=== PATIENT | female | born 1965 | race Caucasian/White ===

== ENCOUNTER → 2016-09-24 | Outpatient (CLI) | payer OTHER ==
[~2016-09-24] MED LIST: ATOR80TA PO; ATV/1 PO; CEPH-571 PO; CHOL1000 PO; ESCI1TAB10 PO; FENO145T26 PO; GLC/500 PO; IBUP-1050 PO; IMD/2 PO; LSN/10125 PO; METO-217 PO
[2016-09-24 13:47] LABS: ESTIMATED AVERAGE GLUCOSE 148 mg/dl; HA1C FLAG Normal (Normal)
[2016-09-24 14:10] LABS: BLOOD UREA NITROGEN 19 mg/dl (7-18); GLUCOSE 152 mg/dl (70-99)
[2016-09-24 14:11] LABS: BUN/CREATININE RATIO 11.8 (10-20); CALCIUM 9.2 mg/dl (8.5-10.1); CARBON DIOXIDE 22 mmol/L (21-32); CHLORIDE 105 mmol/L (98-107); CHOLESTEROL 143 mg/dl (0-200); POTASSIUM 4.3 mmol/L (3.5-5.1); SODIUM 138 mmol/L (136-145)
[2016-09-24 14:22] LABS: HDL CHOLESTEROL 36 mg/dl; TRIGLYCERIDES 431 mg/dl (0-150)
== END | disposition home or self-care (01) ==
LOC: C.LABPVFM 09:35
PROVIDERS: ATTEND Nurse Practitioner
DX: I10 Essential (primary) hypertension (principal); E78.2 Mixed hyperlipidemia; E78.1 Pure hyperglyceridemia; E55.9 Vitamin D deficiency, unspecified; E11.9 Type 2 diabetes mellitus without complications

== ENCOUNTER → 2016-09-28 | Outpatient (CLI) | payer OTHER ==
--- NOTE | 2016-09-28 09:43 | DIAGNOSTIC IMAGING REPORT ---
EXAMINATION: RENAL ULTRASOUND CLINICAL HISTORY: UPJ obstruction COMPARISON STUDY: CT scan dated 03/18/2014 FINDINGS: The right kidney measures 13.4 cm. The left kidney measures 11.3 cm. There is severe left-sided hydronephrosis and marked cortical thinning. This is progressive when compared with a September 2011 ultrasound. There are no renal masses. No bladder abnormalities are visualized. The left ureteral jet was not visualized.. There is increased hepatic echogenicity IMPRESSION : 1. Ultrasonographically normal right kidney 2. Severe left-sided hydronephrosis and cortical thinning. This is progressive when compared with a prior September 2011 study 3. Increased hepatic echogenicity, consistent with hepatic steatosis Electronically signed by: Narciso Delarosa M.D. 09/28/2016 9:41 AM Dictated Date/Time: 09/28/2016 9:39 AM
== END | disposition home or self-care (01) ==
LOC: C.ULTR 08:51
PROVIDERS: ATTEND Nurse Practitioner
DX: N28.9 Disorder of kidney and ureter, unspecified (principal); Q62.11 Congenital occlusion of ureteropelvic junction

== ENCOUNTER → 2016-10-09 | Outpatient (CLI) | payer OTHER ==
[2016-10-09 13:17] LABS: BLOOD UREA NITROGEN 18 mg/dl (7-18); BUN/CREATININE RATIO 16.4 (10-20); CALCIUM 8.8 mg/dl (8.5-10.1); CARBON DIOXIDE 23 mmol/L (21-32); CHLORIDE 101 mmol/L (98-107); GLUCOSE 233 mg/dl (70-99); PHOSPHORUS 3.9 mg/dl (2.5-4.9); POTASSIUM 4.2 mmol/L (3.5-5.1); SODIUM 134 mmol/L (136-145)
[2016-10-11 17:33] LABS: ALBUMIN 4.3 G/DL (3.8-4.8); GAMMA GLOBULIN 1.3 G/DL (0.8-1.7); TOTAL PROTEIN 7.5 G/DL (6.2-8.3)
== END | disposition home or self-care (01) ==
LOC: C.LABPVFM 10:15
PROVIDERS: ATTEND Nurse Practitioner
DX: N28.9 Disorder of kidney and ureter, unspecified (principal); G62.9 Polyneuropathy, unspecified; R26.89 Other abnormalities of gait and mobility

== ENCOUNTER → 2016-11-13 | Outpatient (CLI) | payer OTHER ==
[~2016-11-13] MED LIST changes: +GADAVIST IV PRN
--- NOTE | 2016-11-13 09:58 | DIAGNOSTIC IMAGING REPORT ---
MRI OF THE BRAIN WITHOUT AND WITH IV CONTRAST CLINICAL HISTORY: R90.89 Abnormal brain MRIR26.89 Poor [id number] Worsening headcap COMPARISON STUDY: CT dated 01/13/2010 TECHNIQUE: Utilizing a 1.5 Aishwarya magnet and dedicated coil, multiplanar, multiecho imaging of the brain was performed pre and postcontrast administration. IV administration of 8 mL of Gadavist contrast was uneventful. FINDINGS: Diffusion-weighted images show no evidence for acute ischemic process. Multiple foci of increased signal within the periventricular deep white matter regions. These are highly suspect for a demyelinating disorder. The involve the optic radiations the left and to lesser extent right cerebral hemisphere. Ventricular system is midline. Sella and parasellar regions are unremarkable. Internal artery canals are symmetric. IMPRESSION: 1. Multiple foci of increased signal within the periventricular deep white matter regions. 2. The appearance is highly suggestive of a demyelinating disorder such as multiple sclerosis. 3. No evidence for abnormal postcontrast enhancement. 4. No evidence for an acute ischemic insult. Electronically signed by: Xavi Bloom M.D. 11/13/2016 9:57 AM Dictated Date/Time: 11/13/2016 9:51 AM
== END | disposition home or self-care (01) ==
LOC: C.MRI 08:52
PROVIDERS: ATTEND Psychiatry & Neurology Neurology
DX: R51 Headache (principal); R26.89 Other abnormalities of gait and mobility; R90.89 Other abnormal findings on diagnostic imaging of central nervous system

== ENCOUNTER → 2016-11-27 | Outpatient (CLI) | payer OTHER ==
[~2016-11-27] MED LIST changes: -GADAVIST IV PRN
== END | disposition home or self-care (01) ==
LOC: C.LABPVFM 10:34
PROVIDERS: ATTEND Nurse Practitioner
DX: E53.8 Deficiency of other specified B group vitamins (principal)

== ENCOUNTER 2017-02-16 11:54 | Emergency (ER) | payer OTHER ==
[~2017-02-16] VITALS: Ht 154.9 cm; Wt 75.7 kg
[~2017-02-16 11:54] MED LIST changes: -CEPH-571 PO
[2017-02-16 11:59] VITALS: TEMP 36.7; Ht 154.9 cm; Wt 75.7 kg
[2017-02-16] MEDS ORDERED: ONDANSETRON 8 MG/54 ML D5W IV STA (12:31)
[2017-02-16] MEDS ORDERED: SODIUM CHLORIDE 0.9% 1000ML 1,000 ML IV STA ×2 (12:31→16:16)
[2017-02-16] MEDS ORDERED: MoRPHine SULFATE 4 MG/ML 1 ML CARP\\VIAL IV STA ×2 (12:31→14:36)
[2017-02-16] MEDS ORDERED: OPTIRAY 320 IV PRN (12:45)
[2017-02-16 12:50] LABS: BASO % 0.5 %; BASO ABS # 0.03 K/uL (0-0.2); COMPLETE YES; EOS % 1.9 %; HEMATOCRIT 38.6 % (37-47); IG% 0.3 %; LYMPH % 24.4 %; LYMPH ABS # 1.58 K/uL (1.2-3.4); MEAN CELL VOLUME 90.6 fL (80-100); MEAN CORPUSCULAR HEMOGLOBIN 31.2 pg (25-34); MEAN CORPUSCULAR HGB CONC 34.5 g/dl (32-36); MEAN PLATELET VOLUME 11.3 fL (7.4-10.4); MONO % 10.2 %; NEUT % 62.7 %; PLATELET COUNT 252 K/uL (130-400); RED BLOOD COUNT 4.26 M/uL (4.2-5.4); WHITE BLOOD COUNT 6.47 K/uL (4.8-10.8)
[2017-02-16 12:55] LABS: URINE APPEARANCE CLOUDY (CLEAR); URINE COLOR DK YELLOW; URINE EPITHELIAL CELL AUTO >30 /lpf (0-5); URINE NITRITE POS (NEG); URINE SPECIFIC GRAVITY 1.037 (1.000-1.030); UROBILINOGEN NEG (NEG); ZZUR CULT IF INDIC CLEAN CATCH YES
[2017-02-16 12:56] LABS: PROTHROMBIN TIME (PATIENT) 10.5 SECONDS (9.0-12.0)
[2017-02-16 12:58] LABS: MANUAL MICROSCOPIC REQUIRED? NO; REVIEW REQ? YES; URINE BILIRUBIN NEG (NEG)
[2017-02-16 13:04] LABS: BUN/CREATININE RATIO 22.3 (10-20); CALCIUM 10.1 mg/dl (8.5-10.1); CREATININE 0.93 mg/dl (0.60-1.20)
[2017-02-16 13:11] LABS: URINE MUCUS PRESENT (NONE PRSENT)
[2017-02-16] MEDS ORDERED: PIPERACILLIN/TAZOBACTAM 3.375 GM/100ML D5W IV STA (14:23)
[2017-02-16] MEDS ORDERED: PIPERACILL/TAZOBAC IV 3.375 GM in DEXTROSE 5% 100ML IV ONE (14:45)
--- NOTE | 2017-02-16 15:04 | EMERGENCY ROOM VISIT NOTE ---
History Report prepared by Shashank: Simon Santiago Under the Supervision of: Dr. Sharon Carvajal D.O. First contact with patient: 12:02 Chief Complaint: ABDOMINAL PAIN Stated Complaint: SEVERE ABDOMINAL PAIN, VOMITTING DIARRHEA Nursing Triage Summary: pt to the ED with c/o abd pain for over the past year and has been seeing Dr dwyer pt [place] the [place] and the pain got much worse and they came home early pt has lost over 30lbs per pt states pain is lower abd History of Present Illness The patient is a 51 year old female who presents to the Emergency Room with complaints of constant abdominal pain starting five days ago. She reports that her pain has been fluctuating between a 6/10 and a 10/10 in severity. The patient states that she has been experiencing nausea and a loss of appetite for over a year, which she had two upper GI colonoscopies with Tiff in the past for. She states that she typically follows up with Dr. Dwyer for her stomach problems. The patient states that she lost 30 pounds in the last 2 months. The patient states that she was on vacation in the [facility] when she started to feel nauseous after dinner, which led her to vomit. She states that she has been having constant abdominal pain radiating to both sides since, with the pain worse on the left side. She reports that the pain hurts with breathing and she is bloated. The patient states that she has been keeping fluids in, but has not been eating due to her constant lack of appetite and nausea. She states that she called her PCP yesterday and they were worried that her symptoms were due to diverticulitis and or pancreatitis and told her to report to the ED. The patient states that her last normal bowel movement was this morning. 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 The patient denies any changes in medications. Source of History: patient Onset: five days ago Position: abdomen Symptom Intensity: 6/10 to 10/10 Timing: constant Modifying Factors (Worsening): breathing Associated Symptoms: + nausea, + vomiting Review of Systems See HPI for pertinent positives & negatives. A total of 10 systems reviewed and were otherwise negative. Past Medical & Surgical Medical Problems: (1) Anxiety State Nos (2) Cervical Spinal Stenosis (3) Chronic Liver Dis Nec (4) Diab Josee Wo Compl, Type Ii Or Unspec Type, Uncontrolled (5) Hypertension Nos (6) Ovarian Cyst Nec/Nos (7) Retroperitoneal fibrosis Surgical Problems: (1) History of ureter stent (2) Hx of cholecystectomy Family History Heart disease Social History Smoking Status: Current Every Day Smoker Alcohol Use: none Marital Status: Housing Status: lives with family Occupation Status: employed Current/Historical Medications Scheduled Atorvastatin Calcium (Lipitor), 80 MG PO QAM Cephalexin (Keflex), 1 CAP PO TID Cholecalciferol (Vitamin D3), 5,000 UNITS PO QAM Escitalopram Oxalate (Lexapro), 20 MG PO HS Fenofibrate (Tricor), 145 MG PO QPM Hctz/Lisinopril (Lisinopril/Hctz 10/12.5 Mg), 1 TAB PO QPM Ibuprofen (Advil), 400 MG PO PRN Metformin Hcl (Glucophage), 500 MG PO QAM Metformin Hcl (Glucophage), 500 MG PO QPM Metoprolol Succinate (Toprol Xl), 50 MG PO QPM Scheduled PRN Loperamide Hcl (Imodium), 2 MG PO BID PRN for rn Lorazepam (Ativan), 0.5-1 MG PO BID PRN for prn Allergies Coded Allergies: No Known Allergies (Unverified , 05/18/16) Physical Exam Vital Signs Date Time Temp Pulse Resp B/P (MAP) Pulse Ox O2 Delivery O2 Flow Rate FiO2 02/16/17 17:50 89 16 100/60 95 02/16/17 16:59 90 16 104/62 95 02/16/17 16:39 95 16 102/67 96 02/16/17 16:15 100/62 02/16/17 16:00 94 16 88/65 94 02/16/17 13:59 104 16 117/58 95 02/16/17 11:59 36.7 107 18 105/64 97 Room Air Physical Exam GENERAL: alert, well appearing, well nourished, no distress, non-toxic EYE EXAM: normal conjunctiva, PERRL and EOM's grossly intact OROPHARYNX: no exudate, no erythema, lips, buccal mucosa, and tongue normal and mucous membranes are moist NECK: supple, no nuchal rigidity, no adenopathy, non-tender LUNGS: Clear to auscultation. Normal chest wall mechanics HEART: no murmurs, S1 normal and S2 normal ABDOMEN: Generalized abdominal discomfort worse on left side, abdomen soft, normo-active bowel sounds, no masses, no rebound or guarding. BACK: Back is symmetrical on inspection and there is no deformity, no midline tenderness, no CVA tenderness. SKIN: no rashes and no bruising UPPER EXTREMITIES: upper extremities are grossly normal. LOWER EXTREMITIES: No pitting edema. NEURO EXAM: Normal sensorium, cranial nerves II-XII grossly intact, normal speech, no gross weakness of arms, no gross weakness of legs. No drift. Finger to nose intact. Gross sensation intact. Medical Decision & Procedures ER Provider Diagnostic Interpretation: CT OF THE ABDOMEN AND PELVIS WITH CONTRAST CLINICAL HISTORY: Abdominal pain, nausea and vomiting. COMPARISON STUDY: CT of the abdomen and pelvis March 18, 2014 and renal ultrasound September 28, 2016. TECHNIQUE: Following IV administration of 70 mL of Optiray-320, axial images of the abdomen and pelvis were obtained from the lung bases to the proximal femurs. Images were reviewed in the axial, sagittal, and coronal planes. IV contrast was administered without complication. Oral contrast was administered. CT DOSE: 679.94 mGy.cm FINDINGS: There is no significant biliary ductal dilatation status post cholecystectomy. There is suspected fatty infiltration of the liver. Borderline splenomegaly is unchanged. There are calcified granulomas within the spleen. The left kidney is markedly atrophic. Left hydronephrosis shown on exam of September 28, 2016 has resolved. There is moderate left perinephric infiltration. There is compensatory hypertrophy of the right kidney. Note is again made of soft tissue thickening surrounding the mid to distal abdominal aorta and the bilateral common iliac arteries which is similar to prior exam. 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 The major mesenteric vessels appear patent although the inferior mesenteric artery is difficult to assess on this exam. There is no evidence for a bowel obstruction. The appendix is normal. There are scattered colonic diverticula without evidence for acute diverticulitis. No suspicious skeletal lesions are identified. The caliber and wall thickness of small and large bowel are normal. IMPRESSION: 1. No acute process within the abdomen or pelvis. 2. Marked left renal atrophy which was shown on prior exams. Interval resolution of left hydronephrosis since ultrasound of September 28, 2016. Compensatory hypertrophy of the right kidney. 3. No change in a rind of soft tissue encasing the mid to distal abdominal aorta and bilateral common iliac arteries since prior exams. This suggests retroperitoneal fibrosis. Electronically signed by: Pankaj Hinton M.D. 02/16/2017 3:32 PM Dictated Date/Time: 02/16/2017 3:21 PM Laboratory Results 02/16/17 12:08 Red Blood Count 4.26, Mean Corpuscular Volume 90.6, Mean Corpuscular Hemoglobin 31.2, Mean Corpuscular Hemoglobin Concent 34.5, Mean Platelet Volume 11.3, Neutrophils (%) (Auto) 62.7, Lymphocytes (%) (Auto) 24.4, Monocytes (%) (Auto) 10.2, Eosinophils (%) (Auto) 1.9, Basophils (%) (Auto) 0.5, Neutrophils # (Auto ) 4.06, Lymphocytes # (Auto) 1.58, Monocytes # (Auto) 0.66, Eosinophils # (Auto ) 0.12, Basophils # (Auto) 0.03 02/16/17 12:08 Test 02/16/17 12:08 02/16/17 13:00 White Blood Count 6.47 K/uL (4.8-10.8) Red Blood Count 4.26 M/uL (4.2-5.4) Hemoglobin 13.3 g/dL (12.0-16.0) Hematocrit 38.6 % (37-47) Mean Corpuscular Volume 90.6 fL (80-100) Mean Corpuscular Hemoglobin 31.2 pg (25-34) Mean Corpuscular Hemoglobin Concent 34.5 g/dl (32-36) Platelet Count 252 K/uL (130-400) Mean Platelet Volume 11.3 fL (7.4-10.4) Neutrophils (%) (Auto) 62.7 % Lymphocytes (%) (Auto) 24.4 % Monocytes (%) (Auto) 10.2 % Eosinophils (%) (Auto) 1.9 % Basophils (%) (Auto) 0.5 % Neutrophils # (Auto) 4.06 K/uL (1.4-6.5) Lymphocytes # (Auto) 1.58 K/uL (1.2-3.4) Monocytes # (Auto) 0.66 K/uL (0.11-0.59) Eosinophils # (Auto) 0.12 K/uL (0-0.5) Basophils # (Auto) 0.03 K/uL (0-0.2) RDW Standard Deviation 40.9 fL (36.4-46.3) RDW Coefficient of Variation 12.4 % (11.5-14.5) Immature Granulocyte % (Auto) 0.3 % Immature Granulocyte # (Auto) 0.02 K/uL (0.00-0.02) Prothrombin Time 10.5 SECONDS (9.0-12.0) Prothromb Time International Ratio 1.0 (0.9-1.1) Urine Color DK YELLOW Urine Appearance CLOUDY (CLEAR) Urine pH 5.0 (4.5-7.5) Urine Specific [place] 1.037 (1.000-1.030) Urine Protein 1+ (NEG) Urine Glucose (UA) NEG (NEG) Urine Ketones TRACE (NEG) Urine Occult Blood NEG (NEG) Urine Nitrite POS (NEG) Urine Bilirubin NEG (NEG) Urine Urobilinogen NEG (NEG) Urine Leukocyte Esterase SMALL (NEG) Urine WBC (Auto) 1-5 /hpf (0-5) Urine RBC (Auto) 0-4 /hpf (0-4) Urine Hyaline Casts (Auto) 1-5 /lpf (0-5) Urine Epithelial Cells (Auto) >30 /lpf (0-5) Urine Bacteria (Auto) NEG (NEG) Urine Renal Epithelial Cells /lpf (0-5) Urine Pathogenic Casts /lpf (0) Urine Mucus PRESENT (NONE PRSENT) Urine Yeast (Auto) (NONE PRSENT) Anion Gap 8.0 mmol/L (3-11) Est Creatinine Clear Calc Drug Dose 67.3 ml/min Estimated GFR () 83.1 Estimated GFR (Non- 71.7 BUN/Creatinine Ratio 22.3 (10-20) Calcium Level 10.1 mg/dl (8.5-10.1) Total Bilirubin 0.5 mg/dl (0.2-1) Aspartate Amino Transf (AST/SGOT) 26 U/L (15-37) Alanine Aminotransferase (ALT/SGPT) 51 U/L (12-78) Alkaline Phosphatase 21 U/L (45-117) Total Protein 7.6 gm/dl (6.4-8.2) Albumin 3.8 gm/dl (3.4-5.0) Globulin 3.8 gm/dl (2.5-4.0) Albumin/Globulin Ratio 1.0 (0.9-2) Lipase 314 U/L (73-393) Lactic Acid Level 1.3 mmol/L (0.4-2.0) Laboratory results per my review. Medications Administered Medications (Trade) Dose Ordered Sig/Christina Route Start Time Stop Time Status Last Admin Dose Admin Sodium Chloride 1,000 ml @ 999 mls/hr Q1H1M STAT IV 02/16/17 12:31 02/16/17 13:31 DC 02/16/17 12:36 999 MLS/HR Ondansetron HCl (Zofran 8mg Iv) 8 mg NOW STAT IV 02/16/17 12:31 02/16/17 12:33 DC 02/16/17 12:38 8 MG Morphine Sulfate (MoRPHine SULFATE INJ) 4 mg NOW STAT IV 02/16/17 12:31 02/16/17 12:33 DC 02/16/17 12:37 4 MG Morphine Sulfate (MoRPHine SULFATE INJ) 4 mg NOW STAT IV 02/16/17 14:36 02/16/17 14:37 DC 02/16/17 14:57 4 MG Piperacillin Sod/ Tazobactam Sod 3.375 gm/Dextrose 115 ml @ 230 mls/hr NOW ONCE IV 02/16/17 14:45 02/16/17 15:14 DC 02/16/17 14:58 230 MLS/HR Ketorolac Tromethamine (Toradol Inj) 30 mg NOW STAT IV 02/16/17 15:44 02/16/17 15:45 DC 02/16/17 16:03 30 MG Hydromorphone HCl (Dilaudid Inj) 0.5 mg NOW STAT IV 02/16/17 15:44 02/16/17 15:45 DC 02/16/17 16:42 0.5 MG Oxycodone/ Acetaminophen (Percocet 5-325mg Tab) 1 tab NOW ONCE PO 02/16/17 16:30 02/16/17 16:31 DC 02/16/17 17:03 1 TAB Sodium Chloride 1,000 ml @ 999 mls/hr Q1H1M STAT IV 02/16/17 16:16 02/16/17 17:16 DC 02/16/17 16:07 999 MLS/HR ED Course 1223: The patient was evaluated in room A12B. A complete history and physical exam was performed. 1231: Morphine Sulfate 4 mg IV, Ondansetron HCl 8 mg IV, Sodium Chloride 1000 ml @ 999 mls/hr IV. 1245: Ioversol 111 ml IV. 1423: Zosyn Iv 3375 gm IV. 1436: Morphine Sulfate 4 mg IV. 1445: Piperacillin Sod/ Tazobactam Sod 3375 gm/ Dextrose 115 ml @ 230 mls/hr IV. 1543: Patient updated on all results. States pain is still 7 out of 10. We'll try additional pain medications and reevaluate. Medical Decision Differential diagnoses includes but is not limited to gastritis, peptic ulcer disease, GERD, gallbladder disease, pancreatitis, small bowel obstruction, acute coronary syndrome, pericarditis, ischemic bowel, irritable bowel disease, irritable bowel syndrome, appendicitis, diverticulitis, malignancy, hernia, urinary tract infection, torsion, [/ectopic (if female)], perforation, trauma, infectious. Medication Reconciliation: I attest that I have personally reviewed the patient' s current medication list. Unclear etiology of last several months of patient's evolving GI symptoms including last several days of pain. Labs and imaging here reassuring tonight. Slight mention of perinephric stranding on the left on the body of the CT report not mentioned in the impression, given perhaps early UTI looking at suboptimal UA, we'll treat and cover as possible a sending urinary tract infection, however doubt this explains patient's ongoing GI symptoms over the course of the last 2 months. Doubt pyelonephritis. It may explain the worsening pain she's had over the last week ago. Patient with no active vomiting or diarrhea, vital signs stable, doubt bacteremia/sepsis. Patient advised to follow up closely with her GI specialist as well as her family doctor this week. Patient states she does have both Percocet as well as Bentyl at home that she has been using try and help control her pain. Discussed hydration, diet, symptoms to watch and return for, use of those medications, she verbalized understanding was agreeable with plan. Impression Primary Impression: Abdominal pain Additional Impression: Urinary tract infection Scribe Attestation The scribe's documentation has been prepared under my direction and personally reviewed by me in its entirety. I confirm that the note above accurately reflects all work, treatment, procedures, and medical decision making performed by me. Departure Information Dispostion Home / Self-Care Prescriptions Cephalexin (KEFLEX) 500 Mg Cap 1 CAP PO TID for 10 Days, #30 CAP Prov: Wei Sharon S., DO 02/16/17 Referrals Nila Burnette C.R.N.P (PCP) Patient Instructions My [facility] Additional Instructions Please follow up with your family doctor as well as your GI specialist. You may continue using the Bentyl as well as the Percocet you have at home. Please take the antibiotics as prescribed. If you develop any worsening pain, develop fevers or chills, vomiting, noticed a change in her bowel movements, have difficulty urinating, or any other new concerns, please return the emergency room. Problem Qualifiers Primary Impression: Abdominal pain Abdominal location: generalized Qualified Codes: R10.84 - Generalized abdominal pain Additional Impression: Urinary tract infection Urinary tract infection type: acute cystitis Hematuria presence: without hematuria Qualified Codes: N30.00 - Acute cystitis without hematuria
--- NOTE | 2017-02-16 15:33 | DIAGNOSTIC IMAGING REPORT ---
CT OF THE ABDOMEN AND PELVIS WITH CONTRAST CLINICAL HISTORY: Abdominal pain, nausea and vomiting. COMPARISON STUDY: CT of the abdomen and pelvis March 18, 2014 and renal ultrasound September 28, 2016. TECHNIQUE: Following IV administration of 70 mL of Optiray-320, axial images of the abdomen and pelvis were obtained from the lung bases to the proximal femurs. Images were reviewed in the axial, sagittal, and coronal planes. IV contrast was administered without complication. Oral contrast was administered. CT DOSE: 679.94 mGy.cm FINDINGS: There is no significant biliary ductal dilatation status post cholecystectomy. There is suspected fatty infiltration of the liver. Borderline splenomegaly is unchanged. There are calcified granulomas within the spleen. The left kidney is markedly atrophic. Left hydronephrosis shown on exam of September 28, 2016 has resolved. There is moderate left perinephric infiltration. There is compensatory hypertrophy of the right kidney. Note is again made of soft tissue thickening surrounding the mid to distal abdominal aorta and the bilateral common iliac arteries which is similar to prior exam. 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 The major mesenteric vessels appear patent although the inferior mesenteric artery is difficult to assess on this exam. There is no evidence for a bowel obstruction. The appendix is normal. There are scattered colonic diverticula without evidence for acute diverticulitis. No suspicious skeletal lesions are identified. The caliber and wall thickness of small and large bowel are normal. IMPRESSION: 1. No acute process within the abdomen or pelvis. 2. Marked left renal atrophy which was shown on prior exams. Interval resolution of left hydronephrosis since ultrasound of September 28, 2016. Compensatory hypertrophy of the right kidney. 3. No change in a rind of soft tissue encasing the mid to distal abdominal aorta and bilateral common iliac arteries since prior exams. This suggests retroperitoneal fibrosis. Electronically signed by: Pankaj Hinton M.D. 02/16/2017 3:32 PM Dictated Date/Time: 02/16/2017 3:21 PM
[2017-02-16] MEDS ORDERED: KETOROLAC TROMETHAMINE 30 MG/ML VIAL IV STA (15:44)
[2017-02-16] MEDS ORDERED: HYDROmorphone INJ 0.5 MG/0.5 ML SYR IV STA (15:44)
[2017-02-16] MEDS ORDERED: CEPH-571 PO (16:12)
[2017-02-16] MEDS ORDERED: OXYCODONE/ACETAMINOPHEN 5-325 TAB PO ONE (16:30)
[2017-02-16 17:50] VITALS: BP 100/60; PULSE 89; O2SAT 95
== END 2017-02-16 17:52 | disposition home or self-care (01) ==
LOC: C.EDB 11:56 → C.EDA 17:52
DX: R10.84 Generalized abdominal pain (principal); N39.0 Urinary tract infection, site not specified; Z90.49 Acquired absence of other specified parts of digestive tract; Z90.79 Acquired absence of other genital organ(s); F41.9 Anxiety disorder, unspecified; K76.9 Liver disease, unspecified; E11.9 Type 2 diabetes mellitus without complications; I10 Essential (primary) hypertension; F17.210 Nicotine dependence, cigarettes, uncomplicated; Z79.899 Other long term (current) drug therapy

== ENCOUNTER → 2017-02-18 | Outpatient (CLI) | payer OTHER ==
[~2017-02-18] MED LIST changes: +CEPH-571 PO
[2017-02-18 17:50] LABS: THYROID STIMULATING HORMONE < 0.005 uIu/ml (0.300-4.500)
[2017-02-19 06:23] LABS: ESTIMATED AVERAGE GLUCOSE 151 mg/dl; HA1C FLAG Normal (Normal)
== END | disposition home or self-care (01) ==
LOC: C.LABPVFM 12:05
PROVIDERS: ATTEND Nurse Practitioner
DX: E11.9 Type 2 diabetes mellitus without complications (principal); R63.4 Abnormal weight loss; R10.9 Unspecified abdominal pain

== ENCOUNTER → 2017-02-25 | Outpatient (CLI) | payer OTHER ==
[2017-02-26 14:23] LABS: MICROSOMAL AB 2 IU/ML (<9); THYROGLOBULIN 61.6 NG/ML (2.8-40.9)
== END | disposition home or self-care (01) ==
LOC: C.LABPVFM 10:29
PROVIDERS: ATTEND Nurse Practitioner
DX: R63.4 Abnormal weight loss (principal); E05.90 Thyrotoxicosis, unspecified without thyrotoxic crisis or storm

== ENCOUNTER → 2017-02-28 | Outpatient (CLI) | payer OTHER ==
[~2017-02-28] MED LIST changes: -CEPH-571 PO
--- NOTE | 2017-02-28 13:02 | DIAGNOSTIC IMAGING REPORT ---
THYROID ULTRASONOGRAPHY CLINICAL HISTORY: HYPERTHYROIDISM COMPARISON STUDY: No previous studies for comparison. FINDINGS: The right lobe measures 56 x 20 x 16 mm. The left lobe measures 46 x 18 x 18 mm. Both lobes are markedly heterogeneous in echotexture. Multiple bilateral hypoechoic thyroid nodules are suspected although these are difficult to distinguish from the patient's heterogeneous gland. The largest on the right measures 12 mm. The largest on the left measures 8 mm. No single nodule demonstrates highly suspicious architectural characteristics. IMPRESSION: Multinodular thyroid goiter. Diffusely inhomogeneous thyroid echotexture. Electronically signed by: Narciso Delarosa M.D. 02/28/2017 1:00 PM Dictated Date/Time: 02/28/2017 12:58 PM
== END | disposition home or self-care (01) ==
LOC: C.ULTRBC 12:17
PROVIDERS: ATTEND Nurse Practitioner
DX: R63.4 Abnormal weight loss (principal); E03.9 Hypothyroidism, unspecified; E04.8 Other specified nontoxic goiter

== ENCOUNTER → 2017-03-04 | Outpatient (CLI) | payer OTHER ==
--- NOTE | 2017-03-04 09:42 | DIAGNOSTIC IMAGING REPORT ---
CHEST 2 VIEWS ROUTINE CLINICAL HISTORY: R63.4 Weight lossR53.83 Fatigue COMPARISON STUDY: Chest CT dated 01/05/2014 FINDINGS: The heart is normal in size. There are calcified right hilar and mediastinal lymph nodes, likely postinflammatory. There is no focal pulmonary consolidation. There are no pleural effusions. There is no failure.[ IMPRESSION: 1. Calcified lymph nodes likely postinflammatory. No evidence of acute parenchymal consolidation. Electronically signed by: Narciso Delarosa M.D. 03/04/2017 9:41 AM Dictated Date/Time: 03/04/2017 9:39 AM
== END | disposition home or self-care (01) ==
LOC: C.RADPV 09:25
PROVIDERS: ATTEND Nurse Practitioner
DX: R53.83 Other fatigue (principal); R63.4 Abnormal weight loss

== ENCOUNTER → 2017-03-07 | Outpatient (CLI) | payer OTHER ==
[2017-03-07 17:53] LABS: ALT/SGPT 31 U/L (12-78); AST/SGOT 18 U/L (15-37); BLOOD UREA NITROGEN 12 mg/dl (7-18); BUN/CREATININE RATIO 17.8 (10-20); CALCIUM 9.3 mg/dl (8.5-10.1); CARBON DIOXIDE 22 mmol/L (21-32); CHLORIDE 112 mmol/L (98-107); GLUCOSE 184 mg/dl (70-99); POTASSIUM 3.7 mmol/L (3.5-5.1); SODIUM 142 mmol/L (136-145)
[2017-03-07 18:03] LABS: ALKALINE PHOSPHATASE 28 U/L (45-117); THYROID STIMULATING HORMONE < 0.005 uIu/ml (0.300-4.500)
[2017-03-12 19:39] LABS: TSI 507 % baseline (<140)
== END | disposition home or self-care (01) ==
LOC: C.LABPVFM 11:15
PROVIDERS: ATTEND Nurse Practitioner
DX: R63.4 Abnormal weight loss (principal); E05.90 Thyrotoxicosis, unspecified without thyrotoxic crisis or storm

== ENCOUNTER → 2017-07-05 | Outpatient (CLI) | payer OTHER ==
[2017-07-05 12:51] LABS: BLOOD UREA NITROGEN 27 mg/dl (7-18); BUN/CREATININE RATIO 22.7 (10-20); CALCIUM 9.5 mg/dl (8.5-10.1); CARBON DIOXIDE 26 mmol/L (21-32); CHLORIDE 106 mmol/L (98-107); GLUCOSE 151 mg/dl (70-99); POTASSIUM 4.3 mmol/L (3.5-5.1); SODIUM 139 mmol/L (136-145)
[2017-07-05 12:54] LABS: CHOLESTEROL/HDL RATIO 3.1
== END | disposition home or self-care (01) ==
LOC: C.LABPVFM 08:21
PROVIDERS: ATTEND Nurse Practitioner
DX: R63.4 Abnormal weight loss (principal); E05.90 Thyrotoxicosis, unspecified without thyrotoxic crisis or storm; E78.2 Mixed hyperlipidemia

== ENCOUNTER → 2017-11-25 | Outpatient (CLI) | payer OTHER ==
[2017-11-26 06:23] LABS: HEMOGLOBIN A1C 7.2 % (4.5-5.6)
== END | disposition home or self-care (01) ==
LOC: C.LABPVFM 16:01
PROVIDERS: ATTEND Nurse Practitioner
DX: E11.9 Type 2 diabetes mellitus without complications (principal); E53.8 Deficiency of other specified B group vitamins

== ENCOUNTER 2019-08-08 02:34 | Inpatient (IN) ==
[2019-08-08] MEDS ORDERED: fentaNYL citrate 100 MCG/2 ML VIAL IV STA ×2 (02:49→04:02)
[2019-08-08 03:16] LABS: Basophils # (auto) 0.05 K/uL (0-0.2); Basophils % (auto) 0.5 %; Eosinophils # (auto) 0.17 K/uL (0-0.5); Eosinophils % (auto) 1.8 %; Hematocrit (blood only) 41.2 % (37-47); Hemoglobin 14.3 g/dL (12.0-16.0); Immature Granulocytes # (auto) 0.09 K/uL (0.00-0.02); Lymphocytes # (auto) 1.68 K/uL (1.2-3.4); Lymphocytes % (auto) 17.8 %; Mean Corpuscular Hgb Conc 34.7 g/dL (32-36); Mean Corpuscular Volume 89.4 fL (80-100); Mean Platelet Volume 11.5 fL (7.4-10.4); Monocytes # (auto) 0.62 K/uL (0.11-0.59); Monocytes % (auto) 6.6 %; Neutrophils # (auto) 6.81 K/uL (1.4-6.5); Neutrophils % (auto) 72.3 %; Platelet Count 205 K/uL (130-400); RDW Coefficient of Variation 13.9 % (11.5-14.5); RDW Standard Deviation 45.7 fL (36.4-46.3); Red Blood Count 4.61 M/uL (4.2-5.4); White Blood Count 9.42 K/uL (4.8-10.8)
[2019-08-08 03:54] LABS: Albumin Globulin Ratio 0.9 (0.9-2); Albumin Level 3.7 gm/dl (3.4-5.0); BUN Creatinine Ratio 15.3 (10-20); Bilirubin,Total 0.4 mg/dl (0.2-1); Calcium 8.8 mg/dl (8.5-10.1); Creatinine Clr Calc Pharmacy 56.6 ml/min; Est GFR (African American) 64.7; Est GFR (Non-African American) 55.8; Total Protein 7.7 gm/dl (6.4-8.2); Troponin I 0.365 ng/ml (0-0.045)
[2019-08-08] MEDS ORDERED: HEPARIN SODIUM/DEXTROSE 25,000 UNITS/500 ML BAG IV SCH (04:00)
[2019-08-08] MEDS ORDERED: HEPARIN SOD (PORCINE) 1000 UNIT/ML 10 ML VIAL ONE (04:30)
[2019-08-08] MEDS ORDERED: PROMETHAZINE HCL 12.5 MG in SODIUM CHLORIDE 0.9% 50 ML IV PRN (04:42)
[2019-08-08] MEDS ORDERED: TRAMADOL HCL 50 MG TABLET PO PRN (04:42)
[2019-08-08 04:57] LABS: Prothrombin Time 10.1 Seconds (9.0-12.0)
[2019-08-08] MEDS ORDERED: OPTIRAY 320 125ml IV PRN (04:57)
[2019-08-08 05:16] LABS: Partial Thromboplastin Ratio 0.9
[2019-08-08 05:18] LABS: Thyroid Stimulating Hormone 4.28 uIu/ml (0.300-4.500); Troponin I 0.595 ng/ml (0-0.045)
--- NOTE | 2019-08-08 05:25 | History & Physical Report ---
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 Cardiology consult RE ACS Check lipid profile hold home lisinopril for now given borderline hyperkalemia, resume once serum potassium less than 5 Basal insulin, ISS BG goal [id number], carb count coverage, diabetic education DVT prophylaxis. Heparin Full code History of Present Illness Chief Complaint: Chest/back pain Primary Care Provider: Ewa Mohan, History obtained from patient, family, and records. 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 2 nights ago patient noted chest discomfort going to her throat and back between the shoulder blades, intermittent symptoms without other associated symptoms. No prior episodes. This morning, patient roused from sleep by worsening discomfort with some S OB, diaphoresis. Chest pain not pleuritic. Some improvement with aspirin and nitro spray administered by EMS. Patient brought to the ER by EMS. 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, home [employer] business Allergies Allergy/AdvReac Type Severity Reaction Status Date / Time No Known Allergies Allergy Unverified 08/08/19 02:58 Home Medications Home Medications Medication Instructions Recorded Confirmed Type metformin 1,000 mg PO QAM 12/20/18 08/08/19 History metoprolol succinate [Toprol XL] 50 mg PO HS 12/20/18 08/08/19 History methimazole 10 mg tablet 20 mg PO QAM #60 tab 02/26/19 08/08/19 Rx lisinopril 10 mg PO DAILY 08/08/19 08/08/19 History sertraline 200 mg PO DAILY 08/08/19 08/08/19 History Past Med/Surg History Medical History Graves disease Surgical History Hx of cholecystectomy (Resolved) Family History Father Myocardial infarction Social History Preferred Language: [place] Feels Safe at Home: Yes Smoking Status: Current every day smoker Review of Systems Review of Systems: As per HPI, all 10 systems reviewed, all other ROS negative Physical Exam Physical Exam: GENERAL: Slightly uncomfortable, obese, no respiratory distress SKIN: Normal color, warm HEENT: [place] palpebral conjunctivae, no ptosis, dry buccal mucosa NECK : Supple, no tenderness CHEST : CTA, no tenderness HEART : RRR, no obvious murmurs ABDOMEN: Some distention, nontender EXTREMITIES : No LE swelling/tenderness, no other conspicuous deformities noted NEUROLOGIC : Coherent, no facial asymmetry, no other gross focality Results & Data Vital Signs (Past 12 Hours) Vital Signs Temp Pulse Pulse Resp BP BP Pulse Ox 08/08/19 03:35 85 18 139/95 97 08/08/19 03:15 97 08/08/19 03:14 97 08/08/19 02:41 36.7 C 89 16 159/99 H 97 Laboratory Results Laboratory Results WBC 9.42 K/uL (4.8-10.8) 08/08/19 02:54 RBC 4.61 M/uL (4.2-5.4) 08/08/19 02:54 Hgb 14.3 g/dL (12.0-16.0) 08/08/19 02:54 Hct 41.2 % (37-47) 08/08/19 02:54 MCV 89.4 fL (80-100) 08/08/19 02:54 MCH 31.0 pg (25-34) 08/08/19 02:54 MCHC 34.7 g/dL (32-36) 08/08/19 02:54 RDW Std Deviation 45.7 fL (36.4-46.3) 08/08/19 02:54 RDW Coeff of Carline 13.9 % (11.5-14.5) 08/08/19 02:54 Plt Count 205 K/uL (130-400) 08/08/19 02:54 MPV 11.5 fL (7.4-10.4) H 08/08/19 02:54 Immature Gran % (Auto) 1.0 % 08/08/19 02:54 Neut % (Auto) 72.3 % 08/08/19 02:54 Lymph % (Auto) 17.8 % 08/08/19 02:54 [place] % (Auto) 6.6 % 08/08/19 02:54 Eos % (Auto) 1.8 % 08/08/19 02:54 Baso % (Auto) 0.5 % 08/08/19 02:54 Immature Gran # (Auto) 0.09 K/uL (0.00-0.02) H 08/08/19 02:54 Neut # (Auto) 6.81 K/uL (1.4-6.5) H 08/08/19 02:54 Lymph # (Auto) 1.68 K/uL (1.2-3.4) 08/08/19 02:54 [place] # (Auto) 0.62 K/uL (0.11-0.59) H 08/08/19 02:54 Eos # (Auto) 0.17 K/uL (0-0.5) 08/08/19 02:54 Baso # (Auto) 0.05 K/uL (0-0.2) 08/08/19 02:54 PT 10.1 Seconds (9.0-12.0) 08/08/19 04:39 INR 1.0 (0.9-1.1) 08/08/19 04:39 APTT 25.0 Seconds (21.0-31.0) 08/08/19 02:54 PTT Ratio 0.9 08/08/19 02:54 Sodium 134 mmol/L (136-145) L 08/08/19 02:54 Potassium 5.0 mmol/L (3.5-5.1) 08/08/19 04:39 Chloride 105 mmol/L (98-107) 08/08/19 02:54 Carbon Dioxide 22 mmol/L (21-32) 08/08/19 02:54 Anion Gap 7.0 (3-11) 08/08/19 02:54 BUN 17 mg/dl (7-18) 08/08/19 02:54 Creatinine 1.13 mg/dl (0.6-1.2) 08/08/19 02:54 Est Cr Clr Drug Dosing 56.6 ml/min 08/08/19 02:54 Est GFR ( Amer) 64.7 08/08/19 02:54 Est GFR (Non-Af Amer) 55.8 08/08/19 02:54 BUN/Creatinine Ratio 15.3 (10-20) 08/08/19 02:54 Glucose 280 mg/dl (70-99) H 08/08/19 02:54 Calcium 8.8 mg/dl (8.5-10.1) 08/08/19 02:54 Magnesium mg/dl (1.8-2.4) 08/08/19 02:54 Total Bilirubin 0.4 mg/dl (0.2-1) 08/08/19 02:54 AST U/L (15-37) 08/08/19 02:54 ALT 40 U/L (12-78) 08/08/19 02:54 Alkaline Phosphatase 35 U/L (45-117) L 08/08/19 02:54 Troponin I 0.595 ng/ml (0-0.045) H* 08/08/19 04:39 Total Protein 7.7 gm/dl (6.4-8.2) 08/08/19 02:54 Albumin 3.7 gm/dl (3.4-5.0) 08/08/19 02:54 Globulin 4.0 gm/dl (2.5-4.0) 08/08/19 02:54 Albumin/Globulin Ratio 0.9 (0.9-2) 08/08/19 02:54 Lipase 273 U/L (73-393) 08/08/19 02:54 TSH 4.280 uIu/ml (0.300-4.500) 08/08/19 04:[address] chest initial read: No PE. No aortic aneurysm or dissection. Multivessel c oronary calcifications without cardiomegaly. Calcified granulomas of the spleen, calcified lymph nodes involving the mediastinal and right hilar regions. EKG as per my interpretation rate 100, LAD, LAFB, ST depression inferior leads
[2019-08-08 05:28] LABS: Magnesium 1.6 mg/dl (1.8-2.4)
[2019-08-08] MEDS ORDERED: INSULIN GLARGINE SOLOSTAR 100 UNITS/ML 3 ML PEN SC STA (05:28)
[2019-08-08] MEDS ORDERED: METOPROLOL TARTRATE 25 MG TAB PO STA (05:35)
[2019-08-08] MEDS ORDERED: NITROGLYCERIN 2% OINTMENT 30GM TUBE EXT STA (06:02)
[2019-08-08] MEDS: MoRPHine SULFATE 4 MG/ML 1 ML CARP\\VIAL IV PRN ×2 (06:09→10:05)
--- NOTE | 2019-08-08 06:53 | XRay Report ---
XR chest 1V portable CLINICAL HISTORY: 53 years-old Female presenting with Chest Pain. TECHNIQUE: Portable upright AP view of the chest was obtained. COMPARISON: 12/20/2018. FINDINGS: Atherosclerosis of the aortic arch. Cardiac silhouette borderline enlarged. Coronary artery stents or calcification noted. Mild pulmonary vascular prominence similar to prior. No focal opacity. No large effusion or pneumothorax. Osseous structures normal. Upper abdomen normal. IMPRESSION: 1. Borderline cardiomegaly. No other convincing evidence of acute cardiopulmonary disease. ACT 112: Negative or not required by law. Electronically signed by: Coy Mcmanus M.D. 08/08/2019 6:52 AM
--- NOTE | 2019-08-08 07:22 | CT Scan Report ---
CT angio chest dissec wo/w con CLINICAL HISTORY: 53 years-old Female presenting with chest and back pain, clinical concern for disse ction. TECHNIQUE: Multidetector CT angiography of the chest was performed before and after the administratio n of intravenous contrast. 3-D volumetric and/or maximum intensity projection (MIP) images were subse quently reconstructed for review. IV contrast: 119 mL of Optiray 320. One or more dose lowering techn iques were used consistent with the principles of ALARA (as low as reasonably achievable), including automatic exposure control, mA or kV adjustment to individual patient size, and/or use of iterative r econstruction. COMPARISON: Chest CT from 01/13/2014. CT DOSE (mGy.cm): The estimated cumulative dose is 968.71 mGy.cm. FINDINGS: Unindentured Apprentice topogram: Cholecystectomy clips. Vasculature: The study is adequate for assessment of the aorta. Precontrast imaging demonstrates no evidence of in tramural hematoma. Atherosclerosis of the aorta. Postcontrast imaging demonstrates no evidence of dis section, penetrating ulcer, or aneurysm. Allowing for timing of the contrast bolus, no gross evidence of a filling defect within the pulmonary arteries to suggest embolus. Main pulmonary artery is not e nlarged. No flattening of the interventricular septum. No intracardiac filling defect. No reflux of c ontrast into the hepatic veins. Remaining chest: Soft tissues: Normal thyroid and thoracic inlet. Calcified mediastinal and right hilar lymph nodes in dicate a history of chronic granulomatous disease. Normal heart size. Coronary artery calcification. No pericardial or pleural effusion. Hepatic steatosis. Atrophy of the left kidney. Calcifications in the spleen also relate to a history of chronic granulomatous disease. Lungs and airways: No pneumothorax. Central airways patent. Pulmonary arteries are not significantly enlarged relative to adjacent bronchi. No interlobular septal thickening. Minimal patchy groundglass opacities in the anterior left upper lobe. Branching high density material in the superior segment of the right lower lobe could relate to chronic granulomatous disease versus embolic material. Musculoskeletal: Degenerative changes of the spine. IMPRESSION: 1. No evidence of acute aortic injury. 2. Minimal patchy groundglass infiltrates in the anterior left upper lobe concerning for developing infectious or inflammatory infiltrate. Consider follow-up. 3. Evidence of old granulomatous disease. 4. Hepatic steatosis. ACT 112: Negative or not required by law. Electronically signed by: Coy Mcmanus M.D. 08/08/2019 7:21 AM
--- NOTE | 2019-08-08 07:41 | Emergency Department Note ---
Entered by Cassy Hughes acting as a scribe for Ivy Abbott DO History of Present Illness General Chief complaint: Chest Pain Stated complaint: chest pain, back pain Time Seen by Provider: 08/08/19 02:38 Source: patient History of Present Illness Onset (ago): day(s) 1 Location: chest Radiation: back (in between shoulder blades) and other (throat ) Pain Consistency: + other (waxing and waning ) Relieved By: + none Exacerbated By: + none Associated symptoms: + diaphoresis, + nausea/vomiting (positive nausea; negative vomiting ) and + other (negative leg cramping; negative leg swelling); no shortness of breath Treatments prior to arrival: other (nitro) The patient is a 53 year old female who presents to the Emergency Room with complaints of waxing and waning chest pain that began 1 day prior to arrival. The patient states that her pain radiates into her throat and in between her shoulder blades. She states that her pain resolved on its own for approximately 5 or 6 hours before returning and waking her up from her sleep. The patient states that nothing relieves or exacerbates her pain. The patient reports nausea and sweating during this time, but states that this may be due to her nerves. The patient denies shortness of breath, leg cramping, and leg swelling at this time. The patient states that she was given 3 of nitro by EMS but states that this did not relieve her symptoms. The patient was also given aspirin by EMS. She reports increased stress recently as her dog has had repeated surgeries.The patient denies a personal history of reflux and cardiac problems, but states quinn t her father has a history of an AZ with stents placed. Home Medications Home Medications Medication Instructions Recorded Confirmed Type metformin 1,000 mg PO QAM 12/20/18 08/08/19 History metoprolol succinate [Toprol XL] 50 mg PO HS 12/20/18 08/08/19 History methimazole 10 mg tablet 20 mg PO QAM #60 tab 02/26/19 08/08/19 Rx lisinopril 10 mg PO DAILY 08/08/19 08/08/19 History sertraline 200 mg PO DAILY 08/08/19 08/08/19 History Allergies Allergy/AdvReac Type Severity Reaction Status Date / Time No Known Allergies Allergy Unverified 08/08/19 02:58 Past Med/Surg History Medical History Graves disease Surgical History Hx of cholecystectomy (Resolved) Family History Father Myocardial infarction Social History Preferred Language: Chinese Communication Ability: Effective Still Operator Gin Required: No Beliefs That Will Affect Care: None Current Living Situation: Spouse Feels Safe at Home: Yes Smoking Status: Current every day smoker Tobacco Type: cigarettes ; Cigarettes Per Day: 10 ; Tobacco Cessation Education Requested by Patient: No Hx Alcohol Use: No Hx Substance Use: No Review of Systems See HPI for pertinent positives & negatives. and A total of 10 systems reviewed and were otherwise negative Physical Exam Vital Signs Vital Signs - 24 hr 08/08/19 02:41 08/08/19 03:14 08/08/19 03:15 Temperature 36.7 C Temperature Source Oral Pulse Rate 89 Pulse Rate [Finger] Pulse Rhythm Regular Pulse Strength Normal Respiratory Rate 16 Respiratory Effort / Characteristics Non-Labored Spontaneous Respiratory Depth Normal Respiratory Pattern Regular Blood Pressure 159/99 H Blood Pressure [Left Arm] Blood Pressure Mean 119 Blood Pressure Mean [Left Arm] Blood Pressure Position Sitting Pulse Oximetry 97 97 97 Oxygen Delivery Method Room Air Room Air Room Air Sepsis Recent Fever Within 48 Hours No Sepsis New/Unexplained Change in Mental Status No Sepsis Action Taken by Nursing No Action Required 08/08/19 03:35 Temperature Temperature Source Pulse Rate Pulse Rate [Finger] 85 Pulse Rhythm Pulse Strength Respiratory Rate 18 Respiratory Effort / Characteristics Non-Labored Spontaneous Respiratory Depth Normal Respiratory Pattern Blood Pressure Blood Pressure [Left Arm] 139/95 Blood Pressure Mean Blood Pressure Mean [Left Arm] 109 Blood Pressure Position Pulse Oximetry 97 Oxygen Delivery Method Room Air Sepsis Recent Fever Within 48 Hours Sepsis New/Unexplained Change in Mental Status Sepsis Action Taken by Nursing HEENT: Head - normocephalic and atraumatic Pupils are equal, round, and reactive to light. Extraocular eye muscles are intact, and sclera are anicteric. Nose - moist nasal mucosa without discharge. Mouth - moist buccal mucosa. Oropharynx is nonerythematous and there is no tonsillar exudate or edema noted. Neck: Supple; no JVD, nuchal rigidity, cervical lymphadenopathy. Heart: Regular rate and rhythm. There is a normal S1 and S2 with no murmurs, clicks, or gallops appreciated. Lungs: Clear to auscultation bilaterally with no wheezes, rales, or rhonchi. Abdomen: Soft, completely nontender, nondistended, with good bowel sounds. There are no palpable pulsatile masses or hepatosplenomegaly. There is no guarding, rigidity, or rebound noted. Extremities: No evidence of cyanosis, clubbing, or edema. There are easily palpable peripheral pulses. Skin: warm and dry with good turgor and no rashes. Course Course 0242: Past medical records reviewed. The patient was evaluated in room B6. A complete history and physical exam was performed. An IV lock was initiated and labs were drawn as above. An order was placed for continuous cardiac monitoring. The patient was on the monitor in normal sinus rhythm at a rate of 87. 0250: Ordered Fentanyl Citrate 50mcg IV. 0358: Upon reevaluation, the patient is still having pain and will be getting more Fentanyl. 0359: [facility] for further evaluation. 0405:IV fentanyl-75 mcg And IV heparin bolus and drip 0415: The patient is resting at this time. I explained that we would be starting her on heparin. She remains hemodynamically stable. Administered Medications Atorvastatin Calcium (Lipitor) 80 mg PO [facility] Stop: 09/07/19 08:59 Last Admin: 08/08/19 07:48 Dose: 80 mg Documented by: [id number] Lorazepam (Ativan) 0.5 mg in 1 mls @ 1 mls/min IV Q4H PRN PRN Reason: Anxiety/Agitation Stop: 09/07/19 04:41 Last Admin: 08/08/19 11:41 Dose: 1 mls/min Documented by: [id number] Promethazine HCl 12.5 mg/ (Sodium Chloride) 50.5 mls @ 202 mls/hr IV Q6H PRN PRN Reason: Nausea And Vomiting Stop: 09/07/19 04:41 Last Infusion: 08/08/19 17:28 Dose: 0 mls/hr Documented by: [id number] Admin: 08/08/19 17:03 Dose: 202 mls/hr Documented by: [id number] Insulin Aspart (Novolog Flexpen) 0 units SC ACHS [facility]KA Stop: 09/07/19 11:29 Last Admin: 08/08/19 20:08 Dose: 1 units Documented by: [id number] Cosigned by: [id number] Admin: 08/08/19 17:51 Dose: 2 units Documented by: [id number] Cosigned by: [id number] Admin: 08/08/19 12:15 Dose: 2 units Documented by: [id number] Cosigned by: [id number] Insulin Glargine (Lantus Solostar Pen) 13 units SC BID [facility]KA Stop: 09/07/19 20:59 Last Admin: 08/08/19 20:07 Dose: 13 units Documented by: [id number] Cosigned by: [id number] Ioversol (Optiray 320 125ml) 119 ml IV ONCE PRN PRN Reason: Interaction Checking Stop: 08/12/19 04:56 Last Admin: 08/08/19 04:58 Dose: 119 ml Documented by: [id number] Lisinopril (Zestril) 10 mg PO DAILY [facility] Stop: 09/07/19 08:59 Last Admin: 08/08/19 07:48 Dose: 10 mg Documented by: [id number] Methimazole (Tapazole) 20 mg PO QAM [facility] Stop: 09/07/19 08:59 Last Admin: 08/08/19 07:48 Dose: 20 mg Documented by: [id number] Metoprolol Tartrate (Lopressor) 12.5 mg PO Q6 [facility] Stop: 09/07/19 11:59 Last Admin: 08/08/19 17:51 Dose: 12.5 mg Documented by: [id number] Admin: 08/08/19 12:29 Dose: Not Given Documented by: [id number] Morphine Sulfate (Morphine Sulfate) 4 mg IV Q4H PRN PRN Reason: Pain Stop: 08/22/19 04:41 Last Admin: 08/08/19 10:05 Dose: 4 mg Documented by: [id number] Admin: 08/08/19 06:09 Dose: 4 mg Documented by: [id number] Sertraline HCl (Zoloft) 200 mg PO DAILY [facility] Stop: 09/07/19 08:59 Last Admin: 08/08/19 07:48 Dose: 200 mg Documented by: [id number] Discontinued Medications Fentanyl Citrate (Fentanyl Citrate) 50 mcg IV NOW STA Stop: 08/08/19 02:50 Last Admin: 08/08/19 03:34 Dose: 50 mcg Documented by: [id number] Fentanyl Citrate (Fentanyl Citrate) 75 mcg IV NOW STA Stop: 08/08/19 04:03 Last Admin: 08/08/19 04:30 Dose: 75 mcg Documented by: [id number] Fentanyl Citrate (Fentanyl Citrate) Confirm Administered Dose 100 mcg .ROUTE .STK-MED ONE Stop: 08/08/19 12:48 Last Admin: 08/08/19 14:32 Dose: 100 mcg Documented by: [id number] Fentanyl Citrate (Fentanyl Citrate) Confirm Administered Dose 100 mcg .ROUTE .STK-MED ONE Stop: 08/08/19 14:09 Last Admin: 08/08/19 14:34 Dose: Not Given Documented by: [id number] Heparin Sodium (Porcine) (Heparin Iv Bolus) Confirm Administered Dose 10,000 units .ROUTE .STK-MED ONE Stop: 08/08/19 04:31 Last Admin: 08/08/19 05:32 Dose: 5,000 units Documented by: [id number] Cosigned by: [id number] Heparin Sodium (Porcine) (Heparin Iv Bolus (Crop Grain Or Livestock Farmer Use Only)) Confirm Administered Dose 10,000 units .ROUTE .STK-MED ONE Stop: 08/08/19 12:48 Last Admin: 08/08/19 14:32 Dose: 7,000 units Documented by: [id number] Heparin Sodium/Dextrose () 1 ea IV NOW STA; Protocol Stop: 08/08/19 03:58 Last Admin: 08/08/19 05:36 Dose: Not Given Documented by: [id number] Heparin Sodium/Sodium Chloride (Heparin/Nss 1000 Unit/500ml Flush Bag) Confirm Administered Dose 3,000 units IV .STK-MED ONE Stop: 08/08/19 12:48 Last Admin: 08/08/19 14:33 Dose: 3,000 units Documented by: [id number] Heparin Sodium/Dextrose (Heparin Sodium/Dextrose) 25,000 units in 500 mls @ 27 mls/hr IV .[id number] [facility]; Protocol Stop: 09/07/19 03:59 Last Titration: 08/08/19 15:31 Dose: 0 units/hr, 0 mls/hr Documented by: [id number] Cosigned by: [id number] Titration: 08/08/19 12:09 Dose: 1,350 units/hr, 27 mls/hr Documented by: [id number] Cosigned by: [id number] Titration: 08/08/19 07:07 Dose: 1,100 units/hr, 22 mls/hr Documented by: [id number] Cosigned by: [id number] Admin: 08/08/19 05:33 Dose: 1,100 units/hr, 22 mls/hr Documented by: [id number] Cosigned by: [id number] Magnesium Sulfate/Dextrose (Magnesium Sulfate / D5w) 1 gm in 100 mls @ 100 mls/hr IV Q1H [facility]KA Stop: 08/08/19 11:52 Last Infusion: 08/08/19 12:26 Dose: 0 mls/hr Documented by: [id number] Admin: 08/08/19 11:22 Dose: 100 mls/hr Documented by: [id number] Infusion: 08/08/19 11:06 Dose: 100 mls/hr Documented by: [id number] Admin: 08/08/19 10:06 Dose: 100 mls/hr Documented by: [id number] Heparin Sodium (Porcine) 5,000 (units/ Syringe) 5 mls @ 10 mls/min IV NOW ONE Stop: 08/08/19 12:31 Last Admin: 08/08/19 12:29 Dose: 10 mls/min Documented by: [id number] Cosigned by: [id number] Sodium Chloride (Nss 1000ml) 1,000 mls @ 100 mls/hr IV .Q10H [facility] Stop: 08/08/19 20:14 Last Admin: 08/08/19 15:30 Dose: 100 mls/hr Documented by: [id number] Insulin Glargine (Lantus Solostar Pen) 30 units SC NOW STA Stop: 08/08/19 05:29 Last Admin: 08/08/19 06:37 Dose: 30 units Documented by: [id number] Cosigned by: [id number] Lorazepam (Ativan) 1 mg SL NOW STA Stop: 08/08/19 18:10 Last Admin: 08/08/19 18:31 Dose: 1 mg Documented by: [id number] Lorazepam (Ativan) 0.5 mg PO NOW STA Stop: 08/08/19 18:10 Last Admin: 08/08/19 18:31 Dose: Not Given Documented by: [id number] Metoprolol Tartrate (Lopressor) 12.5 mg PO ONE STA Stop: 08/08/19 05:36 Last Admin: 08/08/19 08:36 Dose: 12.5 mg Documented by: [id number] Midazolam HCl (Versed) Confirm Administered Dose 2 mg .ROUTE .STK-MED ONE Stop: 08/08/19 12:48 Last Admin: 08/08/19 14:33 Dose: 2 mg Documented by: [id number] Midazolam HCl (Versed) Confirm Administered Dose 2 mg .ROUTE .STK-MED ONE Stop: 08/08/19 14:09 Last Increment: 08/08/19 14:33 Dose: 1 mg Documented by: [id number] Nicardipine HCl (Cardene) Confirm Administered Dose 25 mg .ROUTE .STK-MED ONE Stop: 08/08/19 12:48 Last Admin: 08/08/19 14:32 Dose: 25 mg Documented by: [id number] Nitroglycerin (Nitro-Bid 2%) 0.5 inch EXT NOW STA Stop: 08/08/19 06:03 Last Admin: 08/08/19 07:02 Dose: 0.5 inch Documented by: [id number] Nitroglycerin (Nitro-Bid 2%) 1 inch EXT Q6H MIKA Stop: 09/07/19 11:29 Last Admin: 08/08/19 11:40 Dose: 1 inch Documented by: [id number] Nitroglycerin (Nitrostat) Confirm Administered Dose 0.4 mg .ROUTE .STK-MED ONE Stop: 08/08/19 11:33 Last Admin: 08/08/19 11:35 Dose: 0.4 mg Documented by: [id number] Nitroglycerin/Dextrose (Nitroglycerin/D5w 100 Mcg/Ml 20ml Syringe) Confirm Administered Dose 2,000 mcg .ROUTE .STK-MED ONE Stop: 08/08/19 12:48 Last Admin: 08/08/19 14:33 Dose: 2,000 mcg Documented by: [id number] Ticagrelor (Brilinta) Confirm Administered Dose 180 mg PO .STK-MED ONE Stop: 08/08/19 14:44 Last Admin: 08/08/19 14:44 Dose: 180 mg Documented by: [id number] Critical Care Time Critical Care Time: Yes Total Critical Care Time: 45 I have personally spent 45 minutes of critical care time in the direct management of this patient. This includes bedside care, interpretation of diagnostic studies, and testing, discussion with consultants, patient, and family members, and other required patient management activities. This 45 minutes is in excess of all separately billable procedures. Medical Decision Making Differential Diagnosis Differential diagnoses include acute coronary syndrome, GERD, NSTEMI, STEMI, ao rtic dissection, and others were considered. Medical Records Attestation: I reviewed the patient's medical records. Home Medications Current Medication List: was personally reviewed by me Laboratory Data Attestation: I reviewed the patient's lab results. Result diagrams: 08/08/19 02:54 08/08/19 04:39 Lab Results 08/08/19 08/08/19 08/08/19 Range/Units 02:54 02:54 02:54 WBC 9.42 (4.8-10.8) K/uL RBC 4.61 (4.2-5.4) M/uL Hgb 14.3 (12.0-16.0) g/dL Hct 41.2 (37-47) % MCV 89.4 (80-100) fL MCH 31.0 (25-34) pg MCHC 34.7 (32-36) g/dL RDW Std Deviation 45.7 (36.4-46.3) fL RDW Coeff of Carline 13.9 (11.5-14.5) % Plt Count 205 (130-400) K/uL MPV 11.5 H (7.4-10.4) fL Immature Gran % (Auto) 1.0 % Neut % (Auto) 72.3 % Lymph % (Auto) 17.8 % [place] % (Auto) 6.6 % Eos % (Auto) 1.8 % Baso % (Auto) 0.5 % Immature Gran # (Auto) 0.09 H (0.00-0.02) K/uL Neut # (Auto) 6.81 H (1.4-6.5) K/uL Lymph # (Auto) 1.68 (1.2-3.4) K/uL [place] # (Auto) 0.62 H (0.11-0.59) K/uL Eos # (Auto) 0.17 (0-0.5) K/uL Baso # (Auto) 0.05 (0-0.2) K/uL PT (9.0-12.0) Seconds INR (0.9-1.1) APTT 25.0 (21.0-31.0) Seconds PTT Ratio 0.9 Sodium 134 L (136-145) mmol/L Potassium (3.5-5.1) mmol/L Chloride 105 (98-107) mmol/L Carbon Dioxide 22 (21-32) mmol/L Anion Gap 7.0 (3-11) BUN 17 (7-18) mg/dl Creatinine 1.13 (0.6-1.2) mg/dl Est Cr Clr Drug Dosing 56.6 ml/min Est GFR ( Amer) 64.7 Est GFR (Non-Af Amer) 55.8 BUN/Creatinine Ratio 15.3 (10-20) Glucose 280 H (70-99) mg/dl Calcium 8.8 (8.5-10.1) mg/dl Magnesium (1.8-2.4) mg/dl Total Bilirubin 0.4 (0.2-1) mg/dl AST (15-37) U/L ALT 40 (12-78) U/L Alkaline Phosphatase 35 L (45-117) U/L Troponin I 0.365 H* (0-0.045) ng/ml Total Protein 7.7 (6.4-8.2) gm/dl Albumin 3.7 (3.4-5.0) gm/dl Globulin 4.0 (2.5-4.0) gm/dl Albumin/Globulin Ratio 0.9 (0.9-2) Lipase 273 (73-393) U/L TSH (0.300-4.500) uIu/ml 08/08/19 08/08/19 Range/Units 04:39 04:39 WBC (4.8-10.8) K/uL RBC (4.2-5.4) M/uL Hgb (12.0-16.0) g/dL Hct (37-47) % MCV (80-100) fL MCH (25-34) pg MCHC (32-36) g/dL RDW Std Deviation (36.4-46.3) fL RDW Coeff of Carline (11.5-14.5) % Plt Count (130-400) K/uL MPV (7.4-10.4) fL Immature Gran % (Auto) % Neut % (Auto) % Lymph % (Auto) % [place] % (Auto) % Eos % (Auto) % Baso % (Auto) % Immature Gran # (Auto) (0.00-0.02) K/uL Neut # (Auto) (1.4-6.5) K/uL Lymph # (Auto) (1.2-3.4) K/uL [place] # (Auto) (0.11-0.59) K/uL Eos # (Auto) (0-0.5) K/uL Baso # (Auto) (0-0.2) K/uL PT 10.1 (9.0-12.0) Seconds INR 1.0 (0.9-1.1) APTT (21.0-31.0) Seconds PTT Ratio Sodium (136-145) mmol/L Potassium 5.0 (3.5-5.1) mmol/L Chloride (98-107) mmol/L Carbon Dioxide (21-32) mmol/L Anion Gap (3-11) BUN (7-18) mg/dl Creatinine (0.6-1.2) mg/dl Est Cr Clr Drug Dosing ml/min Est GFR ( Amer) Est GFR (Non-Af Amer) BUN/Creatinine Ratio (10-20) Glucose (70-99) mg/dl Calcium (8.5-10.1) mg/dl Magnesium 1.6 L (1.8-2.4) mg/dl Total Bilirubin (0.2-1) mg/dl AST (15-37) U/L ALT (12-78) U/L Alkaline Phosphatase (45-117) U/L Troponin I 0.595 H* (0-0.045) ng/ml Total Protein (6.4-8.2) gm/dl Albumin (3.4-5.0) gm/dl Globulin (2.5-4.0) gm/dl Albumin/Globulin Ratio (0.9-2) Lipase (73-393) U/L TSH 4.280 (0.300-4.500) uIu/ml Imaging Data Attestation: I personally reviewed and interpreted this imaging study as follows: My Impression: CHEST X-RAY 1 VIEW: Narrow mediastinum. No pulmonary infiltrate or pleural effusion. ECG Data Attestation: I personally reviewed and interpreted this ECG as follows: Indication: + chest pain Rate (beats per minute): 89 Rhythm: + normal sinus ECG ST segments: + ST depression (leads II, III, aVF) ECG Findings: no PACs and no PVCs Comparison ECG Date: from (12/20/18) Change: the following changes noted (ST depressions new ) Additional Comments: REPEAT ECG: Normal sinus rhythm with a rate of 99. Persistent ST depression in the inferior leads. No other acute findings. Blood Pressure Blood Pressure Findings: Elevated blood pressure Blood Pressure Disposition: elevated BP felt to be situational MDM Narrative The patient is a 53 year old female who presents to the Emergency Room with complaints of waxing and waning chest pain that began 1 day prior to arrival. The patient states that the chest pain had resolved prior to her going to bed but that awoke her from sleep and was much more severe. The patient had associated nausea. Patient had very subtle ST segment depression in the inferior leads and has an elevated troponin consistent with an NSTEMI. The patient has multiple risk factors concerning for heart disease. Coagulation studies were drawn and she will be started on IV heparin after a heparin bolus. I discussed the case with the [facility] and they will evaluate for further management. Impression & Plan Non-ST elevation [place] (NSTEMI) Discharge Plan Visit Data *Final* Discharge Date/Time: 08/08/19 06:05 Chief Complaint: Chest Pain Stated Complaint: chest pain, back pain ED Provider: Ivy Abbott Discharge Problem: Non-ST elevation AZ (NSTEMI) Patient Disposition: Admitted As Inpatient Discharge Instructions Interventions: ED Discharge Assessment Last Done: 08/08/19 06:05 The scribe's documentation has been prepared under my direction and personally reviewed by me in its entirety. I confirm that the note above accurately reflects all work, treatment, procedures, and medical decision making performed by me.
[2019-08-08] MEDS: lisinopriL 10 MG TAB PO SCH (07:48)
[2019-08-08] MEDS: SERTRALINE HCL 100 MG TABLET PO SCH (07:48)
[2019-08-08] MEDS: ATORVASTATIN 40 MG TAB PO SCH (07:48)
[2019-08-08] MEDS: methIMAzole 5 MG TABLET PO SCH (07:48)
--- NOTE | 2019-08-08 09:51 | Hospitalist Progress Note ---
Date of Service August 08, 2019 Assessment & Plan (1) Non-ST elevation [place] (NSTEMI): Cardiac cath today with stents. Continue lisinopril 10 daily, Lipitor 80 mg daily, aspirin 81 daily, Lopressor 12.5 mg every 6 hours, Brilinta 90 mg p.o. twice daily. Monitor closely for chest pain and if that is present would get repeat EKG. (2) T2DM (type 2 diabetes mellitus): A1C pending and currently uncontrolled. Cont basal/bolus insulin. (3) Hypomagnesemia: replace and repeat in am. (4) Graves disease: cont methimazole daily. Normal TSH (5) Smoker: Strongly recommended quitting as this is a modifiable risk factor for CAD. She verbalized understanding with intent to comply. (6) DVT prophylaxis: SCDs today-will plan to start chemoprophylaxis tomorrow Full Code Dispo-pending PCI on Saturday, then per Cardiology recommendations. Taylor Rubin DO [facility] Hospitalist Subjective 53 yo diabetic female who actively smokes was admitted with an NSTEMI. Her troponin continued to increase and her pain was uncontrolled despite morphine and nitro, so she was taken to cath. She received two stents and is planned to undergo staged PCI. She returned to the room and reported no chest pain. She was feeling well but was slightly tremulous from all the activity. Family was in the room. Review of Systems Review of Systems: All systems reviewed & are unremarkable except as noted in HPI & below Physical Exam Physical Exam: CONSTITUTIONAL: WNWD, vitals as above, generally well- appearing EYES: normal conjunctivae, no scleral icterus ENT: MMM RESPIRATORY: clear to auscultation bilaterally, no crackles, rales or wheezes, normal respiratory effort CARDIOVASCULAR: regular rate and rhythm, S1 and 2 heard without murmurs, gallops or rubs, no JVD, no peripheral edema CHEST: inspection of chest was normal GASTROINTESTINAL: soft, NTND MUSCULOSKELETAL: strength 5/5 throughout, head is normocephalic and atraumatic SKIN: warm and dry, tattooes, TR band to R wrist NEUROLOGIC: CN 2-12 grossly intact, normal cognition, normal speech, no gross focal deficits. PSYCHIATRIC: alert cooperative and oriented to person, place and time. Results & Data Vital Signs (Past 12 Hours) Vital Signs Temp Pulse Pulse Resp BP BP BP 08/08/19 07:51 37.0 C 81 17 132/84 08/08/19 06:20 36.8 C 85 16 150/94 H 08/08/19 05:41 88 18 137/86 08/08/19 03:35 85 18 139/95 08/08/19 03:15 08/08/19 03:14 08/08/19 02:41 36.7 C 89 16 159/99 H Pulse Ox 08/08/19 07:51 95 08/08/19 06:20 98 08/08/19 05:41 96 08/08/19 03:35 97 08/08/19 03:15 97 08/08/19 03:14 97 08/08/19 02:41 97 Laboratory Results Short CBC 08/08/19 Range/Units 02:54 WBC 9.42 (4.8-10.8) K/uL Hgb 14.3 (12.0-16.0) g/dL Hct 41.2 (37-47) % Plt Count 205 (130-400) K/uL BMP 08/08/19 08/08/19 02:54 04:39 Sodium 134 L Potassium 5.0 Chloride 105 Carbon Dioxide 22 BUN 17 Creatinine 1.13 Glucose 280 H Calcium 8.8 Cardiac Enzymes 08/08/19 08/08/19 Range/Units 02:54 04:39 Troponin I 0.365 H* 0.595 H* (0-0.045) ng/ml Liver Function 08/08/19 Range/Units 02:54 Total Bilirubin 0.4 (0.2-1) mg/dl AST (15-37) U/L ALT 40 (12-78) U/L Alkaline Phosphatase 35 L (45-117) U/L Albumin 3.7 (3.4-5.0) gm/dl Medications Administered Current Inpatient Medications Aspirin (Ecotrin Ectab) 81 mg PO [facility] Stop: 09/07/19 09:59 Atorvastatin Calcium (Lipitor) 80 mg PO [facility] Stop: 09/07/19 08:59 Last Admin: 08/08/19 07:48 Dose: 80 mg Documented by: Heparin Sodium/Dextrose (Heparin Sodium/Dextrose) 25,000 units in 500 mls @ 22 mls/hr IV .[id number] [facility]; Protocol Stop: 09/07/19 03:59 Last Titration: 08/08/19 07:07 Dose: 1,100 units/hr, 22 mls/hr Documented by: Lorazepam (Ativan) 0.5 mg in 1 mls @ 1 mls/min IV Q4H PRN PRN Reason: Anxiety/Agitation Stop: 09/07/19 04:41 Promethazine HCl 12.5 mg/ (Sodium Chloride) 50.5 mls @ 202 mls/hr IV Q6H PRN PRN Reason: Nausea And Vomiting Stop: 09/07/19 04:41 Ioversol (Optiray 320 125ml) 119 ml IV ONCE PRN PRN Reason: Interaction Checking Stop: 08/12/19 04:56 Last Admin: 08/08/19 04:58 Dose: 119 ml Documented by: Lisinopril (Zestril) 10 mg PO DAILY [facility] Stop: 09/07/19 08:59 Last Admin: 08/08/19 07:48 Dose: 10 mg Documented by: [facility]im[facility]) [facility] Stop: 09/07/19 08:59 Last Admin: 08/08/19 07:48 Dose: 20 mg Documented by: Metoprolol Succinate (Toprol Xl) 50 mg PO HS [facility] Stop: 09/07/19 20:59 Morphine Sulfate (Morphine Sulfate) 4 mg IV Q4H PRN PRN Reason: Pain Stop: 08/22/19 04:41 Last Admin: 08/08/19 06:09 Dose: 4 mg Documented by: Sertraline HCl (Zoloft) 200 mg PO DAILY [facility] Stop: 09/07/19 08:59 Last Admin: 08/08/19 07:48 Dose: 200 mg Documented by: Tramadol HCl (Ultram) 25 - 50 mg PO Q4H PRN PRN Reason: Pain Stop: 09/07/19 04:41
[2019-08-08] MEDS ORDERED: GLUCOSE 10 TABS/TUBE PO PRN (09:54)
[2019-08-08] MEDS ORDERED: DEXTROSE 50% 50 ML SYRINGE IV PRN (09:54)
[2019-08-08] MEDS ORDERED: CARBOHYDRATES FOR HYPOGLYCEMIA PO PRN (09:54)
[2019-08-08] MEDS ORDERED: GLUCAGON FOR INJ 1 MG VIAL SQ PRN (09:54)
[2019-08-08] MEDS ORDERED: GLUCOSE 40% GEL 15 GM TUBE PO PRN (09:54)
[2019-08-08] MEDS: MAGNESIUM SULFATE / D5W 1 GM/100 ML BAG IV SCH ×2 (10:06→11:22)
[2019-08-08] MEDS ORDERED: ASPIRIN 81 MG ECTAB PO SCH (11:00)
[2019-08-08] MEDS ORDERED: NITROGLYCERIN 2% OINTMENT 30GM TUBE EXT SCH (11:30)
[2019-08-08] MEDS ORDERED: NITROGLYCERIN SL 0.4 MG/TAB TAB ONE (11:32)
[2019-08-08] MEDS: LORazepam 0.5 MG/1 ML VIAL IV PRN (11:41)
[2019-08-08 12:05] LABS: Partial Thromboplastin Ratio 1.2; Partial Thromboplastin Time 32.8 Seconds (21.0-31.0)
[2019-08-08] MEDS: INSULIN ASPART 100 UNITS/ML 3 ML PEN SC SCH ×3 (12:15→20:08)
[2019-08-08] MEDS: METOPROLOL TARTRATE 25 MG TAB PO SCH ×2 (12:29→17:51)
[2019-08-08] MEDS ORDERED: HEPARIN IV BOLUS 5,000 UNITS in SYRINGE 0 ML IV ONE (12:30)
[2019-08-08] MEDS ORDERED: NITROGLYCERIN/D5W 100MCG/ML 20ML SYR ONE (12:47)
[2019-08-08] MEDS ORDERED: HEPARIN (PORCINE) 1000 UNIT/ML 10 ML (CATH LAB USE ONLY) ONE (12:47)
[2019-08-08] MEDS ORDERED: NiCARDipine HCL INJ 2.5 MG/ML 10 ML AMP ONE (12:47)
[2019-08-08] MEDS ORDERED: MIDAZOLAM HCL 1 MG/ML 2ML VIAL ONE ×2 (12:47→14:08)
[2019-08-08] MEDS ORDERED: fentaNYL citrate 100 MCG/2 ML VIAL ONE ×2 (12:47→14:08)
--- NOTE | 2019-08-08 13:03 | Cardiology Consultation ---
Date of Consultation August 08, 2019 Assessment & Plan (1) Non-ST elevation DC (NSTEMI): Unfortunately, her discomfort persists despite medical therapy. Echocardiogram preliminary reviewed shows a least LAD distribution territory severe hypokinesis with severe reduction of her LV systolic function as a whole. Her troponin is trending upwards as well. Given the fact that her chest pain persists in the setting of elevated troponin and wall motion abnormalities I do believe most prudent course of action at this point will be to take the patient emergently to the cardiac catheterization lab for direct visualization of her coronary anatomy. The procedure along with the risks and benefits were discussed with the patient and her by phone at great lengths. They both state they understand and agree with proceeding with a cardiac catheterization. She was given low-dose of lorazepam at the bedside for anxiety and she will receive more with the catheterization. Further recommendations to follow cardiac catheterization. (2) T2DM (type 2 diabetes mellitus): (3) Family history of premature coronary artery disease: History of Present Illness Reason for Consultation: NSTEMI Requesting Physician: Dr. Rubin Attending Physician: Taylor Rubin, DO History of Present Illness It was my pleasure to see Mrs. Stallworth in consultation today August 08, 2019. She is a very pleasant 53-year-old woman not known to [facility] cardiology practice. She presented to [facility] on 08/07/2019 with complaints of chest discomfort. She states that she woke up in the middle the night with an uncomfortable sensation in her chest. She described it as a achy sensation in the center of her chest that radiated up into her throat. When it occurred she denied any associated symptoms specifically denied any associated shortness of breath, nausea, diaphoresis, palpitations, lightheadedness, dizziness or syncope. She try to go back to sleep but ultimately was unable to. The next day she woke up with the pain persisted but it but then resolved for approximately 6 hours. The discomfort then came back and she became concerned and EMS was called. Once EMS was called she became very anxious and believes she may have had a panic attack and she started sweating and hyperventilating. Upon arrival emergency department her EKG was unremarkable along with her first set of troponin she was admitted to the telemetry unit. Her chest pain continue to wax and wane despite the addition of nitroglycerin which she had difficulty tolerating with a headache. Her troponin continued to trend up until he had 3 she was started on heparin and beta-blockade on admission along with aspirin she did receive morphine for discomfort but again continue to wax and wane. She states that her pain is currently a 4 out of 10 after sublingual nitroglycerin come down with 3 out of 10. Of note, the patient has been going through significant stressful time at home with her dog becoming sick and ultimately dying last evening. I spoke with her by phone and he confirms that she has been very upset lately. Allergies Allergy/AdvReac Type Severity Reaction Status Date / Time No Known Allergies Allergy Unverified 08/08/19 02:58 Home Medications Home Medications Medication Instructions Recorded Confirmed Type metformin 1,000 mg PO QAM 12/20/18 08/08/19 History metoprolol succinate [Toprol XL] 50 mg PO HS 12/20/18 08/08/19 History methimazole 10 mg tablet 20 mg PO QAM #60 tab 02/26/19 08/08/19 Rx lisinopril 10 mg PO DAILY 08/08/19 08/08/19 History sertraline 200 mg PO DAILY 08/08/19 08/08/19 History Patient History Medical History Graves disease Surgical History Hx of cholecystectomy (Resolved) Family History Father Myocardial infarction Social History Preferred Language: Cymro Communication Ability: Effective Second Shift Supervisor Required: No Beliefs That Will Affect Care: None Current Living Situation: Spouse Feels Safe at Home: Yes Smoking Status: Current every day smoker Tobacco Type: cigarettes ; Cigarettes Per Day: 10 ; Tobacco Cessation Education Requested by Patient: No Hx Alcohol Use: No Hx Substance Use: No Review of Systems Review of Systems: All systems reviewed & are unremarkable except as noted in HPI & below Physical Exam Physical Exam: General: Awake, alert and oriented x 3. No acute distress. HEENT: Normocephalic, atraumatic. Pupils equal, round and reactive to light and accommodation. Extraocular muscles are intact. Anicteric sclera. Moist mucous membranes. Neck: No JVD. No bruit. Cardiovascular: Regular. Positive S-4. Normal S-1 and S-2. No S-3. No murmurs or rubs. Pulmonary: Clear to auscultation B/L. No rales, rhonchi or wheezing Abdomen: Bowel sounds x 4, soft. No rebound, guarding or tenderness. No organomegaly. Extremities: No clubbing, cyanosis or edema. +2 pedal pulses bilaterally. Skin: Warm and dry. Results & Data Vital Signs (Past 12 Hours) Vital Signs Temp Pulse Pulse Resp BP BP BP 08/08/19 11:08 36.7 C 84 18 133/76 08/08/19 07:51 37.0 C 81 17 132/84 08/08/19 06:20 36.8 C 85 16 150/94 H 08/08/19 05:41 88 18 137/86 08/08/19 03:35 85 18 139/95 08/08/19 03:15 08/08/19 03:14 08/08/19 02:41 36.7 C 89 16 159/99 H Pulse Ox 08/08/19 11:08 93 08/08/19 07:51 95 08/08/19 06:20 98 08/08/19 05:41 96 08/08/19 03:35 97 08/08/19 03:15 97 08/08/19 03:14 97 08/08/19 02:41 97 Laboratory Results Laboratory Results - last 24 hr 08/08/19 08/08/19 08/08/19 02:54 02:54 02:54 WBC 9.42 RBC 4.61 Hgb 14.3 Hct 41.2 MCV 89.4 MCH 31.0 MCHC 34.7 RDW Std Deviation 45.7 RDW Coeff of Calrine 13.9 Plt Count 205 MPV 11.5 H Immature Gran % (Auto) 1.0 Neut % (Auto) 72.3 Lymph % (Auto) 17.8 Lea % (Auto) 6.6 Eos % (Auto) 1.8 Baso % (Auto) 0.5 Immature Gran # (Auto) 0.09 H Neut # (Auto) 6.81 H Lymph # (Auto) 1.68 Lea # (Auto) 0.62 H Eos # (Auto) 0.17 Baso # (Auto) 0.05 PT INR APTT 25.0 PTT Ratio 0.9 Sodium 134 L Potassium Chloride 105 Carbon Dioxide 22 Anion Gap 7.0 BUN 17 Creatinine 1.13 Est Cr Clr Drug Dosing 56.6 Est GFR ( Amer) 64.7 Est GFR (Non-Af Amer) 55.8 BUN/Creatinine Ratio 15.3 Glucose 280 H POC Glucose Calcium 8.8 Magnesium Total Bilirubin 0.4 AST ALT 40 Alkaline Phosphatase 35 L Troponin I 0.365 H* Total Protein 7.7 Albumin 3.7 Globulin 4.0 Albumin/Globulin Ratio 0.9 Lipase 273 TSH 08/08/19 08/08/19 08/08/19 04:39 04:39 07:15 WBC RBC Hgb Hct MCV MCH MCHC RDW Std Deviation RDW Coeff of Carline Plt Count MPV Immature Gran % (Auto) Neut % (Auto) Lymph % (Auto) Lea % (Auto) Eos % (Auto) Baso % (Auto) Immature Gran # (Auto) Neut # (Auto) Lymph # (Auto) Lea # (Auto) Eos # (Auto) Baso # (Auto) PT 10.1 INR 1.0 APTT PTT Ratio Sodium Potassium 5.0 Chloride Carbon Dioxide Anion Gap BUN Creatinine Est Cr Clr Drug Dosing Est GFR ( Amer) Est GFR (Non-Af Amer) BUN/Creatinine Ratio Glucose POC Glucose 265 H Calcium Magnesium 1.6 L Total Bilirubin AST ALT Alkaline Phosphatase Troponin I 0.595 H* Total Protein Albumin Globulin Albumin/Globulin Ratio Lipase TSH 4.280 08/08/19 08/08/19 08/08/19 10:06 11:20 11:39 WBC RBC Hgb Hct MCV MCH MCHC RDW Std Deviation RDW Coeff of Carline Plt Count MPV Immature Gran % (Auto) Neut % (Auto) Lymph % (Auto) Lea % (Auto) Eos % (Auto) Baso % (Auto) Immature Gran # (Auto) Neut # (Auto) Lymph # (Auto) Lea # (Auto) Eos # (Auto) Baso # (Auto) PT INR APTT 32.8 H PTT Ratio 1.2 Sodium Potassium Chloride Carbon Dioxide Anion Gap BUN Creatinine Est Cr Clr Drug Dosing Est GFR ( Amer) Est GFR (Non-Af Amer) BUN/Creatinine Ratio Glucose POC Glucose 214 H Calcium Magnesium Total Bilirubin AST ALT Alkaline Phosphatase Troponin I 3.850 H* Total Protein Albumin Globulin Albumin/Globulin Ratio Lipase TSH Medications Administered Current Inpatient Medications Aspirin (Ecotrin Ectab) 81 mg PO QAM [facility] Stop: 09/08/19 08:59 Atorvastatin Calcium (Lipitor) 80 mg PO QAM [facility] Stop: 09/07/19 08:59 Last Admin: 08/08/19 07:48 Dose: 80 mg Documented by: Dextrose (Dextrose 50%) 25 - 50 ml IV UD PRN; Protocol PRN Reason: Hypoglycemia Protocol Stop: 09/07/19 09:53 Glucagon (Glucagen) 1 mg SQ UD PRN; Protocol PRN Reason: Hypoglycemia Protocol Stop: 09/07/19 09:53 Glucose (Dex4 Glucose) 4 - 8 tabs PO UD PRN; Protocol PRN Reason: Hypoglycemia Protocol Stop: 09/07/19 09:53 Glucose (Glucose 40%) 15 - 30 gm PO UD PRN; Protocol PRN Reason: Hypoglycemia Protocol Stop: 09/07/19 09:53 Heparin Sodium/Dextrose (Heparin Sodium/Dextrose) 25,000 units in 500 mls @ 27 mls/hr IV .[id number] [facility]; Protocol Stop: 09/07/19 03:59 Last Titration: 08/08/19 12:09 Dose: 1,350 units/hr, 27 mls/hr Documented by: Lorazepam (Ativan) 0.5 mg in 1 mls @ 1 mls/min IV Q4H PRN PRN Reason: Anxiety/Agitation Stop: 09/07/19 04:41 Last Admin: 08/08/19 11:41 Dose: 1 mls/min Documented by: Promethazine HCl 12.5 mg/ (Sodium Chloride) 50.5 mls @ 202 mls/hr IV Q6H PRN PRN Reason: Nausea And Vomiting Stop: 09/07/19 04:41 Insulin Aspart (Novolog Flexpen) 0 units SC ACHS [facility] Stop: 09/07/19 11:29 Last Admin: 08/08/19 12:15 Dose: 2 units Documented by: Insulin Glargine (Lantus Solostar Pen) 13 units SC BID [facility] Stop: 09/07/19 20:59 Ioversol (Optiray 320 125ml) 119 ml IV ONCE PRN PRN Reason: Interaction Checking Stop: 08/12/19 04:56 Last Admin: 08/08/19 04:58 Dose: 119 ml Documented by: Lisinopril (Zestril) 10 mg PO DAILY [facility] Stop: 09/07/19 08:59 Last Admin: 08/08/19 07:48 Dose: 10 mg Documented by: Methimazole (Tapazole) 20 mg PO QAM [facility] Stop: 09/07/19 08:59 Last Admin: 08/08/19 07:48 Dose: 20 mg Documented by: Metoprolol Tartrate (Lopressor) 12.5 mg PO Q6 [facility] Stop: 09/07/19 11:59 Last Admin: 08/08/19 12:29 Dose: Not Given Documented by: Miscellaneous (Carbohydrates For Hypoglycemia) 15 - 30 gm PO UD PRN PRN Reason: Hypoglycemia Protocol Stop: 09/07/19 09:53 Morphine Sulfate (Morphine Sulfate) 4 mg IV Q4H PRN PRN Reason: Pain Stop: 08/22/19 04:41 Last Admin: 08/08/19 10:05 Dose: 4 mg Documented by: Nitroglycerin (Nitro-Bid 2%) 1 inch EXT Q6H [facility] Stop: 09/07/19 11:29 Last Admin: 08/08/19 11:40 Dose: 1 inch Documented by: Sertraline HCl (Zoloft) 200 mg PO DAILY [facility] Stop: 09/07/19 08:59 Last Admin: 08/08/19 07:48 Dose: 200 mg Documented by: Tramadol HCl (Ultram) 25 - 50 mg PO Q4H PRN PRN Reason: Pain Stop: 09/07/19 04:41
--- NOTE | 2019-08-08 13:08 | Pre Anesthesia Assessment ---
Date of Service August 08, 2019 Pre Sedation Assessment Vital Signs Temp Pulse Pulse Resp BP BP BP 08/08/19 11:08 98.1 F 84 18 133/76 08/08/19 07:51 98.6 F 81 17 132/84 08/08/19 06:20 98.2 F 85 16 150/94 H 08/08/19 05:41 88 18 137/86 08/08/19 03:35 85 18 139/95 08/08/19 03:15 08/08/19 03:14 08/08/19 02:41 98.1 F 89 16 159/99 H Pulse Ox 08/08/19 11:08 93 08/08/19 07:51 95 08/08/19 06:20 98 08/08/19 05:41 96 08/08/19 03:35 97 08/08/19 03:15 97 08/08/19 03:14 97 08/08/19 02:41 97 Cardiovascular RRR, no murmur, no edema Respiratory normal respiratory effort, lungs clear to auscultation Pre-Sedation Airway Assessment Smoking Status: Current every day smoker Hx Sleep Apnea: No Hx Difficult Intubation: No Short, Thick Neck: No Thyromental Distance: > or= 3.5 Finger Breadths Oral Cavity: + WNL Mallampati Class: III ASA: ASA3 Procedure Planning Contraindications for Sedation: none Current Medications Reviewed: Yes Notes The planned sedation has been discussed with the patient. Informed Consent was obtained. I have identified the patient, determined the appropriateness of sedation and have assessed the patient immediately prior to the procedure. All medicine(s) and interventions are by my order.
--- NOTE | 2019-08-08 13:16 | Cardiac Catheterization ---
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 Cardiac Status Clinical evaluation leading to the procedure CAD Presenation: Non STEMI Anginal Classification: CCS IV Heart Failure: No Cardiogenic Shock within 24 Hours: No Cardiac Arrest within 24 Hours: No Imaging Studies Past 6 Months: Yes Stress Studies Past 6 Months: No Diagnostic Physicians Name: Alex Johnson MD Status: Urgent Closure Device Percutaneous Entry Location: Radial Closure Device: Radial Band Recommendations: PCI without planned CABG PCI Indication: PCI for high risk Non-NAVIN Lesion Segment Name: mid to distal LAD Culprit Artery: Yes Stenosis Prior to Rx (%): 100 Chronic Total Occlusion: No IVUS: No FFR: No Pre-Procedure MELISSA Flow: 0 Previously Treated Lesion: No Lesion Complexity: Non-High/Non-C Lesion Length (mm): 28 Thrombus Present: Yes Bifurcation Lesion: No Guidewire Across Lesion: Stenosis Post-Procedure (%): 0 Post-Procedure MELISSA Flow: 3 Devices(s) Deployed: Yes Yes Intraprocedure Events Significant Disection: No Perforation: No Cardiac Cath Procedure Full Procedure Date August 08, 2019 Pre-Procedure Diagnosis Pre-Procedure Diagnosis: Acute Coronary Syndrome AUC Score AUC Score: 8 Post-Procedure Diagnosis Post-Procedure Diagnosis: Severe CAD, Successful PCI and Normal Intracardiac Pressures Procedure(s) Performed Procedure(s) Performed: Coronary Angiography, Left Heart Cath and Drug Eluting Stent Sleeping Car Conductor Alex Johnson MD Paperboard Machine Operator(s) Gurwinder Estimated Blood Loss Estimated Blood Loss: 15 Medication(s) Medication(s): Fentanyl, Heparin, Lidocaine 1%, Nicardipine, Nitroglycerin and Versed Medication(s): Ticagrelor Summary of Findings Indication: High risk NSTEMI, LV dysfunction with apical wall motion abnormality Access: 6 Fr slender right radial artery Catheters: [place], EBU 3.5 guide Findings: LM -calcified, medium caliber, luminal irregularities LAD -heavily calcified, medium caliber, 30% proximal disease, diffuse 40% mid disease after takeoff of first diagonal. 100% acute occlusion mid after takeoff of large bifurcating third septal. Small second diagonal with 99% ostial stenosis. Circumflex -calcified, large caliber, 50 % ostial stenosis, 40 to 50% diffuse proximal large OM1 disease prior to 90% mid OM1 disease. Small AV groove circumflex with luminal irregularities. RCA -heavily calcified, dominant, 60 to 70% proximal stenosis with post stenosis ectasia, 80 to 90% late mid stenosis, 50% distal stenosis. PDA occluded at the ostium and partially fills via septal collaterals. Distal PLB fills via [id number] collaterals. LVEDP -15 -- PCI -- Antithrombotic therapy: Heparin, ticagrelor Procedure: Left main cannulated with EBU 3.5 guide Clerical Supervisor 50 wire eventually passed across lesion into distal LAD Mid LAD lesion predilated with 2.0 compliant balloon with post dilation nonflow limiting dissection noted With the aid of a guide liner dilated lesion stented with 2.5 x 18 mm Page drug- eluting Questionable edge dissection more proximal to initial stent. A second JEFF (2.5 x 12 Adolfo) placed to mid LAD overlapping proximal aspect of initial stent Stent post-dilated with stent balloon IC vasodilators administered for spasm Post procedure MELISSA 3 flow, no apparent cardiac complications. Mild residual narrowing in proximal most aspect of upstream stent Arterial Closure: TR band Summary: 1. Severe, calcified multi-vessel coronary artery disease -Acute 100% latemid LAD 90% mid OM1 70% proximal, 80 to 90% mid RCA. Small PDA, distal PLB occluded and fill via [id number] collaterals 2. Normal intracardiac filling pressure 3. Successful PCI of mid LAD with 2 overlapping drug-eluting stents with (2.5 x 12[mild residual stenosis in proximal aspect], 2.5 x 18 Adolfo). Recommendations: To PCU for continued monitoring Loaded with ticagrelor 180 mg in cath Continue dual-antiplatelet therapy for at least 1 year Continue statin, and ASCVD risk factor modification Consult cardiac Rehab Further discussion regarding timing of staged PCI to circumflex, RCA with Dr. Arrieta. Hemodynamics Rest Ao:: 123/72/97 Final Ao: 115/72/90 LV: 141/15 Recommendations Recommendations: PCI without planned CABG Specimens Specimens: None Radiation Exposure (mGy) 3604 Contrast (mls) 170 Fluids (cc crystalloids) Fluids (cc crystalloids): 100 Drains Drains: None Anesthesia Moderate Procedural Complication(s) None Disposition PCU I attest to the content of the Intraoperative Record and any orders documented therein. Any exceptions are noted below. Loaded PocketG Card Cath Procedure Codes Cardiac Catheterization Procedure 1: Cardiovascular Cath Procedures: 74866 Coronaries and LHC (+/-LV) Moderate Sedation Procedure 1: Sedation/Anesthesia: 72496 Mod Sedation by the same physician;Init15 Min Child Age 5 & Up Procedure 2: Sedation/Anesthesia: 21961 Mod Sedation by the same physician; Ea [id number] Minutes Stenting Procedure 1: Cardiovascular Stent Procedures: 98253 Perc transluminal revascularization of acute sub/total occl, aMI PG Care Time/CCT Total # of Minutes Spent Total Time Spent with Patient: Total time spent is greater than 50% in coordination of care (as documented) at patient's floor/unit and/or counseling patient:
[2019-08-08] MEDS ORDERED: TICAGRELOR 90 MG TAB PO ONE (14:43)
--- NOTE | 2019-08-08 14:52 | Post Anesthesia Assessment ---
Date of Service August 08, 2019 Post Sedation Assessment Vital Signs Temp Pulse Pulse Resp BP BP BP 08/08/19 11:08 98.1 F 84 18 133/76 08/08/19 07:51 98.6 F 81 17 132/84 08/08/19 06:20 98.2 F 85 16 150/94 H 08/08/19 05:41 88 18 137/86 08/08/19 03:35 85 18 139/95 08/08/19 03:15 08/08/19 03:14 08/08/19 02:41 98.1 F 89 16 159/99 H Pulse Ox 08/08/19 11:08 93 08/08/19 07:51 95 08/08/19 06:20 98 08/08/19 05:41 96 08/08/19 03:35 97 08/08/19 03:15 97 08/08/19 03:14 97 08/08/19 02:41 97 Recovery Score Activity: Moves 4 extremities Respiration: Deep Breath/Cough Circulation: +/-20% PreAnes Value Consciousness: Fully Awake Oxygen Saturation: O2 needed for >90% Discharge Sedation Level of Care: Fast Track Phase II Post Sedation Plan On clinical assessment, the patient appears to have tolerated the sedation without complications. Patient is recovering as anticipated. Patient will continue to be monitored by nursing and may be discharged when sedation discharge criteria are met per below protocol. Upon Completions of procedure up to 15 minutes continue every 5 minute vital signs and the P.A.R. score; then discharge to a Phase I or Fast Track to Phase II per the following guidelines: * Discharge Patient to appropriate Phase II area if PAR is 8 or greater or return to pre- procedure baseline. The post - procedure orders will be as directed. * If PAR score is less than 8 or not return to pre-procedure baseline then patient will follow Phase I monitoring till PAR is reached for Phase II. The Phase I may be done in procedure room or may call to secure a Phase I area. * If naloxone or flumazenil are used for reversal, hold in Phase I for continued monitoring from when last reversal dose was given for a minimum of 60 minutes or longer pending the nurse and/or physician discretion of patient condition before discharge to Phase II. Please call the Sedation Physician to re-evaluate and complete post-note for discharge to Phase II area. Do NOT discharge from procedure sedation or Phase 1 until post- sedation evaluation note is complete by procedure /sedation MD Sedation Discharge Instructions to be given to the patient at discharge to home.
[2019-08-08] MEDS ORDERED: SODIUM CHLORIDE 0.9% 1000ML 1,000 ML IV SCH (15:15)
[2019-08-08] MEDS ORDERED: LORazepam 1 MG TAB SL STA (18:09)
[2019-08-08] MEDS ORDERED: LORazepam 0.5 MG TAB PO STA (18:09)
--- NOTE | 2019-08-08 18:12 | Communication Note ---
Date of Service: August 08, 2019 Pt is nauseated and has vomited twice now. She was given phenergan but still feels nautious. She reports alot of stress at this point. In addition to today's medical events she lost her dog this morning. Currently denies any chest pain. Ativan 0.5mg PO x 1 now. Will also tighten carb coverage as glucose still above 200. DO Scottie
[2019-08-08] MEDS: INSULIN GLARGINE SOLOSTAR 100 UNITS/ML 3 ML PEN SC SCH (20:07)
[2019-08-08] MEDS ORDERED: METOPROLOL SUCC 50MG EXT REL TAB PO SCH (21:00)
[2019-08-09] MEDS: TICAGRELOR 90 MG TAB PO SCH ×3 (00:38→21:01)
[2019-08-09] MEDS: METOPROLOL TARTRATE 25 MG TAB PO SCH ×5 (00:38→23:09)
[2019-08-09 05:49] LABS: Hematocrit (blood only) 39.6 % (37-47); Hemoglobin 13.4 g/dL (12.0-16.0); Mean Corpuscular Hemoglobin 30.6 pg (25-34); Mean Corpuscular Hgb Conc 33.8 g/dL (32-36); Mean Corpuscular Volume 90.4 fL (80-100); Mean Platelet Volume 10.8 fL (7.4-10.4); Platelet Count 199 K/uL (130-400); RDW Coefficient of Variation 13.9 % (11.5-14.5); RDW Standard Deviation 46.1 fL (36.4-46.3); Red Blood Count 4.38 M/uL (4.2-5.4); White Blood Count 9.13 K/uL (4.8-10.8)
[2019-08-09 06:23] LABS: BUN Creatinine Ratio 12.4 (10-20); Calcium 8.8 mg/dl (8.5-10.1); Creatinine Clr Calc Pharmacy 64.9 ml/min; Est GFR (African American) 77.8; Est GFR (Non-African American) 67.2; Magnesium 1.9 mg/dl (1.8-2.4)
[2019-08-09] MEDS: INSULIN GLARGINE SOLOSTAR 100 UNITS/ML 3 ML PEN SC SCH ×2 (08:56→21:01)
[2019-08-09] MEDS: ASPIRIN 81 MG ECTAB PO SCH (08:56)
[2019-08-09] MEDS ORDERED: ENOXAPARIN INJ 40 MG/0.4 ML SYR SQ SCH (09:00)
[2019-08-09] MEDS: ATORVASTATIN 40 MG TAB PO SCH (09:01)
[2019-08-09] MEDS: methIMAzole 5 MG TABLET PO SCH (09:03)
[2019-08-09] MEDS: lisinopriL 10 MG TAB PO SCH (09:03)
[2019-08-09] MEDS: SERTRALINE HCL 100 MG TABLET PO SCH (09:03)
[2019-08-09] MEDS: INSULIN ASPART 100 UNITS/ML 3 ML PEN SC SCH ×4 (09:04→21:00)
[2019-08-09] MEDS: LORazepam 0.5 MG/1 ML VIAL IV PRN (09:52)
--- NOTE | 2019-08-09 11:44 | Hospitalist Progress Note ---
Date of Service August 09, 2019 Assessment & Plan (1) Non-ST elevation AR (NSTEMI): Cardiac cath with stent placement and plans for staged PCI. Continue lisinopril 10 daily, Lipitor 80 mg daily, aspirin 81 daily, Lopressor 12.5 mg every 6 hours, Brilinta 90 mg p.o. twice daily. Monitor closely for chest pain and if that is present would get repeat EKG. (2) T2DM (type 2 diabetes mellitus): A1C pending and currently uncontrolled. Cont basal/bolus insulin. (3) Hypomagnesemia: repleted. (4) Graves disease: cont methimazole daily. Normal TSH (5) Smoker: Strongly recommended quitting as this is a modifiable risk factor for CAD. She verbalized understanding with intent to comply. (6) Anxiety: exceptional circumstances recently with acute loss of her dog and AR at the same time. Ativan PRN. Nausea and tremulousness has resolved. (7) DVT prophylaxis: Lovenox/SCDs Full Code Dispo-pending PCI on Saturday, then per Cardiology recommendations. Taylor Rubin DO [facility] Hospitalist Subjective Patient is feeling well, nausea has resolved since yesterday. She feels much less anxious today although did receive 1 dose of Ativan IV today. Both nurse and patient are requesting p.o. version. I did have a conversation with the patient that this is all right to manage the anxiety while in the hospital but we will not be able to discharge her on continuous Ativan. She verbalized understanding with intent to speak with her PCP further about this if needed as an outpatient. Denies chest pain at this time. Denies shortness of breath this time. Tolerating p.o. Review of systems otherwise negative. Review of Systems Review of Systems: All systems reviewed & are unremarkable except as noted in HPI & below Physical Exam Physical Exam: CONSTITUTIONAL: WNWD, vitals as above, generally well-appeari ng EYES: normal conjunctivae, no scleral icterus ENT: MMM RESPIRATORY: clear to auscultation bilaterally, no crackles, rales or wheezes, normal respiratory effort CARDIOVASCULAR: regular rate and rhythm, S1 and 2 heard without murmurs, gallops or rubs, no JVD, no peripheral edema CHEST: inspection of chest was normal GASTROINTESTINAL: soft, NTND MUSCULOSKELETAL: strength 5/5 throughout, head is normocephalic and atraumatic SKIN: warm and dry, tattooes, TR band to R wrist NEUROLOGIC: CN 2-12 grossly intact, normal cognition, normal speech, no gross focal deficits. PSYCHIATRIC: alert cooperative and oriented to person, place and time. Results & Data Vital Signs (Past 12 Hours) Vital Signs Temp Pulse Pulse Pulse Resp BP BP 08/09/19 11:43 37.0 C 92 H 17 114/75 08/09/19 07:53 37.0 C 82 18 115/71 08/09/19 05:50 88 08/09/19 04:17 36.5 C 93 H 16 131/74 08/09/19 01:14 92 H Pulse Ox Pulse Ox 08/09/19 11:43 95 08/09/19 07:53 94 08/09/19 05:50 94 08/09/19 04:17 97 08/09/19 01:14 97 Laboratory Results Short CBC 08/09/19 Range/Units 05:24 WBC 9.13 (4.8-10.8) K/uL Hgb 13.4 (12.0-16.0) g/dL Hct 39.6 (37-47) % Plt Count 199 (130-400) K/uL BMP 08/09/19 05:24 Sodium 137 Potassium 4.0 D Chloride 108 H Carbon Dioxide 24 BUN 12 Creatinine 0.97 Glucose 149 H Calcium 8.8 Cardiac Enzymes 08/09/19 Range/Units 10:18 Troponin I 14.100 H* (0-0.045) ng/ml Medications Administered Current Inpatient Medications Aspirin (Ecotrin Ectab) 81 mg PO [facility] Stop: 09/08/19 08:59 Last Admin: 08/09/19 08:56 Dose: 81 mg Documented by: Atorvastatin Cal[facility] ([facility]) [facility] Stop: 09/07/19 08:59 Last Admin: 08/09/19 09:01 Dose: 80 mg Documented by: Dextrose (Dextrose 50%) 25 - 50 ml IV UD PRN; Protocol PRN Reason: Hypoglycemia Protocol Stop: 09/07/19 09:53 Glucagon (Glucagen) 1 mg SQ UD PRN; Protocol PRN Reason: Hypoglycemia Protocol Stop: 09/07/19 09:53 Glucose (Dex4 Glucose) 4 - 8 tabs PO UD PRN; Protocol PRN Reason: Hypoglycemia Protocol Stop: 09/07/19 09:53 Glucose (Glucose 40%) 15 - 30 gm PO UD PRN; Protocol PRN Reason: Hypoglycemia Protocol Stop: 09/07/19 09:53 Lorazepam (Ativan) 0.5 mg in 1 mls @ 1 mls/min IV Q4H PRN PRN Reason: Anxiety/Agitation Stop: 09/07/19 04:41 Last Admin: 08/09/19 09:52 Dose: 1 mls/min Documented by: Promethazine HCl 12.5 mg/ (Sodium Chloride) 50.5 mls @ 202 mls/hr IV Q6H PRN PRN Reason: Nausea And Vomiting Stop: 09/07/19 04:41 Last Infusion: 08/08/19 17:28 Dose: Infused Documented by: Insulin Aspart (Novolog Flexpen) 0 units SC ACHS [facility] Stop: 09/07/19 11:29 Last Admin: 08/09/19 09:04 Dose: 1 units Documented by: Insulin Glargine (Lantus Solostar Pen) 13 units SC BID [facility] Stop: 09/07/19 20:59 Last Admin: 08/09/19 08:56 Dose: 13 units Documented by: Ioversol (Optiray 320 125ml) 119 ml IV ONCE PRN PRN Reason: Interaction Checking Stop: 08/12/19 04:56 Last Admin: 08/08/19 04:58 Dose: 119 ml Documented by: Lisinopril (Zestril) 10 mg PO DAILY [facility] Stop: 09/07/19 08:59 Last Admin: 08/09/19 09:03 Dose: 10 mg Documented by: Methimazole (Tapazole) 20 mg PO QAM [facility] Stop: 09/07/19 08:59 Last Admin: 08/09/19 09:03 Dose: 20 mg Documented by: Metoprolol Tartrate (Lopressor) 12.5 mg PO Q6 [facility] Stop: 09/07/19 11:59 Last Admin: 08/09/19 06:11 Dose: 12.5 mg Documented by: Miscellaneous (Carbohydrates For Hypoglycemia) 15 - 30 gm PO UD PRN PRN Reason: Hypoglycemia Protocol Stop: 09/07/19 09:53 Morphine Sulfate (Morphine Sulfate) 4 mg IV Q4H PRN PRN Reason: Pain Stop: 08/22/19 04:41 Last Admin: 08/08/19 10:05 Dose: 4 mg Documented by: Sertraline HCl (Zoloft) 200 mg PO DAILY [facility] Stop: 09/07/19 08:59 Last Admin: 08/09/19 09:03 Dose: 200 mg Documented by: Ticagrelor (Brilinta) 90 mg PO BID [facility] Stop: 09/07/19 23:29 Last Admin: 08/09/19 08:56 Dose: 90 mg Documented by: Tramadol HCl (Ultram) 25 - 50 mg PO Q4H PRN PRN Reason: Pain Stop: 09/07/19 04:41
--- NOTE | 2019-08-09 14:23 | Cardiology Progress Note ---
Date of Service August 09, 2019 Assessment & Plan (1) Non-ST elevation CT (NSTEMI): Status post successful PCI to culprit lesion, LAD Chest discomfort has resolved We will now plan for staged intervention to significant circumflex lesion and likely medical therapy for diffusely diseased RCA. She is tolerating her dual antiplatelet therapy without issue We will continue her beta-blockade and statin therapy as well. She will be made n.p.o. after midnight. (2) T2DM (type 2 diabetes mellitus): (3) Family history of premature coronary artery disease: (4) Ischemic cardiomyopathy: Stable, does not examine his volume overloaded Will optimize medical therapy with goal directed medical therapy in the hopes that with revascularization and optimize medical therapy her LV systolic function will improve. To that end she is already on BOBBY inhibitor and her metoprolol will be changed to succinate after cardiac cath tomorrow. She does not examine his volume overload so I see no role for loop diuretic at this point She will also be started on aldosterone antagonist prior to discharge. We will plan on repeating echocardiogram and following clinically as an outpatient. Subjective Patient seen and examined seated upright in bed. States that she feels well and denies any recurrences of chest discomfort since PCI. She states that her nerves are significantly improved after our discussion yesterday. She denies any chest pain, shortness of breath, palpitations, lightheadedness, dizziness or syncope. Telemetry reviewed: Normal sinus rhythm without arrhythmia or significant ectopy. Review of Systems Review of Systems: All systems reviewed & are unremarkable except as noted in HPI & below Physical Exam Physical Exam: General: Awake, alert and oriented x 3. No acute distress. HEENT: Normocephalic, atraumatic. Pupils equal, round and reactive to light and accommodation. Extraocular muscles are intact. Anicteric sclera. Moist mucous membranes. Neck: No JVD. No bruit. Cardiovascular: Regular. Positive S-4. Normal S-1 and S-2. No S-3. No murmurs or rubs. Pulmonary: Clear to auscultation B/L. No rales, rhonchi or wheezing Abdomen: Bowel sounds x 4, soft. No rebound, guarding or tenderness. No organomegaly. Extremities: No clubbing, cyanosis or edema. +2 pedal pulses bilaterally. Skin: Warm and dry. Results & Data Vital Signs (Past 12 Hours) Vital Signs Temp Pulse Pulse Pulse Resp BP BP 08/09/19 11:43 37.0 C 92 H 17 114/75 08/09/19 07:53 37.0 C 82 18 115/71 08/09/19 05:50 88 08/09/19 04:17 36.5 C 93 H 16 131/74 Pulse Ox Pulse Ox 08/09/19 11:43 95 08/09/19 07:53 94 08/09/19 05:50 94 08/09/19 04:17 97
[2019-08-09] MEDS: LORazepam 0.5 MG TAB PO PRN (21:00)
[2019-08-10 05:36] LABS: Hematocrit (blood only) 41.3 % (37-47); Mean Corpuscular Hemoglobin 30.7 pg (25-34); Mean Corpuscular Hgb Conc 33.9 g/dL (32-36); Mean Corpuscular Volume 90.6 fL (80-100); Mean Platelet Volume 10.3 fL (7.4-10.4); Platelet Count 183 K/uL (130-400); RDW Coefficient of Variation 13.9 % (11.5-14.5); RDW Standard Deviation 45.6 fL (36.4-46.3); Red Blood Count 4.56 M/uL (4.2-5.4); White Blood Count 8.72 K/uL (4.8-10.8)
[2019-08-10 06:05] LABS: BUN Creatinine Ratio 14.6 (10-20); Calcium 9.1 mg/dl (8.5-10.1); Creatinine Clr Calc Pharmacy 61.2 ml/min; Est GFR (African American) 73.2; Est GFR (Non-African American) 63.2; Magnesium 1.8 mg/dl (1.8-2.4)
[2019-08-10 07:12] LABS: Estimated Average Glucose 197 mg/dl; Hemoglobin A1C 8.5 % (4.5-5.6)
[2019-08-10] MEDS ORDERED: MAGNESIUM SULFATE / D5W 1 GM/100 ML BAG IV ONE (07:45)
[2019-08-10] MEDS: METOPROLOL TARTRATE 25 MG TAB PO SCH ×2 (08:39→13:44)
[2019-08-10] MEDS: INSULIN ASPART 100 UNITS/ML 3 ML PEN SC SCH ×4 (08:40→20:52)
[2019-08-10] MEDS: methIMAzole 5 MG TABLET PO SCH (08:42)
[2019-08-10] MEDS: TICAGRELOR 90 MG TAB PO SCH ×2 (08:43→20:52)
[2019-08-10] MEDS: ATORVASTATIN 40 MG TAB PO SCH (08:43)
[2019-08-10] MEDS: ASPIRIN 81 MG ECTAB PO SCH (08:43)
[2019-08-10] MEDS: SERTRALINE HCL 100 MG TABLET PO SCH (08:43)
[2019-08-10] MEDS: lisinopriL 10 MG TAB PO SCH (08:43)
[2019-08-10] MEDS: INSULIN GLARGINE SOLOSTAR 100 UNITS/ML 3 ML PEN SC SCH ×2 (08:43→20:51)
[2019-08-10] MEDS ORDERED: HEPARIN (PORCINE) 1000 UNIT/ML 10 ML (CATH LAB USE ONLY) ONE (11:08)
[2019-08-10] MEDS ORDERED: NiCARDipine HCL INJ 2.5 MG/ML 10 ML AMP ONE (11:08)
[2019-08-10] MEDS ORDERED: NITROGLYCERIN/D5W 100MCG/ML 20ML SYR ONE (11:09)
[2019-08-10] MEDS ORDERED: MIDAZOLAM HCL 1 MG/ML 2ML VIAL ONE ×2 (11:09→12:59)
[2019-08-10] MEDS ORDERED: fentaNYL citrate 100 MCG/2 ML VIAL ONE (11:09)
--- NOTE | 2019-08-10 13:24 | Pre Anesthesia Assessment ---
Date of Service August 10, 2019 Pre Sedation Assessment Vital Signs Temp Pulse Pulse Resp BP Pulse Ox 08/10/19 13:15 69 16 122/80 98 08/10/19 13:00 69 16 129/80 98 08/10/19 07:39 98.6 F 91 H 17 120/76 96 08/10/19 04:21 98.2 F 85 16 132/75 93 08/09/19 23:06 98.2 F 89 22 109/69 95 08/09/19 19:04 100.0 F H 101 H 18 109/68 96 08/09/19 15:17 98.4 F 90 18 117/73 96 Cardiovascular RRR, no murmur, no edema Respiratory normal respiratory effort, lungs clear to auscultation Pre-Sedation Airway Assessment Smoking Status: Current every day smoker Hx Sleep Apnea: No Hx Difficult Intubation: No Short, Thick Neck: No Thyromental Distance: > or= 3.5 Finger Breadths Oral Cavity: + WNL Mallampati Class: III ASA: ASA3 NPO Status Date of Last Intake of Fluids: 08/09/19 Time of Last Intake of Fluids: 18:00 Date of Last Intake of Solid Food: 08/09/19 Time of Last Intake of Solid Foods: 18:00 Notes The planned sedation has been discussed with the patient. Informed Consent was obtained. I have identified the patient, determined the appropriateness of sedation and have assessed the patient immediately prior to the procedure. All medicine(s) and interventions are by my order.
--- NOTE | 2019-08-10 13:36 | Cardiac Catheterization ---
[facility] Data: Dispenser Operator Cardiac Status Clinical evaluation leading to the procedure CAD Presenation: Non STEMI Anginal Classification: CCS IV Heart Failure: No Cardiogenic Shock within 24 Hours: No Cardiac Arrest within 24 Hours: No Imaging Studies Past 6 Months: Yes Stress Studies Past 6 Months: No Diagnostic Physicians Name: Alex Johnson MD Status: Elective Closure Device Percutaneous Entry Location: Radial Closure Device: Radial Band Recommendations: PCI without planned CABG PCI Indication: Staged PCI Lesion Segment Name: mid OM1 Culprit Artery: No Stenosis Prior to Rx (%): 90 Chronic Total Occlusion: No IVUS: No FFR: No Pre-Procedure MELISSA Flow: 3 Previously Treated Lesion: No Lesion Complexity: Non-High/Non-C Lesion Length (mm): 12 Thrombus Present: No Bifurcation Lesion: No Guidewire Across Lesion: Stenosis Post-Procedure (%): 0 Post-Procedure MELISSA Flow: 3 Devices(s) Deployed: Yes Yes Intraprocedure Events Significant Disection: No Perforation: No Cardiac Cath Procedure Full Procedure Date August 10, 2019 Pre-Procedure Diagnosis Pre-Procedure Diagnosis: Acute Coronary Syndrome AUC Score AUC Score: 8 Post-Procedure Diagnosis Post-Procedure Diagnosis: Successful PCI Procedure(s) Performed Procedure(s) Performed: Coronary Angiography, PTCA and Drug Eluting Stent Software Quality Engineer Alex Johnson MD Horse Doctor(s) Gurwinder Estimated Blood Loss Estimated Blood Loss: 15 Medication(s) Medication(s): Fentanyl, Heparin, Lidocaine 1%, Nicardipine, Nitroglycerin and Versed Summary of Findings Indication: Staged PCI of OM1. Post PCI of occluded LAD/diagonal Access: 6 Fr slender right radial artery Catheters: EBU 3.5 guide Findings: See cath report from 08/08/2019 for full details of patients coronary angiography. Previously noted to have a 90% mid stenosis in large OM1. Decision to proceed with PCI -- PCI -- Antithrombotic therapy: Heparin, ticagrelor Procedure: Left main cannulated with EBU 3.5 guide Heel Cutter 50 wire eventually passed across lesion into distal OM1 Mid OM1 lesion predilated with 2.0 compliant balloon, following dilation nonflow limiting dissection noted With the aid of a guide liner dilated lesion stented with 2.5 x 15 mm Adolfo drug- eluting Stent post-dilated with 2.75 NC balloon IC vasodilators administered for spasm Post procedure MELISSA 3 flow, no apparent cardiac complications. Heel Cutter 50 wire removed from OM and directed into distal LAD With aid of guideline underexpanded proximal aspect of most proximal LAD stent dilated with 2.5 NC balloon to high atmospheres. Post procedure minimal residual stenosis. MELISSA 3 flow. Arterial Closure: TR band Summary: 1. Successful PCI of mid OM1 with single drug-eluting stent (2.5 x 15 Bonaparte; post-dilated with 2.75 NC). 2 Repeat post dilation of proximal aspect of mid LAD stents with 2.5 NC balloon. Recommendations: To PCU for continued monitoring Continue dual-antiplatelet therapy for at least 1 year, likely indefinitely Continue statin, and ASCVD risk factor modification Consult cardiac Rehab Medical management of RCA disease. If refractory symptoms in the future may need atherectomy for successful PCI. Hemodynamics Rest Ao:: 106/71 Final Ao: 154/80 LV: -- Recommendations Recommendations: PCI without planned CABG Specimens Specimens: None Radiation Exposure (mGy) 2634 Contrast (mls) 75 Fluids (cc crystalloids) Fluids (cc crystalloids): 70 Drains Drains: None Anesthesia Moderate Procedural Complication(s) None Disposition PCU I attest to the content of the Intraoperative Record and any orders documented therein. Any exceptions are noted below. [facility] Card Cath Procedure Codes Moderate Sedation Procedure 1: Sedation/Anesthesia: 23107 Mod Sedation by the same physician;Init15 Min Child Age 5 & Up Procedure 2: Sedation/Anesthesia: 36234 Mod Sedation by the same physician; Ea [id number] Minutes Angioplasty Procedure 1: Cardiovascular Angioplasty Procedures: 25084 PTCA; ea addl branch of a major cor art RC LC LD Stenting Procedure 1: Cardiovascular Stent Procedures: 46449 Perc transcatheter placement of intracoronary stent(s), with ang PG Care Time/CCT Total # of Minutes Spent Total Time Spent with Patient: Total time spent is greater than 50% in coordination of care (as documented) at patient's floor/unit and/or counseling patient:
[2019-08-10] MEDS ORDERED: SODIUM CHLORIDE 0.9% 1000ML 1,000 ML IV SCH (13:45)
[2019-08-10] MEDS ORDERED: NITROGLYCERIN SL 0.4 MG/TAB TAB ONE ×3 (14:42→18:36)
[2019-08-10] MEDS: LORazepam 0.5 MG TAB PO PRN ×2 (14:44→21:54)
--- NOTE | 2019-08-10 15:07 | Cardiology Progress Note ---
Date of Service August 10, 2019 Assessment & Plan (1) Non-ST elevation AR (NSTEMI): Status post successful PCI to culprit lesion, LAD Now with successful intervention to the circumflex lesion today as well. medical therapy for diffusely diseased RCA. She is tolerating her dual antiplatelet therapy without issue We will continue her beta-blockade and statin therapy as well. We will likely monitor overnight and DC to home in the a.m. (2) T2DM (type 2 diabetes mellitus): (3) Family history of premature coronary artery disease: (4) Ischemic cardiomyopathy: Stable, does not examine his volume overloaded Will optimize medical therapy with goal directed medical therapy in the hopes that with revascularization and optimize medical therapy her LV systolic function will improve. To that end she is already on BOBBY inhibitor and her metoprolol will be changed to succinate after cardiac cath tomorrow. She does not examine his volume overload so I see no role for loop diuretic at this point She will also be started on aldosterone antagonist prior to discharge. We will plan on repeating echocardiogram and following clinically as an outpatient. Subjective Patient seen and examined status post intervention to the circumflex. States that she is having a little chest discomfort at this time but believes is just her anxiety. She has been feeling a little anxious since prior to the catheterization today. Otherwise she was feeling well overnight and denies any shortness of breath, palpitations, lightheadedness, dizziness or syncope. Telemetry reviewed: Normal sinus rhythm without arrhythmia or significant ectopy. Review of Systems Review of Systems: All systems reviewed & are unremarkable except as noted in HPI & below Physical Exam Physical Exam: General: Awake, alert and oriented x 3. No acute distress. HEENT: Normocephalic, atraumatic. Pupils equal, round and reactive to light and accommodation. Extraocular muscles are intact. Anicteric sclera. Moist mucous membranes. Neck: No JVD. No bruit. Cardiovascular: Regular. Positive S-4. Normal S-1 and S-2. No S-3. No murmurs or rubs. Pulmonary: Clear to auscultation B/L. No rales, rhonchi or wheezing Abdomen: Bowel sounds x 4, soft. No rebound, guarding or tenderness. No organomegaly. Extremities: No clubbing, cyanosis or edema. +2 pedal pulses bilaterally. Skin: Warm and dry. Results & Data Vital Signs (Past 12 Hours) Vital Signs Temp Pulse Pulse Resp BP BP Pulse Ox 08/10/19 14:22 99 H 16 135/84 08/10/19 14:07 99 H 18 139/85 95 08/10/19 13:52 36.8 C 98 H 20 134/81 95 08/10/19 13:40 36.6 C 93 H 17 129/80 95 08/10/19 13:25 69 16 129/86 98 08/10/19 13:15 69 16 122/80 98 08/10/19 13:00 69 16 129/80 98 08/10/19 07:39 37.0 C 91 H 17 120/76 96 08/10/19 04:21 36.8 C 85 16 132/75 93
--- NOTE | 2019-08-10 15:11 | Hospitalist Progress Note ---
Date of Service August 10, 2019 Assessment & Plan (1) Non-ST elevation [place] (NSTEMI): s/p percutaneous interventions with drug eluting stents on this hospitalization -08/08/19: cardiac catheterization found Severe, calcified multi-vessel coronary artery disease (Acute 100% latemid LAD, 90% mid OM1, 70% proximal, 80 to 90% mid RCA. Small PDA, distal PLB occluded and fill via [id number] collaterals). Patient had Successful PCI of mid LAD with 2 overlapping drug- eluting stents -08/10/19: 2nd cardiac catheterization with:Successful PCI of mid OM1 with single drug-eluting stent (2.5 x 15 Adolfo; post-dilated with 2.75 NC). Repeat post dilation of proximal aspect of mid LAD stents with 2.5 NC balloon -continue to monitor as inpatient after the cardiac cath -Continue lisinopril 10 daily, atorvastatin 80 mg daily, aspirin 81 daily, metoprolol as succinate 25 mg daily, aspirin 81 mg daily Brilinta 90 mg BID (2) T2DM (type 2 diabetes mellitus): Type 2 diabetes mellitus without care home current use of insulin -HbA1c 8.5 -hold home dose metformin for now -continue insulin as needed in patient (3) Hypomagnesemia: -serum magnesium 1.6 on admission, some improvements after supplements -serum magnesium 1.8 on 08/10/19. IV magnesium given (4) Graves disease: -normal TSH -cont methimazole daily (5) Smoker: -patient was Strongly recommended quitting as this is a modifiable risk factor for CAD. She verbalized understanding with intent to comply. (6) Anxiety: -exceptional circumstances recently with acute loss of her dog and [place] at the same time -Ativan PRN (7) DVT prophylaxis: -SCDs Full Code Subjective Patient seen and examined after cardiac cath. patient feeling well after procedure. breathing on room air. denies chest pain. denies palpitations. no abdominal pain. no nausea. no vomiting. Review of Systems Review of Systems: All systems reviewed & are unremarkable except as noted in HPI & below Physical Exam Constitutional: comfortable Eyes: PERRL, conjunctivae normal, anicteric sclerae EOM intact bilaterally ENMT: external ear and nose normal, oropharynx normal Neck: trachea midline, no thyromegaly Respiratory: some atelectasis audible Cardiovascular: Rate/Rhythm: regular rhythm Gastrointestinal (Abdomen): normal bowel sounds, soft, nontender, no hepatosplenomegaly Musculoskeletal: Head/Neck/Chest: normocephalic and head atraumatic Neurologic: PERRL, EOMI, accommodation nl, no face palsy, no dysarthria CN's II-XI intact bilaterally Psychiatric: A+Ox3, euthymic affect Results & Data Vital Signs (Past 12 Hours) Vital Signs Temp Pulse Pulse Resp BP BP Pulse Ox 08/10/19 14:52 104 H 20 109/67 96 08/10/19 14:22 99 H 16 135/84 08/10/19 14:07 99 H 18 139/85 95 08/10/19 13:52 36.8 C 98 H 20 134/81 95 08/10/19 13:40 36.6 C 93 H 17 129/80 95 08/10/19 13:25 69 16 129/86 98 08/10/19 13:15 69 16 122/80 98 08/10/19 13:00 69 16 129/80 98 08/10/19 07:39 37.0 C 91 H 17 120/76 96 08/10/19 04:21 36.8 C 85 16 132/75 93
[2019-08-10] MEDS: METOPROLOL SUCC 25MG EXT REL TAB PO SCH (16:01)
[2019-08-10] MEDS: MoRPHine SULFATE 4 MG/ML 1 ML CARP\\VIAL IV PRN (18:27)
[2019-08-10] MEDS ORDERED: NITROGLYCERIN SL 0.4 MG/TAB TAB SL STA (18:33)
[2019-08-10] MEDS ORDERED: NITROGLYCERIN SL 0.4 MG/TAB TAB SL PRN (18:48)
[2019-08-11 05:36] LABS: Basophils # (auto) 0.04 K/uL (0-0.2); Basophils % (auto) 0.5 %; Eosinophils # (auto) 0.37 K/uL (0-0.5); Eosinophils % (auto) 4.2 %; Hematocrit (blood only) 40.7 % (37-47); Hemoglobin 13.9 g/dL (12.0-16.0); Immature Granulocytes # (auto) 0.08 K/uL (0.00-0.02); Immature Granulocytes % (auto) 0.9 %; Lymphocytes # (auto) 1.32 K/uL (1.2-3.4); Mean Corpuscular Hemoglobin 31.2 pg (25-34); Mean Corpuscular Hgb Conc 34.2 g/dL (32-36); Mean Corpuscular Volume 91.3 fL (80-100); Mean Platelet Volume 10.4 fL (7.4-10.4); Monocytes # (auto) 0.77 K/uL (0.11-0.59); Monocytes % (auto) 8.7 %; Neutrophils # (auto) 6.23 K/uL (1.4-6.5); Neutrophils % (auto) 70.7 %; Platelet Count 188 K/uL (130-400); RDW Coefficient of Variation 13.8 % (11.5-14.5); RDW Standard Deviation 45.6 fL (36.4-46.3); Red Blood Count 4.46 M/uL (4.2-5.4); White Blood Count 8.81 K/uL (4.8-10.8)
[2019-08-11 06:07] LABS: Albumin Level 3.2 gm/dl (3.4-5.0); BUN Creatinine Ratio 15.6 (10-20); Calcium 9.3 mg/dl (8.5-10.1); Creatinine Clr Calc Pharmacy 64.4 ml/min; Est GFR (African American) 77.8; Est GFR (Non-African American) 67.2; Magnesium 1.7 mg/dl (1.8-2.4); Potassium 4.1 mmol/L (3.5-5.1)
[2019-08-11 06:10] LABS: Albumin Globulin Ratio 0.7 (0.9-2); Bilirubin,Total 0.9 mg/dl (0.2-1); Globulin 4.3 gm/dl (2.5-4.0); Total Protein 7.5 gm/dl (6.4-8.2)
[2019-08-11] MEDS ORDERED: MAGNESIUM SULFATE / D5W 1 GM/100 ML BAG IV ONE (06:40)
[2019-08-11] MEDS: MAGNESIUM SULFATE / D5W 1 GM/100 ML BAG IV SCH ×2 (08:17→09:22)
[2019-08-11] MEDS: lisinopriL 10 MG TAB PO SCH (08:19)
[2019-08-11] MEDS: ATORVASTATIN 40 MG TAB PO SCH (08:19)
[2019-08-11] MEDS: TICAGRELOR 90 MG TAB PO SCH (08:19)
[2019-08-11] MEDS: methIMAzole 5 MG TABLET PO SCH (08:19)
[2019-08-11] MEDS: METOPROLOL SUCC 25MG EXT REL TAB PO SCH (08:19)
[2019-08-11] MEDS: SERTRALINE HCL 100 MG TABLET PO SCH (08:20)
[2019-08-11] MEDS: ASPIRIN 81 MG ECTAB PO SCH (08:20)
[2019-08-11] MEDS: INSULIN ASPART 100 UNITS/ML 3 ML PEN SC SCH ×2 (08:21→12:05)
[2019-08-11] MEDS: INSULIN GLARGINE SOLOSTAR 100 UNITS/ML 3 ML PEN SC SCH (08:21)
[2019-08-11] MEDS ORDERED: MAGNESIUM OXIDE 400 MG TAB PO SCH (09:00)
--- NOTE | 2019-08-11 10:07 | Cardiology Progress Note ---
Date of Service August 11, 2019 Assessment & Plan (1) Non-ST elevation [place] (NSTEMI): Status post successful PCI to culprit lesion, LAD Now with successful intervention to the circumflex lesion today as well. medical therapy for diffusely diseased RCA. She is tolerating her dual antiplatelet therapy without issue We will continue her beta-blockade and statin therapy as well. Okay to discharge home from a cardiac standpoint. My office will call to arrange cardiac follow-up, cardiac rehab and echocardiogram as an outpatient. (2) T2DM (type 2 diabetes mellitus): (3) Family history of premature coronary artery disease: (4) Ischemic cardiomyopathy: Stable, does not examine his volume overloaded Will optimize medical therapy with goal directed medical therapy in the hopes that with revascularization and optimize medical therapy her LV systolic function will improve. To that end she is already on BOBBY inhibitor and her metoprolol will be changed to succinate after cardiac cath tomorrow. She does not examine his volume overload so I see no role for loop diuretic at this point She will also be started on aldosterone antagonist prior to discharge. We will plan on repeating echocardiogram and following clinically as an outpatient. (5) Anxiety: Will require ongoing treatment. Recommend close follow-up with PCP as an outpatient. Would DC to home with anxiolytics. Subjective Patient seen and examined states that she is feeling well. Had an episode of anxiety overnight successfully treated with Ativan. Denies any recurrences of chest discomfort nor any shortness of breath, palpitations, lightheadedness, dizziness or syncope. Telemetry reviewed: Normal sinus rhythm without arrhythmia. Review of Systems Review of Systems: All systems reviewed & are unremarkable except as noted in HPI & below Physical Exam Physical Exam: General: Awake, alert and oriented x 3. No acute distress. HEENT: Normocephalic, atraumatic. Pupils equal, round and reactive to light and accommodation. Extraocular muscles are intact. Anicteric sclera. Moist mucous membranes. Neck: No JVD. No bruit. Cardiovascular: Regular. Positive S-4. Normal S-1 and S-2. No S-3. No murmurs or rubs. Pulmonary: Clear to auscultation B/L. No rales, rhonchi or wheezing Abdomen: Bowel sounds x 4, soft. No rebound, guarding or tenderness. No organomegaly. Extremities: No clubbing, cyanosis or edema. +2 pedal pulses bilaterally. Skin: Warm and dry. Results & Data Vital Signs (Past 12 Hours) Vital Signs Temp Pulse Pulse Resp BP Pulse Ox 08/11/19 09:35 94 H 08/11/19 07:12 36.7 C 95 H 22 121/80 95 08/11/19 03:54 36.7 C 100 H 18 115/76 93 08/10/19 23:04 37.2 C 100 H 18 116/72 95
[2019-08-11] MEDS ORDERED: SPIRONOLACTONE 25 MG TAB PO SCH (11:30)
--- NOTE | 2019-08-11 11:38 | Hospitalist Progress Note ---
Date of Service August 11, 2019 Assessment & Plan (1) Non-ST elevation OR (NSTEMI): s/p percutaneous interventions with drug eluting stents on this hospitalization -08/08/19: cardiac catheterization found Severe, calcified multi-vessel coronary artery disease (Acute 100% latemid LAD, 90% mid OM1, 70% proximal, 80 to 90% mid RCA. Small PDA, distal PLB occluded and fill via [id number] collaterals). Patient had Successful PCI of mid LAD with 2 overlapping drug- eluting stents -08/10/19: 2nd cardiac catheterization with:Successful PCI of mid OM1 with single drug-eluting stent (2.5 x 15 Adolfo; post-dilated with 2.75 NC). Repeat post dilation of proximal aspect of mid LAD stents with 2.5 NC balloon -continue to monitor as inpatient after the cardiac cath -Continue lisinopril 10 daily, atorvastatin 80 mg daily, aspirin 81 daily, metoprolol as succinate 25 mg daily, aspirin 81 mg daily Brilinta 90 mg BID. spironolactone 12.5 mg daily started -discharge medications sent electronically to [facility] [address] [place] [address] Rd, [place] [address] of (-cardiovascular medications of aspirin 81 mg and Brillinta (Ticagrelor) 90 mg twice a day to prevent occlusion of coronary artery stents, metoprolol succinate 25 mg daily, atorvastatin 80 mg daily, spironolactone 12.5 mg daily, lisinopril 10 mg daily -Nitroglycerin Sublingual tablet 0.4 mg every 5 minutes up to 3 doses if chest pain; Patient or caregiver should call 9-1-1 immediately -Magnesium daily for 10 days -Lorazepam (Ativan) 0.5 mg tablet every 8 hours as needed for anxiety (12 tablet supply) -Scheduled appointments: 08/14/2019 1:30 PM Provider Ewa Mohan DO Department Family Practice [facility] (Patient will also need basic metabolic panel 1 week after hospital discharge while on spironolactone and lisinopril; and serum magnesium levels) (Hemoglobin A1c of 8.5 on 08/09/19. Patient may continue metformin 1000 mg daily for diabetes control for now but should discuss with family doctor other diabetes medications for better control of blood sugars) -08/21/2019 9:00 AM Provider Klever Santoyo DO Department Cardiology, [facility] -08/24/2019 10:00 AM Provider Nurse Ralph Cruz [facility] Department Ancillary [facility] (2) T2DM (type 2 diabetes mellitus): Type 2 diabetes mellitus without parts counterman current use of insulin -Hemoglobin A1c of 8.5 on 08/09/19 -was give subcutaneous Lantus with sliding scale insulin while in the hospital, when metformin was held -Patient may continue metformin 1000 mg daily for diabetes control for now but should discuss with family doctor other diabetes medications for better control of blood sugars (3) Hypomagnesemia: -serum magnesium 1.6 on admission, some improvements after supplements -serum magnesium 1.8 on 08/10/19. IV magnesium given -serum magnesium 1.7 on 08/11/19. IV and oral magnesium given. oral magnesium prescription for outpatient oral supplementation (4) Graves disease: -normal TSH -continue methimazole daily (5) Smoker: -patient was Strongly recommended quitting as this is a modifiable risk factor for CAD. She verbalized understanding with intent to comply. (6) Anxiety: -exceptional circumstances recently with acute loss of her dog and [place] at the same time -Ativan PRN (7) DVT prophylaxis: -SCDs while inpatient Discharge Diagnosis: Non-ST elevation Myocardial Infraction (NSTEMI); coronary artery disease and s/p percutaneous interventions with drug eluting stents, Ischemic cardiomyopathy, Type 2 diabetes mellitus without parts counterman current use of insulin, Hypomagnesemia, Anxiety Subjective Patient denies chest pain or palpitations or shortness of breath. no abdominal pain. no nausea. no vomiting. discharge plans discussed at length Review of Systems Review of Systems: All systems reviewed & are unremarkable except as noted in HPI & below Physical Exam Constitutional: comfortable Eyes: PERRL, conjunctivae normal, anicteric sclerae EOM intact bilaterally ENMT: external ear and nose normal, oropharynx normal Neck: trachea midline, no thyromegaly Cardiovascular: Rate/Rhythm: regular rhythm Gastrointestinal (Abdomen): normal bowel sounds, soft, nontender, no hepatosplenomegaly Musculoskeletal: Head/Neck/Chest: normocephalic and head atraumatic Neurologic: PERRL, EOMI, accommodation nl, no face palsy, no dysarthria CN's II-XI intact bilaterally Psychiatric: A+Ox3, euthymic affect Results & Data Vital Signs (Past 12 Hours) Vital Signs Temp Pulse Pulse Resp BP Pulse Ox 08/11/19 09:35 94 H 08/11/19 07:12 36.7 C 95 H 22 121/80 95 08/11/19 03:54 36.7 C 100 H 18 115/76 93
--- NOTE | 2019-08-11 11:45 | Discharge Summary ---
Date of Service August 11, 2019 Admission HPI Per Admitting Provider History obtained from patient, family, and records. 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 2 nights ago patient noted chest discomfort going to her throat and back between the shoulder blades, intermittent symptoms without other associated symptoms. No prior episodes. This morning, patient roused from sleep by worsening discomfort with some S OB, diaphoresis. Chest pain not pleuritic. Some improvement with aspirin and nitro spray administered by EMS. Patient brought to the ER by EMS. 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 Admission Exam Per Admitting Provider GENERAL: Slightly uncomfortable, obese, no respiratory distress SKIN: Normal color, warm HEENT: [place] palpebral conjunctivae, no ptosis, dry buccal mucosa NECK : Supple, no tenderness CHEST : CTA, no tenderness HEART : RRR, no obvious murmurs ABDOMEN: Some distention, nontender EXTREMITIES : No LE swelling/tenderness, no other conspicuous deformities noted NEUROLOGIC : Coherent, no facial asymmetry, no other gross focality Principal Diagnosis Non-ST elevation Myocardial Infraction (NSTEMI); coronary artery disease and s/p percutaneous interventions with drug eluting stents, Ischemic cardiomyopathy, Type 2 diabetes mellitus without joint terminal attack controller current use of insulin, Hypomagnesemia, Anxiety Discharge Exam Constitutional comfortable Eyes PERRL, conjunctivae normal, anicteric sclerae EOM intact bilaterally ENMT external ear and nose normal, oropharynx normal Neck trachea midline, no thyromegaly Cardiovascular Rate/Rhythm: regular rhythm Gastrointestinal (Abdomen) normal bowel sounds, soft, nontender, no hepatosplenomegaly Musculoskeletal Head/Neck/Chest: normocephalic and head atraumatic Neurologic PERRL, EOMI, accommodation nl, no face palsy, no dysarthria CN's II-XI intact bilaterally Psychiatric A+Ox3, euthymic affect Discharge Data Allergies Allergy/AdvReac Type Severity Reaction Status Date / Time No Known Allergies Allergy Unverified 08/08/19 02:58 Consultations 08/08/19 04:08 ED Decision to Admit Stat 08/08/19 09:54 Consult Cardiology Routine 08/09/19 11:33 Consult Case Management - Discharge Planning Routine 08/09/19 14:15 Consult Cardiac Catheterization Routine Procedures Performed Operation Date: 08/08/19 12:45 Actual Procedures s Cineradiography w/Routine Exam - Nathan Johnson MD p Aspiration/PCI w/JEFF for Stemi - Nathan Johnson MD s Cath, Left with Cors and Vent - Nathan Johnson MD Operation Date: 08/10/19 10:30 Actual Procedures p Drug Eluting Stent SGl Vessel - Nathan Johnson MD s POBA SGL Vessel - Nathan Johnson MD Ordered Studies 08/08/19 04:41 CT angio chest dissec wo/w con Urgent 08/08/19 12:43 CL Cath Imgs for PACS use only Stat 08/10/19 11:09 CL Cath Imgs for PACS use only Routine Hospital Course (1) Non-ST elevation [place] (NSTEMI): s/p percutaneous interventions with drug eluting stents on this hospitalization -08/08/19: cardiac catheterization found Severe, calcified multi-vessel coronary artery disease (Acute 100% latemid LAD, 90% mid OM1, 70% proximal, 80 to 90% mid RCA. Small PDA, distal PLB occluded and fill via [id number] collaterals). Patient had Successful PCI of mid LAD with 2 overlapping drug- eluting stents -08/10/19: 2nd cardiac catheterization with:Successful PCI of mid OM1 with single drug-eluting stent (2.5 x 15 [place]; post-dilated with 2.75 NC). Repeat post dilation of proximal aspect of mid LAD stents with 2.5 NC balloon -continue to monitor as inpatient after the cardiac cath -Continue lisinopril 10 daily, atorvastatin 80 mg daily, aspirin 81 daily, metoprolol as succinate 25 mg daily, aspirin 81 mg daily Brilinta 90 mg BID. spironolactone 12.5 mg daily started -discharge medications sent electronically to [facility] [address] [place] [address], [place] [address] of (-cardiovascular medications of aspirin 81 mg and Brillinta (Ticagrelor) 90 mg twice a day to prevent occlusion of coronary artery stents, metoprolol succinate 25 mg daily, atorvastatin 80 mg daily, spironolactone 12.5 mg daily, lisinopril 10 mg daily -Nitroglycerin Sublingual tablet 0.4 mg every 5 minutes up to 3 doses if chest pain; Patient or caregiver should call 9-1-1 immediately -Magnesium daily for 10 days -Lorazepam (Ativan) 0.5 mg tablet every 8 hours as needed for anxiety (12 tablet supply) -Scheduled appointments: 08/14/2019 1:30 PM Provider Ewa Mohan DO Department Family Practice [facility] (Patient will also need basic metabolic panel 1 week after hospital discharge while on spironolactone and lisinopril; and serum magnesium levels) (Hemoglobin A1c of 8.5 on 08/09/19. Patient may continue metformin 1000 mg daily for diabetes control for now but should discuss with family doctor other diabetes medications for better control of blood sugars) -08/21/2019 9:00 AM Provider Klever Santoyo DO Department Cardiology, [facility] -08/24/2019 10:00 AM Provider Nurse Ralph Cruz [facility] Department Ancillary [facility] (2) T2DM (type 2 diabetes mellitus): Type 2 diabetes mellitus without half-way current use of insulin -Hemoglobin A1c of 8.5 on 08/09/19 -was give subcutaneous Lantus with sliding scale insulin while in the hospital, when metformin was held -Patient may continue metformin 1000 mg daily for diabetes control for now but should discuss with family doctor other diabetes medications for better control of blood sugars (3) Hypomagnesemia: -serum magnesium 1.6 on admission, some improvements after supplements -serum magnesium 1.8 on 08/10/19. IV magnesium given -serum magnesium 1.7 on 08/11/19. IV and oral magnesium given. oral magnesium prescription for outpatient oral supplementation (4) Graves disease: -normal TSH -continue methimazole daily (5) Smoker: -patient was Strongly recommended quitting as this is a modifiable risk factor for CAD. She verbalized understanding with intent to comply. (6) Anxiety: -exceptional circumstances recently with acute loss of her dog and [place] at the same time -Ativan PRN (7) DVT prophylaxis: -SCDs while inpatient Discharge Diagnosis: Non-ST elevation Myocardial Infraction (NSTEMI); coronary artery disease and s/p percutaneous interventions with drug eluting stents, Ischemic cardiomyopathy, Type 2 diabetes mellitus without half-way current use of insulin, Hypomagnesemia, Anxiety Total Time Total Time Spent Total Time Spent (In Minutes): 40 minutes Total Time Includes: Examination of the Patient, Discharge Planning, Medication Reconciliation and Communication With Other Providers Discharge Plan Discharge Items Patient Disposition: Home - Self-Care Reason For Visit: ACS Discharge Diagnosis: Non-ST elevation Myocardial Infraction (NSTEMI); coronary artery disease and s/p percutaneous interventions with drug eluting stents, Ischemic cardiomyopathy, Type 2 diabetes mellitus without joint terminal attack controller current use of insulin, Hypomagnesemia, Anxiety Condition on Discharge: Good Activity: Resume your previous activity Non-emergency contact: Primary Care Provider and Senior Technical Specialist Call non-emergency contact if: you have any medication questions Follow-up/Referrals: Ewa Mohan DO [Primary Care Provider] - Diet: Carb Consistent or DM2, Heart Healthy and Low Sodium (2gm) Addtl Attending Provider Instructions: s/p percutaneous interventions with drug eluting stents on this hospitalization -08/08/19: cardiac catheterization found Severe, calcified multi-vessel coronary artery disease (Acute 100% latemid LAD, 90% mid OM1, 70% proximal, 80 to 90% mid RCA. Small PDA, distal PLB occluded and fill via [id number] collaterals). Patient had Successful PCI of mid LAD with 2 overlapping drug- eluting stents -08/10/19: 2nd cardiac catheterization with:Successful PCI of mid OM1 with single drug-eluting stent (2.5 x 15 [place]; post-dilated with 2.75 NC). Repeat post dilation of proximal aspect of mid LAD stents with 2.5 NC balloon discharge medications sent electronically to [facility] [address], [place] [address] of -cardiovascular medications of aspirin 81 mg and Brillinta (Ticagrelor) 90 mg twice a day to prevent occlusion of coronary artery stents, metoprolol succinate 25 mg daily, atorvastatin 80 mg daily, spironolactone 12.5 mg daily, lisinopril 10 mg daily -Nitroglycerin Sublingual tablet 0.4 mg every 5 minutes up to 3 doses if chest pain; Patient or caregiver should call 9-1-1 immediately -Magnesium daily for 10 days -Lorazepam (Ativan) 0.5 mg tablet every 8 hours as needed for anxiety (12 tablet supply) Scheduled appointments 08/14/2019 1:30 PM Provider Ewa Mohan DO Department Family Practice [facility] (Patient will also need basic metabolic panel 1 week after hospital discharge while on spironolactone and lisinopril; and serum magnesium levels) (Hemoglobin A1c of 8.5 on 08/09/19. Patient may continue metformin 1000 mg daily for diabetes control for now but should discuss with family doctor other diabetes medications for better control of blood sugars) 08/21/2019 9:00 AM Provider Klever Santoyo DO Department Cardiology, [facility] 08/24/2019 10:00 AM Provider Nurse Ralph Cruz [facility] Ancillary [facility] Pending Studies at Discharge: No Stand-Alone Forms: Call Back Authorization, [facility], Smoking Cessation Medications and DC Order Prescriptions: New atorvastatin 40 mg Tablet 80 mg PO QAM 30 Days Qty: 60 RF: 0 aspirin [Ecotrin Low Strength] 81 mg Tablet,Delayed Release (Dr/Ec) 81 mg PO QAM 30 Days Qty: 30 RF: 0 spironolactone 25 mg Tablet 12.5 mg PO DAILY 30 Days Qty: 15 RF: 0 lisinopril 10 mg Tablet 10 mg PO DAILY 30 Days Qty: 30 RF: 0 metoprolol succinate 25 mg Tablet Extended Release 24 Hr 25 mg PO QAM 30 Days Qty: 30 RF: 0 Brilinta 90 mg Tablet 90 mg PO BID 30 Days Qty: 60 RF: 0 lorazepam 0.5 mg Tablet 0.5 mg PO Q8H PRN (Reason: anxiety) 4 Days Qty: 12 RF: 0 magnesium oxide 400 mg (241.3 mg magnesium) Tablet 400 mg PO QAM 10 Days Qty: 10 RF: 0 nitroglycerin [Nitrostat] 0.4 mg tablet, sublingual 0.4 mg sublingual Q5M 30 Days Qty: 30 RF: 0 Continued methimazole 10 mg tablet 20 mg PO QAM Qty: 60 RF: 5 metformin 500 mg Tablet 1,000 mg PO QAM RF: 0 sertraline 100 mg Tablet 200 mg PO DAILY RF: 0 Discontinued metoprolol succinate [Toprol XL] 50 mg Tablet Extended Release 24 Hr 50 mg PO HS RF: 0 lisinopril 10 mg Tablet 10 mg PO DAILY RF: 0 Discharge Orders: Discharge Order (Routine); Ordered 08/11/19 Ordered By: Vishnu Charles Admission Data Admit Date/Time: 08/08/19 05:31 Attending Provider: Vishnu Charles Admit Provider: Benedict Dominguez Primary Care Provider: Ewa Mohan Other Providers: Benedict Dominguez ; Chino Arrieta Christophe R.
[2019-08-11] MEDS: LORazepam 0.5 MG TAB PO PRN (12:07)
== END 2019-08-11 12:22 | disposition home or self-care (01) | DRG 247 ==
LOC: ED 02:34 → 2S 05:31 → SUATTDRO 05:31 → 2S 06:05

== ENCOUNTER 2024-01-31 12:40 | Inpatient (IN) ==
[2024-01-31] MEDS: SODIUM CHLORIDE 0.9% 2,000 ML IV ONE (13:11)
[2024-01-31] MEDS: ONDANSETRON INJ 2 MG/ML 2 ML VIAL IV STA ×2 (13:11→15:37)
[2024-01-31] MEDS: FAMOTIDINE 20MG IV PUSH 20 MG/5 ML SYR IV STA (13:48)
[2024-01-31 14:01] LABS: Hematocrit (blood only) 17.5 % (37.0-47.0); Hemoglobin 5.3 g/dl (12.0-16.0); Mean Corpuscular Hemoglobin 26.5 pg (25.0-34.0); Mean Corpuscular Hgb Conc 30.3 g/dL (32.0-36.0); Mean Corpuscular Volume 87.5 fL (80.0-100.0); Mean Platelet Volume 11.2 fL (9.4-12.4); Nucleated RBC # (auto) 0.09 K/uL (0.00-0.12); Nucleated RBC % (auto) 0.7 %; Platelet Count 303 K/uL (130-400); RDW Standard Deviation 47.7 fL (36.4-46.3); White Blood Count 12.71 K/ul (4.8-10.8)
--- NOTE | 2024-01-31 14:08 | Emergency Department Note ---
Impression & Plan Acute upper gastrointestinal bleeding, Chest pain, Anemia requiring transfusions, Elevated lactic acid level ED Provider Note HISTORY OF PRESENT ILLNESS: Patient is a 58-year-old female presenting with vomiting. Reports has been vomiting for 1.5 weeks. She was started on Keflex for a swollen gland on the right side of her neck. States that since completing the antibiotic she has been vomiting persistently ever since. She reports that her stool has been black in color for the last few days. She is on Plavix. She does have a history of cardiac stents. When she initially presented to the emergency department, she was vomiting in triage and nursing noted that it was coffee- ground emesis in color. On my assessment in the emergency department, the patient is complaining of some chest pain. Describes it as a pressure sensation. Denies any radiation to the back or shoulder. Denies any significant shortness of breath. ROS: as above PHYSICAL EXAM: Constitutional: Patient appears in no acute distress. HENT: Head: Normocephalic and atraumatic. Eyes: EOMI, PERRL Mouth/Throat: Mucous membranes moist. Neck: Trachea midline. Neck supple. Cardiovascular: Tachycardic with regular rhythm. No murmurs, rubs or gallops. Intact distal pulses. Pulmonary/Chest: No respiratory distress. Breath sounds clear and equal bilaterally. No wheezes or rales. Abdominal: Abdomen soft, no tenderness, rebound or guarding. Musculoskeletal: No edema, tenderness or deformity noted. Skin: Warm and dry. No rash, erythema, pallor or cyanosis Psychiatric: Appropriate mood and affect for situation. Neurological: Alert and keenly responsive. CN II-XII grossly intact, moving all extremities equally and fully. MDM: - Vitals signs showed hypotension and tachycardia. - History obtained via patient. History as above. - Chronic conditions affecting care: Graves disease; DM-2; hypomagnesemia; CAD (s/p PCI) - Differential diagnoses include, but are not limited to: bleeding gastric ulcer; duodenal bleed; ACS; pneumonia; sepsis; anemia - Order placed for continuous cardiac monitoring. At this time, monitor showed rate of 105 bpm with normal sinus rhythm, per my interpretation. - External medical records reviewed. Upper endoscopy note dated 11/15/2022 in the [employer] [facility] system was reviewed. Patient had an upper GI performed for iron deficiency anemia. The endoscopy was grossly unremarkable. It was recommended that she minimize NSAID use. Colonoscopy from that same date was reviewed. Patient was found to have multiple small and large mouth diverticula in the sigmoid colon. She is also noted to have hemorrhoids on retroflexion. - EKG that was obtained at 1310 interpreted by myself showed normal sinus rhythm. Rate tachycardic at 102 bpm. QT 346. Noted to have some ST depressions in leads II, III and aVF with some reciprocal changes. Repeat EKG obtained at 1352 after the patient started complaining of chest pain interpreted by myself showed normal sinus rhythm. Rate 103 bpm. QT 348. Noted to have worsening depressions in leads II, III and aVF and in the lateral leads V5 and V6. - Discussed EKG changes with scene painter, Dr. Sena, at 14:05. No Heart alert right now. - Laboratory workup interpreted by myself showed leukocytosis (WBC 12.71); anemia (Hgb 5.3); normal PT/INR; elevated lactate (3.7); normal electrolytes; elevated anion gap (12); elevated BUN (52); hyperglycemia (glucose 196); elevated troponin 934.9); normal procalcitonin - Type and screen obtained - Viral respiratory panel positive for rhinovirus/enterovirus infection - Patient given 20 mg IV pepcid and 40 mg IV protonix in ER. Initially given 25 mcg IV fentanyl for chest pain, but still complaining of pain on reassessment and given 50 mcg IV fentanyl. - Given 2L NS for fluid resuscitation while awaiting blood. - On evaluation at 15:13, patient is back from CT scan and is vomiting. Vomitus is coffee-ground emesis. 4 mg of Zofran ordered. - Patient consented for blood. 2 units PRBC ordered, given patient's hypotension and active GI bleed - patient had another episode of coffee ground emesis in ER. - CTA chest/abdomen/pelvis with IV contrast showed cardiomegaly with extensive coronary artery calcification. No dissection or PE. Noted to have mild pulmonary edema without pleural effusion. No dissection of abdominal aorta. - Given 2g IV rocephin for GI bleed. - Discussed case with gastroenterology auto suspension and steering mechanic, Dr. Perera, at 15:22. Recommends medical optimization. - Discussed case with club director, Dr. Go, at 16:01. He accepted the patient to the ICU. - Discussion was had with rn case mgr about patient's case and need for admission - Hospitalist consulted for admission - [facility] and [facility]. I have personally spent 91 minutes of critical care time in the direct management of this patient. This includes bedside care, interpretation of diagnostic studies, and testing, discussion with consultants, patient, and family members, and other required patient management activities. This 91 minutes is in excess of all separately billable procedures. ASSESSMENT AND PLAN: Diagnosis: upper GI bleed; anemia requiring transfusion; elevated lactic acid level; chest pain Plan: admit Past Med/Surg History Problem List (Updated 01/31/24 @ 15:33 by Katherine De MD) Elevated lactic acid level (Acute) Anemia requiring transfusions (Acute) Chest pain (Acute) Acute upper gastrointestinal bleeding (Acute) Chest pain Coronary artery disease Anxiety Ischemic cardiomyopathy Smoker Family history of premature coronary artery disease Hypomagnesemia T2DM (type 2 diabetes mellitus) DVT prophylaxis Non-ST elevation CT (NSTEMI) (Acute) Graves disease Abdominal pain (Acute) Abdominal pain (Acute) Ovarian cyst (Acute) Ovarian cyst (Acute) Retroperitoneal fibrosis (Chronic) Back pain (Acute) Flank pain (Acute) Nausea (Acute) Urinary tract infection (Acute) Surgical History (Updated 05/10/21 @ 11:13 by Lena Cortez) Hx of cardiac catheterization PCI of mid LAD with 2 overlapping JEFF - July 2019 Family History Father Myocardial infarction Social History Smoking Status: Former smoker Cigarettes Per Day: 10; Hx Alcohol Use: No Hx Substance Use: No Preferred Language: Azeri Communication Ability: Effective Basic Combatant Swimmer Required: No Beliefs That Will Affect Care: None Current Living Situation: Spouse Feels Safe at Home: Yes Assistive Devices: None Allergies Allergies Allergy/AdvReac Type Severity Reaction Status Date / Time No Known Allergies Allergy Unverified 09/24/23 15:11 Home Meds Home Medications Medication Instructions Recorded Confirmed metformin 500 mg tablet 1,000 mg PO QAM 12/20/18 09/24/23 sertraline 100 mg tablet 200 mg PO DAILY 08/08/19 09/24/23 aspirin 81 mg tablet,delayed 81 mg PO DAILY 11/29/20 09/24/23 release atorvastatin 80 mg tablet 80 mg PO DAILY 11/29/20 09/24/23 bupropion HCl 300 mg 24 hr tablet, 300 mg PO QAM 11/29/20 09/24/23 extended release empagliflozin 10 mg tablet 10 mg PO DAILY 11/29/20 09/24/23 gabapentin 300 mg capsule 300 mg PO HS 11/29/20 09/24/23 linagliptin 5 mg tablet 5 mg PO DAILY 11/29/20 09/24/23 lisinopril 10 mg tablet 10 mg PO DAILY 11/29/20 09/24/23 lorazepam 0.5 mg tablet 0.5 mg PO Q8H PRN 11/29/20 09/24/23 nitroglycerin 0.4 mg sublingual 0.4 mg sublingual Q5M PRN 11/29/20 09/24/23 tablet ondansetron HCl 4 mg tablet 4 mg PO PRN 11/29/20 09/24/23 (Zofran) methimazole 10 mg tablet 10 mg PO QAM 03/14/21 09/24/23 rivaroxaban 2.5 mg tablet (Xarelto) 2.5 mg PO BID 03/21/23 09/24/23 Previous Rx's Medication Instructions Recorded metoprolol succinate 50 mg 100 mg (2 x 50 mg) PO DAILY #180 09/11/23 tablet,extended release 24 hr tabs Results & Data (ED) Vital Signs Vital Signs - 24 hr 01/31/24 12:43 01/31/24 13:43 01/31/24 13:45 Temperature 36.5 C Temperature Source Temporal Artery Scan Pulse Rate - Lying Pulse Rate - Sitting Pulse Rate - Standing Pulse Rate 110 H 103 H Pulse Rate [Apical] 105 H Pulse Rate from SpO2 Sensor Pulse Rhythm Regular Pulse Rhythm [Apical] Regular Pulse Strength Normal Respiratory Rate 18 21 20 Respiratory Effort / Characteristics Non-Labored Spontaneous Non-Labored Spontaneous Respiratory Depth Normal Normal Respiratory Pattern Regular Regular Blood Pressure - Lying Blood Pressure - Sitting Blood Pressure- Standing Blood Pressure 98/49 L Blood Pressure [Right Arm] 97/67 L Blood Pressure Mean 65 Blood Pressure Mean [Right Arm] 77 Blood Pressure Position Sitting Pulse Oximetry 100 91 99 Oxygen Delivery Method Room Air Room Air Room Air Oxygen Flow Rate Sepsis Recent Fever Within 48 Hours No Sepsis New/Unexplained Change in Mental Status No Sepsis Action Taken by Nursing No Action Required 01/31/24 13:49 01/31/24 14:21 01/31/24 14:22 Temperature Temperature Source Pulse Rate - Lying 103 H Pulse Rate - Sitting 104 H Pulse Rate - Standing 108 H Pulse Rate 103 H 103 H Pulse Rate [Apical] Pulse Rate from SpO2 Sensor 103 H Pulse Rhythm Pulse Rhythm [Apical] Pulse Strength Respiratory Rate 13 Respiratory Effort / Characteristics Respiratory Depth Respiratory Pattern Blood Pressure - Lying 111/67 Blood Pressure - Sitting 114/77 Blood Pressure- Standing 105/67 Blood Pressure 111/71 Blood Pressure [Right Arm] Blood Pressure Mean 84 Blood Pressure Mean [Right Arm] Blood Pressure Position Pulse Oximetry 100 Oxygen Delivery Method Oxygen Flow Rate Sepsis Recent Fever Within 48 Hours Sepsis New/Unexplained Change in Mental Status Sepsis Action Taken by Nursing 01/31/24 14:44 01/31/24 14:45 01/31/24 14:48 Temperature Temperature Source Pulse Rate - Lying Pulse Rate - Sitting Pulse Rate - Standing Pulse Rate 106 H 109 H Pulse Rate [Apical] Pulse Rate from SpO2 Sensor Pulse Rhythm Pulse Rhythm [Apical] Pulse Strength Respiratory Rate 14 21 Respiratory Effort / Characteristics Respiratory Depth Respiratory Pattern Blood Pressure - Lying Blood Pressure - Sitting Blood Pressure- Standing Blood Pressure 111/69 Blood Pressure [Right Arm] Blood Pressure Mean 89 Blood Pressure Mean [Right Arm] Blood Pressure Position Pulse Oximetry 99 Oxygen Delivery Method Oxygen Flow Rate Sepsis Recent Fever Within 48 Hours Sepsis New/Unexplained Change in Mental Status Sepsis Action Taken by Nursing 01/31/24 14:49 01/31/24 15:00 01/31/24 15:21 Temperature 36.9 C Temperature Source Oral Pulse Rate - Lying Pulse Rate - Sitting Pulse Rate - Standing Pulse Rate 110 H Pulse Rate [Apical] 106 H Pulse Rate from SpO2 Sensor Pulse Rhythm Pulse Rhythm [Apical] Pulse Strength Respiratory Rate 26 H 24 Respiratory Effort / Characteristics Respiratory Depth Respiratory Pattern Blood Pressure - Lying Blood Pressure - Sitting Blood Pressure- Standing Blood Pressure 103/76 111/75 Blood Pressure [Right Arm] 103/76 Blood Pressure Mean 89 87 Blood Pressure Mean [Right Arm] 85 Blood Pressure Position Pulse Oximetry 96 99 Oxygen Delivery Method Oxygen Flow Rate 2 Sepsis Recent Fever Within 48 Hours Sepsis New/Unexplained Change in Mental Status Sepsis Action Taken by Nursing 01/31/24 15:34 01/31/24 15:35 01/31/24 15:50 Temperature 36.5 C 36.5 C 36.5 C Temperature Source Oral Oral Oral Pulse Rate - Lying Pulse Rate - Sitting Pulse Rate - Standing Pulse Rate 109 H 109 H Pulse Rate [Apical] Pulse Rate from SpO2 Sensor Pulse Rhythm Pulse Rhythm [Apical] Pulse Strength Respiratory Rate 20 20 Respiratory Effort / Characteristics Respiratory Depth Respiratory Pattern Blood Pressure - Lying Blood Pressure - Sitting Blood Pressure- Standing Blood Pressure 119/72 115/68 Blood Pressure [Right Arm] Blood Pressure Mean 87 83 Blood Pressure Mean [Right Arm] Blood Pressure Position Pulse Oximetry 99 99 Oxygen Delivery Method Oxygen Flow Rate 2 2 Sepsis Recent Fever Within 48 Hours Sepsis New/Unexplained Change in Mental Status Sepsis Action Taken by Nursing Laboratory Data 01/31/24 13:15 01/31/24 13:15 Lab Results 01/31/24 01/31/24 01/31/24 Range/Units 13:04 13:15 13:55 WBC 12.71 H (4.8-10.8) K/ul RBC 2.00 L (4.20-5.40) M/uL Hgb 5.3 L* (12.0-16.0) g/dl Hct 17.5 L* (37.0-47.0) % MCV 87.5 (80.0-100.0) fL MCH 26.5 (25.0-34.0) pg MCHC 30.3 L (32.0-36.0) g/dL RDW Std Deviation 47.7 H (36.4-46.3) fL RDW Coeff of Carline 16.0 H (11.5-14.5) % Plt Count 303 (130-400) K/uL MPV 11.2 (9.4-12.4) fL Absolute Nucleated RBC 0.09 (0.00-0.12) K/uL Nucleated RBC % (auto) 0.7 % PT 11.9 (9.0-12.0) Seconds INR 1.1 (0.9-1.1) APTT 24 (21-31) Seconds PTT Ratio 0.9 Sodium 138 (136-145) mmol/L Potassium 4.9 (3.5-5.1) mmol/L Chloride 106 (98-107) mmol/L Carbon Dioxide 20 L (21-32) mmol/L Anion Gap 12 H (3-11) BUN 52 H (6-23) mg/dl Creatinine 1.18 (0.6-1.2) mg/dl Est Cr Clr Drug Dosing 44.3 ml/min Est GFR ( Amer) 59.3 ml/min Est GFR (Non-Af Amer) 51.2 ml/min BUN/Creatinine Ratio 44.1 H (10-20) Glucose 196 H (70-99(Fasting)) mg/dl Lactate (0.4-2.0) mmol/L Calcium 9.4 (8.6-10.3) mg/dl Magnesium 2.2 (1.7-2.4) mg/dl Total Bilirubin 0.2 (0.2-1.0) mg/dl AST 16 (13-39) U/L ALT 13 (7-52) U/L Alkaline Phosphatase 17 L (34-104) U/L Troponin I High Sens 34.9 H (0-14) pg/ml Total Protein 6.6 (6.0-8.3) gm/dl Albumin 3.6 (3.4-5.0) gm/dl Globulin 3.0 (2.5-4.0) gm/dl Albumin/Globulin Ratio 1.2 (0.9-2) Procalcitonin 0.10 (0-0.5) ng/ml Adenovirus (PCR) Not Detected (NotDetected) B. pertussis DNA (PCR) Not Detected (NotDetected) B.parapertussis DNA PCR Not Detected (NotDetected) C. pneumoniae DNA (PCR) Not Detected (NotDetected) Coronavirus OC43 (PCR) Not Detected (NotDetected) Coronavirus HKU1 (PCR) Not Detected (NotDetected) Coronavirus 229E (PCR) Not Detected (NotDetected) SARS-CoV-2 (PCR) Not Detected (NotDetected) Coronavirus NL63 (PCR) Not Detected (NotDetected) Human Metapneumovir PCR Not Detected (NotDetected) Influenza Type A (PCR) Not Detected (NotDetected) Influenza Type B (PCR) Not Detected (NotDetected) M. pneumoniae (PCR) Not Detected (NotDetected) Parainfluenza 1 (PCR) Not Detected (NotDetected) Parainfluenza 2 (PCR) Not Detected (NotDetected) Parainfluenza 3 (PCR) Not Detected (NotDetected) Parainfluenza 4 (PCR) Not Detected (NotDetected) RSV (PCR) Not Detected (NotDetected) Entero/Rhino (PCR) DETECTED A (NotDetected) Blood Type O Negative Blood Type Recheck Antibody Screen NEGATIVE Crossmatch See Detail 01/31/24 Range/Units 14:15 WBC (4.8-10.8) K/ul RBC (4.20-5.40) M/uL Hgb (12.0-16.0) g/dl Hct (37.0-47.0) % MCV (80.0-100.0) fL MCH (25.0-34.0) pg MCHC (32.0-36.0) g/dL RDW Std Deviation (36.4-46.3) fL RDW Coeff of Carline (11.5-14.5) % Plt Count (130-400) K/uL MPV (9.4-12.4) fL Absolute Nucleated RBC (0.00-0.12) K/uL Nucleated RBC % (auto) % PT (9.0-12.0) Seconds INR (0.9-1.1) APTT (21-31) Seconds PTT Ratio Sodium (136-145) mmol/L Potassium (3.5-5.1) mmol/L Chloride (98-107) mmol/L Carbon Dioxide (21-32) mmol/L Anion Gap (3-11) BUN (6-23) mg/dl Creatinine (0.6-1.2) mg/dl Est Cr Clr Drug Dosing ml/min Est GFR ( Amer) ml/min Est GFR (Non-Af Amer) ml/min BUN/Creatinine Ratio (10-20) Glucose (70-99(Fasting)) mg/dl Lactate 3.7 H* (0.4-2.0) mmol/L Calcium (8.6-10.3) mg/dl Magnesium (1.7-2.4) mg/dl Total Bilirubin (0.2-1.0) mg/dl AST (13-39) U/L ALT (7-52) U/L Alkaline Phosphatase (34-104) U/L Troponin I High Sens (0-14) pg/ml Total Protein (6.0-8.3) gm/dl Albumin (3.4-5.0) gm/dl Globulin (2.5-4.0) gm/dl Albumin/Globulin Ratio (0.9-2) Procalcitonin (0-0.5) ng/ml Adenovirus (PCR) (NotDetected) B. pertussis DNA (PCR) (NotDetected) B.parapertussis DNA PCR (NotDetected) C. pneumoniae DNA (PCR) (NotDetected) Coronavirus OC43 (PCR) (NotDetected) Coronavirus HKU1 (PCR) (NotDetected) Coronavirus 229E (PCR) (NotDetected) SARS-CoV-2 (PCR) (NotDetected) Coronavirus NL63 (PCR) (NotDetected) Human Metapneumovir PCR (NotDetected) Influenza Type A (PCR) (NotDetected) Influenza Type B (PCR) (NotDetected) M. pneumoniae (PCR) (NotDetected) Parainfluenza 1 (PCR) (NotDetected) Parainfluenza 2 (PCR) (NotDetected) Parainfluenza 3 (PCR) (NotDetected) Parainfluenza 4 (PCR) (NotDetected) RSV (PCR) (NotDetected) Entero/Rhino (PCR) (NotDetected) Blood Type Blood Type Recheck O Negative Antibody Screen Crossmatch Administered Medications Discontinued Medications Fentanyl Citrate (Fentanyl Citrate Pf 100 Mcg/2 Ml Vial) 25 mcg IV NOW STA Stop: 01/31/24 14:10 Last Admin: 01/31/24 14:15 Dose: 25 mcg Documented By: NIMISHA Fentanyl Citrate (Fentanyl Citrate Pf 100 Mcg/2 Ml Vial) 50 mcg IV NOW STA Stop: 01/31/24 14:50 Last Admin: 01/31/24 14:53 Dose: 50 mcg Documented By: NIMISHA Sodium Chloride (Nss) 2,000 mls @ 999 mls/hr IV .Q2H1M ONE Stop: 01/31/24 14:53 Last Infusion: 01/31/24 15:25 Dose: Infused Documented By: Admin: 01/31/24 13:11 Dose: 999 mls/hr Documented By: NHI Famotidine (Pepcid 20mg Iv Push) 20 mg in 5 mls @ 2.5 mls/min IV NOW STA Stop: 01/31/24 12:54 Last Admin: 01/31/24 13:48 Dose: 2.5 mls/min Documented By: NIMISHA Pantoprazole Sodium 40 mg/ (Syringe) 10 mls @ 5 mls/min IV NOW ONE Stop: 01/31/24 14:10 Last Admin: 01/31/24 14:54 Dose: 5 mls/min Documented By: NIMISHA Ceftriaxone Sodium (Rocephin) 2,000 mg in 50 mls @ 100 mls/hr IV NOW STA Stop: 01/31/24 15:55 Last Admin: 01/31/24 15:55 Dose: 100 mls/hr Documented By: NIMISHA Ioversol (Optiray 320 125ml) 120 ml IV ONCE ONE Stop: 01/31/24 15:11 Last Admin: 01/31/24 15:10 Dose: 120 ml Documented By: MARIA ISABEL Ondansetron HCl (Ondansetron Inj 2 Mg/Ml 2 Ml Vial) 4 mg IV NOW STA Stop: 01/31/24 12:54 Last Admin: 01/31/24 15:25 Dose: 4 mg Documented By: Admin: 01/31/24 13:11 Dose: 4 mg Documented By: NHI Ondansetron HCl (Ondansetron Inj 2 Mg/Ml 2 Ml Vial) 4 mg IV NOW STA Stop: 01/31/24 15:14 Last Admin: 01/31/24 15:37 Dose: Not Given Documented By: NIMISHA Imaging Data Radiologist's Impression: Abdomen/Pelvis CTA 01/31/24 14:49 CT ANGIOGRAM OF THE ABDOMEN AND PELVIS CLINICAL HISTORY: GI bleeding. Hypotension. COMPARISON STUDY: Abdominal CT dated 12/20/2018. TECHNIQUE: Following the IV administration of 120 cc of Optiray 320, CT angiogram of the abdomen and pelvis was performed from the lung bases the proximal femora. Images are reviewed in the axial, sagittal, and coronal planes. 3-D MIPS images are created and assessed. IV contrast was administered without complication. A dose lowering technique was utilized adhering to the principles of ALARA. FINDINGS: Lower chest: The heart is top normal in size and without pericardial effusion. The coronary arteries are densely calcified. The lung bases are clear noting bibasilar scarring/atelectasis. Liver: The contrast-enhanced liver is normal in size, contour, and attenuation. There is no intrahepatic biliary ductal dilatation. Gallbladder: Surgically absent noting clips in the gallbladder fossa. Spleen: Normal in size and attenuation noting heterogeneous arterial phase enhancement. There are calcified splenic granulomas. Pancreas: Unremarkable. Adrenal glands: Unremarkable. Kidneys: There is markedly asymmetric cortical atrophy of the left kidney as compared to the right. No hydronephrosis is seen. The right kidney enhances normally. There is diminished enhancement of the left kidney. A 2 cm exophytic cyst is seen on the left. 11 mm cyst arises from the right kidney. Abdominal aorta and iliac arteries: There is advanced atherosclerotic calcification and mild ectasia of the abdominal aorta. The abdominal aorta is widely patent. No dissection is seen. Diffuse intimal thickening is unchanged from previous. There is advanced atherosclerotic plaque and irregularity throughout the iliac arteries. The common iliac arteries are patent, as are the bilateral external iliac arteries. The right internal iliac artery is patent. There are thrombosed branches of the left internal iliac artery. Imaged portions of the common femoral and superficial femoral arteries are patent bilaterally noting advanced atherosclerotic plaque and irregularity. There is high-grade stenosis with near complete occlusion of the proximal left superficial femoral artery seen on axial image #378. Soft tissue thickening throughout the abdominal aorta and iliac arteries is similar to previous. Major branches of the abdominal aorta: The celiac trunk, superior mesenteric, and inferior mesenteric arteries are patent. There is advanced atherosclerotic plaque throughout the superior mesenteric artery which causes diffuse stenosis measures up to 50%. There is a large accessory left lobe hepatic artery which arises from the left gastric artery. The splenic artery is patent including diffuse atherosclerotic plaque and irregularity with corresponding luminal narrowing. There is severe stenosis distally seen on axial image #69. There are 2 right renal arteries which are patent. There is a single left renal artery. The proximal vessel is patent. There is near-complete complete chronic occlusion of the mid to distal portions of the vessel with at most trace flow. Bowel: There are scattered colonic diverticula without CT evidence of acute diverticulitis. No bowel obstruction is seen. [id number] fecal retention is noted throughout the colon. The appendix is well-visualized and normal. Peritoneum: There is no intraperitoneal free air or abdominal ascites. There is a fat-containing umbilical hernia. Lymphadenopathy: None. Pelvic viscera: The bladder, uterus, and adnexa are normal as visualized. Skeletal structures: The skeletal structures are heterogeneously osteopenic. There is mild to moderate lumbosacral spondylosis. No lytic or blastic bony lesion is seen. IMPRESSION: 1. No acute infectious or inflammatory findings are identified in the abdomen or pelvis. 2. Advanced atheromatous change is seen throughout the abdominal aorta. No aneurysm or dissection is identified. 3. 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 4. There are thrombosed branches of the left internal iliac artery. 5. Diffuse atherosclerotic plaque and luminal narrowing is seen throughout the superior mesenteric artery. This causes a 50% stenosis. 6. Diffuse soft tissue thickening around the abdominal aorta and proximal iliac arteries is unchanged. This may be related to the degree of atherosclerosis. Superimposed retroperitoneal fibrosis would be impossible to exclude. 7. Additional findings as above. ACT 112: Negative or not required by law. Electronically signed by: Harjinder Molina M.D. 01/31/2024 4:00 PM Chest CTA 01/31/24 14:49 CT angio chest dissec wo/w con HISTORY: 58 years-old Female chest pain radiating into back; GI bleed; hypoten COMPARISON: CT abdomen and pelvis of same day, CTA chest 08/08/2019 TECHNIQUE: CTA of the chest was obtained with and without IV contrast. 3-D coronal and sagittal maps were obtained and submitted for review. All measurements were obtained according to NASCET criteria. A dose lowering technique was used consistent with the principals of ALARA. FINDINGS: CTA: Mild cardiomegaly. No pericardial effusion. There is no mediastinal or intramural hematoma. Extensive coronary artery calcifications. Atherosclerosis of the aorta without aneurysm or dissection. 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 No pulmonary emboli identified. Evaluation of the segmental and subsegmental branches however is limited secondary to respiratory motion. CT CHEST: No thyroid nodule. Calcified mediastinal and hilar lymph nodes. No pneumothorax, pleural effusion, airspace consolidation or suspicious pulmonary nodule. Bronchial and intralobular septal thickening. 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 Atrophic left kidney with exophytic cyst. Cholecystectomy. Calcified granulomata of the spleen. Asymmetry of the right retroareolar tissues. No acute fracture. IMPRESSION: 1. Cardiomegaly with extensive coronary artery calcifications. 2. No acute aortic pathology or pulmonary emboli identified. 3. Equivocal mild pulmonary edema without pleural effusion. 4. Prior granulomatous disease. 5. Severely atrophic left kidney. 6. Asymmetric retroareolar right breast asymmetry is similar to the study from 2019 and could be correlated with mammogram. ACT 112: Negative or not required by law. The above report was generated using voice recognition software. It may contain grammatical, syntax or spelling errors. Electronically signed by: Tavo Walton M.D. 01/31/2024 3:38 PM Discharge Plan Visit Data Chief Complaint: Dehydration Stated Complaint: DEHYDRATION, REF BY [facility], CALLED OVER ED Provider: Katherine De Discharge Problem: Acute upper gastrointestinal bleeding, Chest pain, Anemia requiring transfusions, Elevated lactic acid level Forms Stand Alone Forms: My [facility] Prescriptions Prescriptions: No Action metoprolol succinate 50 mg tablet extended release 24 hr 100 mg PO DAILY Qty: 180 3RF lorazepam 0.5 mg tablet 0.5 mg PO Q8H PRN ondansetron HCl [Zofran] 4 mg tablet 4 mg PO PRN bupropion HCl 300 mg tablet extended release 24 hr 300 mg PO QAM gabapentin 300 mg capsule 300 mg PO HS lisinopril 10 mg tablet 10 mg PO DAILY atorvastatin 80 mg tablet 80 mg PO DAILY empagliflozin 10 mg tablet 10 mg PO DAILY aspirin 81 mg tablet,delayed release (DR/EC) 81 mg PO DAILY nitroglycerin 0.4 mg tablet, sublingual 0.4 mg sublingual Q5M PRN Rx Instructions: do not exceed 3 doses per episode linagliptin 5 mg tablet 5 mg PO DAILY methimazole 10 mg tablet 10 mg PO QAM Xarelto 2.5 mg tablet 2.5 mg PO BID metformin 500 mg Tablet 1,000 mg PO QAM sertraline 100 mg Tablet 200 mg PO DAILY Referrals Referrals: Ewa Mohan DO [Primary Care Provider] -
[2024-01-31 14:09] LABS: Albumin Globulin Ratio 1.2 (0.9-2); Albumin Level 3.6 gm/dl (3.4-5.0); BUN Creatinine Ratio 44.1 (10-20); Bilirubin,Total 0.2 mg/dl (0.2-1.0); Calcium 9.4 mg/dl (8.6-10.3); Creatinine Clr Calc Pharmacy 44.3 ml/min; Est GFR (African American) 59.3 ml/min; Est GFR (Non-African American) 51.2 ml/min; Magnesium 2.2 mg/dl (1.7-2.4); Potassium 4.9 mmol/L (3.5-5.1); Total Protein 6.6 gm/dl (6.0-8.3)
[2024-01-31] MEDS ORDERED: SODIUM CHLORIDE 0.9% 250 ML IV PRN (14:09)
[2024-01-31 14:15] LABS: Troponin I High Sensitivity 34.9 pg/ml (0-14)
[2024-01-31] MEDS: fentaNYL citrate PF 100 MCG/2 ML VIAL IV STA ×2 (14:15→14:53)
[2024-01-31 14:20] LABS: INR 1.1 (0.9-1.1); Partial Thromboplastin Ratio 0.9; Partial Thromboplastin Time 24 Seconds (21-31); Prothrombin Time 11.9 Seconds (9.0-12.0)
[2024-01-31 14:53] LABS: Adenovirus PCR Not Detected (NotDetected); Bordetella parapertussis PCR Not Detected (NotDetected); Bordetella pertussis PCR Not Detected (NotDetected); Chlamydia pneumoniae PCR Not Detected (NotDetected); Coronavirus 229E PCR Not Detected (NotDetected); Coronavirus CoV-2 (COVID19)PCR Not Detected (NotDetected); Coronavirus HKU1 PCR Not Detected (NotDetected); Coronavirus NL63 PCR Not Detected (NotDetected); Coronavirus OC43PCR Not Detected (NotDetected); Human Metapneumovirus PCR Not Detected (NotDetected); Influenza A PCR Not Detected (NotDetected); Influenza B PCR Not Detected (NotDetected); Mycoplasma pneumoniae PCR Not Detected (NotDetected); Parainfluenza Virus 1 PCR Not Detected (NotDetected); Parainfluenza Virus 2 PCR Not Detected (NotDetected); Parainfluenza Virus 3 PCR Not Detected (NotDetected); Parainfluenza Virus 4 PCR Not Detected (NotDetected); Respiratory Syncytial VirusPCR Not Detected (NotDetected); Rhinovirus/Enterovirus PCR DETECTED (NotDetected)
[2024-01-31] MEDS: PANTOprazole 40 MG in SYRINGE 0 ML IV ONE ×2 (14:54→16:54)
[2024-01-31] MEDS: OPTIRAY 320 125ml IV ONE (15:10)
--- NOTE | 2024-01-31 15:33 | Electrocardiogram Report ---
Test Reason : Blood Pressure : / mmHG Vent. Rate : 102 BPM Atrial Rate : 102 BPM P-R Int : 116 ms QRS Dur : 070 ms QT Int : 346 ms P-R-T Axes : 059 019 -25 degrees QTc Int : 450 ms Sinus tachycardia Low voltage QRS Abnormal ECG When compared with ECG of 11-AUG-2019 06:24, Non-specific change in ST segment in Anterior leads T wave inversion now evident in Inferior leads Nonspecific T wave abnormality, worse in Lateral leads Confirmed by Alex Pack ([id number]) on 01/31/2024 3:32:54 PM Referred By: Confirmed By:Casey Pack
--- NOTE | 2024-01-31 15:40 | CT Scan Report ---
CT angio chest dissec wo/w con HISTORY: 58 years-old Female chest pain radiating into back; GI bleed; hypoten COMPARISON: CT abdomen and pelvis of same day, CTA chest 08/08/2019 TECHNIQUE: CTA of the chest was obtained with and without IV contrast. 3-D coronal and sagittal maps were obtained and submitted for review. All measurements were obtained according to NASCET criteria. A dose lowering technique was used consistent with the principals of IDANIA. FINDINGS: CTA: Mild cardiomegaly. No pericardial effusion. There is no mediastinal or intramural hematoma. Exte nsive coronary artery calcifications. Atherosclerosis of the aorta without aneurysm or dissection. Pa rtially imaged atherosclerosis of the superior mesenteric artery, better evaluated on the comparison CT abdomen and pelvis of same day. No pulmonary emboli identified. Evaluation of the segmental and gunn bsegmental branches however is limited secondary to respiratory motion. CT CHEST: No thyroid nodule. Calcified mediastinal and hilar lymph nodes. No pneumothorax, pleural ef fusion, airspace consolidation or suspicious pulmonary nodule. Bronchial and intralobular septal thic kening. 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 Atrophic left kidney with exophytic cyst. Cholecystectomy. Calcified granulomata of the spleen. Asymm etry of the right retroareolar tissues. No acute fracture. IMPRESSION: 1. Cardiomegaly with extensive coronary artery calcifications. 2. No acute aortic pathology or pulmonary emboli identified. 3. Equivocal mild pulmonary edema without pleural effusion. 4. Prior granulomatous disease. 5. Severely atrophic left kidney. 6. Asymmetric retroareolar right breast asymmetry is similar to the study from 2019 and could be radhika elated with mammogram. ACT 112: Negative or not required by law. The above report was generated using voice recognition software. It may contain grammatical, syntax o r spelling errors. Electronically signed by: Tavo Walton M.D. 01/31/2024 3:38 PM
[2024-01-31] MEDS: cefTRIAXone SODIUM 2,000 MG/50 ML BAG IV STA (15:55)
--- NOTE | 2024-01-31 16:02 | CT Scan Report ---
CT ANGIOGRAM OF THE ABDOMEN AND PELVIS CLINICAL HISTORY: GI bleeding. Hypotension. COMPARISON STUDY: Abdominal CT dated 12/20/2018. TECHNIQUE: Following the IV administration of 120 cc of Optiray 320, CT angiogram of the abdomen and pelvis was performed from the lung bases the proximal femora. Images are reviewed in the axial, sagit glenn, and coronal planes. 3-D MIPS images are created and assessed. IV contrast was administered witho ut complication. A dose lowering technique was utilized adhering to the principles of ALARA. FINDINGS: Lower chest: The heart is top normal in size and without pericardial effusion. The coronary arteries are densely calcified. The lung bases are clear noting bibasilar scarring/atelectasis. Liver: The contrast-enhanced liver is normal in size, contour, and attenuation. There is no intrahepa tic biliary ductal dilatation. Gallbladder: Surgically absent noting clips in the gallbladder fossa. Spleen: Normal in size and attenuation noting heterogeneous arterial phase enhancement. There are benigno cified splenic granulomas. Pancreas: Unremarkable. Adrenal glands: Unremarkable. Kidneys: There is markedly asymmetric cortical atrophy of the left kidney as compared to the right. N o hydronephrosis is seen. The right kidney enhances normally. There is diminished enhancement of the left kidney. A 2 cm exophytic cyst is seen on the left. 11 mm cyst arises from the right kidney. Abdominal aorta and iliac arteries: There is advanced atherosclerotic calcification and mild ectasia of the abdominal aorta. The abdominal aorta is widely patent. No dissection is seen. Diffuse intimal thickening is unchanged from previous. There is advanced atherosclerotic plaque and irregularity thro ughout the iliac arteries. The common iliac arteries are patent, as are the bilateral external iliac arteries. The right internal iliac artery is patent. There are thrombosed branches of the left graduate internship al iliac artery. Imaged portions of the common femoral and superficial femoral arteries are patent bi laterally noting advanced atherosclerotic plaque and irregularity. There is high-grade stenosis with near complete occlusion of the proximal left superficial femoral artery seen on axial image #378. Sof t tissue thickening throughout the abdominal aorta and iliac arteries is similar to previous. Major branches of the abdominal aorta: The celiac trunk, superior mesenteric, and inferior mesenteric arteries are patent. There is advanced atherosclerotic plaque throughout the superior mesenteric art camelia which causes diffuse stenosis measures up to 50%. There is a large accessory left lobe hepatic ar jerrell which arises from the left gastric artery. The splenic artery is patent including diffuse athero sclerotic plaque and irregularity with corresponding luminal narrowing. There is severe stenosis dist ally seen on axial image #69. There are 2 right renal arteries which are patent. There is a single le ft renal artery. The proximal vessel is patent. There is near-complete complete chronic occlusion of the mid to distal portions of the vessel with at most trace flow. Bowel: There are scattered colonic diverticula without CT evidence of acute diverticulitis. No bowel obstruction is seen. [id number] fecal retention is noted throughout the colon. The appendix is well-visualized and normal. Peritoneum: There is no intraperitoneal free air or abdominal ascites. There is a fat-containing umbi lical hernia. Lymphadenopathy: None. Pelvic viscera: The bladder, uterus, and adnexa are normal as visualized. Skeletal structures: The skeletal structures are heterogeneously osteopenic. There is mild to moderat e lumbosacral spondylosis. No lytic or blastic bony lesion is seen. IMPRESSION: 1. No acute infectious or inflammatory findings are identified in the abdomen or pelvis. 2. Advanced atheromatous change is seen throughout the abdominal aorta. No aneurysm or dissection is identified. 3. 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 4. There are thrombosed branches of the left internal iliac artery. 5. Diffuse atherosclerotic plaque and luminal narrowing is seen throughout the superior mesenteric ar jerrell. This causes a 50% stenosis. 6. Diffuse soft tissue thickening around the abdominal aorta and proximal iliac arteries is unchanged . This may be related to the degree of atherosclerosis. Superimposed retroperitoneal fibrosis would b e impossible to exclude. 7. Additional findings as above. ACT 112: Negative or not required by law. Electronically signed by: Harjinder Molina M.D. 01/31/2024 4:00 PM
--- NOTE | 2024-01-31 16:06 | Gastrointestinal Consultation ---
Date of Consultation January 31, 2024 Assessment & Plan (1) Acute blood loss anemia: (2) Coffee ground emesis: Recommend starting a protonix gtt at 8 mg/hour Clear liquids at present NPO after midnight Transfuse PRN to maintain H/H >8/24 as per the Hospitalist team Consider EGD in AM History of Present Illness Reason for Consultation: Coffee Ground Emesis History of Present Illness Aure Stallworth is a 58 yo CF with a significant PMHx of ischemic cardiomyopathy and Type 2 DM who presented to the ER today with complaints of recurrent nausea and vomiting. Upon arrival to the ER she did have an episode of coffee ground emesis, and her initial Hgb on arrival was 5.3. She states that approximately 2 weeks ago she was started on antibiotics for an infection in her neck on the right side with swelling. She states that each time she took the antibiotic she became ill followed by vomiting. She denies any vomiting of bright red blood or melena. She states that due to her infection she has been taking multiple doses of NSAID's. Her liver panel was normal, and a CT of the chest was unremarkable. She was started consented, typed and crossed and was receiving a blood garcia sfusion at the time I saw her. She denies any abdominal pain, lightheadedness, dizziness, fevers, chills, jaundice, acholic stools, dark urine, pruritus or other complaints. She states that she has undergone an EGD as recently as 18 months ago with [facility] that she states was, "unremarkable." I do not have copies of this EGD at this time. She has no further complaints. Allergies Allergy/AdvReac Type Severity Reaction Status Date / Time No Known Allergies Allergy Unverified 09/24/23 15:11 Home Medications Medication Instructions Recorded Confirmed Type metformin 500 mg tablet 1,000 mg PO QAM 12/20/18 09/24/23 History sertraline 100 mg tablet 200 mg PO DAILY 08/08/19 09/24/23 History aspirin 81 mg tablet,delayed 81 mg PO DAILY 11/29/20 09/24/23 History release atorvastatin 80 mg tablet 80 mg PO DAILY 11/29/20 09/24/23 History bupropion HCl 300 mg 24 hr tablet, 300 mg PO QAM 11/29/20 09/24/23 History extended release empagliflozin 10 mg tablet 10 mg PO DAILY 11/29/20 09/24/23 History gabapentin 300 mg capsule 300 mg PO HS 11/29/20 09/24/23 History linagliptin 5 mg tablet 5 mg PO DAILY 11/29/20 09/24/23 History lisinopril 10 mg tablet 10 mg PO DAILY 11/29/20 09/24/23 History lorazepam 0.5 mg tablet 0.5 mg PO Q8H PRN 11/29/20 09/24/23 History nitroglycerin 0.4 mg sublingual 0.4 mg sublingual Q5M PRN 11/29/20 09/24/23 History tablet ondansetron HCl 4 mg tablet 4 mg PO PRN 11/29/20 09/24/23 History (Zofran) methimazole 10 mg tablet 10 mg PO QAM 03/14/21 09/24/23 History rivaroxaban 2.5 mg tablet (Xarelto) 2.5 mg PO BID 03/21/23 09/24/23 History metoprolol succinate 50 mg 100 mg (2 x 50 mg) PO DAILY #180 09/11/23 09/24/23 Rx tablet,extended release 24 hr tabs Patient History Surgical History Hx of cardiac catheterization PCI of mid LAD with 2 overlapping JEFF - July 2019 Family History Father Myocardial infarction Social History Smoking Status: Former smoker Cigarettes Per Day: 10; Hx Alcohol Use: No Hx Substance Use: No Preferred Language: Cuban Communication Ability: Effective Soil Tester Required: No Beliefs That Will Affect Care: None Current Living Situation: Spouse Feels Safe at Home: Yes Assistive Devices: None Review of Systems Review of Systems: All systems reviewed & are unremarkable except as noted in Subjective Physical Exam Constitutional: WD/WN, vitals as above Eyes: PERRL, conjunctivae normal, anicteric sclerae ENMT: external ear and nose normal, oropharynx normal Neck: trachea midline, no thyromegaly Respiratory: normal respiratory effort, lungs clear to auscultation Cardiovascular: RRR, no murmur, no edema Gastrointestinal (Abdomen): normal bowel sounds, soft, nontender, no hepatosplenomegaly Skin: + pallor Psychiatric: A+Ox3, euthymic affect Results & Data Vital Signs (Past 12 Hours) Vital Signs Temp Pulse Pulse Resp BP BP Pulse Ox 01/31/24 15:50 36.5 C 109 H 20 115/68 99 01/31/24 15:35 36.5 C 109 H 20 119/72 99 01/31/24 15:34 36.5 C 01/31/24 15:21 36.9 C 110 H 24 111/75 99 01/31/24 15:00 106 H 26 H 103/76 96 01/31/24 14:49 103/76 01/31/24 14:48 109 H 21 99 01/31/24 14:45 106 H 14 01/31/24 14:44 111/69 01/31/24 14:22 103 H 01/31/24 14:21 103 H 13 111/71 100 01/31/24 13:45 103 H 20 99 01/31/24 13:43 105 H 21 97/67 L 91 01/31/24 12:43 36.5 C 110 H 18 98/49 L 100 O2 Del Method O2 Flow Rate 01/31/24 15:50 2 01/31/24 15:35 2 01/31/24 15:34 01/31/24 15:21 2 01/31/24 15:00 01/31/24 14:49 01/31/24 14:48 01/31/24 14:45 01/31/24 14:44 01/31/24 14:22 01/31/24 14:21 01/31/24 13:45 Room Air 01/31/24 13:43 Room Air 01/31/24 12:43 Room Air PG Care Time/CCT Total # of Minutes Spent Total Time Spent with Patient: Total time spent is greater than 50% in coordination of care (as documented) at patient's floor/unit and/or counseling patient: Coding Level of Care Code 84388 IN/OBS CONSULT LVL 4,60M Diagnoses Acute blood loss anemia D62 Coffee ground emesis K92.0
[2024-01-31] MEDS ORDERED: PANTOPRAZOLE BOLUS/DRIP IV STA ×2 (16:10→16:24)
[2024-01-31] MEDS ORDERED: PANTOprazole 80 MG in DEXTROSE 5% 100 ML IV ONE ×2 (16:15→16:24)
--- NOTE | 2024-01-31 16:23 | History & Physical Report ---
Date of Service January 31, 2024 Assessment & Plan (1) Coffee ground emesis: (2) Acute blood loss anemia: Plan: This is a 58yo F with a PMH of NSTEMI in 2019 (s/p PCI of LAD, OM with residual RCA disease), h/o PAD s/p repeat SFA/popliteal angioplasty last stented in Aug 2023 on Plavix and Xarelto, DM II, CKD III, HTN, mood disorder and other medical problems listed below who presents with coffee ground emesis over past few days. Initial BP 94/49, HR 110 but BP improved to 118/66 with volume resuscitation, clinically improving Hgb 5.3. Type and crossed, transfusing 1st of 2 units PRBCs Given IV PPI bolus, continue drip Discussed with Dr. Trever kaiser with ice chips, N[facility] for possible EGD tomorrow vs Saturday based on clinical status Holding plavix, xarelto Repeat H&H this evening - goal to maintain H/H >8/24 Admitted to ICU for close monitoring overnight (3) Elevated lactic acid level: Plan: Lactate 3.7 initially - expect improvement with volume resuscitation, hold metformin (4) Elevated troponin I level: Plan: CP initially and EKG with ? ST depr II, T wave changes in inferior leads - ED provider discussed with Dr. Sena, continue with blood transfusion, likely demand ischemia Continue Toprol with hold parameters Hold BP meds for now, repeat EKG in AM (5) T2DM (type 2 diabetes mellitus): Plan: A1c 6.4 in November 2023 Hold home agents SSI while in-patient Glycemic consult placed while in ICU BSG AC HS (6) Graves disease: Plan: Continue methimazole (7) CKD (chronic kidney disease), stage III: Plan: Cr 1.18 (at baseline). Monitor with daily BMP DVT Ppx: SCDs, chemical VTE contraindicated with UGI bleed Code status: FULL PCP: Ramón Mohan Dispo: Admitted to ICU for monitoring overnight Patient seen in collaboration with Dr. Sosa. Please see addendum. I spent a total of 75 minutes coordinating, documenting, and providing care for this patient excluding time spent in the performance of separately billed services. History of Present Illness Chief Complaint: coffee ground emesis Primary Care Provider: Ewa Mohan, This is a 58yo F with a PMH of NSTEMI in 2019 (s/p PCI of LAD, OM with residual RCA disease), h/o PAD s/p repeat SFA/popliteal angioplasty last stented in Aug 2023 on Plavix and Xarelto, DM II, CKD III, HTN, mood disorder and other medical problems listed below who presents with coffee ground emesis over past few days. Was seen in clinic on 01/20 for R facial swelling and dx with parotiditis, initially started on Augmentin but then switched to Clindamycin 7 day course, wh ich she completed yesterday. Developed nausea and vomiting which she attributes to antibiotic but also was around a sick grandchild. Vomit initially bilious but has become darker brown/black over past few days. Has had one episode of dark brown emesis since arrival to ED. Has had a headache for the past week and was taking up to 4 Excedrin migraine daily in addition to her Plavix and Xarelto. Endorses fatigue, generalized weakness and chest pain which she states has already improved with the first unit of blood being transfused during interview. No F/C, lightheadedness, near syncope, CP, palpitations, N/V, abd pain, dysuria, diarrhea or constipation. Quit smoking in 2019 following NSTEMI. Allergies Allergy/AdvReac Type Severity Reaction Status Date / Time NSAIDS (Non-Steroidal AdvReac Risk of gi Verified 01/31/24 16:30 Anti-Inflamma bleed Home Medications Medication Instructions Recorded Confirmed Type metformin 500 mg tablet 1,000 mg PO QAM 12/20/18 01/31/24 History sertraline 100 mg tablet 200 mg PO DAILY 08/08/19 01/31/24 History atorvastatin 80 mg tablet 80 mg PO DAILY 11/29/20 01/31/24 History bupropion HCl 300 mg 24 hr tablet, 300 mg PO QAM 11/29/20 01/31/24 History extended release empagliflozin 10 mg tablet 10 mg PO DAILY 11/29/20 01/31/24 History gabapentin 300 mg capsule 300 mg PO HS 11/29/20 01/31/24 History lisinopril 10 mg tablet 10 mg PO DAILY 11/29/20 01/31/24 History lorazepam 0.5 mg tablet 0.5 mg PO DAILY PRN Anxiety 11/29/20 01/31/24 History nitroglycerin 0.4 mg sublingual 0.4 mg sublingual Q5M PRN .cp 11/29/20 01/31/24 History tablet methimazole 10 mg tablet 10 mg PO QAM 03/14/21 01/31/24 History rivaroxaban 2.5 mg tablet (Xarelto) 2.5 mg PO BID 03/21/23 01/31/24 History metoprolol succinate 50 mg 100 mg (2 x 50 mg) PO DAILY #180 09/11/23 01/31/24 Rx tablet,extended release 24 hr tabs acetaminophen 325 mg tablet 650 mg PO Q6 PRN Pain 01/31/24 01/31/24 History (Tylenol) cholecalciferol (vitamin D3) 1,250 50,000 unit PO WK 01/31/24 01/31/24 History mcg (50,000 unit) capsule clopidogrel 75 mg tablet 75 mg PO DAILY 01/31/24 01/31/24 History cyclobenzaprine 5 mg tablet 5 mg PO TID 01/31/24 01/31/24 History omeprazole 20 mg capsule,delayed 20 mg PO QPM 01/31/24 01/31/24 History release ondansetron HCl 4 mg tablet 4 mg PO Q6 PRN Nausea 01/31/24 01/31/24 History promethazine 25 mg tablet 25 mg PO Q6 PRN Nausea 01/31/24 01/31/24 History sitagliptin phosphate 50 mg tablet 50 mg PO QAM 01/31/24 01/31/24 History (Januvia) tramadol 50 mg tablet 50 mg PO Q6 PRN Pain 01/31/24 01/31/24 History Past Med/Surg History Problem List (Updated 01/31/24 @ 17:11 by Mark Go MD, [facility]) High anion gap metabolic acidosis Rhinovirus infection Elevated troponin I level CKD (chronic kidney disease), stage III Coffee ground emesis Acute blood loss anemia Elevated lactic acid level (Acute) Anemia requiring transfusions (Acute) Chest pain (Acute) Acute upper gastrointestinal bleeding (Acute) Chest pain Coronary artery disease Anxiety Ischemic cardiomyopathy Smoker Family history of premature coronary artery disease Hypomagnesemia T2DM (type 2 diabetes mellitus) DVT prophylaxis Non-ST elevation MO (NSTEMI) (Acute) Graves disease Abdominal pain (Acute) Abdominal pain (Acute) Ovarian cyst (Acute) Ovarian cyst (Acute) Retroperitoneal fibrosis (Chronic) Back pain (Acute) Flank pain (Acute) Nausea (Acute) Urinary tract infection (Acute) Surgical History Hx of cardiac catheterization PCI of mid LAD with 2 overlapping JEFF - July 2019 Family History (Updated 01/31/24 @ 16:55 by Stacie Cazares PA-C) Father Myocardial infarction Other Cancer Diabetes Social History Smoking Status: Former smoker Cigarettes Per Day: 10; Hx Alcohol Use: No Hx Substance Use: No Preferred Language: Bulgarian Communication Ability: Effective Store Person Required: No Beliefs That Will Affect Care: None Current Living Situation: Spouse Feels Safe at Home: Yes Assistive Devices: None Review of Systems Review of Systems: At least ten systems reviewed and negative except as noted in the HPI. Physical Exam Physical Exam: Please see Dr. Sosa's addendum for physical exam. Results & Data Results & Data Vital Signs (Past 12 Hours) Vital Signs Temp Pulse Pulse Resp BP BP Pulse Ox 01/31/24 16:06 109 H 16 96 01/31/24 16:00 113/73 01/31/24 15:50 36.5 C 109 H 20 115/68 99 01/31/24 15:45 109 H 23 100 01/31/24 15:35 36.5 C 109 H 20 119/72 99 01/31/24 15:34 36.5 C 01/31/24 15:30 109 H 14 100 01/31/24 15:24 108 H 14 100 01/31/24 15:21 36.9 C 110 H 24 111/75 99 01/31/24 15:19 111/75 01/31/24 15:00 106 H 26 H 103/76 96 01/31/24 14:49 103/76 01/31/24 14:48 109 H 21 99 01/31/24 14:45 106 H 14 01/31/24 14:44 111/69 01/31/24 14:22 103 H 01/31/24 14:21 103 H 13 111/71 100 01/31/24 13:45 103 H 20 99 01/31/24 13:43 105 H 21 97/67 L 91 01/31/24 12:43 36.5 C 110 H 18 98/49 L 100 O2 Del Method O2 Flow Rate 01/31/24 16:06 01/31/24 16:00 01/31/24 15:50 2 01/31/24 15:45 01/31/24 15:35 2 01/31/24 15:34 01/31/24 15:30 01/31/24 15:24 01/31/24 15:21 2 01/31/24 15:19 01/31/24 15:00 01/31/24 14:49 01/31/24 14:48 01/31/24 14:45 01/31/24 14:44 01/31/24 14:22 01/31/24 14:21 01/31/24 13:45 Room Air 01/31/24 13:43 Room Air 01/31/24 12:43 Room Air Laboratory Results Short CBC 01/31/24 Range/Units 13:15 WBC 12.71 H (4.8-10.8) K/ul Hgb 5.3 L* (12.0-16.0) g/dl Hct 17.5 L* (37.0-47.0) % Plt Count 303 (130-400) K/uL BMP 01/31/24 13:15 Sodium 138 Potassium 4.9 Chloride 106 Carbon Dioxide 20 L BUN 52 H Creatinine 1.18 Glucose 196 H Calcium 9.4 Liver Function 01/31/24 Range/Units 13:15 Total Bilirubin 0.2 (0.2-1.0) mg/dl AST 16 (13-39) U/L ALT 13 (7-52) U/L Alkaline Phosphatase 17 L (34-104) U/L Albumin 3.6 (3.4-5.0) gm/dl Diagnostic Findings Abdomen/Pelvis CTA 01/31/24 14:49 CT ANGIOGRAM OF THE ABDOMEN AND PELVIS CLINICAL HISTORY: GI bleeding. Hypotension. COMPARISON STUDY: Abdominal CT dated 12/20/2018. TECHNIQUE: Following the IV administration of 120 cc of Optiray 320, CT angiogram of the abdomen and pelvis was performed from the lung bases the proximal femora. Images are reviewed in the axial, sagittal, and coronal planes. 3-D MIPS images are created and assessed. IV contrast was administered without complication. A dose lowering technique was utilized adhering to the principles of ALARA. FINDINGS: Lower chest: The heart is top normal in size and without pericardial effusion. The coronary arteries are densely calcified. The lung bases are clear noting bibasilar scarring/atelectasis. Liver: The contrast-enhanced liver is normal in size, contour, and attenuation. There is no intrahepatic biliary ductal dilatation. Gallbladder: Surgically absent noting clips in the gallbladder fossa. Spleen: Normal in size and attenuation noting heterogeneous arterial phase enhancement. There are calcified splenic granulomas. Pancreas: Unremarkable. Adrenal glands: Unremarkable. Kidneys: There is markedly asymmetric cortical atrophy of the left kidney as compared to the right. No hydronephrosis is seen. The right kidney enhances normally. There is diminished enhancement of the left kidney. A 2 cm exophytic cyst is seen on the left. 11 mm cyst arises from the right kidney. Abdominal aorta and iliac arteries: There is advanced atherosclerotic calcification and mild ectasia of the abdominal aorta. The abdominal aorta is widely patent. No dissection is seen. Diffuse intimal thickening is unchanged from previous. There is advanced atherosclerotic plaque and irregularity throughout the iliac arteries. The common iliac arteries are patent, as are the bilateral external iliac arteries. The right internal iliac artery is patent. There are thrombosed branches of the left internal iliac artery. Imaged portions of the common femoral and superficial femoral arteries are patent bilaterally noting advanced atherosclerotic plaque and irregularity. There is high-grade stenosis with near complete occlusion of the proximal left superficial femoral artery seen on axial image #378. Soft tissue thickening throughout the abdominal aorta and iliac arteries is similar to previous. Major branches of the abdominal aorta: The celiac trunk, superior mesenteric, and inferior mesenteric arteries are patent. There is advanced atherosclerotic plaque throughout the superior mesenteric artery which causes diffuse stenosis measures up to 50%. There is a large accessory left lobe hepatic artery which arises from the left gastric artery. The splenic artery is patent including diffuse atherosclerotic plaque and irregularity with corresponding luminal narrowing. There is severe stenosis distally seen on axial image #69. There are 2 right renal arteries which are patent. There is a single left renal artery. The proximal vessel is patent. There is near-complete complete chronic occlusion of the mid to distal portions of the vessel with at most trace flow. Bowel: There are scattered colonic diverticula without CT evidence of acute diverticulitis. No bowel obstruction is seen. [id number] fecal retention is noted throughout the colon. The appendix is well-visualized and normal. Peritoneum: There is no intraperitoneal free air or abdominal ascites. There is a fat-containing umbilical hernia. Lymphadenopathy: None. Pelvic viscera: The bladder, uterus, and adnexa are normal as visualized. Skeletal structures: The skeletal structures are heterogeneously osteopenic. There is mild to moderate lumbosacral spondylosis. No lytic or blastic bony lesion is seen. IMPRESSION: 1. No acute infectious or inflammatory findings are identified in the abdomen or pelvis. 2. Advanced atheromatous change is seen throughout the abdominal aorta. No aneurysm or dissection is identified. 3. 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 4. There are thrombosed branches of the left internal iliac artery. 5. Diffuse atherosclerotic plaque and luminal narrowing is seen throughout the superior mesenteric artery. This causes a 50% stenosis. 6. Diffuse soft tissue thickening around the abdominal aorta and proximal iliac arteries is unchanged. This may be related to the degree of atherosclerosis. Superimposed retroperitoneal fibrosis would be impossible to exclude. 7. Additional findings as above. ACT 112: Negative or not required by law. Electronically signed by: Harjinder Molina M.D. 01/31/2024 4:00 PM Chest CTA 01/31/24 14:49 CT angio chest dissec wo/w con HISTORY: 58 years-old Female chest pain radiating into back; GI bleed; hypoten COMPARISON: CT abdomen and pelvis of same day, CTA chest 08/08/2019 TECHNIQUE: CTA of the chest was obtained with and without IV contrast. 3-D coronal and sagittal maps were obtained and submitted for review. All measurements were obtained according to NASCET criteria. A dose lowering technique was used consistent with the principals of IDANIA. FINDINGS: CTA: Mild cardiomegaly. No pericardial effusion. There is no mediastinal or intramural hematoma. Extensive coronary artery calcifications. Atherosclerosis of the aorta without aneurysm or dissection. 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 No pulmonary emboli identified. Evaluation of the segmental and subsegmental branches however is limited secondary to respiratory motion. CT CHEST: No thyroid nodule. Calcified mediastinal and hilar lymph nodes. No pneumothorax, pleural effusion, airspace consolidation or suspicious pulmonary nodule. Bronchial and intralobular septal thickening. 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 Atrophic left kidney with exophytic cyst. Cholecystectomy. Calcified granulomata of the spleen. Asymmetry of the right retroareolar tissues. No acute fracture. IMPRESSION: 1. Cardiomegaly with extensive coronary artery calcifications. 2. No acute aortic pathology or pulmonary emboli identified. 3. Equivocal mild pulmonary edema without pleural effusion. 4. Prior granulomatous disease. 5. Severely atrophic left kidney. 6. Asymmetric retroareolar right breast asymmetry is similar to the study from 2019 and could be correlated with mammogram. ACT 112: Negative or not required by law. The above report was generated using voice recognition software. It may contain grammatical, syntax or spelling errors. Electronically signed by: Tavo Walton M.D. 01/31/2024 3:38 PM ECG Additional Comments: EKG reviewed - Sinus tachycardia, T wave inversions in lead 3 and flattening in aVF, ? ST depression initially improved Supervising Physician Co-Signing Physician Notes 58 yo M w/ PMH of NSTEMI in 2019 (s/p PCI of LAD, OM with residual RCA disease), hypertension, DM 2 on oral medications, Graves disease, past tobacco abuse, solitary right kidney (atrophic L kidney left secondary to retroperitoneal fibrosis as per records), past tobacco abuse presented to ED 01/30 after getting progressively weak, constant N, V and poor appetite since antibiotic started on 01/21/24. She was started on Augmentin on 01/20, then changed to clindamycin on 01/21 for Rt parotiditis. She completed her antibiotic yesterday. She was also taking upto 4 tabs of Excedrin during the same time since antibiotic gave her headache. She reports she can't comment on color of vomitus exactly since she reports due to her poor appetite she has been eating berries and watermelon and thinks it might have discolored her vomitus. But she reports more darker colored vomitus since last few days. She also reports black stool/runny every few days since antibiotic has been started. Acute blood loss anemia, likely UGI bleed, Elevated BUN : had scant darker c olored vomitus in the bag at bedside. No further vomiting in the hospital. Symptomatic anemia - has some chest pain, already improving by bedside exam after blood transfusion has been started. Also reports weakness and easy fatigability. tachy noted. Presenting Hb of 5.3 iso active bleeding, pt will be monitored in the icu for tonight. Plan - NPO, N/V control w/ iv zofran, IV PPI, 2 units prbc total f/u HnH half hour later. Transfuse for Hb < 9 if w/ active bleeding or for symptomatic anemia. Avoid NSAIDs. Blood thinner on hold GI is aware, likely scope serena vs Saturday. Mx per ICU team. Trend lactate to normal . Trend trop. EKG prn w/ chest pain. Leucocytosis from acute stress vs viral urti, procal neg. pt declines fever. Monitor off antibiotic Rhinovirus urti: +ve. symptomatic management. Fall precaution CTAP: extensive vascular disease --> OP vascular consult. On Exam: GENERAL: Alert and oriented x3. NAD, on RA. HEENT: + pallor, no icterus. Pupils equal, round and reactive to light. Oral mucosa moist. NECK: No JVD, no neck masses. HEART: S1 and S2 heard. Regular rate and rhythm. No murmur, no gallop. RESPIRATORY SYSTEM: Normal AP diameter. No accessory muscle use. No wheezing, no crackles. ABDOMEN: Soft, bowel sounds present, nontender, no distention. CENTRAL NERVOUS SYSTEM: No facial droop. Speech is clear. Obeys simple commands. Moves extremities. EXTREMITIES: No edema, no erythema seen. I have seen and examined the patient and have discussed the case with the provider above. I agree with the assessment and plan as stated.
[2024-01-31] MEDS ORDERED: PANTOprazole 40 MG in DEXTROSE 5% MINI-B 100 ML IV SCH ×2 (16:30→16:45)
[2024-01-31] MEDS: HYDROmorphone INJ 0.5 MG/0.5 ML SYR IV STA (16:34)
--- NOTE | 2024-01-31 16:42 | Critical Care Consultation ---
Date of Consultation January 31, 2024 Assessment & Plan (1) Elevated troponin I level: (2) CKD (chronic kidney disease), stage III: (3) Coffee ground emesis: (4) Acute blood loss anemia: (5) Elevated lactic acid level: (6) Coronary artery disease: (7) T2DM (type 2 diabetes mellitus): (8) High anion gap metabolic acidosis: Plan Reason Critically Ill: 58-year-old female presents to the hospital with coffee- ground emesis. Hemoglobin was 5.3 and she was hypotensive. Sent to the ICU for further management Neuro - [facility] ICU: Negative Cardiac - --Elevated troponin Likely type II SD EKG 01/31/2024, 1621: Sinus tachycardia, normal axis, T wave inversions in lead 3 and flattening in aVF no ST changes appreciated -- Hypotension Responded to fluids --Peripheral vascular disease S/p recent intervention 08/2023 in the right leg On Plavix and Xarelto -- History of systolic CHF Compensated 2D echo 08/08/2019: EF 40-45%, severe hypokinesis of the apical and mid segments, grade 1 diastolic dysfunction, RV normal in size and function Respiratory - -- Ex-smoker [id number] smoking history Quit in 2019 --Respiratory bio fire positive for rhino/enterovirus Saturating well on room air CTA chest 01/31/2024 personally reviewed: Minimal increase reticular markings on the periphery in upper lobes Minimal interlobular thickening Calcified granuloma in the right lower lobe No significant mediastinal lymphadenopathy GI - -- Acute upper GI bleed On pantoprazole drip Monitor H&H GI on board RENAL/LYTES - -- HAGMA Delta-delta: Less than 1, gap plus nongap Likely sec to gap is likely from lactic acidosis Monitor ENDO - --Diabetes type 2 ICU hyperglycemia protocol HEME - -- Acute blood loss anaemia Going to get 2 units PRBC on 01/31/2024 Monitor H&H, transfuse for hemoglobin less than 7 ID - -- No clear source of infection --Prophylaxis VTE IVC GI: Pantoprazole drip Lines: Peripheral Diet: N.p.o. Plan: Strict in and out Give 2 units of PRBC, monitor H&H, transfuse for hemoglobin less than 7 Continue with pantoprazole drip Hold blood pressure medications for the time being. Okay to have ice chips I have personally spent 48 minutes of critical care time in the direct management of this patient. This is a life/limb threatening event. This includes time spent evaluating patient, direct bedside care, chart review, placing orders, interpretation of diagnostic studies, discussion with consultants, patient, and family members, as well as other required patient management activities. This time is exclusive of all separately billable procedures, and teaching time and separate from and in addition to any other critical care service time. History of Present Illness History of Present Illness 58-year-old female came to the hospital for coffee-ground emesis Past medical history: Systolic CHF, coronary artery disease s/p stenting 2018, diabetes, CKD, peripheral vascular disease with a stent placed in August 2023 on Plavix and Xarelto Patient was sent to the ICU because of hypotension and hematemesis Patient's was in the room at the time of examination. Patient systolic blood pressure was in the 110s with MAP in the mid 70s at the time of examination She was saturating 96-97% on room air. She got 2 L of fluid and 1 unit of blood before I saw her in the ER. Patient stated that she is feeling better after she got the fluid as well as the blood. She was complaining of some chest heaviness. It was not similar to the way she felt when she had heart attack. She is compliant with her medication. She does not take omeprazole on a daily basis Denies taking any [id number] NSAIDs. Takes Excedrin on an as-needed basis for migraine. She recently finished 2 courses of antibiotics for infection in the neck. Did complain of some chills in the last 3-4 nights No fever No headache, no blurry vision Denies any dizziness or palpitation right now. Social history: [id number] smoking history, quit in 2018. 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 No history of lung cancer in the family Allergies Allergy/AdvReac Type Severity Reaction Status Date / Time NSAIDS (Non-Steroidal AdvReac Risk of gi Verified 01/31/24 16:30 Anti-Inflamma bleed Home Medications Medication Instructions Recorded Confirmed Type metformin 500 mg tablet 1,000 mg PO QAM 12/20/18 01/31/24 History sertraline 100 mg tablet 200 mg PO DAILY 08/08/19 01/31/24 History atorvastatin 80 mg tablet 80 mg PO DAILY 11/29/20 01/31/24 History bupropion HCl 300 mg 24 hr tablet, 300 mg PO QAM 11/29/20 01/31/24 History extended release empagliflozin 10 mg tablet 10 mg PO DAILY 11/29/20 01/31/24 History gabapentin 300 mg capsule 300 mg PO HS 11/29/20 01/31/24 History lisinopril 10 mg tablet 10 mg PO DAILY 11/29/20 01/31/24 History lorazepam 0.5 mg tablet 0.5 mg PO DAILY PRN Anxiety 11/29/20 01/31/24 History nitroglycerin 0.4 mg sublingual 0.4 mg sublingual Q5M PRN .cp 11/29/20 01/31/24 History tablet methimazole 10 mg tablet 10 mg PO QAM 03/14/21 01/31/24 History rivaroxaban 2.5 mg tablet (Xarelto) 2.5 mg PO BID 03/21/23 01/31/24 History metoprolol succinate 50 mg 100 mg (2 x 50 mg) PO DAILY #180 09/11/23 01/31/24 Rx tablet,extended release 24 hr tabs acetaminophen 325 mg tablet 650 mg PO Q6 PRN Pain 01/31/24 01/31/24 History (Tylenol) cholecalciferol (vitamin D3) 1,250 50,000 unit PO WK 01/31/24 01/31/24 History mcg (50,000 unit) capsule clopidogrel 75 mg tablet 75 mg PO DAILY 01/31/24 01/31/24 History cyclobenzaprine 5 mg tablet 5 mg PO TID 01/31/24 01/31/24 History omeprazole 20 mg capsule,delayed 20 mg PO QPM 01/31/24 01/31/24 History release ondansetron HCl 4 mg tablet 4 mg PO Q6 PRN Nausea 01/31/24 01/31/24 History promethazine 25 mg tablet 25 mg PO Q6 PRN Nausea 01/31/24 01/31/24 History sitagliptin phosphate 50 mg tablet 50 mg PO QAM 01/31/24 01/31/24 History (Januvia) tramadol 50 mg tablet 50 mg PO Q6 PRN Pain 01/31/24 01/31/24 History Patient History Surgical History Hx of cardiac catheterization PCI of mid LAD with 2 overlapping JEFF - July 2019 Family History (Updated 01/31/24 @ 16:55 by Stacie Cazares PA-C) Father Myocardial infarction Other Cancer Diabetes Social History Smoking Status: Former smoker Cigarettes Per Day: 10; Hx Alcohol Use: No Hx Substance Use: No Preferred Language: Greenlandic Communication Ability: Effective Handbag Stitcher Required: No Beliefs That Will Affect Care: None Current Living Situation: Spouse Feels Safe at Home: Yes Assistive Devices: None Review of Systems 2 Review of Systems: All systems reviewed & are unremarkable except as noted in HPI & below Physical Exam 2 Physical Exam: Constitutional: No acute distress HEENT: EOMI, PERRLA, pale conjunctiva Respiratory system: Good air entry bilaterally, no wheeze, no rhonchi, minimal crackles bilateral lower lobes CVS: S1-S2 positive, no murmurs or gallops, tachycardia Abdomen: Soft, nontender, nondistended, positive bowel sounds x4 Extremities: +2 pulses bilaterally radialis/ dorsalis pedis, no cyanosis, no edema Neuro: Awake alert oriented x3 Psych: Normal mood and affect G/U: No Kothari Skin: Tattoos all over the body Skin: no rashes, warm and dry Lymphatic: no cervical or axillary lymphadenopathy Results & Data Results & Data Vital Signs (Past 12 Hours) Vital Signs Temp Pulse Pulse Resp BP BP Pulse Ox 01/31/24 16:15 120/76 01/31/24 16:06 109 H 16 96 01/31/24 16:00 113/73 01/31/24 15:50 36.5 C 109 H 20 115/68 99 01/31/24 15:45 109 H 23 100 01/31/24 15:35 36.5 C 109 H 20 119/72 99 01/31/24 15:34 36.5 C 01/31/24 15:30 109 H 14 100 01/31/24 15:24 108 H 14 100 01/31/24 15:21 36.9 C 110 H 24 111/75 99 01/31/24 15:19 111/75 01/31/24 15:00 106 H 26 H 103/76 96 01/31/24 14:49 103/76 01/31/24 14:48 109 H 21 99 01/31/24 14:45 106 H 14 01/31/24 14:44 111/69 01/31/24 14:22 103 H 01/31/24 14:21 103 H 13 111/71 100 01/31/24 13:45 103 H 20 99 01/31/24 13:43 105 H 21 97/67 L 91 01/31/24 12:43 36.5 C 110 H 18 98/49 L 100 O2 Del Method O2 Flow Rate 01/31/24 16:15 01/31/24 16:06 01/31/24 16:00 01/31/24 15:50 2 01/31/24 15:45 01/31/24 15:35 2 01/31/24 15:34 01/31/24 15:30 01/31/24 15:24 01/31/24 15:21 2 01/31/24 15:19 01/31/24 15:00 01/31/24 14:49 01/31/24 14:48 01/31/24 14:45 01/31/24 14:44 01/31/24 14:22 01/31/24 14:21 01/31/24 13:45 Room Air 01/31/24 13:43 Room Air 01/31/24 12:43 Room Air Laboratory Results 01/31/24 13:15 01/31/24 13:15 Coding Level of Care Code 69223 CRITICAL CARE 1ST 30-74M Diagnoses Elevated troponin I level R79.89 CKD (chronic kidney disease), stage III N18.30 Coffee ground emesis K92.0 Acute blood loss anemia D62 Elevated lactic acid level R79.89 Coronary artery disease I25.10 T2DM (type 2 diabetes mellitus) E11.9 High anion gap metabolic acidosis E87.29
[2024-01-31] MEDS: PANTOprazole 40 MG in DEXTROSE 5% MINI-B 100 ML IV SCH (16:55)
[2024-01-31 18:18] LABS: Appearance Urine Clear (Clear); Bacteria Urine Automated None Seen (None Seen); Bilirubin Urine Negative (Negative); Blood Urine Trace (Negative); Cast Urine Automated 0-2 /lpf (0-2); Color Urine Yellow; Glucose Urine UA 3+ (Negative); Ketones Urine Negative (Negative); Leukocyte Esterase Urine Negative (Negative); Nitrite Urine Negative (Negative); Protein Urine Negative (Negative); RBC Urine Automated 0-2 /hpf (0-2); Specific Gravity Urine 1.042 (1.000-1.030); Urobilinogen Urine Negative (Negative); WBC Urine Automated 0-5 /hpf (0-5)
[2024-01-31 18:20] LABS: Potassium Random Urine 33.8 mmol/L
[2024-01-31] MEDS ORDERED: NITROGLYCERIN SL 0.4 MG/TAB TAB SL PRN (18:41)
[2024-01-31] MEDS ORDERED: CARBOHYDRATES FOR HYPOGLYCEMIA PO PRN (20:33)
[2024-01-31] MEDS ORDERED: GLUCOSE 40% GEL 15 GM TUBE PO PRN (20:33)
[2024-01-31] MEDS ORDERED: GLUCOSE 10 TAB/TUBE PO PRN (20:33)
[2024-01-31] MEDS ORDERED: DEXTROSE 50% 50 ML SYRINGE IV PRN (20:33)
[2024-01-31] MEDS ORDERED: PHARMACY GLYCEMIC MGMT CONSULT PRN (20:33)
[2024-01-31] MEDS ORDERED: GLUCAGON FOR INJ 1 MG VIAL SQ PRN (20:33)
[2024-01-31 20:58] LABS: Hematocrit (blood only) 22.8 % (37.0-47.0); Hemoglobin 7.4 g/dl (12.0-16.0)
[2024-01-31] MEDS: LANTUS PER UNIT CHARGE SC ONE (22:02)
[2024-02-01] MEDS: METOCLOPRAMIDE HCL INJ 5 MG/ML 2 ML VIAL ONE (00:57)
[2024-02-01] MEDS: METOCLOPRAMIDE HCL INJ 5 MG/ML 2 ML VIAL IV ONE (00:57)
[2024-02-01] MEDS: GABAPENTIN 300 MG CAP PO SCH (00:57)
[2024-02-01] MEDS: ICU Protocol for HYPERglycemia SCH (00:57)
[2024-02-01 01:15] LABS: Hematocrit (blood only) 20.7 % (37.0-47.0); Hemoglobin 6.7 g/dl (12.0-16.0)
[2024-02-01] MEDS ORDERED: SODIUM CHLORIDE 0.9% 250 ML IV PRN (01:16)
[2024-02-01 05:23] LABS: Hematocrit (blood only) 24.4 % (37.0-47.0); Hemoglobin 7.9 g/dl (12.0-16.0); Mean Corpuscular Hemoglobin 27.6 pg (25.0-34.0); Mean Corpuscular Hgb Conc 32.4 g/dL (32.0-36.0); Mean Corpuscular Volume 85.3 fL (80.0-100.0); Mean Platelet Volume 11.2 fL (9.4-12.4); Nucleated RBC # (auto) 0.12 K/uL (0.00-0.12); Nucleated RBC % (auto) 1.1 %; Platelet Count 188 K/uL (130-400); RDW Coefficient of Variation 14.9 % (11.5-14.5); RDW Standard Deviation 44.9 fL (36.4-46.3); Red Blood Count 2.86 M/uL (4.20-5.40); White Blood Count 10.86 K/ul (4.8-10.8)
[2024-02-01 05:38] LABS: Albumin Globulin Ratio 1.2 (0.9-2); Albumin Level 2.9 gm/dl (3.4-5.0); BUN Creatinine Ratio 40.7 (10-20); Bilirubin,Total 0.4 mg/dl (0.2-1.0); Creatinine Clr Calc Pharmacy 56.8 ml/min; Est GFR (African American) 81.2 ml/min; Globulin 2.5 gm/dl (2.5-4.0); Phosphorus 2.9 mg/dl (2.5-4.9); Potassium 4.2 mmol/L (3.5-5.1); Total Protein 5.4 gm/dl (6.0-8.3)
[2024-02-01 05:47] LABS: Troponin I High Sensitivity 2599.4 pg/ml (0-14)
--- NOTE | 2024-02-01 07:21 | Electrocardiogram Report ---
Test Reason : Blood Pressure : / mmHG Vent. Rate : 109 BPM Atrial Rate : 109 BPM P-R Int : 128 ms QRS Dur : 088 ms QT Int : 336 ms P-R-T Axes : 051 008 -08 degrees QTc Int : 452 ms Sinus tachycardia Abnormal ECG When compared with ECG of 31-JAN-2024 13:52, (unconfirmed) Nonspecific T wave abnormality, worse in Inferior leads Nonspecific T wave abnormality no longer evident in Anterior leads Confirmed by Alex Pack ([id number]) on 02/01/2024 7:20:54 AM Referred By: Odette Wetzel Confirmed By:Casey Pack
[2024-02-01 07:32] LABS: Estimated Average Glucose 131 mg/dl; Hemoglobin A1C 6.2 % (4.5-5.6)
--- NOTE | 2024-02-01 07:47 | Critical Care Progress Note ---
Date of Service February 01, 2024 Assessment & Plan (1) Elevated troponin I level: (2) CKD (chronic kidney disease), stage III: (3) Coffee ground emesis: (4) Acute blood loss anemia: (5) Elevated lactic acid level: (6) Coronary artery disease: (7) T2DM (type 2 diabetes mellitus): (8) High anion gap metabolic acidosis: (9) Hyperthyroidism: Plan Reason Critically Ill: 58-year-old female presents to the hospital with coffee- ground emesis. Hemoglobin was 5.3 and she was hypotensive. Sent to the ICU for further management Neuro - [facility]: Negative Cardiac - --Elevated troponin Likely type II TN Troponin went up to 2599 EKG 01/31/2024, 16:21: Sinus tachycardia, normal axis, T wave inversions in lead 3 and flattening in aVF no ST changes appreciated --S/p hypotension Responded to fluids --Peripheral vascular disease S/p recent intervention 08/2023 in the right leg On Plavix and Xarelto -- History of systolic CHF Compensated 2D echo 08/08/2019: EF 40-45%, severe hypokinesis of the apical and mid segments, grade 1 diastolic dysfunction, RV normal in size and function Respiratory - -- Ex-smoker [id number] smoking history Quit in 2019 --Respiratory bio fire positive for rhino/enterovirus Saturating well on room air CTA chest 01/31/2024 personally reviewed: Minimal increase reticular markings on the periphery in upper lobes Minimal interlobular thickening Calcified granuloma in the right lower lobe No significant mediastinal lymphadenopathy GI - -- Acute upper GI bleed On pantoprazole drip Monitor H&H GI on board RENAL/LYTES - --S/p HAGMA Delta-delta: Less than 1, gap plus nongap Likely sec to gap is likely from lactic acidosis Monitor ENDO - --Diabetes type 2 ICU hyperglycemia protocol -- Hypothyroidism On methimazole TSH 0.012, follow-up free T4 HEME - -- Acute blood loss anaemia S/p 3 units PRBC on 01/31/2024 Monitor H&H, transfuse for hemoglobin less than 7 ID - -- No clear source of infection --Prophylaxis VTE IVC GI: Pantoprazole drip Lines: Peripheral Diet: N.p.o. Plan: In/out: +3.2 L, urine output not being measured Continue with Protonix drip Monitor H&H Troponins did go up to 2500. Will repeat EKG today. She is not complaining of any chest pain, I still think this is type II TN. I will order an echo Given that the MAP is in the high 70s and patient is still tachycardic, will start metoprolol at a lower dose 25 mg twice daily. GI following Disposition as per GI Please note the above document was generated using voice recognition software. It may contain grammatical, syntax or spelling errors.Any formal questions or concerns about the content, text or information contained within the body of this dictation should be directly addressed to the provider for clarification. Admission and Anticipated Discharge Date Admission Date: January 31, 2024 Subjective Patient seen and examined at bedside. No acute distress, no adverse events overnight She was still tachycardic but stated that she is feeling much better compared to yesterday No more hematemesis since coming to the ICU Denies any chest pain, no shortness of breath No headache, no blurry vision Has been afebrile Review of Systems 2 Review of Systems: All systems reviewed & are unremarkable except as noted in Subjective Physical Exam 2 Physical Exam: Constitutional: No acute distress HEENT: EOMI, PERRLA, pale conjunctiva Respiratory system: Good air entry bilaterally, no wheeze, no rhonchi, minimal crackles bilateral lower lobes CVS: S1-S2 positive, no murmurs or gallops, tachycardia Abdomen: Soft, nontender, nondistended, positive bowel sounds x4 Extremities: +2 pulses bilaterally radialis/ dorsalis pedis, no cyanosis, no edema Neuro: Awake alert oriented x3 Psych: Normal mood and affect G/U: No Kothari Skin: Tattoos all over the body Skin: no rashes, warm and dry Lymphatic: no cervical or axillary lymphadenopathy Results & Data Results & Data Vital Signs (Past 12 Hours) Vital Signs Temp Pulse Resp BP Pulse Ox O2 Del Method 02/01/24 04:21 104 H 27 H 98 02/01/24 04:03 102 H 23 96 02/01/24 03:45 106 H 20 97 02/01/24 03:45 121/69 02/01/24 03:33 104 H 19 97 02/01/24 03:00 113/68 02/01/24 03:00 106 H 19 96 02/01/24 02:54 108 H 31 H 96 02/01/24 02:39 103 H 18 98 02/01/24 02:25 36.6 C 103 H 20 107/65 97 02/01/24 02:09 106 H 25 H 99 02/01/24 02:09 36.6 C 106 H 22 107/65 98 02/01/24 01:03 110 H 23 97 02/01/24 00:00 108 H 20 99 02/01/24 00:00 117/74 01/31/24 23:00 110 H 16 97 01/31/24 23:00 113/74 01/31/24 22:00 108 H 16 99 01/31/24 21:00 102 H 18 95 01/31/24 21:00 118/78 01/31/24 20:00 119/85 01/31/24 20:00 107 H 19 95 01/31/24 20:00 Room Air Laboratory Results 02/01/24 04:51 02/01/24 04:51 Coding Level of Care Code 38111 SUB INP/OBS CARE 3/50MIN Diagnoses Elevated troponin I level R79.89 CKD (chronic kidney disease), stage III N18.30 Coffee ground emesis K92.0 Acute blood loss anemia D62 Elevated lactic acid level R79.89 Coronary artery disease I25.10 T2DM (type 2 diabetes mellitus) E11.9 High anion gap metabolic acidosis E87.29 Hyperthyroidism E05.90
[2024-02-01] MEDS: methIMAzole 5 MG TABLET PO SCH (09:03)
[2024-02-01] MEDS: SERTRALINE HCL 100 MG TABLET PO SCH (09:03)
[2024-02-01] MEDS: buPROPion XL 300 MG TABCR PO SCH (09:03)
[2024-02-01] MEDS: ATORVASTATIN 40 MG TAB PO SCH (09:03)
[2024-02-01] MEDS: METOPROLOL TARTRATE 25 MG TAB PO SCH (09:59)
[2024-02-01 10:01] LABS: Thyroid Stimulating Hormone 0.012 uIu/ml (0.300-4.500)
[2024-02-01 10:36] LABS: T4 Free Thyroxine 1.22 ng/dl (0.61-1.60)
--- OUTSIDE RECORDS SUMMARY | 2024-02-01 10:46 | External Medical Summary | Summary of Care ---
Author Name Unknown Organization [facility] Address [address] [place] [address] Phone [phone] Care Team Providers Care Cloth Classer Name Role Phone Ewa Mohan DO Primary Care Provider [phone] Reason for Referral * Precert (Within 10 days (routine)) - Authorized Specialty Diagnoses / Procedures Referred By Contac t Referred To Contact Radiology Diagnoses Localized swelling, mass and lump, neck Swelling of mandible Procedures CT NECK WO CONTRAST Ewa Mohan DO [address] [facility] [place] [address] Referral ID Status Reason Start Date Expiration Date V isits Requested Visits Authorized [id number] Authorized Precert 01/21/2024 02/20/[phone] * Ancillary Services (Within 30 days (routine)) - Pending Review Specialty Diagnoses / Procedures Referred By Contkaylee t Referred To Contact Gastroenterology Diagnoses Special screening for malignant neoplasms, colon Ewa Mohan DO [address] [facility] [place] [address] Referral ID Status Reason Start Date Expiration Date Visits Requested Visits Authorized [id number] Pending Review Ancillary Services Required 01/21/[phone] Question Answer Referral Priority Within 30 days (routine) Where should this appointment be scheduled? Tiff Comments ALERT: Do not order for pediatric patients (18 years or younger). Cancel off screen and order PEDS GASTROENTEROLOGY CONSULT (Type: 1 visit only-Evaluate and Treat) The following Pt. Instructions are available: - Gastro Colonoscopy Prep Instructions [[id number]] - Gastro Colonoscopy Prep Instructions (Hungarian Version) [[id number]] Go to the Pt. Instructions section within the Visit Navigator to access. Colonoscopy ASGE Guidelines: Average risk screening (begin at age 50, 10 year intervals) ADDITIONAL INFORMATION 1. Is the patient on Coumadin? No 2. Is the patient on Pradaxa? 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 30 Tab 10/19/2020 Active Metoprolol Succinate ER 50 MG Oral Tablet Extended Release 24 Hour (toPROL XL) Take 1 Tab by mouth daily. 90 Tab 1 10/31/2020 Active Additional Information Patient taking differently:50 mg OralBID (.AM/PM), Informant: Patient, Reported on 2023 Sertraline HCl 100 MG Oral Tablet (Zoloft) Take 2 Tablets by mouth in the morning. 180 Tablet 3 02/22/2023 Active methIMAzole 10 MG Oral Tablet (Tapazole) Take 1 Tablet by mouth in the morning. 90 Tablet 3 05/07/2023 Active Gabapentin 300 MG Oral Capsule (Neurontin)Indicat ions:Claudication in peripheral vascular disease (HCC) Take 1 Capsule by mouth at bedtime. 90 Capsule 1 05/10/2023 Active Omeprazole 20 MG Oral Capsule Delayed Release (PriLOSEC)Indicati ons:Globus sensation Take 1 Capsule by mouth in the morning. 1 hour before the first meal of the day. 90 Capsule 3 05/09/2023 Active SITagliptin Phosphate 50 MG Oral Tablet (Januvia)Indicatio ns:Diabetes mellitus with peripheral angiopathy (HCC) Take 1 Tablet by mouth in the morning. 90 Tablet 3 06/17/2023 Active Empagliflozin 10 MG Oral Tablet (Jardiance)Indicat ions:Type 2 diabetes mellitus with hemoglobin A1c goal of less than 7.0% ([facility]) Take 1 Tablet by mouth in the morning. 90 Tablet 3 07/17/2023 Active metFORMIN HCl ER 500 MG Oral Tablet Extended Release 24 Hour (Glucophage XR)Indications:Typ e 2 diabetes mellitus with hemoglobin A1c goal of less than 7.0% ([facility]) Take 2 Tablets by mouth in the morning. 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 90 Tablet 3 08/09/2023 Active Rivaroxaban 2.5 MG Oral Tablet (Xarelto)Indicatio ns:PVD (peripheral vascular disease) ([facility]) Take 1 Tablet by mouth in the morning and 1 Tablet before bedtime. 180 Tablet 5 10/29/2023 Active buPROPion HCl ER (XL) 300 MG Oral Tablet Extended Release 24 Hour (Wellbutrin XL)Indications:Mod erate episode of recurrent major depressive disorder (HCC) Take 1 Tablet by mouth in the morning. 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 12 Capsule 12/20/2023 03/19/2024 Active Cyclobenzaprine HCl 5 MG Oral Tablet (Flexeril)Indicati ons:TMJ (temporomandibular joint syndrome) Take 1 Tablet by mouth 3 times a day as needed for Muscle spasms. 30 Tablet 01/08/2024 Active Ondansetron HCl 4 MG Oral Tablet (Zofran) TAKE 1 TABLET BY MOUTH EVERY 6 HOURS NEEDED FOR NAUSEA 30 Tablet 1 01/08/2024 Active Lisinopril 10 MG Oral Tablet (Prinivil)Indicati ons:Hypertension goal BP (blood pressure) < 130/80 Take 1 Tablet by mouth in the morning. In the morning.. 90 Tablet 1 01/08/2024 Active LORazepam 0.5 MG Oral Tablet (Ativan)Indication s:KURT (generalized anxiety disorder) Take 1 Tablet by mouth daily as needed for Anxiety. 30 Tablet 01/15/2024 Active Clopidogrel Bisulfate 75 MG Oral Tablet (pLAVix) Take 1 Tablet by mouth in the morning. 10/16/2023 Active Amoxicillin-Pot Clavulanate 875-125 MG Oral Tablet (Augmentin)Indicat ions:Localized swelling, mass and lump, neck,Swelling of mandible Take 1 Tablet by mouth in the morning and 1 Tablet before bedtime. Do all this for 7 days. 14 Tablet 01/21/2024 01/28/2024 Active traMADol HCl 50 MG Oral Tablet (Ultram)Indication s:Localized swelling, mass and lump, neck,Swelling of mandible Take 1 Tablet by mouth every 6 hours as needed for Pain, Severe. 5 Tablet 01/21/2024 Active documented as of this encounter (statuses as of 01/21/2024) Active Problems Problem Noted Date Diagnosed Date Atherosclerosis of quileute ar teries of extremities with rest pain, right leg 01/21/2024 Acute pain of right knee 10/03/2022 Other iron deficiency anemias 06/15/2022 Moderate episode of recurrent major depressive d isorder 12/06/2021 PAD (peripheral artery disease) 10/19/2020 Stage 3a chronic kidney disease 06/27/2020 Overview: Per CKD protocol - Per CKD protocol Diabetes mellitus with peripheral angiopathy Claudication in peripheral vascular disease 11/18 History of non-ST elevation myocardial infarctio n (NSTEMI) 08/14/2019 Coronary artery disease invo lving quileute coronary artery of quileute heart with angina pectoris 08/14/2019 Type 2 diabetes mellitus wit h hemoglobin A1c goal of less than 7.0% 01/01/2019 Hyperthyroidism 09/20/2017 Retroperitoneal fibrosis 10/15/2013 Hydronephrosis 10/15/2013 Solitary kidney, acquired 10/15/2013 Overview: Has suspected left mid ureteral stricture due to retroperitoneal fibrosis which has atrophied the left kidney to a mere 6% function. Her right kidney is essentially a solitary kidney. HTN, goal to be determined Anxiety state documented as of this encounter (statuses as of 01/21/2024) Resolved Problems Problem Noted Date Diagnosed Date Resolved Date Atherosclerosis of quileute artery of extremity 09/22/19 21 04/19/2022 Kidney disease, chronic, sta ge III (GFR 30-59 ml/min) 05/30/2020 06/30/2020 Overview: Per CKD protocol Smoker 12/09/2019 06/07/2021 UPJ (ureteropelvic junction) obstruction 11/20/2011 10/15/2013 Obesity, morbid (more than 1 00 lbs over ideal weight or BMI > 40) 01/31/2010 01/01/2019 Overview: Per Obesity Protocol, #19 ICD-10 update of inactive term documented as of this encounter (statuses as of 01/21/2024) Immunizations Name Administration Dates Next Due Hepatitis B, 20+ yrs 10/23/2019,04/21/2019,02/27 Pneumococcal Conjugate Vacci ne, 20-valent ([id number]) 05/30/2022 Pneumococcal Polysaccharide PPV23 (Pneumovax) 02/27/2019 Seasonal Influenza, PF, 6 M & above, IM , (FluLaval or Fluzone) 06/11/2023,05/30/2022,06/07/2021,06/08,05/21/2019 TDAP (age 10 and older)(Boostrix) 01/01/2019 Zoster Vaccine Recombinant (Shingrix) 10/23/2019 ,01/01/2019 documented as of this encounter Social History Tobacco Use Types Packs/Day Years Used Date Smoking Tobacco: Former Cigarettes 0.3 15 1 10/08/2004 - 08/07/2020 Smokeless Tobacco: Never Alcohol Use Standard Drinks/Week Comments No 0 (1 standard drink = 0.6 oz pur e alcohol) PHQ-2 Answer Date Recorded PHQ Adult Total Score 2 12/04/2022 Hunger Vital Sign Answer Date Recorded Within the past 12 months, y ou worried that your food would run out before you got the money to buy more. Never true 12/05/19 23 Within the past 12 months, t he food you bought just didn't last and you didn't have money to get more. Never true 12/04/2022 Sex and Gender Information Value Date Recorded Sex Assigned at Female 10/23/2019 1:02 PM EST Gender Identity Female 10/23/2019 1:02 PM EST Sexual Orientation Straight 10/23/2019 1: 02 PM EST Job Start Date Occupation Industry Not on file Not on file Not on file documented as of this encounter Last Filed Vital Signs Vital Sign Reading Time Taken Comments Blood Pressure 92/60 01/21/2024 8:40 AM EDT Pulse 100 01/21/2024 8:40 AM EDT Temperature 36.9 C (98.5 F) 01/21/2024 8:40 AM ED T Respiratory Rate 16 01/21/2024 8:40 AM EDT Oxygen Saturation - - Inhaled Oxygen Concentration - - Weight 60.8 kg (134 lb) 01/21/2024 8:40 AM EDT Height - - Body Mass Index 25.32 12/17/2023 9:19 AM EDT documented in this encounter Functional Status Functional Status Response Date of Assess ment Are you deaf or do you have serious difficulty h earing? No 10/18/2020 Are you blind or do you have serious difficulty seeing, even when wearing glasses? No 10/18/2020 Do you have serious difficul ty walking or climbing stairs? (5 years old or older) No 10/18/2020 Do you have difficulty dress ing or bathing? (5 years old or older) No 10/18/2020 Because of a physical, menta l, or emotional condition, do you have difficulty doing errands alone such as visiting a doctor s office or shopping? (15 years old or older) No 10/19/19 21 Cognitive Status Response Date of Assessm ent Because of a physical, menta l, or emotional condition, do you have serious difficulty concentrating, remembering, or making decisions? (5 years old or older) No 10/18/2020 documented as of this encounter Patient Instructions * Patient Instructions* Kalee Barfield RN - 01/21/2024 8:46 AM EDT Images from the original note were not included. Colorectal Cancer Screening Colorectal cancer (cancer in the colon or rectum) is a leading cause of cancer deaths in the [place] But it doesnt have to be. When this cancer is found and removed early, the chances of a full recovery are very good. Because colorectal cancer rarely causes symptoms in its early stages, screening for the disease is important. Its even more crucial if you have risk factors for the disease. Learn more about colorectal cancer and its risk factors. Then talk to your healthcare provider about being screened. You could be saving your own life. Risk factors for colorectal cancer Your risk of having colorectal cancer increases if you: Are 50 years of age or older Have a family history or personal history of colorectal cancer or polyps Have a personal history of type 2 diabetes, Crohns disease, or ulcerative colitis Have an inherited genetic syndrome like Rahman syndrome (also known as HNPCC) or familial adenomatous polyposis (FAP) Are very overweight Are not physically active Smoke Drink a lot of alcohol Eat a lot of red or processed meat The colon and rectum Waste from food you eat enters the colon from the small intestine. As it travels through the colon,the waste (stool) loses water and becomes more solid. Intestinal muscles push it toward the sigmoid--the last section of the colon. Stool then moves into the rectum, where its stored until its ready to leave the body during a bowel movement. How cancer develops Polyps are growths that form on the inner lining of the colon or rectum. Most are benign, which means they arent cancerous. But over time, some polyps can become cancer (malignant). This happens when cells in these polyps begin growing abnormally. In time, malignant cells invade more and more ofthe colon and rectum. The cancer may also spread to nearby organs or lymph nodes or to other parts of the body. Finding and removing polyps can help prevent cancer from ever forming. Your screening Screening means looking for a health problem before you have symptoms. During screening for colorectal cancer, your healthcare provider will ask about your health history, examine you, and do one or more tests. History and exam The history and exam involve the following: Health history. Your healthcare provider will ask about your health history. Mention if a family member has had colon cancer or polyps. Also mention any health problems you have had in the past. Digital rectal exam (CHRISTOPHER). During a CHRISTOPHER, the healthcare provider inserts a lubricated gloved fingerinto the rectum. The test is painless and takes less than a minute. Healthcare providers agree thatthis test alone is not enough to screen for colorectal cancer. Screening test choices: Fecal occult blood test (FOBT) or fecal immunochemical test (FIT) These tests check for occult blood in stool (blood you cant see). Hidden blood may be a sign of colon polyps or cancer. A small sample of stool is tested for blood in a laboratory. Most often, youcollect this sample at home using a kit your healthcare provider gives you. Follow the instructionscarefully for using this kit. You might need to avoid certain foods and medicines before the test, as directed. Barium enema with contrast (double-contrast barium enema) This test uses X-rays to provide images of the entire colon and rectum. The day before this test, you will need to do a bowel prep to clean out the colon and rectum. A bowel prep is a liquid diet plus strong laxatives or enemas. You will be awake for the test, but you may be given medicine to help you relax. At the start of the test, a radiologist (a healthcare provider who specializes in imagingtests) places a soft tube into the rectum. The tube is used to fill the colon with a contrast liquid (barium) and air. This can be uncomfortable for some people. The liquid helps the colon show up clearly on the X-rays. Because the test uses X-rays, it exposes you to a small amount of radiation. Virtual colonoscopy This exam is also called a CT colonography. It uses a series of X-ray photographs to create a 3-D view of the colon and rectum. The day before the test, you will need to do a bowel prep to clean out your colon. Your healthcare provider will give you instructions on how to do this. During the procedure, you will lie on a table that is part of a special X-ray machine called a CT scanner. A small tube will be placed into your rectum to fill the colon and rectum with air. This can be uncomfortable for some people. Then, the table will move into the machine and pictures will be taken of your colonand rectum. A computer will combine these photos to create a 3-D picture. Because the test uses X-rays, it exposes you to a small amount of radiation. Cologuard Cologuard is an easy to use, noninvasive colon cancer screening test that you can use in the privacy of your own home. It identifies altered DNA and/or blood in stool, which are associated with the possibility of colon cancer or precancer. DNA is continuously shed from cells in the intestinal lining, where it is passed into the stool. Ifcancer or precancer is present, abnormal cells will shed into the colon and stool along with normalcells. A molecular biology process is used to capture specific pieces of DNA for further analysis. Scope exams Here are two types of scope exams: Colonoscopy. This test can be used to find and remove polyps anywhere in the colon or rectum. The day before the test, you will do a bowel prep. This is a liquid diet plus a strong laxative solution or an enema. The bowel prep will cleanse your colon. You will be given instructions for this. Just before the test, you are given a medicine to make you sleepy. Then, a long, flexible, lighted tube called a colonoscope is gently inserted into the rectum and guided through the entire colon. Images ofthe colon are viewed on a video screen. Any polyps that are found are removed and sent to a lab fortesting. If a polyp cant be removed, a sample of tissue is taken and the polyp might be removed l ater during surgery. You will need to bring someone with you to drive you home after this test. Sigmoidoscopy. This test is similar to colonoscopy, but focuses only on the sigmoid colon and rectum. As with colonoscopy, bowel prep must be done the day before this test. It might not need to be ascomplete as the bowel prep for a colonoscopy. You are awake during the procedure, but you may be given medicine to help you relax. During the test, the healthcare provider guides a thin, flexible, lighted tube called a sigmoidoscope through your rectum and lower colon. The images are displayed on avideo screen. Polyps are removed, if possible, and sent to a lab for testing. Colonoscopy is the only screening test that lets your healthcare provider see the entire colon and rectum. This test also lets your healthcare provider remove any pieces of tissue that need to be looked at by a lab. If something suspicious is found using any other tests, you will likely need a colonoscopy. When to call your healthcare provider after a test Call your healthcare provider if you have any of the following after any screening test: Bleeding Fever of 100.4F (38C) or higher, or as directed by your healthcare provider Abdominal pain Vomiting Date Last Reviewed: 06/22/[id number] [employer]. [address] [place] [address]. All rights reserved. This information is not intended as a substitute for professional medical care. Always follow your healthcare professional's instructions. documented in this encounter Progress Notes * Ewa Mohan, - 01/21/2024 8:50 AM EDT Subjective: Aure Stallworth is a 58 year old female. Chief Complaint Patient presents with Swelling Swelling on R side of face down neck, and to chest, painful, since Saturday immediately after eating HPI: Pt w/swelling on the R side of her face. Started on Saturday, she was eating a slice of deli pepperoni, developed swelling, pain on the R jaw, radiating down her neck a few minutes later. Feels she is having some trouble swallowing - can only take one pill at at time. No change in swallowing food or liquid, has decreased appetite bc of pain. Also c/o dry mouth. Had similar episode 2 weeks before - uncertain of trigger in that case. Thought to be a muscle spasm, no treatment prescribed. Sx slowly improved after about a week beforerecurrence. 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 30 Tab 0 Metoprolol Succinate ER 50 MG Oral Tablet Extended Release 24 Hour (toPROL XL) Take 1 Tab by mouth daily. (Patient taking differently: Take 1 Tablet by mouth in the morning and 1 Tablet before bedtime.) 90 Tab 1 Sertraline HCl 100 MG Oral Tablet (Zoloft) Take 2 Tablets by mouth in the morning. 180 Tablet 3 methIMAzole 10 MG Oral Tablet (Tapazole) Take 1 Tablet by mouth in the morning. 90 Tablet 3 Gabapentin 300 MG Oral Capsule (Neurontin) Take 1 Capsule by mouth at bedtime. 90 Capsule 1 Omeprazole 20 MG Oral Capsule Delayed Release (PriLOSEC) Take 1 Capsule by mouth in the morning. 1 hour before the first meal of the day. 90 Capsule 3 SITagliptin Phosphate 50 MG Oral Tablet (Januvia) Take 1 Tablet by mouth in the morning. 90 Tablet 3 Empagliflozin 10 MG Oral Tablet (Jardiance) Take 1 Tablet by mouth in the morning. 90 Tablet 3 metFORMIN HCl ER 500 MG Oral Tablet Extended Release 24 Hour (Glucophage XR) Take 2 Tablets by mouth in the morning. 180 Tablet 3 Atorvastatin Calcium 80 MG Oral Tablet (Lipitor) Take 1 Tablet by mouth in the morning. 90 Tablet 3 Rivaroxaban 2.5 MG Oral Tablet (Xarelto) Take 1 Tablet by mouth in the morning and 1 Tablet before bedtime. 180 Tablet 5 buPROPion HCl ER (XL) 300 MG Oral Tablet Extended Release 24 Hour (Wellbutrin XL) Take 1 Tablet by mouth in the morning. 90 Tablet 3 Nitroglycerin 0.4 MG Sublingual Tablet Sublingual (1) TAB DISSOLVED UNDER TONGUE NEEDED FOR CHEST PAIN, MAY REPEAT EVERY 5 MIN'S X 3 DOSES 25 Tablet 1 Vitamin D3 1.25 MG (76755 UT) Oral Capsule Take 1 Capsule by mouth once a week. 12 Capsule 0 Cyclobenzaprine HCl 5 MG Oral Tablet (Flexeril) Take 1 Tablet by mouth 3 times a day as needed for Muscle spasms. 30 Tablet 0 Ondansetron HCl 4 MG Oral Tablet (Zofran) TAKE 1 TABLET BY MOUTH EVERY 6 HOURS NEEDED FOR [id number] Tablet 1 Lisinopril 10 MG Oral Tablet (Prinivil) Take 1 Tablet by mouth in the morning. In the morning.. 90 Tablet 1 LORazepam 0.5 MG Oral Tablet (Ativan) Take 1 Tablet by mouth daily as needed for Anxiety. 30 Tablet0 Clopidogrel Bisulfate 75 MG Oral Tablet (pLAVix) Take 1 Tablet by mouth in the morning. No current facility-administered medications for this visit. Past Medical History: Diagnosis Date Anxiety state HTN, goal to be determined Iridocyclitis 2006 OS, Dr. Hernandez, (was tx. w/ steroid eye drops) Solitary kidney, acquired Past Surgical History: Procedure Laterality Date ABLATION UTERINE FIBROIDS, US GUIDE, RADIOFREQUENCY AORTOGRAM ABDOMINAL-TECH ONLY Right 2023 IMAGING SUPERVISION & INTERPRETATION ABDOMINAL AO performed by Jayce Larson MD [place] [facility] [place]NOSTIC (RECTUM) 05/11/2015 collagenous colitis, repeat 5 yrs/COLONOSCOPY FLEXIBLE PROXIMAL DIAGNOSTIC performed by David Lomeli MD at ENDOSCOPY [facility] COLONOSCOPY, DIAGNOSTIC (RECTUM) 11/15/2022 lge-mouth diverticula in sigmoid, hemorrhoids / no biopsies collected / 1 year due to bowel prep / COLONOSCOPY FLEXIBLE PROXIMAL DIAGNOSTIC performed by Braulio Dwyer MD at [facility]COPY [facility] CYSTOSCOPY/INSERTION OF STENT Left 10/28/2014 CYSTOURETHROSCOPY WITH INSERTION URETERAL STENT performed by Tavo Lakhani MD at [facility] CYSTOSCOPY/URETERAL CATHETER N/A 10/28/2014 CYSTOURETHROSCOPY WITH URETERAL CATHETER performed by Tavo Lakhani MD at [facility] CYSTOURETRO &/OR PYELOSCOPE Left 10/28/2014 CYSTOURETHROSCOPY URETROSCOPY AND OR PYELOSCOPY performed by Tavo Lakhani MD at [facility] EGD, FLEXIBLE, DIAGNOSTIC 11/29/2016 sm bowel inflammation, repeat 8 wks/ESOPHAGOGASTRODUODENOSCOPY (EGD), FLEXIBLE, TRANSORAL, DIAGNOSTIC performed by Braulio Dwyer MD at ENDOSCOPY [facility] EGD, FLEXIBLE, DIAGNOSTIC 01/29/2017 antral gastritis/ESOPHAGOGASTRODUODENOSCOPY (EGD), FLEXIBLE, TRANSORAL, DIAGNOSTIC performed by Braulio Dwyer MD at ENDOSCOPY [facility] EGD, FLEXIBLE, DIAGNOSTIC 11/15/2022 z-line 35 cm , gastro flap valve Hill grade I / biopsies normal / ESOPHAGOGASTRODUODENOSCOPY (EGD),FLEXIBLE, TRANSORAL, DIAGNOSTIC performed by Braulio Dwyer MD at ENDOSCOPY [facility] FEM/POP ARTERY REVASC W/ STENT+ANGIOPLASTY Right 10/18/2020 FEM/POP ARTERY REVASC W/ STENT+ANGIOPLASTY performed by Jayce Larson MD at [place] [facility] FEM/POP ARTERY REVASC W/ STENT+ANGIOPLASTY Right 02/22/2021 FEM/POP ARTERY REVASC W/ STENT+ANGIOPLASTY performed by Jayce Larson MD at [place] [facility] FLUORO PYELOGRAM RETROGRADE Bilateral 10/28/2014 UROGRAHY, RETROGRADE, WITH OR WITHOUT KUB performed by Tavo Lakhani MD at [facility] HYSTEROSCOPY;ENDOMETRIAL ABLAT 11/2011 IR ARTERIOGRAM EXTREMITY UNILATERAL Right 02/22/2021 IMAGING SUPERVISION & INTERPRETATION EXTREMITY UNILATERAL performed by Jayce Larson MD at OR [facility] IR ARTERIOGRAM EXTREMITY UNILATERAL Right 2023 IMAGING SUPERVISION & INTERPRETATION EXTREMITY UNILATERAL performed by Jayce Larson MD at OR [facility] PL[place] CATHETER IN ARTERY, FIRST Right 2023 CATHETER PLACEMENT, ABDOMINAL-LOWER EXTREMITY, FIRST ORDER BRANCH performed by Jayce Larson MDat OR [facility] REMOVAL OF OVARY/OVIDUCT(S) Left REMOVE GALLBLADDER TENDON SHEATH INCISION, FINGER Right 03/06/2019 TRIGGER FINGER RELEASE performed by Femi Rayo DO at OR [facility] Review of patient's allergies indicates: Allergen Reactions Nsaids Risk of GI bleed Objective: BP 92/60 (BP Site: Left Arm, BP Position: Sitting, BP Cuff Size: Large) | Pulse 100 | Temp 36.9 C(98.5 F) (Tympanic) | Resp 16 | Wt 60.8 kg (134 lb) | BMI 25.32 kg/m | BSA 1.62 m Review of Systems: As per HPI, all other ROS neg. Physical Exam: General: alert, healthy, and no distress Head: Normocephalic, + sig swelling, tenderness, warmth over R angle of the mandible Ears: External ears normal, Canals clear, TM's Normal Nose: no mucosal erythema, no mucosal edema, no purulent discharge Oropharynx: no exudate, no erythema, lips, buccal mucosa, and tongue normal, and mucous membranes are moist Neck: supple, thyroid normal size, non-tender, without nodularity, + small R sided cervical LAD, + redness/warmth R side of neck, streaking to anterior chest wall Heart: regular rate & rhythm, no murmur, and no gallops Lungs: chest symmetric with normal AP diameter, no chest deformities noted, no chest wall tenderness, lungs clear to auscultation Localized swelling, mass and lump, neck (Primary) - CT NECK WO CONTRAST - COMPREHENSIVE METABOLIC PANEL; Future; Expected date: 01/21/2024 - CBC WITH WBC DIFFERENTIAL; Future; Expected date: 01/21/2024 - ERYTHROCYTE SEDIMENTATION RATE (ESR); Future; Expected date: 01/21/2024 - Amoxicillin-Pot Clavulanate 875-125 MG Oral Tablet (Augmentin); Take 1 Tablet by mouth in the morning and 1 Tablet before bedtime. Do all this for 7 days. - traMADol HCl 50 MG Oral Tablet (Ultram); Take 1 Tablet by mouth every 6 hours as needed for Pain,Severe. Ddx parotiditis but swelling, pain and redness more pronounced than what would typically expect, concerned for more severe pathology given change in swallowing. Will get STAT CT neck - start abx; discussed ER if any increased difficulty swallowing, fever/chills, difficulty breathing Swelling of mandible - CT NECK WO CONTRAST - COMPREHENSIVE METABOLIC PANEL; Future; Expected date: 01/21/2024 - CBC WITH WBC DIFFERENTIAL; Future; Expected date: 01/21/2024 - ERYTHROCYTE SEDIMENTATION RATE (ESR); Future; Expected date: 01/21/2024 - Amoxicillin-Pot Clavulanate 875-125 MG Oral Tablet (Augmentin); Take 1 Tablet by mouth in the morning and 1 Tablet before bedtime. Do all this for 7 days. - traMADol HCl 50 MG Oral Tablet (Ultram); Take 1 Tablet by mouth every 6 hours as needed for Pain,Severe. 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 Ewa Mohan DO documented in this encounter Plan of Treatment Upcoming Encounters Date Type Department Care Team (Late st Contact Info) Description 01/21/2024 10:00 AM EDT Imaging Radiology [facility] [address] [facility] [address] [facility] [place] [address] Arrived 01/24/2024 12:00 PM EDT Telemedicine Endocrinology, [place] [address], [place] [id number] Cyrus Landry CRNP [address], [place] [id number] 03/03/2024 9:00 AM EDT Office Visit Otolaryngology, [place] Jar[place]illo [address] [place] [phone] Bonilla Estes PA-C [address] [place] [address] 03/06/2024 4:00 PM EDT Office Visit Nephrology, [facility] [address] [place] [address] Deonna Pugh MD [address] [facility] [place] [address] 03/12/2024 9:40 AM EDT Office Visit Dermatology, [place] Handley [address] [place] [address] Sanjana Knott PA-C [address] [place] [address] 03/25/2024 8:45 AM EDT Office Visit Orthopaedics [facility] [address] [place] [address] Juan Pablo Walter, [address] [place] [address] 07/07/2024 8:40 AM EST Office Visit Family Practice [facility] [address] [place] [address] Ewa Mohan DO [address] [place] [address] Pending Results Name Type Priority Associated Diagnoses Date /Time CT NECK WO CONTRAST Medical Imaging STAT Localized swelling, mass and lump, neck Swelling of mandible 01/21/2024 9:30 AM EDT Scheduled Orders Name Type Priority Associated Diagnoses Orde r Schedule COMPREHENSIVE METABOLIC PANEL Lab STAT Localized swelling, mass and lump, neck Swelling of mandible Expected: 01/21/2024 (Approximate), Expires: 01/20/2025 CBC WITH WBC DIFFERENTIAL Lab STAT Localized swelling, mass and lump, neck Swelling of mandible Expected: 01/21/2024 (Approximate), Expires: 01/20/2025 ERYTHROCYTE SEDIMENTATION RATE (ESR) Lab STAT Localized swelling, mass and lump, neck Swelling of mandible Expected: 01/21/2024 (Approximate), Expires: 01/20/2025 Scheduled Procedures Name Priority Associated Diagnoses Date/Ti me COLONOSCOPY FLEXIBLE PROXIMA L DIAGNOSTIC Recall Screening for colon cancer Scheduled Referrals Name Type Priority Associated Diagnoses Orde r Schedule COLONOSCOPY, GI REFERRAL OP Referral Within 30 days (routine) Special screening for malignant neoplasms, colon Ordered: 01/21/2024 Health Maintenance Due Date Last Done Comments Cologuard 2011 Fecal Occult Blood Test 2011 Sigmoidoscopy 2011 COVID-19 Vaccine ( season) 2023 Colonoscopy 11/16/2023 11/15/2022, 10/19, 05/11/2015, Additional history exists Colorectal Cancer Screening 11/16/2023 GFR 04/06/2024 10/07/2023, 08/19, 12/18/2022, Additional history exists Mammogram 04/18/2024 04/18/2023, 02/16, 03/03/2021, Additional history exists PAP SMEAR-EVERY 5 YRS,AGES 21-100 05/05/2024 05/05/2019, 05/05/2019, 10/02/2011, Additional history exists CKD PHOS USE SMARTSET 72736 06/11/202405/20, 06/13/2022, 05/30/2022 Diabetic Eye Exam 06/11/2024 06/11/2023, , 10/25/2020 Diabetic Foot Exam 06/11/2024 06/11/2023, 1 , 06/07/2021, Additional history exists HbA1c 06/17/2024 12/17/2023, 05/20, 12/04/2022, Additional history exists Albumin/Creatinine Ratio 09/05/2024 024, 12/04/2022, 12/06/2021, Additional history exists CKD HGB USE SMARTSET 81194 09/05/202409/05, 06/11/2023, 06/11/2023, Additional history exists DTaP,Tdap,and Td Vaccines (2 - Td or Tdap) 01/01/2029 01/01/2019 Cervical Cancer Screening Discontinued Pap Smear Discontinued 05/05/2019, 04/19, 10/02/2011, Additional history exists Hepatitis B Completed 10/23/2019, 10/2018, 02/27/2019 Pneumococcal Vaccine: Pediatrics (0 to 5 Years) and At-Risk Patients (6 to 64 Years) Completed 05/30/2022, 02/27/2019 RETIRED - COLONOSCOPY-ANNUAL AGES 18-100 Discontinued 11/15/2022, 11/15/2022, 05/11/2015, Additional history exists RETIRED - COLONOSCOPY-EVERY 5 YRS AGES 18-100 Discontinued 11/15/2022, 11/15/2022, 05/11/2015, Additional history exists Influenza Vaccine (FLU shot) Completed 06/11/2023, 05/30/2022, 06/07/2021, Additional history exists GARDASIL-HPV IMMUNIZATION SERIES Aged Out No longer eligible based on patient's age to complete this topic HPV/Co-Test Discontinued MENINGOCOCCAL (MENACTRA/MENVEO) Aged Out No longer eligible based on patient's age to complete this topic documented as of this encounter Medical Devices Implanted Type Area Inside Channel Account Manager Device Identifier Shelf Expiration Date Model / Serial / Lot Stent Innova [id number] - [id number] Implanted:Qty: 1 on 10/18/2020 by Jayce Larson MD at [place] [facility] Right: [facility] [employer] : INTRV CARD [id number] 07/18/2025 [id number] / / [id number] Lorraine Owens [id number] - [id number] Implanted:Qty: 1 on 10/18/2020 by Jayce Larson MD at OR [facility] Right: [facility] [employer] [id number] 05/24/2025 [id number] / / [id number] documented as of this encounter Visit Diagnoses Diagnosis Localized swelling, mass and lump, neck- Primary Swelling, mass, or lump in head and neck Swelling of mandible Swelling, mass, or lump in head and neck 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 * Full Code Date Activated Date Inactivated Comments 03/06/2019 8:33 AM 03/06/2019 1:05 PM This order r eflects the patients wishes and were consensually agreed upon. Care Teams Cloth Classer Relationship Specialty Start Date End Date Ewa Mohan DO [address] [place] [address] PCP - General Family Medicine 12/26/18 documented as of this encounter"
--- OUTSIDE RECORDS SUMMARY | 2024-02-01 10:46 | External Medical Summary | Summary of Care ---
Author Name Unknown Organization [facility] Address [address] [place] [address] Phone [phone] Care Team Providers Care Entry Engineer Name Role Phone Ewa Mohan DO Primary Care Provider [phone] Reason for Visit * Reason Comments Outpatient Testing Encounter Details Date Type Department Care Team (Late st Contact Info) Description 01/21/2024 10:20 AM EDT Laboratory Laboratory, [facility] [address] [place] [phone] [facility] [address] [place] [address] Localized swelling, mass and lump, neck; Swelling of mandible Allergies Active Allergy Reactions Criticality Noted Date [...] A1c goal of less than 7.0% (HCC) Take 1 Tablet by mouth in the morning. 90 Tablet 3 07/17/2023 Active metFORMIN HCl ER 500 MG Oral Tablet Extended Release 24 Hour (Glucophage XR)Indications:Typ e 2 diabetes mellitus with hemoglobin A1c goal of less than 7.0% (HCC) Take 2 Tablets by mouth in the morning. 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 90 Tablet 3 08/09/2023 Active Rivaroxaban 2.5 MG Oral Tablet (Xarelto)Indicatio ns:PVD (peripheral vascular disease) (HCC) Take 1 Tablet by mouth in [...] Sublingual Tablet SublingualIndicati ons:Coronary artery disease involving y[place]a shoshone coronary artery of yomb[place] shoshone heart with angina pectoris (HCC) (1) TAB DISSOLVED UNDER TONGUE NEEDED FOR CHEST PAIN, MAY REPEAT EVERY 5 MIN'S X 3 DOSES 25 Tablet 1 12/09/2023 Active Vitamin D3 1.25 MG (61515 UT) Oral CapsuleIndications :Vitamin D deficiency Take [...] Problem Noted Date Diagnosed Date Atherosclerosis of y[place] shoshone ar teries of extremities with rest pain, [...] (NSTEMI) 08/14/2019 Coronary artery disease invo lving yomba shoshone coronary artery of y[place] shoshone heart with angina pectoris 08/14/2019 Type 2 [...] Date Diagnosed Date Resolved Date Atherosclerosis of yomba shoshone artery of extremity 09/22/19 21 04/19/2022 Kidney [...] yrs 10/23/2019,04/21/2019,02/27 Pneumococcal Conjugate Vacci ne, 20-valent ([id number]) 05/30/2022 Pneumococcal Polysaccharide PPV23 (Pneumovax) 02/27/2019 Seasonal [...] on file documented as of this encounter Functional Status Functional Status Response [...] No 10/18/2020 documented as of this encounter Plan of Treatment Upcoming Encounters Date Type Department Care Team (Late st Contact Info) Description 01/24/2024 12:00 PM EDT Telemedicine Endocrinology, [place] [address] [place] [facility] [place] [address] Cyrus Landry CRNP [address] [place] [facility] [place] [address] 03/03/2024 9:00 AM EDT Office Visit Otolaryngology, [place] [address] [place] [address] Bonilla Estes PA-C [address] [place] [address] 03/06/2024 4:00 PM EDT Office Visit Nephrology, [facility] [address] [place] [address] Deonna Pugh MD [address] [facility] [place] [id number] 03/12/2024 9:40 AM EDT Office Visit Dermatology, [place] SharifSami [address] [place] [phone] Sanjana Knott PA-C [address] [place] [address] 03/25/2024 8:45 AM EDT Office Visit Orthopaedics [facility] [address] [place] [address] [place] Walter, DO [address] [address] 07/07/2024 8:40 AM EST Office Visit Family Practice [facility] [address] [place] [address] Ewa Mohan, DO [address] [place] [address] Pending Results Name Type Priority Associated Diagnoses Date /Time COMPREHENSIVE METABOLIC PANEL Lab STAT Localized swelling, mass and lump, neck Swelling of mandible 01/21/2024 9:49 AM EDT CBC WITH WBC DIFFERENTIAL Lab STAT Localized swelling, mass and lump, neck Swelling of mandible 01/21/2024 9:49 AM EDT ERYTHROCYTE SEDIMENTATION RATE (ESR) Lab STAT Localized swelling, mass and lump, neck Swelling of mandible 01/21/2024 9:49 AM EDT CBC Lab STAT Localized swelling, mass and lump, neck Swelling of mandible 01/21/2024 9:49 AM EDT DIFFERENTIAL, AUTOMATED Lab STAT Localized swelling, mass and lump, neck Swelling of mandible 01/21/2024 9:49 AM EDT Scheduled Procedures Name Priority Associated Diagnoses Date/Ti me COLONOSCOPY FLEXIBLE PROXIMA L DIAGNOSTIC Recall Screening for colon cancer Health Maintenance Due Date Last Done Comments [...] Additional history exists CKD PHOS USE SMARTSET 00058 06/11/202405/20, 06/13/2022, 05/30/2022 Diabetic Eye Exam 06/11/2024 06/11/2023, , 10/25/2020 Diabetic Foot Exam 06/11/2024 06/11/2023, 1 , 06/07/2021, Additional history exists HbA1c 06/17/2024 12/17/2023, 05/20, 12/04/2022, Additional history exists Albumin/Creatinine Ratio 09/05/20242 024, 12/04/2022, 12/06/2021, Additional history exists CKD HGB USE SMARTSET 70449 09/05/202409/05, 06/11/2023, 06/11/2023, Additional history exists DTaP,Tdap,and [...] this encounter Medical Devices Implanted Type Area Infertility Medical Assistant Device Identifier Shelf Expiration Date Model / Serial / Lot Stent Innova [id number] - [id number] Implanted:Qty: 1 on 10/18/2020 by Jayce Larson MD at OR [facility] Right: [facility] [employer] : INTRV CARD [id number] 07/18/2025 [id number] / / [id number] Stent Innova [id number] - [id number] Implanted:Qty: 1 on 10/18/2020 by Jayce Larson MD at OR [facility] Right: [facility] [email or web address] [id number] 05/24/2025 [id number] / / [id number] documented as of this encounter Visit Diagnoses Diagnosis Localized swelling, mass and lump, neck Swelling, mass, or lump in head and neck Swelling of mandible Swelling, mass, or lump in head and neck documented in this encounter Advance Directives * [...] and were consensually agreed upon. Care Teams Entry Engineer Relationship Specialty Start Date End Date Ewa Mohan DO [address] [place] [address] PCP - General Family Medicine 12/26/18 documented as of this encounter
--- OUTSIDE RECORDS SUMMARY | 2024-02-01 10:46 | External Medical Summary | Summary of Care ---
Author Name Unknown Organization [facility] Address [address] [place] [address] Phone [phone] Care Team Providers Care Clinical Technologist Name Role Phone Ewa Mohan DO Primary Care Provider [phone] Reason for Visit * Reason Onset Date Comments Appointment 01/21/2024 colon Encounter Details Date Type Department Care Team (Late st Contact Info) Description 01/21/[address] [facility] [address] [place] [address] Ewa Mohan DO [address] [facility] [place] [address] Appointment (colon) Allergies Active Allergy Reactions Criticality Noted Date Comments Nsaids 12/04/2022 Risk of GI bleed documented as of this encounter (statuses as of 01/22/2024) Medications Medication Sig Dispensed Refills Start Date [...] 05/07/2023 Active Gabapentin 300 MG Oral Capsule (Neurontin)Indic ations:Claudicat ion in peripheral vascular disease ([facility]) Take 1 Capsule by mouth at bedtime. 90 Capsule 1 05/10/2023 Active Omeprazole 20 MG Oral Capsule Delayed Release (PriLOSEC)Indica tions:Globus sensation Take 1 Capsule by mouth in the morning. 1 hour before the first meal of the day. 90 Capsule 3 05/09/2023 Active SITagliptin Phosphate 50 MG Oral Tablet (Januvia)Indicat ions:Diabetes mellitus with peripheral angiopathy ([facility]) Take 1 Tablet by mouth in the morning. 90 Tablet 3 06/17/2023 Active Empagliflozin 10 MG Oral Tablet (Jardiance)Indic ations:Type 2 diabetes mellitus with hemoglobin A1c goal of less than 7.0% ([facility]) Take 1 Tablet by mouth in the morning. 90 Tablet 3 07/17/2023 Active metFORMIN HCl ER 500 MG Oral Tablet Extended Release 24 Hour (Glucophage XR)Indications:T ype 2 diabetes mellitus with hemoglobin A1c goal of less than 7.0% ([facility]) Take 2 Tablets by mouth in the morning. 180 Tablet 3 07/17/2023 Active Atorvastatin Calcium 80 MG Oral Tablet (Lipitor)Indicat ions:Coronary artery disease involving [place] coronary artery of [place] heart with angina pectoris ([facility]) Take 1 Tablet by mouth in the morning. 90 Tablet 3 08/09/2023 Active Rivaroxaban 2.5 MG Oral Tablet (Xarelto)Indicat ions:PVD (peripheral vascular disease) ([facility]) Take 1 Tablet by mouth in the morning and 1 Tablet before bedtime. 180 Tablet 5 10/29/2023 Active buPROPion HCl ER (XL) 300 MG Oral Tablet Extended Release 24 Hour (Wellbutrin XL)Indications:M oderate episode of recurrent major depressive disorder ([facility]) Take 1 Tablet by mouth in the morning. 90 Tablet 3 11/06/2023 Active Nitroglycerin 0.4 MG Sublingual Tablet SublingualIndica tions:Coronary artery disease involving [place] coronary artery of [place] heart with angina pectoris ([facility]) (1) TAB DISSOLVED UNDER TONGUE NEEDED FOR CHEST PAIN, MAY REPEAT EVERY 5 MIN'S X 3 DOSES 25 Tablet 1 12/09/2023 Active Vitamin D3 1.25 MG (29160 UT) Oral CapsuleIndicatio ns:Vitamin D deficiency Take 1 Capsule by mouth once a week. 12 Capsule 12/20/2023 4 Active Cyclobenzaprine HCl 5 MG Oral Tablet (Flexeril)Indica tions:TMJ (temporomandibul ar joint syndrome) Take 1 Tablet by mouth 3 times a day as needed for Muscle spasms. 30 Tablet 01/08/2024 Active Ondansetron HCl 4 MG Oral Tablet (Zofran) TAKE 1 TABLET BY MOUTH EVERY 6 HOURS NEEDED FOR NAUSEA 30 Tablet 1 01/08/2024 Active Lisinopril 10 MG Oral Tablet (Prinivil)Indica tions:Hypertensi on goal BP (blood pressure) < 130/80 Take 1 Tablet by mouth in the morning. In the morning.. 90 Tablet 1 01/08/2024 Active LORazepam 0.5 MG Oral Tablet (Ativan)Indicati ons:KURT (generalized anxiety disorder) Take 1 Tablet by mouth daily as needed for Anxiety. 30 Tablet 01/15/2024 Active Clopidogrel Bisulfate 75 MG Oral Tablet (pLAVix) Take 1 Tablet by mouth in the morning. 10/16/2023 Active Amoxicillin-Pot Clavulanate 875-125 MG Oral Tablet (Augmentin)Indic ations:Localized swelling, mass and lump, neck,Swelling of mandible Take 1 Tablet by mouth in the morning and 1 Tablet before bedtime. Do all this for 7 days. 14 Tablet 01/21/2024 4 Discontinued documented as of this encounter (statuses as of 01/22/2024) Active Problems Problem Noted Date Diagnosed Date Atherosclerosis of [place] ar teries of extremities with rest pain, [...] (NSTEMI) 08/14/2019 Coronary artery disease invo lving [place] coronary artery of [place] heart with angina pectoris 08/14/2019 Type 2 [...] as of this encounter (statuses as of 01/22/2024) Resolved Problems Problem Noted Date Diagnosed Date Resolved Date Atherosclerosis of [place] artery of extremity 09/22/19 21 04/19/2022 Kidney [...] as of this encounter (statuses as of 01/22/2024) Immunizations Name Administration Dates Next Due Hepatitis B, 20+ yrs 10/23/2019,04/21/2019,02/27 Pneumococcal Conjugate Vacci ne, 20-valent ([id number]) 05/30/2022 Pneumococcal Polysaccharide PPV23 (Pneumovax) 02/27/2019 Seasonal [...] No 10/18/2020 documented as of this encounter Miscellaneous Notes * Telephone Encounter - Dariela Smith OSA - 01/22/2024 9:58 AM EDT Christina'd 07/03/24. * Telephone Encounter - Geovanna Sarah OSA - 01/21/2024 9:11 AM EDT Screening colonoscopy documented in this encounter Plan of Treatment Upcoming Encounters Date Type Department Care Team (Latest Contact Info) Description 03/03/2024 9:00 AM EDT Office Visit Otolaryngology, Sami Jaramillo [address] [place] [address] Bonilla Estes PA-C [address] [place] [address] 03/06/2024 4:00 PM EDT Office Visit Nephrology, [facility] [address] [facility] [place] [address] Deonna Pugh MD [address] [facility] [place] [address] 03/12/2024 9:40 AM EDT Office Visit Dermatology, Ivymarcella SharifSami [address] [place] [address] Sanjana Knott PA-C [address] [place] [address] 03/25/2024 8:45 AM EDT Office Visit Orthopaedics [facility] [address] [place] [address] Juan Pablo Walter, [address] [place] [address] 07/03/2024 11:15 AM EST Hospital Encounter ENDO [facility], Endoscopy Room [facility] [address] [place] [phone] Braulio Dwyer MD [address] [place] [address] 07/03/2024 11:15 AM EST - 07/03/2024 11:45 AM EST Surgery ENDO [facility], Endoscopy Room [facility] [address] [place] [phone] Braulio Dwyer MD [address] [place] [address] COLONOSCOPY FLEXIBLE PROXIMAL DIAGNOSTIC 07/07/2024 8:40 AM EST Office Visit Family [facility] [address] [place] [address] Ewa Mohan DO [address] [place] [address] Scheduled Procedures Name Priority Associated Diagnoses Date/Ti me COLONOSCOPY FLEXIBLE PROXIMAL DIAGNOSTIC Screening for colon cancer 07/03/2024 11:15 AM EST Health Maintenance Due Date Last Done Comments Cologuard 2011 Fecal Occult Blood Test 2011 Sigmoidoscopy 2011 COVID-19 Vaccine ( season) 2023 Colonoscopy 11/16/2023 11/15/2022, 10/19, 05/11/2015, Additional history exists Colorectal Cancer Screening 11/16/2023 Mammogram 04/18/2024 04/18/2023, 02/16, 03/03/2021, Additional history exists PAP SMEAR-EVERY 5 YRS,AGES 21-100 05/05/2024 05/05/2019, 05/05/2019, 10/02/2011, Additional history exists CKD PHOS USE SMARTSET 70427 06/11/2024 10/2 11/2022, 06/13/2022, 05/30/2022 Diabetic Eye Exam 06/11/2024 06/11/2023, , 10/25/2020 Diabetic Foot Exam 06/11/2024 06/11/2023, 1 , 06/07/2021, Additional history exists HbA1c 06/17/2024 12/17/2023, 05/20, 12/04/2022, Additional history exists GFR 07/22/2024 01/21/2024, 09/19, 09/05/2023, Additional history exists Albumin/Creatinine Ratio 09/05/2024 024, 12/04/2022, 12/06/2021, Additional history exists CKD HGB USE SMARTSET 17770 01/20/202501/20, 01/21/2024, 09/05/2023, Additional history exists DTaP,Tdap,and Td Vaccines (2 [...] this encounter Medical Devices Implanted Type Area Telecommunications Manager Device Identifier Shelf Expiration Date Model / Serial / Lot Stent Innova [id number] - [id number] Implanted:Qty: 1 on 10/18/2020 by Jayce Larson MD at [place] [facility] [place] Right: [facility] [employer] : INTRV CARD [id number] 07/18/2025 [id number] / / [id number] Stent Innova [id number] - [id number] Implanted:Qty: 1 on 10/18/2020 by Jayce Larson MD at [place] [facility] [place] Right: [facility] [employer] [id number] 05/24/2025 [id number] / / [id number] documented as of this encounter Advance Directives * Full Code (Latest Code Status on File) Date Activated Date Inactivated Comments 10/18/2020 12:46 PM 10/19/2020 3:29 PM This order re flects the patients wishes and were consensually agreed upon. * Full Code Date Activated Date Inactivated Comments 03/06/2019 8:33 AM 03/06/2019 1:05 PM This order r eflects the patients wishes and were consensually agreed upon. Care Teams Clinical Technologist Relationship Specialty Start Date End Date Ewa Mohan DO [address] [place] [address] PCP - General Family Medicine 12/26/18 documented as of this encounter
--- OUTSIDE RECORDS SUMMARY | 2024-02-01 10:46 | External Medical Summary | Summary of Care ---
Author Name Unknown Organization [facility] Address [address] [place] [address] Phone [phone] Care Team Providers Care Gymnasium Teacher Name Role Phone Ewa Mohan DO Primary Care Provider [phone] Reason for Visit * Reason Onset Date Comments Appointment 12/17/2023 colon Encounter Details Date Type Department Care Team (Late st Contact Info) Description 12/17/2023 Telephone Family Practice [facility] [address] [place] [address] Ewa Mohan DO [address] [facility] [place] [address] Appointment (colon) Allergies Active Allergy Reactions Criticality Noted Date Comments Nsaids 12/04/2022 Risk of GI bleed documented as of this encounter (statuses as of 01/21/2024) Medications Medication Sig Dispensed Refills Start Date End Date Status Acetaminophen 325 MG Oral Tablet (Tylenol) Take 2 Tabs by mouth every 6 hours as needed for Other (Pain). 30 Tab 1 Active Metoprolol Succinate ER 50 MG Oral Tablet Extended Release 24 Hour (toPROL XL) Take 1 Tab by mouth daily. 90 Tab 1 1 Active Additional Information Patient taking differently:50 mg OralBID (.AM/PM), Informant: Patient, Reported on 2023 Sertraline HCl 100 MG Oral Tablet (Zoloft) Take 2 Tablets by mouth in the morning. 180 Tablet 3 3 Active methIMAzole 10 MG Oral Tablet (Tapazole) Take 1 Tablet by mouth in the morning. 90 Tablet 3 3 Active Gabapentin 300 MG Oral Capsule (Neurontin)Ping cations:Claudic ation in peripheral vascular disease (HCC) Take 1 Capsule by mouth at bedtime. 90 Capsule 1 3 Active Omeprazole 20 MG Oral Capsule Delayed Release (PriLOSEC)Indic ations:Globus sensation Take 1 Capsule by mouth in the morning. 1 hour before the first meal of the day. 90 Capsule 3 3 Active SITagliptin Phosphate 50 MG Oral Tablet (Januvia)Indica tions:Diabetes mellitus with peripheral angiopathy (HCC) Take 1 Tablet by mouth in the morning. 90 Tablet 3 3 Active Empagliflozin 10 MG Oral Tablet (Jardiance)Ping cations:Type 2 diabetes mellitus with hemoglobin A1c goal of less than 7.0% (HCC) Take 1 Tablet by mouth in the morning. 90 Tablet 3 3 Active metFORMIN HCl ER 500 MG Oral Tablet Extended Release 24 Hour (Glucophage XR)Indications: Type 2 diabetes mellitus with hemoglobin A1c goal of less than 7.0% (HCC) Take 2 Tablets by mouth in the morning. 180 Tablet 3 3 Active Atorvastatin Calcium 80 MG Oral Tablet (Lipitor)Indica tions:Coronary artery disease involving [place] coronary artery of [place] heart with angina pectoris (HCC) Take 1 Tablet by mouth in the morning. 90 Tablet 3 3 Active Rivaroxaban 2.5 MG Oral Tablet (Xarelto)Indica tions:PVD (peripheral vascular disease) ([facility]) Take 1 Tablet by mouth in the morning and 1 Tablet before bedtime. 180 Tablet 5 4 Active buPROPion HCl ER (XL) 300 MG Oral Tablet Extended Release 24 Hour (Wellbutrin XL)Indications: Moderate episode of recurrent major depressive disorder (HCC) Take 1 Tablet by mouth in the morning. 90 Tablet 3 4 Active Nitroglycerin 0.4 MG Sublingual Tablet SublingualIndic ations:Coronary artery disease involving [place] coronary artery of [place] heart with angina pectoris (HCC) (1) TAB DISSOLVED UNDER TONGUE NEEDED FOR CHEST PAIN, MAY REPEAT EVERY 5 MIN'S X 3 DOSES 25 Tablet 1 4 Active Cyclobenzaprine HCl 5 MG Oral Tablet (Flexeril)Indic ations:TMJ (temporomandibu lar joint syndrome) Take 1 Tablet by mouth 3 times a day as needed for Muscle spasms. 30 Tablet 4 01/06/20 24 Discontinued(Ref ill) Ondansetron HCl 4 MG Oral Tablet Take 1 Tablet by mouth every 6 hours as needed for Nausea. 30 Tablet 1 4 01/08/20 24 Discontinued Lisinopril 10 MG Oral Tablet (Prinivil)Indic ations:Hyperten kinza goal BP (blood pressure) < 130/80 TAKE 1 TABLET BY MOUTH EVERY MORNING 90 Tablet 1 4 01/08/20 24 Discontinued(Ref ill) LORazepam 0.5 MG Oral Tablet (Ativan)Indicat ions:KURT (generalized anxiety disorder) Take 1 Tablet by mouth daily as needed for Anxiety. 30 Tablet 4 01/14/20 24 Discontinued(Ref ill) documented as of this encounter (statuses as of 01/21/2024) Active Problems Problem Noted Date Diagnosed Date Atherosclerosis of [place] ar teries of extremities with rest pain, [...] (NSTEMI) 08/14/2019 Coronary artery disease invo lving [place] coronary artery of [place] heart with angina pectoris 08/14/2019 Type 2 [...] Date Diagnosed Date Resolved Date Atherosclerosis of [place] artery of extremity 09/22/19 21 04/19/2022 Kidney [...] yrs 10/23/2019,04/21/2019,02/27 Pneumococcal Conjugate Vacci ne, 20-valent ([id number]) 05/30/2022 Pneumococcal Polysaccharide PPV23 (Pneumovax) 02/27/2019 Seasonal [...] encounter Miscellaneous Notes * Telephone Encounter - Amelia Hinton OSA - 01/21/2024 2:02 PM EDT Letter Sent. Patient did not return call and schedule. Second message left for patient 1 week ago. 01/21/2024 2:02 PM * Telephone Encounter - Amelia Hinton OSA - 01/14/2024 10:30 AM EDT Left message for patient to return call to schedule. 01/14/2024 10:30 AM * Telephone Encounter - Lennie Saldana OSA - 01/10/2024 12:51 PM EDT Lmm SANDY Beckford 01/10/2024 12:51 PM * Telephone Encounter - Geovanna Sarah OSA - 12/17/2023 10:09 AM EDT Other iron deficiency anemias [D50.8] Colonoscopy documented in this encounter Plan of Treatment Upcoming Encounters Date Type Department Care Team (Latest Contact Info) Description 01/24/2024 12:00 PM EDT Telemedicine Endocrinology, [place] [address], [place] [phone] Cyrus Landry CRNP [address] [place] [address] 03/03/2024 9:00 AM EDT Office Visit [place] [address] [place] [address] [address] Bonilla Estes PA-C [address] [place] [id number] 03/06/2024 4:00 PM EDT Office Visit Nephrology, [facility] [address] [place] [address] Deonna Pugh MD [address] [facility] [place] [id number] 03/12/2024 9:40 AM EDT Office Visit DermatologyIvy [place] [address] [place] [address] Sanjana Knott PA-C [address] [place] [address] 03/25/2024 8:45 AM EDT Office Visit Orthopaedics [facility] [address] [place] [address] Juan Pablo Walter, DO [address] [place] [address] 07/03/2024 11:15 AM EST Hospital Encounter ENDO [facility], Endoscopy Room [facility] [address] [place] [phone] Braulio Dwyer MD [address] [place] [address] 07/03/2024 11:15 AM EST - 07/03/2024 11:45 AM EST Surgery ENDO [facility], Endoscopy Room [facility] [address] [place] [phone] Braulio Dwyer MD [address] [place] [address] COLONOSCOPY FLEXIBLE PROXIMAL DIAGNOSTIC 07/07/2024 8:40 AM EST Office Visit Family Practice [facility] [address] [place] [address] Ewa Mohan, DO [address] [place] [address] Scheduled Procedures Name Priority Associated Diagnoses Date/Ti [...] Additional history exists CKD PHOS USE SMARTSET 51091 06/11/202405/20, 06/13/2022, 05/30/2022 Diabetic Eye Exam 06/11/2024 06/11/2023, , 10/25/2020 Diabetic Foot Exam 06/11/2024 06/11/2023, 1 , 06/07/2021, Additional history exists HbA1c 06/17/2024 12/17/2023, 05/20, 12/04/2022, Additional history exists GFR 07/22/2024 01/21/2024, 09/19, 09/05/2023, Additional history exists Albumin/Creatinine Ratio 09/05/2024 024, 12/04/2022, 12/06/2021, Additional history exists CKD HGB USE SMARTSET 96953 01/20/202501/20, 01/21/2024, 09/05/2023, Additional history exists DTaP,Tdap,and [...] this encounter Medical Devices Implanted Type Area Nutrition Worker Device Identifier Shelf Expiration Date Model / Serial / Lot Stent Innova [id number] - [id number] Implanted:Qty: 1 on 10/18/2020 by Jayce Larson MD at [place] [facility] [place] Right: [facility] [employer] : INTRV CARD [id number] 07/18/2025 [id number] / / [id number] Stent Innova [id number] - [id number] Implanted:Qty: 1 on 10/18/2020 by Jayce Larson MD at OR [facility] [place] Right: [facility] [employer] [id number] 05/24/2025 [id number] / / [id number] documented as of this encounter Advance Directives [...] and were consensually agreed upon. Care Teams Gymnasium Teacher Relationship Specialty Start Date End Date Ewa Mohan DO [address] [place] [address] PCP - General Family Medicine 12/26/18 documented as of this encounter
--- OUTSIDE RECORDS SUMMARY | 2024-02-01 10:46 | External Medical Summary | Summary of Care ---
Author Name Unknown Organization [facility] Address [address] [place] [address] Phone [phone] Care Team Providers Care Plain Goods Hemmer Name Role Phone Kimberlee Ewa Gato HATFIELD Primary Care Provider [phone] Encounter Details Date Type Department Care Team (Late st Contact Info) Description 01/27/2024 Orders Only Outcomes Research Department [address] [place] [address] Sanjana Quiroz CHRA [employer] Research Other*[id number] Allergies Active Allergy Reactions Criticality Noted Date Comments Nsaids 12/04/2022 Risk of GI bleed documented as of this encounter (statuses as of 01/27/2024) Medications Medication Sig Dispensed Refills Start Date [...] Oral Tablet (Lipitor)Indicatio ns:Coronary artery disease involving [place] coronary artery of [place] heart with angina pectoris (HCC) Take 1 [...] Sublingual Tablet SublingualIndicati ons:Coronary artery disease involving [place] coronary artery of [place] heart with angina pectoris (HCC) (1) TAB DISSOLVED UNDER TONGUE NEEDED FOR CHEST PAIN, MAY REPEAT EVERY 5 MIN'S X 3 DOSES 25 Tablet 1 12/09/2023 Active Vitamin D3 1.25 MG (52505 UT) Oral CapsuleIndications :Vitamin D deficiency Take [...] by mouth in the morning. 10/16/2023 Active traMADol HCl 50 MG Oral Tablet (Ultram)Indication s:Localized swelling, mass and lump, neck,Swelling of mandible Take 1 Tablet by mouth every 6 hours as needed for Pain, Severe. 5 Tablet 01/21/2024 Active Clindamycin HCl 300 MG Oral CapsuleIndications :Parotiditis Take 1 Capsule by mouth in the morning and 1 Capsule at noon and 1 Capsule in the evening and 1 Capsule before bedtime. Do all this for 7 days. 28 Capsule 01/21/2024 01/28/2024 Active Promethazine HCl 25 MG Oral Tablet (Phenergan)Indicat ions:Nausea and vomiting, unspecified vomiting type Take 1 Tablet by mouth every 6 hours as needed for Nausea. or vomiting 20 Tablet 2 01/24/2024 Active documented as of this encounter (statuses as of 01/27/2024) Active Problems Problem Noted Date Diagnosed Date Atherosclerosis of [place] ar teries of extremities with rest pain, [...] (NSTEMI) 08/14/2019 Coronary artery disease invo lving [place] coronary artery of [place] heart with angina pectoris 08/14/2019 Type 2 [...] as of this encounter (statuses as of 01/27/2024) Resolved Problems Problem Noted Date Diagnosed Date Resolved Date Atherosclerosis of [place] artery of extremity 09/22/19 21 04/19/2022 Kidney [...] as of this encounter (statuses as of 01/27/2024) Immunizations Name Administration Dates Next Due Hepatitis B, 20+ yrs 10/23/2019,04/21/2019,02/27 Pneumococcal Conjugate Vacci ne, 20-valent ([id number]) 05/30/2022 Pneumococcal Polysaccharide PPV23 (Pneumovax) 02/27/2019 Seasonal [...] 03/03/2024 9:00 AM EDT Office Visit Otolaryngology, Jono Jaramillon [address] [place] [address] Bonilla Estes PA-C [address] [place] [address] 03/06/2024 4:00 PM EDT Office Visit Nephrology, [facility] [address] [facility] [place] [address] Deonna Pugh MD [address] [facility] [place] [address] 03/12/2024 9:40 AM EDT Office Visit Dermatology, Ivy Sharif Sami [address] [place] [address] Sanjana Knott PA-C [address] [place] [address] 03/25/2024 8:45 AM EDT Office Visit Orthopaedics [facility] [address] [place] [address] Juan Pablo Walter, [address] [place] [address] 07/03/2024 11:15 AM EST Hospital Encounter [facility]O [facility], Endoscopy Room [facility] [address] [place] [phone] Braulio Dwyer MD [address] [place] [address] 07/03/2024 11:15 AM EST - 07/03/2024 11:45 AM EST Surgery ENDO [facility], Endoscopy Room [facility] [address] [place] [phone] Braulio Dwyer MD [address] [place] [address] COLONOSCOPY FLEXIBLE PROXIMAL DIAGNOSTIC 07/07/2024 8:40 AM EST Office Visit [facility] [address] [place] [address] Ewa Mohan DO [address] [place] [address] Scheduled Orders Name Type Priority Associated Diagnoses Orde r Schedule MYCODE SUBSEQUENT ADULT Lab Routine My[employer] Research Other*[id number] Every 6 Months for 2 Occurrences starting 01/27/2024 until 02/15/2025 Scheduled Procedures Name Priority Associated Diagnoses Date/Ti [...] Additional history exists CKD PHOS USE SMARTSET 80937 06/11/202405/20, 06/13/2022, 05/30/2022 Diabetic Eye Exam 06/11/2024 06/11/2023, , 10/25/2020 Diabetic Foot Exam 06/11/2024 06/11/2023, 1 , 06/07/2021, Additional history exists HbA1c 06/17/2024 12/17/2023, 05/20, 12/04/2022, Additional history exists GFR 07/22/2024 01/21/2024, 09/19, 09/05/2023, Additional history exists Albumin/Creatinine Ratio 09/05/20242 024, 12/04/2022, 12/06/2021, Additional history exists CKD HGB USE SMARTSET 48930 01/20/202501/20, 01/21/2024, 09/05/2023, Additional history exists DTaP,Tdap,and [...] this encounter Medical Devices Implanted Type Area Visual Aid Expert Device Identifier Shelf Expiration Date Model / Serial / Lot Stent Innova [id number] - [id number] Implanted:Qty: 1 on 10/18/2020 by Jayce Larson MD at [place] [facility] [place] Right: [facility] [employer] : INTRV CARD [id number] 07/18/2025 [id number] / / [id number] Stent Innova [id number] - [id number] Implanted:Qty: 1 on 10/18/2020 by Jayce Larson MD at OR [facility] [place] Right: [facility] [employer] [id number] 05/24/2025 [id number] / / [id number] documented as of this encounter Visit Diagnoses Diagnosis [employer] Research Other*[id number] Screening for colon cancer Special screening for malignant neoplasms, colon documented [...] and were consensually agreed upon. Care Teams Plain Goods Hemmer Relationship Specialty Start Date End Date Ewa Mohan DO [address] [place] [address] PCP - General Family Medicine 12/26/18 documented as of this encounter
--- OUTSIDE RECORDS SUMMARY | 2024-02-01 10:46 | External Medical Summary | Summary of Care ---
Author Name Unknown Organization [facility] Address [address] [place] [address] Phone [phone] Care Team Providers Care Telehealth Nurse Name Role Phone Ewa Mohan DO Primary Care Provider [phone] Reason for Visit * Reason Onset Date Comments Test Results 01/21/2024 Encounter Details Date Type Department Care Team (Late st Contact Info) Description 01/21/2024 Telephone Family Practice [facility] [address] [place] [address] Ewa Mohan DO [address] [facility] [place] [address] Test Results Allergies Active Allergy Reactions Criticality Noted Date [...] (Neurontin)Indic ations:Claudicat ion in peripheral vascular disease ([facility]) Take 1 Capsule by mouth at bedtime. 90 Capsule 1 05/10/2023 Active Omeprazole 20 MG Oral Capsule Delayed Release (PriLOSEC)Indica tions:Globus sensation Take 1 Capsule by mouth in the morning. 1 hour before the first meal of the day. 90 Capsule 3 05/09/2023 Active SITagliptin Phosphate 50 MG Oral Tablet (Januvia)Indicat ions:Diabetes mellitus with peripheral angiopathy ([facility]) Take 1 Tablet by mouth in the morning. 90 Tablet 3 06/17/2023 Active Empagliflozin 10 MG Oral Tablet (Jardiance)Indic ations:Type 2 diabetes mellitus with hemoglobin A1c goal of less than 7.0% ([facility]) Take 1 Tablet by mouth in the morning. 90 Tablet 3 07/17/2023 Active metFORMIN HCl ER 500 MG Oral Tablet Extended Release 24 Hour (Glucophage XR)Indications:T ype 2 diabetes mellitus with hemoglobin A1c goal of less than 7.0% ([facility]) Take 2 Tablets by mouth in the morning. 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 90 Tablet 3 08/09/2023 Active Rivaroxaban 2.5 MG Oral Tablet (Xarelto)Indicat ions:PVD (peripheral vascular disease) ([facility]) Take 1 Tablet by mouth in the morning and 1 Tablet before bedtime. 180 Tablet 5 10/29/2023 Active buPROPion HCl ER (XL) 300 MG Oral Tablet Extended Release 24 Hour (Wellbutrin XL)Indications:M oderate episode of recurrent major depressive disorder ([facility]) Take 1 Tablet by mouth in the morning. 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 5 Tablet 01/21/2024 Active Clindamycin HCl 300 MG Oral CapsuleIndicatio ns:Parotiditis Take 1 Capsule by mouth in the morning and 1 Capsule at noon and 1 Capsule in the evening and 1 Capsule before bedtime. Do all this for 7 days. 28 Capsule 01/21/2024 4 Active Amoxicillin-Pot Clavulanate 875-125 MG Oral Tablet (Augmentin)Indic ations:Localized swelling, mass and lump, neck,Swelling of mandible Take 1 Tablet by mouth in the morning and 1 Tablet before bedtime. Do all this for 7 days. 14 Tablet 01/21/2024 4 Discontinued documented as of this encounter (statuses as of 01/21/2024) Active Problems Problem Noted Date Diagnosed Date Atherosclerosis of jena ar teries of extremities with rest pain, [...] (NSTEMI) 08/14/2019 Coronary artery disease invo lving jena coronary artery of jena heart with angina pectoris 08/14/2019 Type 2 [...] Date Diagnosed Date Resolved Date Atherosclerosis of jena artery of extremity 09/22/1904/19/2022 Kidney disease, chronic, sta ge III (GFR [...] yrs 10/23/2019,04/21/2019,02/27 Pneumococcal Conjugate Vacci ne, 20-valent ([id number]) 05/30/2022 Pneumococcal Polysaccharide PPV23 (Pneumovax) 02/27/2019 Seasonal [...] (15 years old or older) No 10/19/19 Cognitive Status Response Date of Assessm ent Because of a physical, menta l, or emotional condition, do you have serious difficulty concentrating, remembering, or making decisions? (5 years old or older) No 10/18/2020 documented as of this encounter Miscellaneous Notes * Telephone Encounter - Kalee Barfield RN - 01/21/2024 1:00 PM EDT Called pt and gave Dr Mohan's message. * Telephone Encounter - Ewa Mohan DO - 01/21/2024 12:38 PM EDT Please call patient CT shows parotid gland is very swollen, no obvious abscess but her white blood cell count is elevated I spoke w/ENT - recommended switching abx to clindamycin, I sent in new rx If no improvement in 24 hours or any worsening swelling, difficulty swallowing, breathing needs to go to ER for IV abx * Telephone Encounter - Luis Coleman RN - 01/21/2024 11:34 AM EDT Received call from Komal regarding previous messages. Dr. Mohan made aware. * Telephone Encounter - Komal Martinez LPN - 01/21/2024 11:31 AM EDT Brianna calling from Radiology Significant Abnormal Fining on CT Neck Ordering provider: Ewa Mohan DO Asking that provider review the findings. Spoke with Haile in the office, he is going to make PCP aware. * Telephone Encounter - Joel-Erik Arita OSA - 01/21/2024 11:28 AM EDT Reason for patient's call: Critical CT Results Caller was transferred to Komal at the nurse line. documented in this encounter Plan of Treatment Upcoming Encounters Date Type Department Care Team (Late st Contact Info) Description 01/24/2024 12:00 PM EDT Telemedicine Endocrinology, [facility] [address] [place] [address] Cyrus Landry CRNP [address], [place] [id number] 03/03/2024 9:00 AM EDT Office Visit Otolaryngology, Sami Jaramillo [address] [place] [id number] Bonilla Estes PA-C [address] [place] [address] 03/06/2024 4:00 PM EDT Office Visit Nephrology, [facility] [address] [facility] [place] [address] Deonna Pugh MD [address] [facility] [place] [id number] 03/12/2024 9:40 AM EDT Office Visit Dermatology, Sami Handley [address] [place] [address] Sanjana Knott PA-C [address] [place] [address] 03/25/2024 8:45 AM EDT Office Visit Orthopaedics [facility] [address] [place] [address] Juan Pablo Walter, [address] [place] [address] 07/07/2024 8:40 AM EST Office Visit Family Practice [facility] [address] [place] [address] Ewa Mohan, DO [address] [place] [address] Scheduled Procedures Name Priority Associated Diagnoses Date/Ti [...] Additional history exists CKD PHOS USE SMARTSET 75970 06/11/202405/20, 06/13/2022, 05/30/2022 Diabetic Eye Exam 06/11/2024 06/11/2023, , 10/25/2020 Diabetic Foot Exam 06/11/2024 06/11/2023, 1 , 06/07/2021, Additional history exists HbA1c 06/17/2024 12/17/2023, 05/20, 12/04/2022, Additional history exists GFR 07/22/2024 01/21/2024, 09/19, 09/05/2023, Additional history exists Albumin/Creatinine Ratio 09/05/2024 024, 12/04/2022, 12/06/2021, Additional history exists CKD HGB USE SMARTSET 25140 01/20/202501/20, 01/21/2024, 09/05/2023, Additional history exists DTaP,Tdap,and [...] this encounter Medical Devices Implanted Type Area Rnfa Device Identifier Shelf Expiration Date Model / Serial / Lot Stent Innova [id number] - [id number] Implanted:Qty: 1 on 10/18/2020 by Jayce Larson MD at OR [facility] Right: [facility] [email or web address] : INTRV CARD [id number] 07/18/2025 [id number] / / [id number] Stent Innova [id number] - [id number] Implanted:Qty: 1 on 10/18/2020 by Jayce Larson MD at OR [facility] Right: [facility] lark [id number] 05/24/2025 [id number] / / [id number] documented as of this encounter Visit Diagnoses Diagnosis Parotiditis- Primary Sialoadenitis documented in this encounter Advance Directives * [...] and were consensually agreed upon. Care Teams Telehealth Nurse Relationship Specialty Start Date End Date Ewa Mohan DO [address] [place] [address] PCP - General Family Medicine 12/26/18 documented as of this encounter
--- OUTSIDE RECORDS SUMMARY | 2024-02-01 10:46 | External Medical Summary | Summary of Care ---
Author Name Unknown Organization [facility] Address [address] [place] [address] Phone [phone] Care Team Providers Care Calculus Professor Name Role Phone Ewa Mohan DO Primary Care Provider [phone] Reason for Visit * Reason Onset Date Comments Follow Up 01/22/2024 Encounter Details Date Type Department Care Team (Late st Contact Info) Description 01/22/2024 Telephone Family Practice [facility] [address] [place] [address] Ewa Mohan DO [address] [place] [address] Follow Up Allergies Active Allergy Reactions Criticality Noted Date [...] 05/07/2023 Active Gabapentin 300 MG Oral Capsule (Neurontin)Indica tions:Claudicatio n in peripheral vascular disease (HCC) Take 1 Capsule by mouth at bedtime. 90 Capsule 1 05/10/2023 Active Omeprazole 20 MG Oral Capsule Delayed Release (PriLOSEC)Indicat ions:Globus sensation Take 1 Capsule by mouth in the morning. 1 hour before the first meal of the day. 90 Capsule 3 05/09/2023 Active SITagliptin Phosphate 50 MG Oral Tablet (Januvia)Indicati ons:Diabetes mellitus with peripheral angiopathy ([facility]) Take 1 Tablet by mouth in the morning. 90 Tablet 3 06/17/2023 Active Empagliflozin 10 MG Oral Tablet (Jardiance)Indica tions:Type 2 diabetes mellitus with hemoglobin A1c goal of less than 7.0% ([facility]) Take 1 Tablet by mouth in the morning. 90 Tablet 3 07/17/2023 Active metFORMIN HCl ER 500 MG Oral Tablet Extended Release 24 Hour (Glucophage XR)Indications:Ty pe 2 diabetes mellitus with hemoglobin A1c goal of less than 7.0% ([facility]) Take 2 Tablets by mouth in the morning. 180 Tablet 3 07/17/2023 Active Atorvastatin Calcium 80 MG Oral Tablet (Lipitor)Indicati ons:Coronary artery disease involving crow coronary artery of crow heart with angina pectoris (HCC) Take 1 Tablet by mouth in the morning. 90 Tablet 3 08/09/2023 Active Rivaroxaban 2.5 MG Oral Tablet (Xarelto)Indicati ons:PVD (peripheral vascular disease) ([facility]) Take 1 Tablet by mouth in the morning and 1 Tablet before bedtime. 180 Tablet 5 10/29/2023 Active buPROPion HCl ER (XL) 300 MG Oral Tablet Extended Release 24 Hour (Wellbutrin XL)Indications:Mo derate episode of recurrent major depressive disorder ([facility]) Take 1 Tablet by mouth in the morning. 90 Tablet 3 11/06/2023 Active Nitroglycerin 0.4 MG Sublingual Tablet SublingualIndicat ions:Coronary artery disease involving crow coronary artery of crow heart with angina pectoris (HCC) (1) TAB DISSOLVED UNDER TONGUE NEEDED FOR CHEST PAIN, MAY REPEAT EVERY 5 MIN'S X 3 DOSES 25 Tablet 1 12/09/2023 Active Vitamin D3 1.25 MG (99019 UT) Oral CapsuleIndication s:Vitamin D deficiency Take 1 Capsule by mouth once a week. 12 Capsule 12/20/2023 03/19/2024 Active Cyclobenzaprine HCl 5 MG Oral Tablet (Flexeril)Indicat ions:TMJ (temporomandibula r joint syndrome) Take 1 Tablet by mouth 3 times a day as needed for Muscle spasms. 30 Tablet 01/08/2024 Active Ondansetron HCl 4 MG Oral Tablet (Zofran) TAKE 1 TABLET BY MOUTH EVERY 6 HOURS NEEDED FOR NAUSEA 30 Tablet 1 01/08/2024 Active Lisinopril 10 MG Oral Tablet (Prinivil)Indicat ions:Hypertension goal BP (blood pressure) < 130/80 Take 1 Tablet by mouth in the morning. In the morning.. 90 Tablet 1 01/08/2024 Active LORazepam 0.5 MG Oral Tablet (Ativan)Indicatio ns:KURT (generalized anxiety disorder) Take 1 Tablet by mouth daily as needed for Anxiety. 30 Tablet 01/15/2024 Active Clopidogrel Bisulfate 75 MG Oral Tablet (pLAVix) Take 1 Tablet by mouth in the morning. 10/16/2023 Active traMADol HCl 50 MG Oral Tablet (Ultram)Indicatio ns:Localized swelling, mass and lump, neck,Swelling of mandible Take 1 Tablet by mouth every 6 hours as needed for Pain, Severe. 5 Tablet 01/21/2024 Active Clindamycin HCl 300 MG Oral CapsuleIndication s:Parotiditis Take 1 Capsule by mouth in the morning and 1 Capsule at noon and 1 Capsule in the evening and 1 Capsule before bedtime. Do all this for 7 days. 28 Capsule 01/21/2024 01/28/2024 Active documented as of this encounter (statuses as of 01/22/2024) Active Problems Problem Noted Date Diagnosed Date Atherosclerosis of crow ar teries of extremities with rest pain, [...] (NSTEMI) 08/14/2019 Coronary artery disease invo lving crow coronary artery of crow heart with angina pectoris 08/14/2019 Type 2 [...] Date Diagnosed Date Resolved Date Atherosclerosis of crow artery of extremity 09/22/19 21 04/19/2022 Kidney [...] yrs 10/23/2019,04/21/2019,02/27 Pneumococcal Conjugate Vacci ne, 20-valent ([id number]) 05/30/2022 Pneumococcal Polysaccharide PPV23 (Pneumovax) 02/27/2019 Seasonal [...] encounter Miscellaneous Notes * Telephone Encounter - Ewa Mohan DO - 01/22/2024 7:09 PM EDT Called to check on patient She reports swelling has improved a bit Pain improved, still hard to open her mouth Will continue clindamycin as directed documented in this encounter Plan of Treatment Upcoming Encounters Date Type Department Care Team (Latest Contact Info) Description 03/03/2024 9:00 AM EDT Office Visit Otolaryngology, Sami Jaramillo [address] [place] [address] Bonilla Estes PA-C [address] [place] [address] 03/06/2024 4:00 PM EDT Office Visit Nephrology, [address] [place] [address] Deonna Pugh MD [address] [place] [address] [place] [address] 03/12/2024 9:40 AM EDT Office Visit Dermatology, [place] Sami Sharif [address] [place] [address] Sanjana Knott PA-C [address] [place] [address] 03/25/2024 8:45 AM EDT Office Visit Orthopaedics [facility] [address] [place] [address] Juan Pablo Walter DO [address] [place] [address] 07/03/2024 11:15 AM EST Hospital Encounter ENDO [facility], Endoscopy Room [facility] [address] [place] [id number] Braulio Dwyer MD [address] [place] [address] 07/03/2024 11:15 AM EST - 07/03/2024 11:45 AM EST Surgery ENDO [facility], Endoscopy Room [facility] [address] [place] [phone] Braulio Dwyer MD [address] [place] [address] COLONOSCOPY FLEXIBLE PROXIMAL DIAGNOSTIC 07/07/2024 8:40 AM EST Office Visit Family [facility] [address] [place] [address] Ewa Mohan DO [address] [place] [address] Scheduled Procedures Name Priority Associated Diagnoses Date/Ti [...] Additional history exists CKD PHOS USE SMARTSET 08307 06/11/202405/20, 06/13/2022, 05/30/2022 Diabetic Eye Exam 06/11/2024 06/11/2023, , 10/25/2020 Diabetic Foot Exam 06/11/2024 06/11/2023, 1 , 06/07/2021, Additional history exists HbA1c 06/17/2024 12/17/2023, 05/20, 12/04/2022, Additional history exists GFR 07/22/2024 01/21/2024, 09/19, 09/05/2023, Additional history exists Albumin/Creatinine Ratio 09/05/2024 024, 12/04/2022, 12/06/2021, Additional history exists CKD HGB USE SMARTSET 04907 01/20/202501/20, 01/21/2024, 09/05/2023, Additional history exists DTaP,Tdap,and [...] this encounter Medical Devices Implanted Type Area Bun Machine Operator Device Identifier Shelf Expiration Date Model / Serial / Lot Stent Innova [id number] - [id number] Implanted:Qty: 1 on 10/18/2020 by Jayce Larson MD at OR [facility] [place] Right: [facility] [employer] : INTRV CARD [id number] 07/18/2025 [id number] / / [id number] Stent Innova [id number] - [id number] Implanted:Qty: 1 on 10/18/2020 by Jayce Larson MD at OR [facility] [facility] Right: [facility] Plei [id number] 05/24/2025 [id number] / / [id number] documented as of this encounter Advance Directives [...] and were consensually agreed upon. Care Teams Calculus Professor Relationship Specialty Start Date End Date Ewa Mohan DO [address] [place] [address] PCP - General Family Medicine 12/26/18 documented as of this encounter
--- OUTSIDE RECORDS SUMMARY | 2024-02-01 10:47 | External Medical Summary ---
Author Name Unknown Address Unknown Organization K0[facility] [address] [place] [address] Laboratory Report Ordering Provider Test Date Status SHOAIB DONALDSON 01/21/2024 09:49:25 Final Observation Date Value Abnormality Reference (Units ) Status WBC, Total 01/21/2024 09:49:25 13.39 Above high normal 4 .00-10.80 (K/uL) Final RBC 01/21/2024 09:49:25 4.42 3.85-5.15 (M/uL) Final Hemoglobin 01/21/2024 09:49:25 11.8 Below low normal 12 .0-15.3 (g/dL) Final HCT 01/21/2024 09:49:25 38.3 36.0-45.2 (%) Final MCV 01/21/2024 09:49:25 86.7 81.5-97.5 (fL) Final MCH 01/21/2024 09:49:25 26.7 27.0-34.0 (pg) Final MCHC 01/21/2024 09:49:25 30.8 32.0-36.0 (g/dL) Final RDW 01/21/2024 09:49:25 15.3 11.5-15.5 (%) Final Platelets 01/21/2024 09:49:25 258 140-400 (K /uL) Final MPV 01/21/2024 09:49:25 10.9 6.6-11.1 ( fL) Final Performing Location [facility] [address] [place] [address]
--- OUTSIDE RECORDS SUMMARY | 2024-02-01 10:47 | External Medical Summary ---
Author Name Unknown Address Unknown Organization [facility] [place] [address] [place] [address] Laboratory Report Ordering Provider Test Date Status SHOAIB DONALDSON 01/21/2024 09:49:25 Final Observation Date Value Abnormality Reference (Units ) Status BUN 01/21/2024 09:49:25 23 Above high normal 6-20 (mg/dL) Final Creatinine 01/21/2024 09:49:25 1.1 Above high normal 0.5-1.0 (mg/dL) Final Glomerular filtration rate/1.73 sq M.predicted [Volume Rate/Area] in Serum, Plasma or Blood by Creatinine-based formula (CKD-EPI) 01/21/2024 09:49:25 58 Below low normal >=60 (mL/min) Final eGFR is calculated based on the CKD-EPI 2020 equation Sodium 01/21/2024 09:49:25 139 135-146 (m mol/L) Final Potassium 01/21/2024 09:49:25 4.4 3.5-5.1 (m mol/L) Final Cl 01/21/2024 09:49:25 107 98-107 (mm ol/L) Final CO2 01/21/2024 09:49:25 21 Below low normal 22- 32 (mmol/L) Final Anion gap 01/21/2024 09:49:25 11 7-15 (mmol /L) Final Glucose 01/21/2024 09:49:25 171 Above high normal 70 -120 (mg/dL) Final Albumin 01/21/2024 09:49:25 3.4 Below low normal 3.8 -5.0 (g/dL) Final AST (Aspartate aminotransferase) 01/21/2024 09:49:25 10 10-35 (U/L) Fin al Alk Phos 01/21/2024 09:49:25 33 Below low normal 35- 130 (U/L) Final Bilirubin, Total 01/21/2024 09:49:25 0.2 <=1 .2 (mg/dL) Final Calcium 01/21/2024 09:49:25 9.2 8.4-10.2 ( mg/dL) Final Protein 01/21/2024 09:49:25 7.0 6.0-8.3 (g /dL) Final ALT (Alanine aminotransferase) 01/21/2024 09:49:25 6 Below low normal 10-35 (U/L) Final Performing Location LABORATORY [facility] [address] [facility] [address]
--- OUTSIDE RECORDS SUMMARY | 2024-02-01 10:47 | External Medical Summary | Summary of Care ---
Author Name Unknown Organization [facility] Address [address] [place] [address] Phone [phone] Care Team Providers Care Radiology Supervisor Name Role Phone Mendoza Cramer DO Primary Care Provider [phone] Reason for Visit * Reason Onset Date Comments Medication Refill 01/06/2024 Encounter Details Date Type Department Care Team (Late st Contact Info) Description 01/06/2024 Refill Family Practice [facility] [address] [place] [address] Mendoza Cramer DO [address] [place] [address] TMJ (temporomandibular joint syndrome) Allergies Active Allergy Reactions Criticality Noted Date Comments Nsaids 12/04/2022 Risk of GI bleed documented as of this encounter (statuses as of 01/08/2024) Medications Medication Sig Dispensed Refills Start Date [...] (Neurontin)Indic ations:Claudicat ion in peripheral vascular disease ([facility]) Take 1 Capsule by mouth at bedtime. 90 Capsule 1 05/10/2023 Active Omeprazole 20 MG Oral Capsule Delayed Release (PriLOSEC)Indica tions:Globus sensation Take 1 Capsule by mouth in the morning. 1 hour before the first meal of the day. 90 Capsule 3 05/09/2023 Active SITagliptin Phosphate 50 MG Oral Tablet (Januvia)Indicat ions:Diabetes mellitus with peripheral angiopathy ([facility]) Take 1 Tablet by mouth in the morning. 90 Tablet 3 06/17/2023 Active Empagliflozin 10 MG Oral Tablet (Jardiance)Indic ations:Type 2 diabetes mellitus with hemoglobin A1c goal of less than 7.0% ([facility]) Take 1 Tablet by mouth in the morning. 90 Tablet 3 07/17/2023 Active metFORMIN HCl ER 500 MG Oral Tablet Extended Release 24 Hour (Glucophage XR)Indications:T ype 2 diabetes mellitus with hemoglobin A1c goal of less than 7.0% ([facility]) Take 2 Tablets by mouth in the morning. 180 Tablet 3 07/17/2023 Active Atorvastatin Calcium 80 MG Oral Tablet (Lipitor)Indicat ions:Coronary artery disease involving [place] coronary artery of [place] heart with angina pectoris ([facility]) Take 1 Tablet by mouth in the morning. 90 Tablet 3 08/09/2023 Active Ondansetron HCl 4 MG Oral Tablet Take 1 Tablet by mouth every 6 hours as needed for Nausea. 30 Tablet 1 10/23/2023 Active Rivaroxaban 2.5 MG Oral Tablet (Xarelto)Indicat ions:PVD (peripheral vascular disease) ([facility]) Take 1 Tablet by mouth in the morning and 1 Tablet before bedtime. 180 Tablet 5 10/29/2023 Active buPROPion HCl ER (XL) 300 MG Oral Tablet Extended Release 24 Hour (Wellbutrin XL)Indications:M oderate episode of recurrent major depressive disorder ([facility]) Take 1 Tablet by mouth in the morning. 90 Tablet 3 11/06/2023 Active Lisinopril 10 MG Oral Tablet (Prinivil)Indica tions:Hypertensi on goal BP (blood pressure) < 130/80 TAKE 1 TABLET BY MOUTH EVERY MORNING 90 Tablet 1 12/09/2023 Active Nitroglycerin 0.4 MG Sublingual Tablet SublingualIndica tions:Coronary artery disease involving [place] coronary artery of [place] heart with angina pectoris (HCC) (1) TAB DISSOLVED UNDER TONGUE NEEDED FOR CHEST PAIN, MAY REPEAT EVERY 5 MIN'S X 3 DOSES 25 Tablet 1 12/09/2023 Active LORazepam 0.5 MG Oral Tablet (Ativan)Indicati ons:KURT (generalized anxiety disorder) Take 1 Tablet by mouth daily as needed for Anxiety. 30 Tablet 12/13/2023 Active Vitamin D3 1.25 MG (32246 UT) Oral CapsuleIndicatio ns:Vitamin D deficiency Take 1 Capsule by mouth once a week. 12 Capsule 12/20/2023 4 Active Cyclobenzaprine HCl 5 MG Oral Tablet (Flexeril)Indica tions:TMJ (temporomandibul ar joint syndrome) Take 1 Tablet by mouth 3 times a day as needed for Muscle spasms. 30 Tablet 01/08/2024 Active Cyclobenzaprine HCl 5 MG Oral Tablet (Flexeril)Indica tions:TMJ (temporomandibul ar joint syndrome) Take 1 Tablet by mouth 3 times a day as needed for Muscle spasms. 30 Tablet 09/18/2023 4 Discontinue d(Refill) documented as of this encounter (statuses as of 01/08/2024) Active Problems Problem Noted Date Diagnosed Date Acute pain of right knee 10/03/2022 Other [...] (NSTEMI) 08/14/2019 Coronary artery disease invo lving [place] coronary artery of [place] heart with angina pectoris 08/14/2019 Type 2 [...] as of this encounter (statuses as of 01/08/2024) Resolved Problems Problem Noted Date Diagnosed Date Resolved Date Atherosclerosis of [place] artery of extremity 09/22/19 21 04/19/2022 Kidney [...] as of this encounter (statuses as of 01/08/2024) Immunizations Name Administration Dates Next Due Hepatitis B, 20+ yrs 10/23/2019,04/21/2019,02/27 Pneumococcal Conjugate Vacci ne, 20-valent ([id number]) 05/30/2022 Pneumococcal Polysaccharide PPV23 (Pneumovax) 02/27/2019 Seasonal [...] encounter Miscellaneous Notes * Telephone Encounter - Mendoza Cramer DO - 01/08/2024 1:02 PM EDTSigned Prescriptions: Disp Refills Cyclobenzaprine HCl 5 MG Oral Tablet (Flex*30 Tab*0 Sig: Take 1 Tablet by mouth 3 times a day as needed for Muscle spasms. Authorizing Provider: MENDOZA CRAMER * Telephone Encounter - Elsie Porras, [facility] - 01/07/2024 2:25 PM EDT Pending Prescriptions: Disp Refills Cyclobenzaprine HCl 5 MG Oral Tablet (Flex*30 Tab*0 Sig: Take 1 Tablet by mouth 3 times a day as needed for Muscle spasms. * Telephone Encounter - Elsie Porras [facility] - 01/07/2024 2:25 PM EDT Pending Prescriptions: Disp Refills Cyclobenzaprine HCl 5 MG Oral Tablet (Flex*30 Tab*0 Sig: Take 1 Tablet by mouth 3 times a day as needed for Muscle spasms. 12/17/2023 (in office), 10/03/2022 (telemedicine) 07/07/2024 If no future appointments scheduled, and last appointment is greater than a year ago, please schedule patient for a follow-up appointment Last date the medication was ordered: 09/18/23 Pharmacy: [facility] [address] Is this request for a controlled substance?No Urine Drug Screen:No results found. However, due to the size of the patient record, not all encounters were searched. Please check Results Review for a complete set of results. Patient Phone Numbers Labs: Lab Results Component Value Date/Time CREAT 1.3 (H) 09/05/2023 10:03 AM CREAT 1.2 (H) 05/09/2020 10:47 AM POTASSIUM 4.7 09/05/2023 10:03 AM POTASSIUM 5.1 05/09/2020 10:47 AM TSH 0.14 (L) 09/05/2023 10:03 AM TSH 1.94 05/09/2020 10:48 AM LDLCALC 26 06/11/2023 11:23 AM LDLCALC UNINTERPRETABLE RESULT 01/01/2019 03:05 PM LDLDIRECT 84 05/21/2019 09:57 AM ALT 36 (H) 09/05/2023 10:03 AM ALT 24 05/09/2020 10:48 AM HGBA1C 6.4 (H) 12/17/2023 09:49 AM HGBA1C 6.9 (H) 05/09/2020 10:47 AM documented in this encounter Plan of Treatment Upcoming Encounters Date Type Department Care Team (Late st Contact Info) Description 01/24/2024 12:00 PM EDT Telemedicine Endocrinology, [place] [address] [place] [address] Cyrus Landry CRNP [address] [place] [address] 03/06/2024 4:00 PM EDT Office Visit [facility] [address] [facility] [address] [facility] [address] [facility] [place] [phone] 03/12/2024 9:40 AM EDT Office Visit Dermatology, [facility] [address] [place] [address] Sanjana Knott PA-C [address] [place] [id number] 03/25/2024 8:45 AM EDT Office Visit Orthopaedics [facility] [address] [place] [address] Juan Pablo Walter, [address] [place] [address] 07/07/2024 8:40 AM EST Office Visit Family Practice [facility] [address] [place] [address] Mendoza Cramer DO [address] [place] [address] Scheduled Procedures Name Priority Associated Diagnoses Date/Ti [...] Additional history exists CKD PHOS USE SMARTSET 16658 06/11/202405/20, 06/13/2022, 05/30/2022 Diabetic Eye Exam 06/11/2024 06/11/2023, , 10/25/2020 Diabetic Foot Exam 06/11/2024 06/11/2023, 1 , 06/07/2021, Additional history exists HbA1c 06/17/2024 12/17/2023, 05/20, 12/04/2022, Additional history exists Albumin/Creatinine Ratio 09/05/2024 024, 12/04/2022, 12/06/2021, Additional history exists CKD HGB USE SMARTSET 95729 09/05/202409/05, 06/11/2023, 06/11/2023, Additional history exists DTaP,Tdap,and [...] this encounter Medical Devices Implanted Type Area Heel Top Lift Splitter Device Identifier Shelf Expiration Date Model / Serial / Lot Stent Innova [id number] - [id number] Implanted:Qty: 1 on 10/18/2020 by Jayce Larson MD [place] [facility] Right: [facility] [employer] : INTRV CARD [id number] 07/18/2025 [id number] / / [id number] Stent Innova [id number] - [id number] Implanted:Qty: 1 on 10/18/2020 by Jayce Larson MD at [place] [facility] [place] Right: [facility] [employer] [id number] 05/24/2025 [id number] / / [id number] documented as of this encounter Visit Diagnoses Diagnosis TMJ (temporomandibular joint syndrome) Temporomandibular joint disorders, unspecified documented in this encounter Advance Directives * [...] and were consensually agreed upon. Care Teams Radiology Supervisor Relationship Specialty Start Date End Date Mendoza Cramer DO [address] [place] [address] PCP - General Family Medicine 12/26/18 documented as of this encounter
--- OUTSIDE RECORDS SUMMARY | 2024-02-01 10:47 | External Medical Summary | Summary of Care ---
Author Name Unknown Organization [facility] Address [address] [place] [address] Phone [phone] Care Team Providers Care Director Of Labor Relations Name Role Phone Mendoza Mohan DO Primary Care Provider [phone] Reason for Visit * Reason Onset Date Comments Medication Refill 01/14/2024 Encounter Details Date Type Department Care Team (Late st Contact Info) Description 01/14/2024 Refill Family Practice [facility] [address] [place] [address] Mendoza Mohan DO [address] [place] [address] KURT (generalized anxiety disorder) Allergies Active Allergy Reactions Criticality Noted Date Comments Nsaids 12/04/2022 Risk of GI bleed documented as of this encounter (statuses as of 01/15/2024) Medications Medication Sig Dispensed Refills Start Date [...] (Neurontin)Indic ations:Claudicat ion in peripheral vascular disease (HCC) Take 1 Capsule by mouth at bedtime. 90 Capsule 1 05/10/2023 Active Omeprazole 20 MG Oral Capsule Delayed Release (PriLOSEC)Indica tions:Globus sensation Take 1 Capsule by mouth in the morning. 1 hour before the first meal of the day. 90 Capsule 3 05/09/2023 Active SITagliptin Phosphate 50 MG Oral Tablet (Januvia)Indicat ions:Diabetes mellitus with peripheral angiopathy ([facility]) Take 1 Tablet by mouth in the morning. 90 Tablet 3 06/17/2023 Active Empagliflozin 10 MG Oral Tablet (Jardiance)Indic ations:Type 2 diabetes mellitus with hemoglobin A1c goal of less than 7.0% ([facility]) Take 1 Tablet by mouth in the morning. 90 Tablet 3 07/17/2023 Active metFORMIN HCl ER 500 MG Oral Tablet Extended Release 24 Hour (Glucophage XR)Indications:T ype 2 diabetes mellitus with hemoglobin A1c goal of less than 7.0% ([facility]) Take 2 Tablets by mouth in the morning. 180 Tablet 3 07/17/2023 Active Atorvastatin Calcium 80 MG Oral Tablet (Lipitor)Indicat ions:Coronary artery disease involving [place] coronary artery of [place] heart with angina pectoris (HCC) Take 1 Tablet by mouth in the morning. 90 Tablet 3 08/09/2023 Active Rivaroxaban 2.5 MG Oral Tablet (Xarelto)Indicat ions:PVD (peripheral vascular disease) ([facility]) Take 1 Tablet by mouth in the morning and 1 Tablet before bedtime. 180 Tablet 5 10/29/2023 Active buPROPion HCl ER (XL) 300 MG Oral Tablet Extended Release 24 Hour (Wellbutrin XL)Indications:M oderate episode of recurrent major depressive disorder ([facility]) Take 1 Tablet by mouth in the morning. 90 Tablet 3 11/06/2023 Active Nitroglycerin 0.4 MG Sublingual Tablet SublingualIndica tions:Coronary artery disease involving [place] coronary artery of [place] heart with angina pectoris (HCC) (1) TAB DISSOLVED UNDER TONGUE NEEDED FOR CHEST PAIN, MAY REPEAT EVERY 5 MIN'S X 3 DOSES 25 Tablet 1 12/09/2023 Active Vitamin D3 1.25 MG (95393 UT) Oral CapsuleIndicatio ns:Vitamin D deficiency Take [...] needed for Anxiety. 30 Tablet 01/15/2024 Active LORazepam 0.5 MG Oral Tablet (Ativan)Indicati ons:KURT (generalized anxiety disorder) Take 1 Tablet by mouth daily as needed for Anxiety. 30 Tablet 12/13/2023 4 Discontinue d(Refill) documented as of this encounter (statuses as of 01/15/2024) Active Problems Problem Noted Date Diagnosed Date [...] (NSTEMI) 08/14/2019 Coronary artery disease invo lving [place] coronary artery of [place] heart with angina pectoris 08/14/2019 Type 2 [...] as of this encounter (statuses as of 01/15/2024) Resolved Problems Problem Noted Date Diagnosed Date Resolved Date Atherosclerosis of [place] artery of extremity 09/22/19 21 04/19/2022 Kidney [...] as of this encounter (statuses as of 01/15/2024) Immunizations Name Administration Dates Next Due Hepatitis B, 20+ yrs 10/23/2019,04/21/2019,02/27 Pneumococcal Conjugate Vacci ne, 20-valent ([id number]) 05/30/2022 Pneumococcal Polysaccharide PPV23 (Pneumovax) 02/27/2019 Seasonal [...] Miscellaneous Notes * Telephone Encounter - Mendoza Mohan DO - 01/15/2024 2:20 PM EDTSigned Prescriptions: Disp Refills LORazepam 0.5 MG Oral Tablet (Ativan) 30 Tab*0 Sig: Take 1 Tablet by mouth daily as needed for Anxiety. Authorizing Provider: MENDOZA MOHAN * Telephone Encounter - Maryuri Hernandez [facility] - 01/15/2024 1:30 PM EDT Pending Prescriptions: Disp Refills LORazepam 0.5 MG Oral Tablet (Ativan) 30 Tab*0 Sig: Take 1 Tablet by mouth daily as needed for Anxiety. * Telephone Encounter - Maryuri Hernandez RPh - 01/15/2024 1:28 PM EDT I have reviewed the patients controlled substance dispensing history in the Prescription Drug Monitoring Program in compliance with the [facility] regulations before prescribing a controlled substance. PDMP checked on 01/15/2024. Pending Prescriptions: Disp Refills LORazepam 0.5 MG Oral Tablet (Ativan) 30 Tab*0 Sig: Take 1 Tablet by mouth daily as needed for Anxiety. Last Visit: 12/17/2023 (in office), 01/11/2024 (telemedicine) Next Visit: 07/07/2024 Date medication was last filled: 12/13/23 Date medication is due for refill: 01/12/24 Pharmacy: [facility] [address] Is this request for a controlled substance? Yes and Urine Drug Screen Not completed Toxicology results: No results found. However, due to the size of the patient record, not all encounters were searched.Please check Results Review for a complete set of results. Please approve if appropriate. Thank you, Maryuri Hernandez, PharmD, ELISE Clinical Pharmacist [facility] ([facility]) 01/15/24 1:29 PM [phone] documented in this encounter Plan of Treatment Upcoming Encounters Date Type Department Care Team (Late st Contact Info) Description 01/24/2024 12:00 PM EDT Telemedicine Endocrinology, [place] [address] [place] [address] Cyrus Landry CRNP [address] [facility], [place] [address] 03/03/2024 9:00 AM EDT Office Visit Otolaryngology, [place] [address] [place] [address] Bonilla Estes PA-C [address] [place] [phone] 03/06/2024 4:00 PM EDT Office Visit Nephrology, [facility] [address] [facility] [place] [address] Deonna Pugh MD [address] [facility] [place] [address] 03/12/2024 9:40 AM EDT Office Visit Dermatology, [place] [facility] [address] [place] [id number] Sanjana Knott PA-C [address] [place] [address] 03/25/2024 8:45 AM EDT Office Visit Orthopaedics [facility] [address] [place] [address] Juan Pablo Walter, DO [address] [address] 07/07/2024 8:40 AM EST Office Visit Family Practice [facility] [address] [place] [address] Mendoza Mohan, DO [address] [place] [address] Scheduled Procedures Name Priority Associated Diagnoses Date/Ti [...] Additional history exists CKD PHOS USE SMARTSET 37944 06/11/202405/20, 06/13/2022, 05/30/2022 Diabetic Eye Exam 06/11/2024 06/11/2023, , 10/25/2020 Diabetic Foot Exam 06/11/2024 06/11/2023, 1 , 06/07/2021, Additional history exists HbA1c 06/17/2024 12/17/2023, 05/20, 12/04/2022, Additional history exists Albumin/Creatinine Ratio 09/05/2024 024, 12/04/2022, 12/06/2021, Additional history exists CKD HGB USE SMARTSET 52740 09/05/202409/05, 06/11/2023, 06/11/2023, Additional history exists DTaP,Tdap,and [...] this encounter Medical Devices Implanted Type Area Finished Carpet Inspector Device Identifier Shelf Expiration Date Model / Serial / Lot Stent Innova [id number] - [id number] Implanted:Qty: 1 on 10/18/2020 by Jayce Larson MD at [place] [facility] [place] Right: [facility] [employer] : INTRV CARD [id number] 07/18/2025 [id number] / / [id number] Stent Innova [id number] - [id number] Implanted:Qty: 1 on 10/18/2020 by Jayce Larson MD at [place] [facility] [place] Right: [facility] [employer] [id number] 05/24/2025 [id number] / / [id number] documented as of this encounter Visit Diagnoses Diagnosis KURT (generalized anxiety disorder) Generalized anxiety disorder documented in this encounter Advance Directives * [...] and were consensually agreed upon. Care Teams Director Of Labor Relations Relationship Specialty Start Date End Date Mendoza Mohan DO [address] [place] [address] PCP - General Family Medicine 12/26/18 documented as of this encounter
--- OUTSIDE RECORDS SUMMARY | 2024-02-01 10:47 | External Medical Summary | Summary of Care ---
Author Name Unknown Organization [facility] Address [address] [place] [address] Phone [phone] Care Team Providers Care Cigarette Maker Name Role Phone Kimberlee Ewa Gato HATFIELD Primary Care Provider [phone] Reason for Visit * Reason Comments Ear Pain Encounter Details Date Type Department Care Team (Latest Contact Info) Description 01/11/2024 3:40 PM EDT Telemedicine Family Practice [facility] [address] [facility] [place] [address] Leslee Bernard MD [address] [place] [address] Arthralgia of right temporomandibular joint*; Moderate episode of recurrent major depressive disorder ([facility]); Stage 3a chronic kidney disease; Type 2 diabetes mellitus with hemoglobin A1c goal of less than 7.0% ([facility]); Hyperthyroidism; PAD (peripheral artery disease) ([facility]); Coronary artery disease involving [place] coronary artery of [place] heart with angina pectoris ([facility]); HTN, goal to be determined; History of non-ST elevation myocardial infarction (NSTEMI) Allergies Active Allergy Reactions Criticality Noted Date Comments Nsaids 12/04/2022 Risk of GI bleed documented as of this encounter (statuses as of 01/11/2024) Medications Medication Sig Dispensed Refills Start Date [...] Tablet (Januvia)Indicati ons:Diabetes mellitus with peripheral angiopathy (HCC) Take 1 [...] Oral Tablet (Lipitor)Indicati ons:Coronary artery disease involving [place] coronary artery of [place] heart with angina pectoris (HCC) Take 1 Tablet by mouth in the morning. 90 Tablet 3 08/09/2023 Active Rivaroxaban 2.5 MG Oral Tablet (Xarelto)Indicati ons:PVD (peripheral vascular disease) (HCC) Take 1 Tablet by mouth in the morning and 1 Tablet before bedtime. 180 Tablet 5 10/29/2023 Active buPROPion HCl ER (XL) 300 MG Oral Tablet Extended Release 24 Hour (Wellbutrin XL)Indications:Mo derate episode of recurrent major depressive disorder (HCC) Take 1 Tablet by mouth in the morning. 90 Tablet 3 11/06/2023 Active Nitroglycerin 0.4 MG Sublingual Tablet SublingualIndicat ions:Coronary artery disease involving [place] coronary artery of [place] heart with angina pectoris (HCC) (1) TAB DISSOLVED UNDER TONGUE NEEDED FOR CHEST PAIN, MAY REPEAT EVERY 5 MIN'S X 3 DOSES 25 Tablet 1 12/09/2023 Active LORazepam 0.5 MG Oral Tablet (Ativan)Indicatio ns:KURT (generalized anxiety disorder) Take 1 Tablet by mouth daily as needed for Anxiety. 30 Tablet 12/13/2023 Active Vitamin D3 1.25 MG (47540 UT) Oral CapsuleIndication s:Vitamin D deficiency Take [...] the morning.. 90 Tablet 1 01/08/2024 Active documented as of this encounter (statuses as of 01/11/2024) Active Problems Problem Noted Date Diagnosed Date [...] (NSTEMI) 08/14/2019 Coronary artery disease invo lving [place] coronary artery of [place] heart with angina pectoris 08/14/2019 Type 2 [...] as of this encounter (statuses as of 01/11/2024) Resolved Problems Problem Noted Date Diagnosed Date Resolved Date Atherosclerosis of [place] artery of extremity 09/22/19 21 04/19/2022 Kidney [...] as of this encounter (statuses as of 01/11/2024) Immunizations Name Administration Dates Next Due Hepatitis B, 20+ yrs 10/23/2019,04/21/2019,02/27 Pneumococcal Conjugate Vacci ne, 20-valent ([id number]) 05/30/2022 Pneumococcal Polysaccharide PPV23 (Pneumovax) 02/27/2019 Seasonal [...] No 10/18/2020 documented as of this encounter Progress Notes * Leslee Bernard MD - 01/11/2024 3:44 PM EDT Images from the original note were not included. History of Present Illness Aure Stallworth is a 58 year old female that presents for Ear Pain 58 year old YOfemale with PMH as listed below presents here for evaluation of rt jaw and jaw pain. Duration of illness: 1 week Symptoms present : pain and swelling in right below RT ear - some constant , 2- 4/10 and worse with chewing , talking and night when it feels throbbing . [place] +ve which is not uncommon but not it's morethan usual . Due to dental implant been getting more than usual 2-3/week ,under control with flexeril but now for last 1 week it's almost daily , has a lot of dental issue and had dental implant as we ll in recent past. Some under stress but not really more than usual. Does grind her teeth Symptoms not present: CP, SOB, headache , sinus congestion or drainage, fever chills, tick bite, body aches. Does not feel gone Have same similar thing in past : Some headache at baseline but overall better lately and never hadconsistent and severe like this before Since symptoms started things getting : Same or a bit worse Used anything for this illness: Saw a dentist who ruled out any infections and said it was not her dental implant. Tried heat which is somewhat helpful Other concerns or issues present : No Physical Exam There were no vitals filed for this visit. Physical Exam Constitutional: Appearance: Normal appearance. HENT: Head: Normocephalic. Comments: No sinus tenderness Mild right TMJ tenderness while opening mouth and also mild tenderness in the proximal right lower jaw and the angle Neck: Comments: No obvious swelling below the jaw noticed Neurological: Mental Status: She is alert. I have reviewed the following results: CMP Assessment and Plan Arthralgia of right temporomandibular joint Suspect from history and examination Soft diet, avoid chewing hard food Heat to TMJ Continue Flexeril at night maybe half a tablet during the day as well If no better can add prednisone or Medrol pack small dose Moderate episode of recurrent major depressive disorder (HCC) Stage 3a chronic kidney disease Type 2 diabetes mellitus with hemoglobin A1c goal of less than 7.0% (HCC) Hyperthyroidism PAD (peripheral artery disease) (HCC) Coronary artery disease involving [place] coronary artery of [place] heart with angina pectoris (HCC) HTN, goal to be determined Wrap-Up Time: I spent a total of 20-29 minutes (exact time 25 mins) on the date of service in preparation, delivery, and documentation of the care provided to Aure Stallworth excluding any time spent in the performance of separately billed services. Telemedicine: Patient location: HOME. I was in a hospital or clinic location. After connecting through televideo,patient was verified with two unique identifiers. Patient (or authorized legal access services representative) was then informed that this was a Telemedicine visit and being conducted confidentially over secure lines. Methods to assure confidentiality were taken. Patient acknowledged consent and understanding of pr ivacy and security of the Telemedicine visit. The patient agreed to participate. documented in this encounter Plan of Treatment Upcoming Encounters Date Type Department Care Team (Late st Contact Info) Description 01/24/2024 12:00 PM EDT Telemedicine Endocrinology, [place] [address] [place] [address] Cyrus Landry CRNP [address] [place], [place] [id number] 03/03/2024 9:00 AM EDT Office Visit Otolaryngology, Sami Jaramillo [address] [address] Bonilla Estes PA-C [address] [place] [address] 03/06/2024 4:00 PM EDT Office Visit Nephrology, [facility] [address] [place] [address] Deonna Pugh MD [address] [facility] [place] [id number] 03/12/2024 9:40 AM EDT Office Visit Dermatology, Sami Handley [address] [place] [address] Sanjana Knott PA-C [address] [place] [address] 03/25/2024 8:45 AM EDT Office Visit Orthopaedics [facility] [address] [address] Juan Pablo Walter, [address] [place] [address] 07/07/2024 8:40 AM EST Office Visit Family [facility] [address] [place] [address] Ewa Mohan, DO [address] [place] [address] Scheduled Procedures Name Priority Associated Diagnoses Date/Ti [...] Additional history exists CKD PHOS USE SMARTSET 78748 06/11/202405/20, 06/13/2022, 05/30/2022 Diabetic Eye Exam 06/11/2024 06/11/2023, , 10/25/2020 Diabetic Foot Exam 06/11/2024 06/11/2023, 1 , 06/07/2021, Additional history exists HbA1c 06/17/2024 12/17/2023, 05/20, 12/04/2022, Additional history exists Albumin/Creatinine Ratio 09/05/2024 024, 12/04/2022, 12/06/2021, Additional history exists CKD HGB USE SMARTSET 51509 09/05/202409/05, 06/11/2023, 06/11/2023, Additional history exists DTaP,Tdap,and [...] this encounter Medical Devices Implanted Type Area Wood Web Weaving Machine Operator Device Identifier Shelf Expiration Date Model / Serial / Lot Stent Innova [id number] - [id number] Implanted:Qty: 1 on 10/18/2020 by Jayce Larson MD at [place] [facility] [place] Right: [facility] Security : INTRV CARD [id number] 07/18/2025 [id number] / / [id number] Stent Innova [id number] - [id number] Implanted:Qty: 1 on 10/18/2020 by Jayce Lrason MD at OR [facility] [place] Right: [facility] [place] [id number] 05/24/2025 [id number] / / [id number] documented as of this encounter Visit Diagnoses Diagnosis Arthralgia of right temporomandibular joint- Primary Arthralgia of temporomandibular joint Moderate episode of recurrent major depressive disorder (HCC) Stage 3a chronic kidney disease Type 2 diabetes mellitus with hemoglobin A1c goal of less than 7.0% (HCC) Hyperthyroidism Thyrotoxicosis without mention of goiter or other cause, without mention of thyrotoxic crisis or storm PAD (peripheral artery disease) (HCC) Peripheral vascular disease, unspecified Coronary artery disease involving [place] coronary artery of [place] heart with angina pectoris (HCC) HTN, goal to be determined Unspecified essential hypertension History of non-ST elevation myocardial infarction (NSTEMI) Old myocardial infarction documented in this encounter Advance Directives * [...] and were consensually agreed upon. Care Teams Cigarette Maker Relationship Specialty Start Date End Date Ewa Mohan DO [address] [facility] [place] [address] PCP - General Family Medicine 12/26/18 documented as of this encounter
--- OUTSIDE RECORDS SUMMARY | 2024-02-01 10:47 | External Medical Summary | Summary of Care ---
Author Name Unknown Organization [facility] Address [address] [place] [address] Phone [phone] Care Team Providers Care Ecdis N Navigation Operator Name Role Phone Ewa Mohan DO Primary Care Provider [phone] Reason for Visit * Reason Onset Date Comments Test Results 12/20/2023 Encounter Details Date Type Department Care Team (Late st Contact Info) Description 12/20/2023 Telephone Family Practice [facility] [address] [place] [address] Ewa Mohan DO [address] [facility] [place] [address] Test Results Allergies Active Allergy Reactions Criticality Noted Date Comments Nsaids 12/04/2022 Risk of GI bleed documented as of this encounter (statuses as of 12/20/2023) Medications Medication Sig Dispensed Refills Start Date End Date Status Acetaminophen 325 MG Oral Tablet (Tylenol) Take 2 Tabs by mouth every 6 hours as needed for Other (Pain). 30 Tab 0 10/19/2020 Active Metoprolol Succinate ER 50 MG [...] Active Gabapentin 300 MG Oral Capsule (Neurontin)Indica tions:Claudjackelyno n in peripheral vascular disease (HCC) Take 1 Capsule by mouth at bedtime. 90 Capsule 1 05/10/2023 Active Omeprazole 20 MG Oral Capsule Delayed Release (PriLOSEC)Indicat ions:Globus sensation Take 1 Capsule by mouth in the morning. 1 hour before the first meal of the day. 90 Capsule 3 05/09/2023 Active SITagliptin Phosphate 50 MG Oral Tablet (Januvia)Indicati ons:Diabetes mellitus with peripheral angiopathy ([facility]) Take 1 Tablet by mouth in the morning. 90 Tablet 3 06/17/2023 Active Empagliflozin 10 MG Oral Tablet (Jardiance)Indica tions:Type 2 diabetes mellitus with hemoglobin A1c goal of less than 7.0% ([facility]) Take 1 Tablet by mouth in the morning. 90 Tablet 3 07/17/2023 Active metFORMIN HCl ER 500 MG Oral Tablet Extended Release 24 Hour (Glucophage XR)Indications:Ty pe 2 diabetes mellitus with hemoglobin A1c goal of less than 7.0% ([facility]) Take 2 Tablets by mouth in the morning. 180 Tablet 3 07/17/2023 Active Atorvastatin Calcium 80 MG Oral Tablet (Lipitor)Indicati ons:Coronary artery disease involving [place] coronary artery of [place] heart with angina pectoris ([facility]) Take 1 Tablet by mouth in the morning. 90 Tablet 3 08/09/2023 Active Cyclobenzaprine HCl 5 MG Oral Tablet (Flexeril)Indicat ions:TMJ (temporomandibula r joint syndrome) Take 1 Tablet by mouth 3 times a day as needed for Muscle spasms. 30 Tablet 0 09/18/2023 Active Ondansetron HCl 4 MG Oral Tablet Take 1 Tablet by mouth every 6 hours as needed for Nausea. 30 Tablet 1 10/23/2023 Active Rivaroxaban 2.5 MG Oral Tablet (Xarelto)Indicati ons:PVD (peripheral vascular disease) ([facility]) Take 1 Tablet by mouth in the morning and 1 Tablet before bedtime. 180 Tablet 5 10/29/2023 Active buPROPion HCl ER (XL) 300 MG Oral Tablet Extended Release 24 Hour (Wellbutrin XL)Indications:Mo derate episode of recurrent major depressive disorder (HCC) Take 1 Tablet by mouth in the morning. 90 Tablet 3 11/06/2023 Active Lisinopril 10 MG Oral Tablet (Prinivil)Indicat ions:Hypertension goal BP (blood pressure) < 130/80 TAKE 1 TABLET BY MOUTH EVERY MORNING 90 Tablet 1 12/09/2023 Active Nitroglycerin 0.4 MG Sublingual Tablet SublingualIndicat ions:Coronary artery disease involving [place] coronary artery of [place] heart with angina pectoris (HCC) (1) TAB DISSOLVED UNDER TONGUE NEEDED FOR CHEST PAIN, MAY REPEAT EVERY 5 MIN'S X 3 DOSES 25 Tablet 1 12/09/2023 Active LORazepam 0.5 MG Oral Tablet (Ativan)Indicatio ns:KURT (generalized anxiety disorder) Take 1 Tablet by mouth daily as needed for Anxiety. 30 Tablet 0 12/13/2023 Active Vitamin D3 1.25 MG (98500 UT) Oral CapsuleIndication s:Vitamin D deficiency Take 1 Capsule by mouth once a week. 12 Capsule 0 12/20/2023 03/19/2024 Active documented as of this encounter (statuses as of 12/20/2023) Active Problems Problem Noted Date Diagnosed Date [...] (NSTEMI) 08/14/2019 Coronary artery disease invo lving [place] coronary artery of [place] heart with angina pectoris 08/14/2019 Type 2 [...] as of this encounter (statuses as of 12/20/2023) Resolved Problems Problem Noted Date Diagnosed Date Resolved Date Atherosclerosis of [place] artery of extremity 09/22/19 21 04/19/2022 Kidney [...] as of this encounter (statuses as of 12/20/2023) Immunizations Name Administration Dates Next Due Hepatitis B, 20+ yrs 10/23/2019,04/21/2019,02/27 Pneumococcal Conjugate Vacci ne, 20-valent ([id number]) 05/30/2022 Pneumococcal Polysaccharide PPV23 (Pneumovax) 02/27/2019 Seasonal [...] Description 01/24/2024 12:00 PM EDT Telemedicine Endocrinology, [place] [address] [place] [address] Cyrus Landry CRNP [address] [place] [address] 03/06/2024 4:00 PM EDT Office Visit Nephrology, [place] [address] [facility] [address] Deonna Pugh MD [address] [place] [address] 03/12/2024 9:40 AM EDT Office Visit Dermatology, Sami Handley [address] [place] [address] [place] [address] Sanjana Knott, PACarmina [address] [place] [address] [place] [address] 03/25/2024 8:45 AM EDT Office Visit Orthopaedics [facility] [address] [place] [address] Juan Pablo Walter, DO [address] [place] [address] 07/07/2024 8:40 AM EST Office Visit Family Practice [facility] [address] [place] [address] Ewa Mohan, DO [address] [place] [address] Scheduled Orders Name Type Priority Associated Diagnoses Orde r Schedule 25-HYDROXY VITAMIN D Lab Routine Vitamin D deficiency Expected: 03/21/2024 (Approximate), Expires: 12/19/2024 Scheduled Procedures Name Priority Associated Diagnoses Date/Ti [...] Additional history exists CKD PHOS USE SMARTSET 82727 06/11/202405/20, 06/13/2022, 05/30/2022 Diabetic Eye Exam 06/11/2024 06/11/2023, , 10/25/2020 Diabetic Foot Exam 06/11/2024 06/11/2023, 1 , 06/07/2021, Additional history exists HbA1c 06/17/2024 12/17/2023, 05/20, 12/04/2022, Additional history exists Albumin/Creatinine Ratio 09/05/2024 024, 12/04/2022, 12/06/2021, Additional history exists CKD HGB USE SMARTSET 31950 09/05/202409/05, 06/11/2023, 06/11/2023, Additional history exists DTaP,Tdap,and [...] this encounter Medical Devices Implanted Type Area Census Clerk Device Identifier Shelf Expiration Date Model / Serial / Lot Stent Innova [id number] - [id number] Implanted:Qty: 1 on 10/18/2020 by Jayce Larson MD [place] [facility] [place] [facility] Knock Knock : INTRV CARD [id number] 07/18/2025 [id number] / / [id number] [facility] Roman [id number] - [id number] Implanted:Qty: 1 on 10/18/2020 by Jayce Larson MD at [place] [facility] [place] Right: [facility] [place] [id number] 05/24/2025 [id number] / / [id number] documented as of this encounter Visit Diagnoses Diagnosis Vitamin D deficiency- Primary Unspecified vitamin D deficiency documented in this encounter Advance Directives Latest Code Status on File Code Status Date Activated Date Inactivated Comments Full Code 10/18/2020 12:46 PM 10/19/2020 3:29 PM This o rder reflects the patients wishes and were consensually agreed upon. Code Status History Code Status Date Activated Date Inactivated Comments Full Code 03/06/2019 8:33 AM 03/06/2019 1:05 PM This order reflects the patients wishes and were consensually agreed upon. Care Teams Ecdis N Navigation Operator Relationship Specialty Start Date End Date Ewa Mohan DO [address] [place] [address] PCP - General Family Medicine 12/26/18 documented as of this encounter
--- OUTSIDE RECORDS SUMMARY | 2024-02-01 10:47 | External Medical Summary | Summary of Care ---
Author Name Unknown Organization [facility] Address [address] [place] [address] Phone [phone] Care Team Providers Care Crusher Plant Operator Name Role Phone Ewa Mohan DO Primary Care Provider [phone] Reason for Visit * Reason Comments eRx-Medication Refill Encounter Details Date Type Department Care Team (Late st Contact Info) Description 12/30/[address] [facility] [address] [place] [address] Ewa Mohan DO [address] [place] [address] Allergies Active Allergy Reactions Criticality Noted Date Comments Nsaids 12/04/2022 Risk of GI bleed documented as of this encounter (statuses as of 12/31/2023) Medications Medication Sig Dispensed Refills Start Date [...] (Neurontin)Indica tions:Claudicatio n in peripheral vascular disease ([facility]) Take 1 Capsule by mouth [...] Oral Tablet (Lipitor)Indicati ons:Coronary artery disease involving [place] coronary artery of [place] heart with angina pectoris ([facility]) Take 1 [...] Sublingual Tablet SublingualIndicat ions:Coronary artery disease involving [place] coronary artery of [place] heart with angina pectoris (HCC) (1) TAB DISSOLVED UNDER TONGUE NEEDED FOR CHEST PAIN, MAY REPEAT EVERY 5 MIN'S X 3 DOSES 25 Tablet 1 12/09/2023 Active LORazepam 0.5 MG Oral Tablet (Ativan)Indicatio ns:KURT (generalized anxiety disorder) Take 1 Tablet by mouth daily as needed for Anxiety. 30 Tablet 0 12/13/2023 Active Vitamin D3 1.25 MG (78457 UT) Oral CapsuleIndication s:Vitamin D deficiency Take 1 Capsule by mouth once a week. 12 Capsule 0 12/20/2023 03/19/2024 Active documented as of this encounter (statuses as of 12/31/2023) Active Problems Problem Noted Date Diagnosed Date [...] (NSTEMI) 08/14/2019 Coronary artery disease invo lving [place] coronary artery of [place] heart with angina pectoris 08/14/2019 Type 2 [...] as of this encounter (statuses as of 12/31/2023) Resolved Problems Problem Noted Date Diagnosed Date Resolved Date Atherosclerosis of [place] artery of extremity 09/22/19 21 04/19/2022 Kidney [...] as of this encounter (statuses as of 12/31/2023) Immunizations Name Administration Dates Next Due Hepatitis B, 20+ yrs 10/23/2019,04/21/2019,02/27 Pneumococcal Conjugate Vacci ne, 20-valent ([id number]) 05/30/2022 Pneumococcal Polysaccharide PPV23 (Pneumovax) 02/27/2019 Seasonal [...] encounter Miscellaneous Notes * Telephone Encounter - Amara Renner RPh - 12/31/2023 6:42 PM EDTRefused Prescriptions: Disp Refills Sertraline HCl 100 MG Oral Tablet (Zoloft) 180 Ta*3 Sig: TAKE 2TABLETS BY MOUTH EVERY MORNINGRefused By: Nicholas RENNER for Refusal: Too soon documented in this encounter Plan of Treatment Upcoming Encounters Date Type Department Care Team (Late st Contact Info) Description 01/24/2024 12:00 PM EDT Telemedicine Endocrinology, [place] [address] [place] [address] FrantzCyrus CRNP [address] [place] [address] 03/06/2024 4:00 PM EDT Office Visit Nephrology, [facility] [address] [place] [address] Deonna Pugh MD [address] [facility] [place], [place] [id number] 03/12/2024 9:40 AM EDT Office Visit Dermatology, Sami Handley [address] [place], [place] [phone] Sanjana Knott PA-C [address] [place] [address] 03/25/2024 8:45 AM EDT Office Visit Orthopaedics [facility] [address] [facility] [place] [address] Juan Pablo Walter, DO [facility] [place] [address] 07/07/2024 8:40 AM EST Office Visit Family Practice [facility] [address] [facility] [place] [address] Ewa Mohan, DO [address] [facility] [place] [address] Scheduled Procedures Name Priority Associated Diagnoses Date/Ti [...] Additional history exists CKD PHOS USE SMARTSET 77417 06/11/202405/20, 06/13/2022, 05/30/2022 Diabetic Eye Exam 06/11/2024 06/11/2023, , 10/25/2020 Diabetic Foot Exam 06/11/2024 06/11/2023, 1 , 06/07/2021, Additional history exists HbA1c 06/17/2024 12/17/2023, 05/20, 12/04/2022, Additional history exists Albumin/Creatinine Ratio 09/05/2024 024, 12/04/2022, 12/06/2021, Additional history exists CKD HGB USE SMARTSET 71992 09/05/202409/05, 06/11/2023, 06/11/2023, Additional history exists DTaP,Tdap,and [...] this encounter Medical Devices Implanted Type Area Casting Machine Service Operator Device Identifier Shelf Expiration Date Model / Serial / Lot Stent Innova [id number] - [id number] Implanted:Qty: 1 on 10/18/2020 by [place]ce Larson [place] [facility] [place] [facility] [employer] : INTRV CARD [id number] 07/18/2025 [id number] / / [id number] Stent Innova [id number] - [id number] Implanted:Qty: 1 on 10/18/2020 by Jayce Larson [place] [facility] [place] [facility] [employer] [id number] 05/24/2025 [id number] / / [id number] documented as of this encounter Advance Directives Latest Code Status [...] and were consensually agreed upon. Care Teams Crusher Plant Operator Relationship Specialty Start Date End Date Ewa Mohan DO [address] [place] [address] PCP - General Family Medicine 12/26/18 documented as of this encounter
--- OUTSIDE RECORDS SUMMARY | 2024-02-01 10:47 | External Medical Summary | Summary of Care ---
Author Name Unknown Organization [facility] Address [address] [place] [address] Phone [phone] Care Team Providers Care Helicopter Pilot Instructor Name Role Phone Ewa Mohan DO Primary Care Provider [phone] Reason for Referral * Ancillary Services (Within 10 days (routine)) - Pending Review Specialty Diagnoses / Procedures Referred By Gema mercado Referred To Contact Gastroenterology Diagnoses Other iron deficiency anemias Ewa Mohan DO [address] [place] [address] Referral ID Status Reason Start Date Expiration Date Visits Requested Visits Authorized [id number] Pending Review Ancillary Services Required 12/17/[phone] Question Answer Referral Priority Within 10 days (routine) Where should this appointment be scheduled? [facility] Comments ALERT: Do not order for pediatric patients (18 years or younger). Cancel off screen and order PEDS GASTROENTEROLOGY CONSULT (Type: 1 visit only-Evaluate and Treat) The following Pt. Instructions are available: - Gastro Colonoscopy Prep Instructions [[id number]] - Gastro Colonoscopy Prep Instructions (Somali Version) [[id number]] Go to the Pt. Instructions section within the Visit Navigator to access. Colonoscopy ASGE Guidelines: Iron deficiency anemia ADDITIONAL INFORMATION 1. Is the patient on Coumadin? No 2. Is the patient on Pradaxa? No On Xarelto - need to check w/vascular surgery appropriate time to hold xarelto (had surgery on Oct 16) * Evaluate & Treat - Unlimited Visits (Within 30 days (routine)) - Pending Review Specialty Diagnoses / Procedures Referred By Gema mercado Referred To Contact Dermatology Diagnoses Lesion of skin of nose Ewa Mohan DO [address] [place] [address] Referral ID Status Reason Start Date Expiration Date Visits Requested Visits Authorized [id number] Pending Review Specialty Services Required 12/17/[phone] Question Answer Referral Priority Within 30 days (routine) Where should this appointment be scheduled? [facility] Are you referring the patient for Mohs Surgery and have a current positive skin cancer biopsy result? No What is the reason for the patient referral? Rash/Skin Check/Eval of Lesion or Mole Reason for Visit * Reason Comments Follow Up Pt here for 6 month follow up, denies any new concerns Encounter Details Date Type Department Care Team (Late st Contact Info) Description 12/17/2023 9:00 AM EDT Office Visit Family Practice [facility] [address] [place] [address] Ewa Mohan DO [address] [place] [address] Diabetes mellitus with peripheral angiopathy (HCC)*; Lesion of skin of nose; Screen for colon cancer; Other iron deficiency anemias; Fatigue, unspecified type; Moderate episode of recurrent major depressive disorder (HCC); Stage 3a chronic kidney disease (HCC) Allergies Active Allergy Reactions Criticality Noted Date Comments Nsaids 12/04/2022 Risk of GI bleed documented as of this encounter (statuses as of 12/17/2023) Medications Medication Sig Dispensed Refills Start Date [...] Tablet (Januvia)Indicat ions:Diabetes mellitus with peripheral angiopathy ([facility]) Take 1 Tablet by mouth in the morning. 90 Tablet 3 06/17/2023 Active Empagliflozin 10 MG Oral Tablet (Jardiance)Indic ations:Type 2 diabetes mellitus with hemoglobin A1c goal of less than 7.0% ([facility]) Take 1 Tablet by mouth in the morning. 90 Tablet 3 07/17/2023 Active metFORMIN HCl ER 500 MG Oral Tablet Extended Release 24 Hour (Glucophage XR)Indications:T ype 2 diabetes mellitus with hemoglobin A1c goal of less than 7.0% ([facility]) Take 2 Tablets by mouth in the morning. 180 Tablet 3 07/17/2023 Active Atorvastatin Calcium 80 MG Oral Tablet (Lipitor)Indicat ions:Coronary artery disease involving [place] coronary artery of [place] heart with angina pectoris ([facility]) Take 1 Tablet by mouth in the [...] Oral Tablet (Xarelto)Indicat ions:PVD (peripheral vascular disease) (HCC) Take 1 Tablet by mouth in the morning and 1 Tablet before bedtime. 180 Tablet 5 10/29/2023 Active buPROPion HCl ER (XL) 300 MG Oral Tablet Extended Release 24 Hour (Wellbutrin XL)Indications:M oderate episode of recurrent major depressive disorder (HCC) Take 1 Tablet by mouth in the morning. 90 Tablet 3 11/06/2023 Active Lisinopril 10 MG Oral Tablet (Prinivil)Indica tions:Hypertensi on goal BP (blood pressure) < 130/80 TAKE 1 TABLET BY MOUTH EVERY MORNING 90 Tablet 1 12/09/2023 Active Nitroglycerin 0.4 MG Sublingual Tablet SublingualIndica tions:Coronary artery disease involving [place] coronary artery of [place] heart with angina pectoris (HCC) (1) TAB DISSOLVED UNDER TONGUE NEEDED FOR CHEST PAIN, MAY REPEAT EVERY 5 MIN'S X 3 DOSES 25 Tablet 1 12/09/2023 Active LORazepam 0.5 MG Oral Tablet (Ativan)Indicati ons:KURT (generalized anxiety disorder) Take 1 Tablet by mouth daily as needed for Anxiety. 30 Tablet 0 12/13/2023 Active Aspirin 81 MG TabletIndication s:Coronary artery disease involving [place] coronary artery of [place] heart with angina pectoris (HCC) 1 Tablet. 0 08/11/2019 4 Discontinued Gabapentin 300 MG Oral Capsule (Neurontin) Take 1 Capsule by mouth in the morning and 1 Capsule at noon and 1 Capsule before bedtime. 90 Capsule 6 09/26/2023 4 Discontinued documented as of this encounter (statuses as of 12/17/2023) Active Problems Problem Noted Date Diagnosed Date [...] (NSTEMI) 08/14/2019 Coronary artery disease invo lving [place] coronary artery of [place] heart with angina pectoris 08/14/2019 Type 2 [...] as of this encounter (statuses as of 12/17/2023) Resolved Problems Problem Noted Date Diagnosed Date Resolved Date Atherosclerosis of [place] artery of extremity 09/22/19 21 04/19/2022 Kidney [...] as of this encounter (statuses as of 12/17/2023) Immunizations Name Administration Dates Next Due Hepatitis B, 20+ yrs 10/23/2019,04/21/2019,02/27 Pneumococcal Conjugate Vacci ne, 20-valent ([id number]) 05/30/2022 Pneumococcal Polysaccharide PPV23 (Pneumovax) 02/27/2019 Seasonal [...] Sign Reading Time Taken Comments Blood Pressure 102/60 12/17/2023 9:19 AM EDT Pulse 80 12/17/2023 9:19 AM EDT Temperature 36.2 C (97.2 F) 12/17/2023 9:19 AM ED T Respiratory Rate 18 12/17/2023 9:19 AM EDT Oxygen Saturation 99% 12/17/2023 9:19 AM EDT Inhaled Oxygen Concentration - - Weight 62.1 kg (137 lb) 12/17/2023 9:19 AM EDT Height 154.9 cm (5' 1") 12/17/2023 9:19 AM EDT Body Mass Index 25.89 12/17/2023 9:19 AM EDT documented in this [...] as of this encounter Progress Notes * Ewa Mohan, DO - 12/17/2023 9:23 AM EDT Subjective: Aure Stallworth is a 58 year old female. Chief Complaint Patient presents with Follow Up Pt here for 6 month follow up, denies any new concerns HPI: Pt presents for follow up today. Was seen at [facility] to reopen stent in lower extremity. This was successful, now following every 3 months. On xarelto and plavix, also statin; no longer smoking. She has been walking more to build stamina in the leg. Interested in dermatology referral, has lesion below her nose that has been present for about 4 months. Has surgery planned on her R elbow. Overall just feels tired. Mood feels okay, realizes everyone has bad stuff going on, feels much better holding grandchildren. PHM: Patient Active Problem List Diagnosis Code Retroperitoneal fibrosis K68.2 Hydronephrosis N13.30 Solitary kidney, acquired Z90.5 HTN, goal to be determined I10 Anxiety state F41.1 Hyperthyroidism E05.90 Type 2 diabetes mellitus with hemoglobin A1c goal of less than 7.0% ([facility]) E11.9 History of non-ST elevation myocardial infarction (NSTEMI) I25.2 Coronary artery disease involving [place] coronary artery of [place] heart with angina pectoris ([facility])I25.119 Claudication in peripheral vascular disease ([facility]) I73.9 Diabetes mellitus with peripheral angiopathy ([facility]) E11.51 Stage 3a chronic kidney disease N18.31 PAD (peripheral artery disease) ([facility]) I73.9 Moderate episode of recurrent major depressive disorder ([facility]) F33.1 Other iron deficiency anemias D50.8 Acute pain of right knee M25.561 Current Outpatient Medications Medication Sig Dispense Refill [...] 1 Tablet before bedtime.) 90 Tab 1 methIMAzole 10 MG Oral Tablet (Tapazole) Take [...] mouth in the morning. 90 Tablet 3 Cyclobenzaprine HCl 5 MG Oral Tablet (Flexeril) Take 1 Tablet by mouth 3 times a day as needed for Muscle spasms. 30 Tablet 0 Ondansetron HCl 4 MG Oral Tablet Take 1 Tablet by mouth every 6 hours as needed for Nausea. 30 Tablet 1 Rivaroxaban 2.5 MG Oral Tablet (Xarelto) Take 1 Tablet by mouth in the morning and 1 Tablet before bedtime. 180 Tablet 5 buPROPion HCl ER (XL) 300 MG Oral Tablet Extended Release 24 Hour (Wellbutrin XL) Take 1 Tablet by mouth in the morning. 90 Tablet 3 Lisinopril 10 MG Oral Tablet (Prinivil) TAKE 1 TABLET BY MOUTH EVERY MORNING 90 Tablet 1 Nitroglycerin 0.4 MG Sublingual Tablet Sublingual (1) TAB DISSOLVED UNDER TONGUE NEEDED FOR CHEST PAIN, MAY REPEAT EVERY 5 MIN'S X 3 DOSES 25 Tablet 1 LORazepam 0.5 MG Oral Tablet (Ativan) Take 1 Tablet by mouth daily as needed for Anxiety. 30 Tablet0 Sertraline HCl 100 MG Oral Tablet (Zoloft) Take 2 Tablets by mouth in the morning. 180 Tablet 3 No current facility-administered medications for this visit. Past Medical History: Diagnosis Date Anxiety state HTN, goal to be determined Iridocyclitis 2006 OS, Dr. Hernandez, (was tx. w/ steroid eye drops) Solitary kidney, acquired Past Surgical History: Procedure Laterality Date ABLATION UTERINE FIBROIDS, US GUIDE, RADIOFREQUENCY AORTOGRAM ABDOMINAL-TECH ONLY Right 2023 IMAGING SUPERVISION & INTERPRETATION ABDOMINAL AO performed by Jayce Larson MD at [facility] COLONOSCOPY, DIAGNOSTIC (RECTUM) 05/11/2015 collagenous colitis, repeat 5 yrs/COLONOSCOPY FLEXIBLE PROXIMAL DIAGNOSTIC performed by David Lomeli MD at [facility] COLONOSCOPY, DIAGNOSTIC (RECTUM) 11/15/2022 lge-mouth diverticula in sigmoid, hemorrhoids / no biopsies collected / 1 year due to bowel prep / COLONOSCOPY FLEXIBLE PROXIMAL DIAGNOSTIC performed by Braulio Dwyer MD at [facility] CYSTOSCOPY/INSERTION OF STENT Left 10/28/2014 CYSTOURETHROSCOPY WITH INSERTION URETERAL STENT performed by Tavo Lakhani MD at [facility] CYSTOSCOPY/URETERAL CATHETER N/A 10/28/2014 CYSTOURETHROSCOPY WITH URETERAL CATHETER performed by Tavo Lakhani MD at [facility] CYSTOURETRO &/OR PYELOSCOPE Left 10/28/2014 CYSTOURETHROSCOPY URETROSCOPY AND OR PYELOSCOPY performed by Tavo Lakhani MD at [facility] EGD, FLEXIBLE, DIAGNOSTIC 11/29/2016 sm bowel inflammation, repeat 8 wks/ESOPHAGOGASTRODUODENOSCOPY (EGD), FLEXIBLE, TRANSORAL, DIAGNOSTIC performed by Braulio Dwyer MD at [facility] EGD, FLEXIBLE, DIAGNOSTIC 01/29/2017 antral gastritis/ESOPHAGOGASTRODUODENOSCOPY (EGD), FLEXIBLE, TRANSORAL, DIAGNOSTIC performed by Braulio Dwyer MD at [facility] EGD, FLEXIBLE, DIAGNOSTIC 11/15/2022 z-line 35 cm , gastro flap valve Hill grade I / biopsies normal / ESOPHAGOGASTRODUODENOSCOPY (EGD),FLEXIBLE, TRANSORAL, DIAGNOSTIC performed by Braulio Dwyer MD at ENDOSCOPY [facility] FEM/POP ARTERY REVASC W/ STENT+ANGIOPLASTY Right 10/18/2020 FEM/POP ARTERY REVASC W/ STENT+ANGIOPLASTY performed by Jayce Larson MD at [facility] FEM/POP ARTERY REVASC W/ STENT+ANGIOPLASTY Right 02/22/2021 FEM/POP ARTERY REVASC W/ STENT+ANGIOPLASTY performed by Jayce Larson MD at [facility] FLUORO PYELOGRAM RETROGRADE Bilateral 10/28/2014 UROGRAHY, RETROGRADE, WITH OR WITHOUT KUB performed by Tavo Lakhani MD at OR [facility] HYSTEROSCOPY;ENDOMETRIAL ABLAT 11/2011 IR ARTERIOGRAM EXTREMITY UNILATERAL Right 02/22/2021 IMAGING SUPERVISION & INTERPRETATION EXTREMITY UNILATERAL performed by Jayce Larson MD at OR [facility] IR ARTERIOGRAM EXTREMITY UNILATERAL Right 2023 IMAGING SUPERVISION & INTERPRETATION EXTREMITY UNILATERAL performed by Jayce Larson MD at OR [facility] PLACE CATHETER IN ARTERY, FIRST Right 2023 CATHETER PLACEMENT, ABDOMINAL-LOWER EXTREMITY, FIRST ORDER BRANCH [facility] REMOVAL OF OVARY/OVIDUCT(S) Left REMOVE GALLBLADDER TENDON SHEATH INCISION, FINGER Right 03/06/2019 TRIGGER FINGER RELEASE performed by Femi Rayo DO at OR [facility] Review of patient's allergies indicates: Allergen Reactions Nsaids Risk of GI bleed Objective: BP 102/60 | Pulse 80 | Temp 36.2 C (97.2 F) (Tympanic) | Resp 18 | Ht 1.549 m (5' 1") | Wt 62.1kg (137 lb) | SpO2 99% | BMI 25.89 kg/m | BSA 1.63 m Review of Systems: As per HPI, all other ROS neg. Physical Exam: General: alert, healthy and no distress Heart: regular rate & rhythm, no murmurs and no gallops Lungs: chest symmetric with normal AP diameter, no chest deformities noted, lungs clear to auscultation Extremities: no joint deformities, effusion, or inflammation, no edema Skin: + flesh colored bump under L nares Diabetes mellitus with peripheral angiopathy (HCC) (Primary) - HEMOGLOBIN A1C; Future; Expected date: 12/17/2023 - VITAMIN B12; Future; Expected date: 12/17/2023 - HEMOGLOBIN A1C; Future; Expected date: 12/17/2023 Lesion of skin of nose - DERMATOLOGY REFERRAL OP Screen for colon cancer Other iron deficiency anemias - COLONOSCOPY, GI REFERRAL OP Fatigue, unspecified type - 25-HYDROXY VITAMIN D; Future; Expected date: 12/17/2023 Moderate episode of recurrent major depressive disorder (HCC) Stable, cont current meds Pt will try to take lorazepam less frequently Stage 3a chronic kidney disease (HCC) Monitor labs Follow up: in 6 month(s). Ewa Mohan DO * Princess Garcia LPN - 12/17/2023 9:22 AM EDT Hemoglobin a1c ordered today. Provider aware. Princess Garcia LPN documented in this encounter Nursing Notes * rPincess Garcia LPN - 12/17/2023 9:19 AM EDT The patient has been properly identified by confirmation of name and date of . Chief Complaint Patient presents with Follow Up Pt here for 6 month follow up, denies any new concerns documented in this encounter Plan of Treatment Upcoming Encounters Date Type Department Care Team (Late st Contact Info) Description 01/24/2024 12:00 PM EDT Telemedicine Endocrinology, [place] [address] [place] [address] Cyrus Landry CRNP [address] [place] [address] 03/06/2024 4:00 PM EDT Office Visit Nephrology, [address] [place] [address] Deonna Pugh MD [address] [place] [id number] 03/25/2024 8:45 AM EDT Office Visit Orthopaedics [facility] [address] [place] [address] [place] Walter DO [address] [place] [address] 07/07/2024 8:40 AM EST Office Visit Family Practice [facility] [address] [place] [address] Ewa Mohan, DO [address] [place] [address] Scheduled Procedures Name Priority Associated Diagnoses Date/Ti me COLONOSCOPY FLEXIBLE PROXIMA L DIAGNOSTIC Recall Screening for colon cancer Scheduled Referrals Name Type Priority Associated Diagnoses Orde r Schedule DERMATOLOGY REFERRAL OP Referral Within 30 days (routine) Lesion of skin of nose Ordered: 12/17/2023 COLONOSCOPY, GI REFERRAL OP Referral Within 10 days (routine) Other iron deficiency anemias Ordered: 12/17/2023 Health Maintenance Due Date Last Done Comments [...] Additional history exists CKD PHOS USE SMARTSET 91975 06/11/202405/20, 06/13/2022, 05/30/2022 Diabetic Eye Exam 06/11/2024 06/11/2023, , 10/25/2020 Diabetic Foot Exam 06/11/2024 06/11/2023, 1 , 06/07/2021, Additional history exists HbA1c 06/17/2024 12/17/2023, 05/20, 12/04/2022, Additional history exists Albumin/Creatinine Ratio 09/05/2024 024, 12/04/2022, 12/06/2021, Additional history exists CKD HGB USE SMARTSET 19509 09/05/202409/05, 06/11/2023, 06/11/2023, Additional history exists DTaP,Tdap,and [...] this encounter Medical Devices Implanted Type Area Crossing Watchman Device Identifier Shelf Expiration Date Model / Serial / Lot Stent [id number] [id number] - [id number] Implanted:Qty: 1 on 10/18/2020 by Jayce Larson MD at OR [facility] Right: [facility] [employer] : INTRV CARD [id number] 07/18/2025 [id number] / / [id number] Stent Innova [id number] - [id number] Implanted:Qty: 1 on 10/18/2020 by Jayce Larson MD at OR [facility] Right: [facility] [employer] [id number] 05/24/2025 [id number] / / [id number] documented as of this encounter Results * VITAMIN B12 (12/17/2023 9:49 AM EDT) Vitamin B12 337 232 - 1,245 pg/mL 12/17/2023 2:29 PM EDT LAB[facility]ORY [facility] Blood Venous blood specimen / Unknown Venipuncture / Unknown 12/17/2023 9:49 AM EDT 12/17/2023 9:49 AM EDT [facility] S Performing Organization Address [facility] de Phone Number LABORATORY [facility] [address] [place] [address] * (ABNORMAL) 25-HYDROXY VITAMIN D (12/17/2023 9:49 AM EDT) 25-Hydroxy Vitamin D 18(L) >19 ng/mL 12/17/2023 2:29 PM EDT LAB[facility]ORY [facility] Blood Venous blood specimen / Unknown Venipuncture / Unknown 12/17/2023 9:49 AM EDT 12/17/2023 9:49 AM EDT Narrative [facility]ORY [facility] - 12/17/2023 2:29 PM EDT Deficient: <20 ng/mL Insufficient: 20-29 ng/mL Recommended/Optimum:30-50 ng/mL Vitamin D intoxication is rare. If suspicious of Vitamin D toxicity, evaluation of serum Calcium and PTH is recommended. [facility] S Performing Organization Address [facility] de Phone Number LABORATORY [facility] [address] [place] [address] * (ABNORMAL) HEMOGLOBIN A1C (12/17/2023 9:49 AM EDT) Hemoglobin A1C 6.4(H) 4.0 - 5.6 % 12/17/2023 2:18 PM EDT LAB[facility]ORY [facility] Comment:The use of HbA1c to monitor glycemic status is based on normal hemoglobin and HbA composition. This test should not be used in patients with abnormal hemoglobin that affects the half life of the red blood cell or the in vivo glycation rates. Estimated Average Glucose 137(H) <126 mg/dL 12/17/2023 2:18 PM EDT LAB[facility]ORY [facility] Blood Venous blood specimen / Unknown Venipuncture / Unknown 12/17/2023 9:49 AM EDT 12/17/2023 9:49 AM EDT Ewa Mohan DO LAB BLOOD ORDERABLE S LAB[facility]ATORY [facility] [address] [facility] [place] [address] documented in this encounter Visit Diagnoses Diagnosis Diabetes mellitus with peripheral angiopathy (HCC)- Primary Type II or unspecified type diabetes mellitus with peripheral circulatory disorders, not stated as uncontrolled Lesion of skin of nose Screen for colon cancer Special screening for malignant neoplasms, colon Other iron deficiency anemias Fatigue, unspecified type Moderate episode of recurrent major depressive disorder (HCC) Stage 3a chronic kidney disease (HCC) documented in this encounter Advance Directives Latest [...] and were consensually agreed upon. Care Teams Helicopter Pilot Instructor Relationship Specialty Start Date End Date Ewa Mohan DO [address] [place] [address] PCP - General Family Medicine 12/26/18 documented as of this encounter
--- OUTSIDE RECORDS SUMMARY | 2024-02-01 10:47 | External Medical Summary | Summary of Care ---
Author Name Unknown Organization [facility] Address [address] [facility] [place] [address] Phone [phone] Care Team Providers Care Chief Engineer Production Name Role Phone Ewa Mohan DO Primary Care Provider [phone] Encounter Details Date Type Department Care Team (Late st Contact Info) Description 01/10/2024 Telephone Otolaryngology [facility] [address] [place] [address] Ben Grace DO [address] [place] [address] Allergies Active Allergy Reactions Criticality Noted Date Comments Nsaids 12/04/2022 Risk of GI bleed documented as of this encounter (statuses as of 01/10/2024) Medications Medication Sig Dispensed Refills Start Date [...] Tablet (Januvia)Indicati ons:Diabetes mellitus with peripheral angiopathy ([facility]) Take 1 Tablet [...] Oral Tablet (Lipitor)Indicati ons:Coronary artery disease involving [place] coronary artery of [place] heart with angina pectoris (HCC) Take 1 Tablet by mouth in the morning. 90 Tablet 3 08/09/2023 Active Rivaroxaban 2.5 MG Oral Tablet (Xarelto)Indicati ons:PVD (peripheral vascular disease) ([facility]) Take 1 Tablet by mouth in the morning and 1 Tablet before bedtime. 180 Tablet 5 10/29/2023 Active buPROPion HCl ER (XL) 300 MG Oral Tablet Extended Release 24 Hour (Wellbutrin XL)Indications:Mo derate episode of recurrent major depressive disorder ([facility]) Take 1 Tablet by mouth in the morning. 90 Tablet 3 11/06/2023 Active Nitroglycerin 0.4 MG Sublingual Tablet SublingualIndicat ions:Coronary artery disease involving [place] coronary artery of [place] heart with angina pectoris (HCC) (1) TAB DISSOLVED UNDER TONGUE NEEDED FOR CHEST PAIN, MAY REPEAT EVERY 5 MIN'S X 3 DOSES 25 Tablet 1 12/09/2023 Active LORazepam 0.5 MG Oral Tablet (Ativan)Indicatio ns:KURT (generalized anxiety disorder) Take 1 Tablet by mouth daily as needed for Anxiety. 30 Tablet 12/13/2023 Active Vitamin D3 1.25 MG (61153 UT) Oral CapsuleIndication s:Vitamin D deficiency Take [...] as of this encounter (statuses as of 01/10/2024) Active Problems Problem Noted Date Diagnosed Date [...] (NSTEMI) 08/14/2019 Coronary artery disease invo lving [place] coronary artery of [place] heart with angina pectoris 08/14/2019 Type 2 [...] as of this encounter (statuses as of 01/10/2024) Resolved Problems Problem Noted Date Diagnosed Date Resolved Date Atherosclerosis of [place] artery of extremity 09/22/19 21 04/19/2022 Kidney [...] as of this encounter (statuses as of 01/10/2024) Immunizations Name Administration Dates Next Due Hepatitis B, 20+ yrs 10/23/2019,04/21/2019,02/27 Pneumococcal Conjugate Vacci ne, 20-valent ([id number]) 05/30/2022 Pneumococcal Polysaccharide PPV23 (Pneumovax) 02/27/2019 Seasonal [...] encounter Miscellaneous Notes * Telephone Encounter - Lee Ann Colbert OSA - 01/10/2024 3:07 PM EDT Pt has been scheduled and added to wait list. Pt has return appointment with PCP tomorrow. SANDY Dean * Telephone Encounter - Baylee Mckeon LPN - 01/10/2024 2:52 PM EDT Can offer first available, should see pcp initially for the swelling. May need imaging of neck. * Telephone Encounter - Lee Ann Colbert OSA - 01/10/2024 2:49 PM EDT Pt has 10 day referral in for neck pain. Please triage and advise Neck pain [M54.2] SANDY Dean documented in this encounter Plan of Treatment Upcoming Encounters Date Type Department Care Team (Late st Contact Info) Description 01/11/2024 3:40 PM EDT Telemedicine Family Practice [facility] [address] [address] Leslee Bernard MD [address] [facility] [place] [address] 01/24/2024 12:00 PM EDT Telemedicine Endocrinology, [place] [address], [place] [id number] Cyrus Landry CRNP [address] [place] [address] 03/06/2024 4:00 PM EDT Office Visit Nephrology, [facility] [address] [facility] [place] [address] Deonna Pugh MD 400 [facility] [place] [address] 03/12/2024 9:40 AM EDT Office Visit Dermatology, [facility] [address] [place] [address] Sanjana Knott PA-C [address] [place] [address] 03/19/2024 9:00 AM EDT Office Visit Otolaryngology [facility] [address] [place] [address] Amelia Parrish PA-C [address] [place] [address] 03/25/2024 8:45 AM EDT Office Visit Orthopaedics [facility] [address] [place] [address] Juan Pablo Walter, DO [address] [place] [address] 07/07/2024 8:40 AM EST Office Visit Family Practice [facility] [address] [place] [address] Ewa Mohan, DO [address] [place] [address] Scheduled Procedures Name Priority Associated Diagnoses Date/Ti [...] Additional history exists CKD PHOS USE SMARTSET 77461 06/11/202405/20, 06/13/2022, 05/30/2022 Diabetic Eye Exam 06/11/2024 06/11/2023, , 10/25/2020 Diabetic Foot Exam 06/11/2024 06/11/2023, 1 , 06/07/2021, Additional history exists HbA1c 06/17/2024 12/17/2023, 05/20, 12/04/2022, Additional history exists Albumin/Creatinine Ratio 09/05/2024 024, 12/04/2022, 12/06/2021, Additional history exists CKD HGB USE SMARTSET 08907 09/05/202409/05, 06/11/2023, 06/11/2023, Additional history exists DTaP,Tdap,and [...] this encounter Medical Devices Implanted Type Area Faculty Member Device Identifier Shelf Expiration Date Model / Serial / Lot Stent Innova [id number] - [id number] Implanted:Qty: 1 on 10/18/2020 by Jayce Larson MD at OR [facility] [place] Right: [facility] [employer]uame : INTRV CARD [id number] 07/18/2025 [id number] / / [id number] Stent Innova [id number] - [id number] Implanted:Qty: 1 on 10/18/2020 by Jayce Larson MD at OR [facility] [place] Right: [facility] [employer] [id number] 05/24/2025 [id number] / / [id number] documented as of this encounter Advance Directives [...] and were consensually agreed upon. Care Teams Chief Engineer Production Relationship Specialty Start Date End Date Ewa Mohan DO [address] [place] [address] PCP - General Family Medicine 12/26/18 documented as of this encounter
--- OUTSIDE RECORDS SUMMARY | 2024-02-01 10:47 | External Medical Summary | Summary of Care ---
Author Name Unknown Organization [facility] Address [address] [place] [address] Phone [phone] Care Team Providers Care Ferryboat Helper Name Role Phone Mendoza Cramer DO Primary Care Provider [phone] Reason for Visit * Reason Comments eRx-Medication Refill Encounter Details Date Type Department Care Team (Late st Contact Info) Description 01/08/2024 Refill Family Practice [facility] [address] [place] [address] Mendoza Cramer DO [address] [place] [address] Allergies Active Allergy Reactions Criticality Noted Date [...] (Neurontin)Indic ations:Claudicat ion in peripheral vascular disease ([facility]) Take 1 Capsule by mouth at bedtime. 90 Capsule 1 05/10/2023 Active Omeprazole 20 MG Oral Capsule Delayed Release (PriLOSEC)Indica tions:Globus sensation Take 1 Capsule by mouth in the morning. 1 hour before the first meal of the day. 90 Capsule 3 05/09/2023 Active SITagliptin Phosphate 50 MG Oral Tablet (Januvia)Indicat ions:Diabetes mellitus with peripheral angiopathy ([facility]) Take 1 Tablet by mouth in the morning. 90 Tablet 3 06/17/2023 Active Empagliflozin 10 MG Oral Tablet (Jardiance)Indic ations:Type 2 diabetes mellitus with hemoglobin A1c goal of less than 7.0% ([facility]) Take 1 Tablet by mouth in the morning. 90 Tablet 3 07/17/2023 Active metFORMIN HCl ER 500 MG Oral Tablet Extended Release 24 Hour (Glucophage XR)Indications:T ype 2 diabetes mellitus with hemoglobin A1c goal of less than 7.0% ([facility]) Take 2 Tablets by mouth in the morning. 180 Tablet 3 07/17/2023 Active Atorvastatin Calcium 80 MG Oral Tablet (Lipitor)Indicat ions:Coronary artery disease involving [place] coronary artery of [place] heart with angina pectoris ([facility]) Take 1 Tablet by mouth in the morning. 90 Tablet 3 08/09/2023 Active Rivaroxaban 2.5 MG Oral Tablet (Xarelto)Indicat ions:PVD (peripheral vascular disease) ([facility]) Take 1 Tablet by mouth in the morning and 1 Tablet before bedtime. 180 Tablet 5 10/29/2023 Active buPROPion HCl ER (XL) 300 MG Oral Tablet Extended Release 24 Hour (Wellbutrin XL)Indications:M oderate episode of recurrent major depressive disorder ([facility]) Take 1 Tablet by mouth in the morning. 90 Tablet 3 11/06/2023 Active Lisinopril 10 MG Oral Tablet (Prinivil)Indica tions:Hypertensi on goal BP (blood pressure) < 130/80 TAKE 1 TABLET BY MOUTH EVERY MORNING 90 Tablet 1 12/09/2023 Active Nitroglycerin 0.4 MG Sublingual Tablet SublingualIndica tions:Coronary artery disease involving [place] coronary artery of [place] heart with angina pectoris (HCC) (1) TAB DISSOLVED UNDER TONGUE NEEDED FOR CHEST PAIN, MAY REPEAT EVERY 5 MIN'S X 3 DOSES 25 Tablet 1 12/09/2023 Active LORazepam 0.5 MG Oral Tablet (Ativan)Indicati ons:KURT (generalized anxiety disorder) Take 1 Tablet by mouth daily as needed for Anxiety. 30 Tablet 12/13/2023 Active Vitamin D3 1.25 MG (53661 UT) Oral CapsuleIndicatio ns:Vitamin D deficiency Take [...] FOR NAUSEA 30 Tablet 1 01/08/2024 Active Ondansetron HCl 4 MG Oral Tablet Take 1 Tablet by mouth every 6 hours as needed for Nausea. 30 Tablet 1 10/23/2023 4 Discontinued documented as of this encounter [...] (NSTEMI) 08/14/2019 Coronary artery disease invo lving twenty[place]nine [place] coronary artery of [place] heart with angina pectoris 08/14/2019 Type 2 [...] Date Diagnosed Date Resolved Date Atherosclerosis of [place]nine [place] artery of extremity 09/22/19 21 04/19/2022 Kidney [...] yrs 10/23/2019,04/21/2019,02/27 Pneumococcal Conjugate Vacci ne, 20-valent ([id number]) 05/30/2022 Pneumococcal Polysaccharide PPV23 (Pneumovax) 02/27/2019 Seasonal [...] encounter Miscellaneous Notes * Telephone Encounter - Martinez Porras [facility] - 01/08/2024 4:17 PM EDTSigned Prescriptions: Disp Refills Ondansetron HCl 4 MG Oral Tablet (Zofran) 30 Tab*1 Sig: TAKE 1 TABLET BY MOUTH EVERY 6 HOURS NEEDED FOR NAUSEAAuthorizing Provider: MENDOZA CRAMER User: MARTINEZ PORRAS documented in this encounter Plan of Treatment Upcoming Encounters Date Type Department Care Team (Late st Contact Info) Description 01/24/2024 12:00 PM EDT Telemedicine Endocrinology, [place] [address] [place] [address] Cyrus Landry CRNP [address] [place] [address] 03/06/2024 4:00 PM EDT Office Visit Nephrology, [facility] [address] [place] [address] Deonna Pugh MD [address] [facility] [place] [id number] 03/12/2024 9:40 AM EDT Office Visit Dermatology, [facility] [address] [place] [id number] Sanjana Knott PA-C [address] [place] [address] 03/25/2024 8:45 AM EDT Office Visit Orthopaedics [facility] [address] [place] [address] Juan Pablo Walter, DO [address] [place] [address] 07/07/2024 8:40 AM EST Office Visit Family Practice [facility] [address] [place] [address] Mendoza Cramer, DO [address] [place] [address] Scheduled Procedures Name Priority Associated Diagnoses Date/Ti [...] Additional history exists CKD PHOS USE SMARTSET 44265 06/11/202405/20, 06/13/2022, 05/30/2022 Diabetic Eye Exam 06/11/2024 06/11/2023, , 10/25/2020 Diabetic Foot Exam 06/11/2024 06/11/2023, 1 , 06/07/2021, Additional history exists HbA1c 06/17/2024 12/17/2023, 05/20, 12/04/2022, Additional history exists Albumin/Creatinine Ratio 09/05/2024 024, 12/04/2022, 12/06/2021, Additional history exists CKD HGB USE SMARTSET 20778 09/05/202409/05, 06/11/2023, 06/11/2023, Additional history exists DTaP,Tdap,and [...] this encounter Medical Devices Implanted Type Area Manager Utilities Device Identifier Shelf Expiration Date Model / Serial / Lot Stent Innova [id number] - [id number] Implanted:Qty: 1 on 10/18/2020 by Jayce Larson MD at OR [facility] [place] Right: [facility] [employer] The Bill : INTRV CARD [id number] 07/18/2025 [id number] / / [id number] Stent Innova [id number] - [id number] Implanted:Qty: 1 on 10/18/2020 by Jayce Larson MD at OR [facility] [place] Right: [facility] eReceipts [id number] 05/24/2025 [id number] / / [id number] documented as of this encounter Advance Directives [...] and were consensually agreed upon. Care Teams Ferryboat Helper Relationship Specialty Start Date End Date Mendoza Cramer DO [address] [place] [address] PCP - General Family Medicine 12/26/18 documented as of this encounter
--- OUTSIDE RECORDS SUMMARY | 2024-02-01 10:47 | External Medical Summary | Summary of Care ---
Author Name Unknown Organization [facility] Address [address] [place] [address] Phone [phone] Care Team Providers Care Environmental Planner Name Role Phone Ewa Mohan DO Primary Care Provider [phone] Reason for Visit * Reason Onset Date Comments Appointment 12/17/2023 colon Encounter Details Date Type Department Care Team (Late st Contact Info) Description 12/17/2023 Telephone Family Practice [facility] [address] [place] [address] Ewa Mohan DO [address] [facility] [place] [address] Appointment (colon) Allergies Active Allergy Reactions Criticality [...] Oral Tablet (Lipitor)Indica tions:Coronary artery disease involving [place] coronary artery of [place] heart with angina pectoris (HCC) Take 1 Tablet by mouth in the morning. 90 Tablet 3 3 Active Rivaroxaban 2.5 MG Oral Tablet (Xarelto)Indica tions:PVD (peripheral vascular disease) ([facility]) Take 1 Tablet by mouth [...] Sublingual Tablet SublingualIndic ations:Coronary artery disease involving [place] coronary artery of [place] heart with angina pectoris (HCC) (1) TAB DISSOLVED UNDER TONGUE NEEDED FOR CHEST PAIN, MAY REPEAT EVERY 5 MIN'S X 3 DOSES 25 Tablet 1 4 Active LORazepam 0.5 MG Oral Tablet (Ativan)Indicat ions:KURT (generalized anxiety disorder) Take 1 Tablet by mouth daily as needed for Anxiety. 30 Tablet 4 Active Cyclobenzaprine HCl 5 MG Oral [...] Tablet 1 4 01/08/20 24 Discontinued(Ref ill) documented as of this [...] (NSTEMI) 08/14/2019 Coronary artery disease invo lving [place] coronary artery of [place] heart with angina pectoris 08/14/2019 Type 2 [...] Date Diagnosed Date Resolved Date Atherosclerosis of [place] artery of extremity 09/22/1904/19/2022 Kidney disease, chronic, [...] yrs 10/23/2019,04/21/2019,02/27 Pneumococcal Conjugate Vacci ne, 20-valent ([id number]) 05/30/2022 Pneumococcal Polysaccharide PPV23 (Pneumovax) 02/27/2019 Seasonal [...] encounter Miscellaneous Notes * Telephone Encounter - Lenine Saldana OSA - 01/10/2024 12:51 PM EDT Lmm SANDY Beckford 01/10/2024 12:51 PM * Telephone Encounter - Geovanna Sarah OSA - 12/17/2023 10:09 AM EDT Other iron deficiency anemias [D50.8] Colonoscopy documented in this encounter Plan of Treatment Upcoming Encounters Date Type Department Care Team (Late st Contact Info) Description 01/24/2024 12:00 PM EDT Telemedicine Endocrinology, [place] [address] [place] [address] Cyrus Landry CRNP [address] [place] [address] 03/06/2024 4:00 PM EDT Office Visit Nephrology, [facility] [address] [place] [address] Deonna Pugh MD 400 [facility] [place] [address] 03/12/2024 9:40 AM EDT Office Visit Dermatology, [facility] [address] [place] [address] Sanjana Knott PA-C [address] [place] [address] 03/25/2024 8:45 AM EDT Office Visit Orthopaedics [facility] 132 [facility] [place] [address] Juan Pablo Walter, DO [facility] [place] [address] 07/07/2024 8:40 AM EST Office Visit Family Practice [facility] [address] [facility] [place] [address] Ewa Mohan, DO [address] [facility] [address] Scheduled Procedures Name Priority Associated Diagnoses Date/Ti [...] Additional history exists CKD PHOS USE SMARTSET 22370 06/11/202405/20, 06/13/2022, 05/30/2022 Diabetic Eye Exam 06/11/2024 06/11/2023, , 10/25/2020 Diabetic Foot Exam 06/11/2024 06/11/2023, 1 , 06/07/2021, Additional history exists HbA1c 06/17/2024 12/17/2023, 05/20, 12/04/2022, Additional history exists Albumin/Creatinine Ratio 09/05/2024 024, 12/04/2022, 12/06/2021, Additional history exists CKD HGB USE SMARTSET 16439 09/05/202409/05, 06/11/2023, 06/11/2023, Additional history exists DTaP,Tdap,and [...] this encounter Medical Devices Implanted Type Area Firmware Test Engineer Device Identifier Shelf Expiration Date Model / Serial / Lot Stent Innova [id number] - [id number] Implanted:Qty: 1 on 10/18/2020 [place] [facility] [place] [facility] [employer] : INTRV CARD [id number] 07/18/2025 [id number] / / [id number] Stent Innova [id number] - [id number] Implanted:Qty: 1 on 10/18/2020 by [place] Larson [place] [facility] [place] [facility] griddig [id number] 05/24/2025 [id number] / / [id number] documented as of this encounter Advance Directives [...] and were consensually agreed upon. Care Teams Environmental Planner Relationship Specialty Start Date End Date Ewa Mohan DO [address] [facility] [place] [address] PCP - General Family Medicine 12/26/18 documented as of this encounter
--- OUTSIDE RECORDS SUMMARY | 2024-02-01 10:47 | External Medical Summary | Summary of Care ---
Author Name Unknown Organization [facility] Address [address] [place] [address] Phone [phone] Care Team Providers Care Cloud Consultant Name Role Phone Ewa Mohan DO Primary Care Provider [phone] Reason for Visit * Reason Onset Date Comments Medication Refill 01/06/2024 Encounter Details Date Type Department Care Team (Late st Contact Info) Description 01/06/2024 Refill Family Practice [facility] [address] [place] [address] Ewa Mohan DO [address] [place] [address] Hypertension goal BP (blood pressure) < 130/80 Allergies Active Allergy Reactions Criticality Noted Date Comments Nsaids 12/04/2022 Risk of GI bleed documented as of this encounter (statuses as of 01/07/2024) Medications Medication Sig Dispensed Refills Start Date [...] (Januvia)Indicati ons:Diabetes mellitus with peripheral angiopathy ([facility]) Take 1 Tablet by mouth in the morning. 90 Tablet 3 06/17/2023 Active Empagliflozin 10 MG Oral Tablet (Jardiance)Indica tions:Type 2 diabetes mellitus with hemoglobin A1c goal of less than 7.0% ([facility]) Take 1 Tablet by mouth in the morning. 90 Tablet 3 07/17/2023 Active metFORMIN HCl ER 500 MG Oral Tablet Extended Release 24 Hour (Glucophage XR)Indications:Ty pe 2 diabetes mellitus with hemoglobin A1c goal of less than 7.0% ([facility]) Take 2 Tablets by mouth in the morning. 180 Tablet 3 07/17/2023 Active Atorvastatin Calcium 80 MG Oral Tablet (Lipitor)Indicati ons:Coronary artery disease involving sob[place] coronary artery of sob[place] heart with angina pectoris ([facility]) Take 1 Tablet by mouth in the morning. 90 Tablet 3 08/09/2023 Active Cyclobenzaprine HCl 5 MG Oral Tablet (Flexeril)Indicat ions:TMJ (temporomandibula r joint syndrome) Take 1 Tablet by mouth 3 times a day as needed for Muscle spasms. 30 Tablet 09/18/2023 Active Ondansetron HCl 4 MG Oral Tablet Take 1 Tablet by mouth every 6 hours as needed for Nausea. 30 Tablet 1 10/23/2023 Active Rivaroxaban 2.5 MG Oral Tablet (Xarelto)Indicati ons:PVD (peripheral vascular disease) ([facility]) Take 1 Tablet by mouth in [...] Sublingual Tablet SublingualIndicat ions:Coronary artery disease involving sob[place] coronary artery of soboba heart with angina pectoris (HCC) (1) TAB DISSOLVED UNDER TONGUE NEEDED FOR CHEST PAIN, MAY REPEAT EVERY 5 MIN'S X 3 DOSES 25 Tablet 1 12/09/2023 Active LORazepam 0.5 MG Oral Tablet (Ativan)Indicatio ns:KURT (generalized anxiety disorder) Take 1 Tablet by mouth daily as needed for Anxiety. 30 Tablet 12/13/2023 Active Vitamin D3 1.25 MG (10362 UT) Oral CapsuleIndication s:Vitamin D deficiency Take 1 Capsule by mouth once a week. 12 Capsule 12/20/2023 03/19/2024 Active documented as of this encounter (statuses as of 01/07/2024) Active Problems Problem Noted Date Diagnosed Date [...] (NSTEMI) 08/14/2019 Coronary artery disease invo lving soboba coronary artery of soboba heart with angina pectoris 08/14/2019 Type 2 [...] as of this encounter (statuses as of 01/07/2024) Resolved Problems Problem Noted Date Diagnosed Date Resolved Date Atherosclerosis of sob[place] artery of extremity 09/22/1904/19/2022 Kidney disease, chronic, sta ge III (GFR 30-59 ml/min) 05/30/2020 06/30/2020 Overview: Per CKD protocol Smoker 12/09/2019 06/07/2021 UPJ (ureteropelvic junction) obstruction 11/20/2011 10/15/2013 Obesity, morbid (more than 1 00 lbs over ideal weight or BMI > 40) 01/31/2010 01/01/2019 Overview: Per Obesity Protocol, #19 ICD-10 update of inactive term documented as of this encounter (statuses as of 01/07/2024) Immunizations Name Administration Dates Next Due Hepatitis B, 20+ yrs 10/23/2019,04/21/2019,02/27 Pneumococcal Conjugate Vacci ne, 20-valent ([id number]) 05/30/2022 Pneumococcal Polysaccharide PPV23 (Pneumovax) 02/27/2019 Seasonal [...] Description 01/24/2024 12:00 PM EDT Telemedicine Endocrinology, [place] [address] [place] [address] Cyrus Landry CRNP [address] [place] [address] 03/06/2024 4:00 PM EDT Office Visit Nephrology, Abrahan Lin [address] [place] [address] Deonna Pugh MD [address] [facility] [place] [id number] 03/12/2024 9:40 AM EDT Office Visit Dermatology, Sami Handley [address] [place] [address] [place] [address] Sanjana Knott PA-C [address] [place] [address] [place] [address] 03/25/2024 8:45 AM EDT Office Visit Orthopaedics [facility] [address] [place] [address] Juan Pablo Walter, DO [address] [place] [address] 07/07/2024 8:40 AM EST Office Visit Family Practice [facility] [address] [place] [address] Ewa Mohan, DO [address] [place] [address] Scheduled Procedures Name Priority Associated Diagnoses Date/Ti [...] Additional history exists CKD PHOS USE SMARTSET 11967 06/11/2024 1011/2022, 06/13/2022, 05/30/2022 Diabetic Eye Exam 06/11/2024 06/11/2023, , 10/25/2020 Diabetic Foot Exam 06/11/2024 06/11/2023, 1 , 06/07/2021, Additional history exists HbA1c 06/17/2024 12/17/2023, 05/20, 12/04/2022, Additional history exists Albumin/Creatinine Ratio 09/05/2024 024, 12/04/2022, 12/06/2021, Additional history exists CKD HGB USE SMARTSET 50390 09/05/202409/05, 06/11/2023, 06/11/2023, Additional history exists DTaP,Tdap,and [...] this encounter Medical Devices Implanted Type Area Edging Supervisor Device Identifier Shelf Expiration Date Model / Serial / Lot Stent Innova [id number] - [id number] Implanted:Qty: 1 on 10/18/2020 by Jayce Larson [place] [facility] [place] [facility] [employer] : INTRV CARD [id number] 07/18/2025 [id number] / / [id number] Lorraine Owens [id number] - [id number] Implanted:Qty: 1 on 10/18/2020 by Jayce Larson MD [place] [facility] [place]: [facility] [employer] [id number] 05/24/2025 [id number] / / [id number] documented as of this encounter Visit Diagnoses Diagnosis Hypertension goal BP (blood pressure) < 130/80 Unspecified essential hypertension documented in this encounter Advance Directives * [...] and were consensually agreed upon. Care Teams Cloud Consultant Relationship Specialty Start Date End Date Ewa Mohan DO [address] [facility] [place] [address] PCP - General Family Medicine 12/26/18 documented as of this encounter
--- OUTSIDE RECORDS SUMMARY | 2024-02-01 10:47 | External Medical Summary ---
Author Name Unknown Address Unknown Organization [id number]:[facility] [place] - [address] [place] [address] Laboratory Report Ordering Provider Test Date Status SHOAIB DONALDSON 01/21/2024 09:49:25 Final Observation Date Value Abnormality Reference (Units ) Status Erythrocyte sedimentation rate by Photometric method 01/21/2024 09:49:25 45 Above high normal <30 (mm/hour) Final Performing Location [facility] - [address] [place] [address]
--- OUTSIDE RECORDS SUMMARY | 2024-02-01 10:47 | External Medical Summary | Summary of Care ---
Author Name Unknown Organization [facility] Address [address] [place] [address] Phone [phone] Care Team Providers Care Aircraft Skin Burnisher Name Role Phone Ewa Mohan DO Primary Care Provider [phone] Reason for Visit * Reason Onset Date Comments Appointment 12/17/2023 colon Encounter Details Date Type Department Care Team (Late st Contact Info) Description 12/17/2023 Telephone Family Practice [facility] [address] [place] [address] Ewa Mohan DO [address] [place] [address] Appointment (colon) Allergies Active Allergy Reactions Criticality Noted Date Comments Nsaids 12/04/2022 Risk of GI bleed documented as of this encounter (statuses as of 01/14/2024) Medications Medication Sig Dispensed Refills Start Date [...] Oral Tablet (Lipitor)Indica tions:Coronary artery disease involving [place] coronary artery of [place] heart with angina pectoris (HCC) Take 1 Tablet by mouth in the morning. 90 Tablet 3 3 Active Rivaroxaban 2.5 MG Oral Tablet (Xarelto)Indica tions:PVD (peripheral vascular disease) ([facility]) Take 1 Tablet by mouth in the morning and 1 Tablet before bedtime. 180 Tablet 5 4 Active buPROPion HCl ER (XL) 300 MG Oral Tablet Extended Release 24 Hour (Wellbutrin XL)Indications: Moderate episode of recurrent major depressive disorder (HCC) Take 1 Tablet by mouth in the morning. 90 Tablet 3 4 Active Nitroglycerin 0.4 MG Sublingual Tablet SublingualIndic ations:Coronary artery disease involving [place] coronary artery of [place] heart with angina pectoris (HCC) (1) TAB [...] as of this encounter (statuses as of 01/14/2024) Active Problems Problem Noted Date Diagnosed Date [...] (NSTEMI) 08/14/2019 Coronary artery disease invo lving [place] coronary artery of [place] heart with angina pectoris 08/14/2019 Type 2 [...] as of this encounter (statuses as of 01/14/2024) Resolved Problems Problem Noted Date Diagnosed Date Resolved Date Atherosclerosis of [place] artery of extremity 09/22/1904/19/2022 Kidney disease, chronic, sta ge III (GFR 30-59 ml/min) 05/30/2020 06/30/2020 Overview: Per CKD protocol Smoker 12/09/2019 06/07/2021 UPJ (ureteropelvic junction) obstruction 11/20/2011 10/15/2013 Obesity, morbid (more than 1 00 lbs over ideal weight or BMI > 40) 01/31/2010 01/01/2019 Overview: Per Obesity Protocol, #19 ICD-10 update of inactive term documented as of this encounter (statuses as of 01/14/2024) Immunizations Name Administration Dates Next Due Hepatitis B, 20+ yrs 10/23/2019,04/21/2019,02/27 Pneumococcal Conjugate Vacci ne, 20-valent ([id number]) 05/30/2022 Pneumococcal Polysaccharide PPV23 (Pneumovax) 02/27/2019 Seasonal [...] - 01/10/2024 12:51 PM EDT Lmm SANDY [place] 01/10/2024 12:51 PM * Telephone Encounter - Geovanna Sarah OSA - 12/17/2023 10:09 AM EDT Other iron deficiency anemias [D50.8] Colonoscopy documented in this encounter Plan of Treatment Upcoming Encounters Date Type Department Care Team (Late st Contact Info) Description 01/24/2024 12:00 PM EDT Telemedicine Endocrinology, [place] [address] [place] [address] Cyrus Landry CRNP [address] [place] [address] 03/03/2024 9:00 AM EDT Office Visit Otolaryngology, Sami Jaramillo [address] [place] [address] Bonilla Estes PA-C [address] [place] [address] 03/06/2024 4:00 PM EDT Office Visit Nephrology, [facility] [address] [facility] [address] Deonna Pugh MD [address] [facility] [place] [address] 03/12/2024 9:40 AM EDT Office Visit Dermatology, [place] SharifSami [address] [facility] [address] [place] [address] Sanjana Knott PA-C [address] [facility] [address] [place] [address] 03/25/2024 8:45 AM EDT Office Visit Orthopaedics [facility] [address] [place] [address] Juan Pablo Walter, DO [address] [place] [address] 07/07/2024 8:40 AM EST Office Visit Family Practice [facility] [address] [place] [address] Newhouser, Ewa M, DO [address] [place] [address] Scheduled Procedures Name Priority Associated Diagnoses Date/Ti [...] Additional history exists CKD PHOS USE SMARTSET 39648 06/11/202405/20, 06/13/2022, 05/30/2022 Diabetic Eye Exam 06/11/2024 06/11/2023, , 10/25/2020 Diabetic Foot Exam 06/11/2024 06/11/2023, 1 , 06/07/2021, Additional history exists HbA1c 06/17/2024 12/17/2023, 05/20, 12/04/2022, Additional history exists Albumin/Creatinine Ratio 09/05/2024 024, 12/04/2022, 12/06/2021, Additional history exists CKD HGB USE SMARTSET 16617 09/05/202409/05, 06/11/2023, 06/11/2023, Additional history exists DTaP,Tdap,and [...] this encounter Medical Devices Implanted Type Area Obstetrics And Gynecology Professor Device Identifier Shelf Expiration Date Model / Serial / Lot Stent Innova [id number] - [id number] Implanted:Qty: 1 on 10/18/2020 by Jayce Larson MD at OR [facility] [place] Right: [facility] [employer] : INTRV CARD [id number] 07/18/2025 [id number] / / [id number] Stent Innova [id number] - [id number] Implanted:Qty: 1 on 10/18/2020 by Jayce Larson MD at OR [facility] [place] Right: [facility] [employer] [id number] 05/24/2025 [id number] / / [id number] documented as of this encounter Advance Directives [...] and were consensually agreed upon. Care Teams Aircraft Skin Burnisher Relationship Specialty Start Date End Date Ewa Mohan DO [address] [place] [address] PCP - General Family Medicine 12/26/18 documented as of this encounter
--- OUTSIDE RECORDS SUMMARY | 2024-02-01 10:47 | External Medical Summary ---
Author Name Unknown Address Unknown Organization [id number]:[facility]ORY [facility] - [address] [place] [address] Laboratory Report Ordering Provider Test Date Status SHOAIB DONALDSON 01/21/2024 09:49:25 Final Observation Date Value Abnormality Reference (Units ) Status SYNC LEUKOCYTES IN BLOOD BY AUTOMATED COUNT 01/21/2024 09:49:25 13.39 Above high normal 4.00-10.80 (K/uL) Final Segs 01/21/2024 09:49:25 86.7 Above high normal 40.0-75.0 (%) Final Lymphs % 01/21/2024 09:49:25 5.7 Below low normal 18.0-42.0 (%) Final Monos 01/21/2024 09:49:25 6.9 1.0-11.0 (%) Final Eosinophils 01/21/2024 09:49:25 0.5 0.0-6.0 (%) Final Basos 01/21/2024 09:49:25 0.2 0.0-2.0 (%) Final Absolute Segs 01/21/2024 09:49:25 11.61 Above high normal 1.80-7.70 (K/uL) Final Lymphs, absolute 01/21/2024 09:49:25 0.76 Below low normal 1.00-4.80 (K/ul) Final Monos, Abs 01/21/2024 09:49:25 0.92 0.00-1.10 (K/uL) Final Eos, Abs 01/21/2024 09:49:25 0.07 0.00-0.70 (K/uL) Final Basos, Abs 01/21/2024 09:49:25 0.03 0.00-0.20 (K/uL) Final Performing Location [facility]ORY [facility] - [address] [place] [address]
--- OUTSIDE RECORDS SUMMARY | 2024-02-01 10:47 | External Medical Summary | Summary of Care ---
Author Name Unknown Organization [facility] Address [address] [place] [address] Phone [phone] Care Team Providers Care Contact And Service Clerks Supervisor Name Role Phone Ewa Mohan DO Primary Care Provider [phone] Reason for Visit * Reason Onset Date Comments Appointment 01/21/2024 colon Encounter Details Date Type Department Care Team (Late st Contact Info) Description 01/21/[address] [facility] [address] [place] [address] Ewa Mohan DO [address] [facility] [place] [address] Appointment (colon) Allergies Active Allergy Reactions Criticality [...] Tablet (Januvia)Indicatio ns:Diabetes mellitus with peripheral angiopathy ([facility]) Take 1 Tablet by mouth in the morning. 90 Tablet 3 06/17/2023 Active Empagliflozin 10 MG Oral Tablet (Jardiance)Indicat ions:Type 2 diabetes mellitus with hemoglobin A1c goal of less than 7.0% ([facility]) Take 1 Tablet by mouth in the morning. 90 Tablet 3 07/17/2023 Active metFORMIN HCl ER 500 MG Oral Tablet Extended Release 24 Hour (Glucophage XR)Indications:Typ e 2 diabetes mellitus with hemoglobin A1c goal of less than 7.0% ([facility]) Take 2 Tablets by mouth in the morning. 180 Tablet 3 07/17/2023 Active Atorvastatin Calcium 80 MG Oral Tablet (Lipitor)Indicatio ns:Coronary artery disease involving [place] coronary artery of [place] heart with angina pectoris (HCC) Take 1 Tablet by mouth in the morning. 90 Tablet 3 08/09/2023 Active Rivaroxaban 2.5 MG Oral Tablet (Xarelto)Indicatio ns:PVD (peripheral vascular disease) ([facility]) Take 1 Tablet by mouth [...] Sublingual Tablet SublingualIndicati ons:Coronary artery disease involving [place] coronary artery of [place] heart with angina pectoris (HCC) (1) TAB DISSOLVED UNDER TONGUE NEEDED FOR CHEST PAIN, MAY REPEAT EVERY 5 MIN'S X 3 DOSES 25 Tablet 1 12/09/2023 Active Vitamin D3 1.25 MG (01172 UT) Oral CapsuleIndications :Vitamin D deficiency Take [...] 7 days. 14 Tablet 01/21/2024 01/28/2024 Active documented as of this encounter (statuses as of 01/21/2024) Active Problems Problem Noted Date Diagnosed Date Atherosclerosis of [place] ar teries of extremities with rest pain, [...] (NSTEMI) 08/14/2019 Coronary artery disease invo lving [place] coronary artery of [place] heart with angina pectoris 08/14/2019 Type 2 [...] Date Diagnosed Date Resolved Date Atherosclerosis of [place] artery of extremity 09/22/19 21 04/19/2022 Kidney [...] yrs 10/23/2019,04/21/2019,02/27 Pneumococcal Conjugate Vacci ne, 20-valent ([id number]) 05/30/2022 Pneumococcal Polysaccharide PPV23 (Pneumovax) 02/27/2019 Seasonal [...] encounter Miscellaneous Notes * Telephone Encounter - Geovanna Sarah OSA - 01/21/2024 9:11 AM EDT Screening colonoscopy documented in this encounter Plan of Treatment Upcoming Encounters Date Type Department Care Team (Late st Contact Info) Description 01/21/2024 10:00 AM EDT Imaging Radiology [facility] [address] [place] [address] Arrived 01/24/2024 12:00 PM EDT Telemedicine Endocrinology, [place] [address] [place] [address] Cyrus Landry CRNP [address] [place] [address] 03/03/2024 9:00 AM EDT Office Visit Otolaryngology, Sami Jaramillo [address] [place] [address] Bonilla Estes PA-C [address] [place] [address] 03/06/2024 4:00 PM EDT Office Visit Nephrology, [facility] [address] [facility], [place] [address] Deonna Pugh MD 400 [facility] [place] [address] 03/12/2024 9:40 AM EDT Office Visit Dermatology, [place] Sami Sharif [address] [place] [address] [place] [address] Sanjana Knott PA-C [address] [place] [address] [place] [address] 03/25/2024 8:45 AM EDT Office Visit Orthopaedics [facility] [address] [place] [address] Juan Pablo Walter, [address] [place] [address] 07/07/2024 8:40 AM EST Office Visit Family Practice [facility] [address] [place] [address] Ewa Mohan, DO [address] [place] [address] Scheduled Procedures Name Priority Associated Diagnoses Date/Ti [...] Additional history exists CKD PHOS USE SMARTSET 44547 06/11/202405/20, 06/13/2022, 05/30/2022 Diabetic Eye Exam 06/11/2024 06/11/2023, , 10/25/2020 Diabetic Foot Exam 06/11/2024 06/11/2023, 1 , 06/07/2021, Additional history exists HbA1c 06/17/2024 12/17/2023, 05/20, 12/04/2022, Additional history exists Albumin/Creatinine Ratio 09/05/2024 024, 12/04/2022, 12/06/2021, Additional history exists CKD HGB USE SMARTSET 99025 09/05/202409/05, 06/11/2023, 06/11/2023, Additional history exists DTaP,Tdap,and [...] this encounter Medical Devices Implanted Type Area Tire Maintenance Technician Device Identifier Shelf Expiration Date Model / Serial / Lot Stent Innova [id number] - [id number] Implanted:Qty: 1 on 10/18/2020 by Jayce Larson MD [place] [facility] [place] [facility] [employer] : INTRV CARD [id number] 07/18/2025 [id number] / / [id number] Stent Innova [id number] - [id number] Implanted:Qty: 1 on 10/18/2020 by Jayce Larson MD [place] [facility] [place] [facility] [employer] [id number] 05/24/2025 [id number] / / [id number] documented as of this encounter Advance Directives [...] and were consensually agreed upon. Care Teams Contact And Service Clerks Supervisor Relationship Specialty Start Date End Date Ewa Mohan DO [address] [place] [address] PCP - General Family Medicine 12/26/18 documented as of this encounter
--- OUTSIDE RECORDS SUMMARY | 2024-02-01 10:48 | External Medical Summary | Summary of Care ---
Author Name Unknown Organization [facility] Address [address] [place] [address] Phone [phone] Care Team Providers Care Network Contractor Name Role Phone Kimberlee Ewa Hoskins Primary Care Provider [phone] Reason for Visit * Reason Comments Knee Pain Right Encounter Details Date Type Department Care Team (Latest Contact Info) Description 12/11/2023 9:45 AM EDT Office Visit Orthopaedics [facility] [address] [place] [address] Juan Pablo Walter DO [address] [place] [address] Primary osteoarthritis of right knee* Allergies Active Allergy Reactions Criticality Noted Date Comments Nsaids 12/04/2022 Risk of GI bleed documented as of this encounter (statuses as of 12/11/2023) Medications Medication Sig Dispensed Refills Start Date End Date Status Aspirin 81 MG TabletIndications: Coronary artery disease involving [place] coronary artery of [place] heart with angina pectoris (HCC) 1 Tablet. 0 08/11/2019 Active Acetaminophen 325 MG Oral Tablet (Tylenol) Take [...] the day. 90 Capsule 3 05/09/2023 Active Additional Information Patient not taking.Informant: Patient, Reported on 2023 SITagliptin Phosphate 50 MG Oral Tablet (Januvia)Indicatio [...] hemoglobin A1c goal of less than 7.0% ([facility]) Take 2 Tablets by mouth in the morning. 180 Tablet 3 07/17/2023 Active Atorvastatin Calcium 80 MG Oral Tablet (Lipitor)Indicatio ns:Coronary artery disease involving [place] coronary artery of [place] heart with angina pectoris (HCC) Take 1 Tablet by mouth in the morning. 90 Tablet 3 08/09/2023 Active Cyclobenzaprine HCl 5 MG Oral Tablet (Flexeril)Indicati ons:TMJ (temporomandibular joint syndrome) Take 1 Tablet by mouth 3 times a day as needed for Muscle spasms. 30 Tablet 0 09/18/2023 Active Gabapentin 300 MG Oral Capsule (Neurontin) Take 1 Capsule by mouth in the morning and 1 Capsule at noon and 1 Capsule before bedtime. 90 Capsule 6 09/26/2023 Active Ondansetron HCl 4 MG Oral Tablet Take 1 Tablet by mouth every 6 hours as needed for Nausea. 30 Tablet 1 10/23/2023 Active Rivaroxaban 2.5 MG Oral Tablet (Xarelto)Indicatio [...] the morning. 90 Tablet 3 11/06/2023 Active LORazepam 0.5 MG Oral Tablet (Ativan)Indication s:KURT (generalized anxiety disorder) Take 1 Tablet by mouth daily as needed for Anxiety. 30 Tablet 0 11/14/2023 Active Lisinopril 10 MG Oral Tablet (Prinivil)Indicati ons:Hypertension goal BP (blood pressure) < 130/80 TAKE 1 TABLET BY MOUTH EVERY MORNING 90 Tablet 1 12/09/2023 Active Nitroglycerin 0.4 MG Sublingual Tablet SublingualIndicati ons:Coronary artery disease involving [place] coronary artery of [place] heart with angina pectoris (HCC) (1) TAB DISSOLVED UNDER TONGUE NEEDED FOR CHEST PAIN, MAY REPEAT EVERY 5 MIN'S X 3 DOSES 25 Tablet 1 12/09/2023 Active Hospital, Clinic, or Other Facility Administered Medication Ordered Dose Route Frequency Start Date End Date Status lidocaine 1% 1 mL - triamcinolone acetonide 40 mg/mL 1 mL inj 2 mLIndications:Primary osteoarthritis of right knee 2 mL IJ ONCE 12/11/2023 12/11/2023 Ended documented as of this encounter (statuses as of 12/11/2023) Active Problems Problem Noted Date Diagnosed Date [...] (NSTEMI) 08/14/2019 Coronary artery disease invo lving [place] coronary artery of [place] heart with angina pectoris 08/14/2019 Type 2 [...] as of this encounter (statuses as of 12/11/2023) Resolved Problems Problem Noted Date Diagnosed Date Resolved Date Atherosclerosis of [place] artery of extremity 09/22/19 21 04/19/2022 Kidney [...] as of this encounter (statuses as of 12/11/2023) Immunizations Name Administration Dates Next Due Hepatitis B, 20+ yrs 10/23/2019,04/21/2019,02/27 Pneumococcal Conjugate Vacci ne, 20-valent ([id number]) 05/30/2022 Pneumococcal Polysaccharide PPV23 (Pneumovax) 02/27/2019 Seasonal [...] 1:02 PM EST Sexual Orientation Straight 10/23/2019 1 :02 PM EST Job Start Date Occupation Industry [...] as of this encounter Progress Notes * Juan Pablo Walter, - 12/11/2023 9:45 AM EDT Aure Stallworth [id number] Aure Stallworth is a 58 year old female who presents for f/u to [facility] for right knee injury/pain. 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 Hydronephrosis N13.30 Solitary kidney, acquired Z90.5 HTN, goal to be determined I10 Anxiety state F41.1 Hyperthyroidism E05.90 Type 2 diabetes mellitus with hemoglobin A1c goal of less than 7.0% ([facility]) E11.9 History of non-ST elevation myocardial infarction (NSTEMI) I25.2 Coronary artery disease involving [place] coronary artery of [place] heart with angina pectoris ([facility])I25.119 Claudication in peripheral vascular disease ([facility]) I73.9 Diabetes mellitus with peripheral angiopathy ([facility]) E11.51 Stage 3a chronic kidney disease N18.31 PAD (peripheral artery disease) ([facility]) I73.9 Moderate episode of recurrent major depressive disorder ([facility]) F33.1 Other iron deficiency anemias D50.8 Acute pain of right knee M25.561 Current Outpatient Medications Medication Sig Dispense Refill Aspirin 81 MG Tablet 1 Tablet. Acetaminophen 325 MG Oral Tablet (Tylenol) Take [...] before the first meal of the day. (Patient not taking: Reported on 2023) 90 Capsule 3 SITagliptin Phosphate 50 MG [...] needed for Muscle spasms. 30 Tablet 0 Gabapentin 300 MG Oral Capsule (Neurontin) Take 1 Capsule by mouth in the morning and 1 Capsule at noon and 1 Capsule before bedtime. 90 Capsule 6 Ondansetron HCl 4 MG Oral Tablet Take [...] mouth in the morning. 90 Tablet 3 LORazepam 0.5 MG Oral Tablet (Ativan) Take 1 Tablet by mouth daily as needed for Anxiety. 30 Tablet0 Lisinopril 10 MG Oral Tablet (Prinivil) TAKE 1 TABLET BY MOUTH EVERY MORNING 90 Tablet 1 Nitroglycerin 0.4 MG Sublingual Tablet Sublingual (1) TAB DISSOLVED UNDER TONGUE NEEDED FOR CHEST PAIN, MAY REPEAT EVERY 5 MIN'S X 3 DOSES 25 Tablet 1 No current facility-administered medications for this visit. Physical Exam General: in no acute distress Mood and Affect: normal Gait and Station: mildly antalgic Knee Exam, bilateral Effusion: negative right Palpation: tenderness to palpation at medial joint line on the right Assessment and Plan: f/u as needed please see procedure note Primary osteoarthritis of right knee (Primary) - lidocaine 1% 1 mL - triamcinolone acetonide 40 mg/mL 1 mL inj 2 mL - INJECT MAJOR JX/BURSA W/O US GUIDE Juan Pablo Walter, DO Primary Care Sports Medicine Orthopaedics [facility] [address] [facility] [address] Procedure note (knee injection), right : Time out: Prior to injection, a time out was called to confirm the administration of appropriate medicine, patient name, procedure and confirm to the best of our ability and knowledge the presence of any necessary risks and benefits. Patient verbalizes understanding. proper approach defined Sterile techinique applied. Skin sterilized with alcohol swab. Knee injected using 1.5 inch, 22 gauge needle. Injected with lidocaine 1% 1 mL - triamcinolone acetonide 40 mg/mL 1 mL inj 2 mL Patienttolerated procedure with no significant bleeding or adverse reaction. Patient instructed to call or return to clinic for fever or warmth and redness at injection site for potential infection. Patient also advised as to potential for steroid flare reaction including increased pain and redness at injection site which should be treated with ice and resolve within 24 hours. Juan Pablo Walter DO documented in this encounter Nursing Notes * Dory Hopkins MED ASSIST - 12/11/2023 9:34 AM EDT Follow up Patient Follow up: Knee Side: Right Date of last visit: Improvement since last office visit: 0 percent. Prior Treatment: Injection Here for Test Results: No Goals for this appointment: inj documented in this encounter Plan of Treatment Upcoming Encounters Date Type Department Care Team (Late st Contact Info) Description 12/17/2023 9:00 AM EDT Office Visit Family Practice [facility] [address] [facility] [place] [address] Ewa Mohan DO [address] [facility] [place] [address] 01/24/2024 12:00 PM EDT Telemedicine Endocrinology, [place] [address] [place] [address] Cyrus Landry CRNP [address] [place] [address] 03/06/2024 4:00 PM EDT Office Visit Nephrology, [facility] [address] [facility] [place] [address] Deonna Pugh MD [address] [facility] [place] [address] 03/25/2024 8:45 AM EDT Office Visit Orthopaedics [facility] [address] [place] [address] Juan Pablo Walter, [address] [place] [address] Scheduled Orders Name Type Priority Associated Diagnoses Orde r Schedule INJECT MAJOR JX/BURSA W/O US GUIDE Procedures Routine Primary osteoarthritis of right knee Ordered: 12/11/2023 Scheduled Procedures Name Priority Associated Diagnoses Date/Ti me COLONOSCOPY FLEXIBLE PROXIMA L DIAGNOSTIC Recall Screening for colon cancer Health Maintenance Due Date Last Done Comments COVID-19 Vaccine ( season) 2023 COLONOSCOPY-ANNUAL AGES 18-100 11/16/2023 11/15/2022, 11/15/2022, 05/11/2015, Additional history exists HbA1c 12/11/2023 06/11/2023, 11/17, 05/30/2022, Additional history exists GFR 04/06/2024 10/07/2023, 08/19, 12/18/2022, Additional history exists Mammogram 04/18/2024 04/18/2023, 02/16, 03/03/2021, Additional history exists PAP SMEAR-EVERY 5 YRS,AGES 21-100 05/05/2024 05/05/2019, 05/05/2019, 10/02/2011, Additional history exists CKD PHOS USE SMARTSET 59434 06/11/202405/20, 06/13/2022, 05/30/2022 Diabetic Eye Exam 06/11/2024 06/11/2023, , 10/25/2020 Diabetic Foot Exam 06/11/2024 06/11/2023, 1 , 06/07/2021, Additional history exists Albumin/Creatinine Ratio 09/05/2024 024, 12/04/2022, 12/06/2021, Additional history exists CKD HGB USE SMARTSET 09737 09/05/202409/05, 06/11/2023, 06/11/2023, Additional history exists DTaP,Tdap,and Td Vaccines (2 - Td or Tdap) 01/01/2029 01/01/2019 Cervical Cancer Screening Discontinued Pap Smear Discontinued 05/05/2019, 04/19, 10/02/2011, Additional history exists Hepatitis B Completed 10/23/2019, 10/2018, 02/27/2019 Pneumococcal Vaccine: Pediatrics (0 to 5 Years) and At-Risk Patients (6 to 64 Years) Completed 05/30/2022, 02/27/2019 COLONOSCOPY-EVERY 5 YRS AGES 18-100 Discontinued 11/15/2022, 11/15/2022, 05/11/2015, Additional history exists Colonoscopy Discontinued 11/15/2022, 10/19, 05/11/2015, Additional history exists Colorectal Cancer Screening Discontinued Influenza Vaccine (FLU shot) Completed 06/11/2023, 05/30/2022, 06/07/2021, Additional history exists Cologuard Discontinued Fecal Occult Blood Test Discontinued GARDASIL-HPV IMMUNIZATION SERIES Aged Out No longer eligible based on patient's age to complete this topic HPV/Co-Test Discontinued MENINGOCOCCAL (MENACTRA/MENVEO) Aged Out No longer eligible based on patient's age to complete this topic Sigmoidoscopy Discontinued documented as of this encounter Medical Devices Implanted Type Area Cushion Builder Device Identifier Shelf Expiration Date Model / Serial / Lot Stent Innova [id number] - [id number] Implanted:Qty: 1 on 10/18/2020 by Jayce Larson MD at [facility] [place] Right: [facility] [employer] : INTRV CARD [id number] 07/18/2025 [id number] / / [id number] Stent Innova [id number] - [id number] Implanted:Qty: 1 on 10/18/2020 by Jayce Larson MD at OR [facility] [place] Right: [facility] [employer] [id number] 05/24/2025 [id number] / / [id number] documented as of this encounter Visit Diagnoses Diagnosis Primary osteoarthritis of right knee- Primary Primary localized osteoarthrosis, lower leg documented in this encounter Administered Medications Inactive Administered Medications - up to 3 most recent administrations Medication Order MAR Action Action Date Dose Rate Site lidocaine 1% 1 mL - triamcinolone acetonide 40 mg/mL 1 mL inj 2 mL 2 mL, Injection, ONCE, On Sat12/11/23 at 1015, For 1 dose, Lidocaine 1% 1mL Triamcinolone Acetonide 40 mg/mL 1 mL (Final concentration = 20 mg/mL) REFRIGERATE and SHAKE WELL Given 12/11/2023 9:41 AM EDT 2 mL Knee Right documented in this encounter Advance Directives Latest [...] and were consensually agreed upon. Care Teams Network Contractor Relationship Specialty Start Date End Date Ewa Mohan DO [address] [place] [address] PCP - General Family Medicine 12/26/18 documented as of this encounter
--- OUTSIDE RECORDS SUMMARY | 2024-02-01 10:48 | External Medical Summary ---
Author Name Unknown Address Unknown Organization [id number]:[facility] [place] - [address] [place] [address] Laboratory Report Ordering Provider Test Date Status SHOAIB DONALDSON 12/17/2023 09:49:05 Final Deficient: <20 ng/mL
Ins ufficient: 20-29 ng/mL
Recommended/Optimum:30-50 ng/mL

Vitamin D intoxication is rare. If suspicious of Vitamin D toxicity, evaluation of serum Calcium and PTH is recommended. Observation Date Value Abnormality Reference (Units ) Status 25-OH Vitamin D total 12/17/2023 09:49:05 18 Below low normal >19 (ng/mL) Final Performing Location [facility] [place] - [address] [place] [address]
--- OUTSIDE RECORDS SUMMARY | 2024-02-01 10:48 | External Medical Summary | Summary of Care ---
Author Name Unknown Organization [facility] Address [address] [place] [address] Phone [phone] Care Team Providers Care Tungsten Refiner Name Role Phone Kimberlee Ewa Gato HATFIELD Primary Care Provider [phone] Encounter Details Date Type Department Care Team (Late st Contact Info) Description 09/17/2023 4:00 PM [facility] [address] [place] [address] Jarrett Shaikh CRNP [address] [place] [address] PAD (peripheral artery disease) ([facility])* Allergies Active Allergy Reactions Criticality Noted Date Comments Nsaids 12/04/2022 Risk of GI bleed documented as of this encounter (statuses as of 10/25/2023) Medications Medication Sig Dispensed Refills Start Date End Date Status Aspirin 81 MG TabletIndication s: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 [...] OralBID (.AM/PM), Informant: Patient, Reported on 2023 buPROPion HCl ER (XL) 300 MG Oral Tablet Extended Release 24 Hour (Wellbutrin XL)Indications:M oderate episode of recurrent major depressive disorder ([facility]) Take 1 Tablet by mouth in the morning. 90 Tablet 3 10/18/2022 Active Sertraline HCl 100 MG Oral Tablet (Zoloft) Take 2 Tablets by mouth in the morning. 180 Tablet 3 02/22/2023 Active Rivaroxaban 2.5 MG Oral Tablet (Xarelto)Indicat ions:PVD (peripheral vascular disease) ([facility]) Take 1 Tablet by mouth in the morning and 1 Tablet before bedtime. 180 Tablet 5 02/28/2023 Active Nitrostat 0.4 MG Sublingual Tablet SublingualIndica tions:Coronary artery disease involving [place] coronary artery of [place] heart with angina pectoris ([facility]) Place 1 Tablet under the tongue every 5 minutes as needed for Pain, Chest. 25 Tablet 1 03/11/2023 Active Additional Information Patient not taking.Informant: Patient, Reported on 2023 methIMAzole 10 MG Oral Tablet (Tapazole) Take 1 Tablet by mouth in the morning. 90 Tablet 3 05/07/2023 Active Gabapentin 300 MG Oral Capsule (Neurontin)Indic ations:Claudicat ion in peripheral vascular disease ([facility]) Take 1 Capsule by mouth at bedtime. 90 Capsule 1 05/10/2023 Active Omeprazole 20 MG Oral Capsule Delayed Release (PriLOSEC)Indica tions:Globus sensation Take 1 Capsule by mouth in the morning. 1 hour before the first meal of the day. 90 Capsule 3 05/09/2023 Active Additional Information Patient not taking.Informant: Patient, Reported on 2023 SITagliptin Phosphate 50 MG Oral Tablet (Januvia)Indicat ions:Diabetes mellitus with peripheral angiopathy (HCC) Take 1 Tablet by mouth in the morning. 90 Tablet 3 06/17/2023 Active Lisinopril 10 MG Oral Tablet (Prinivil)Indica tions:Hypertensi on goal BP (blood pressure) < 130/80 Take 1 Tablet by mouth in the morning. 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 90 Tablet 3 08/09/2023 Active Cyclobenzaprine HCl 5 MG Oral Tablet (Flexeril)Indica tions:TMJ (temporomandibul ar joint syndrome) Take 1 Tablet by mouth 3 times a day as needed for Muscle spasms. 30 Tablet 0 05/24/2023 4 Discontinue d(Refill) Ondansetron HCl 4 MG Oral Tablet Take 1 Tablet by mouth every 6 hours as needed for Nausea. 30 Tablet 1 07/17/2023 4 Discontinue d(Refill) LORazepam 0.5 MG Oral Tablet (Ativan)Indicati ons:KURT (generalized anxiety disorder) Take 1 Tablet by mouth daily as needed for Anxiety. 30 Tablet 0 09/09/2023 4 Discontinue d(Refill) documented as of this encounter (statuses as of 10/25/2023) Active Problems Problem Noted Date Diagnosed Date [...] (NSTEMI) 08/14/2019 Coronary artery disease invo lving kivalina coronary artery of k[place]ina heart with angina pectoris 08/14/2019 Type 2 [...] as of this encounter (statuses as of 10/25/2023) Resolved Problems Problem Noted Date Diagnosed Date Resolved Date Atherosclerosis of k[place]ina artery of extremity 09/22/19 21 04/19/2022 Kidney [...] as of this encounter (statuses as of 10/25/2023) Immunizations Name Administration Dates Next Due Hepatitis B, 20+ yrs 10/23/2019,04/21/2019,02/27 Pneumococcal Conjugate Vacci ne, 20-valent ([id number]) 05/30/2022 Pneumococcal Polysaccharide PPV23 (Pneumovax) 02/27/2019 Seasonal [...] as of this encounter Progress Notes * Jarrett Shaikh CRNP - 09/17/2023 4:00 PM EST Images from the original note were not included. Patient location: HOME. I was in a hospital or clinic location. After connecting through phone, patient was verified with two unique identifiers. Patient (or authorized legal community representative) was theninformed that this was a Telemedicine visit and being conducted confidentially over secure lines. Methods to assure confidentiality were taken. Patient acknowledged consent and understanding of privacy and security of the Telemedicine visit. The patient agreed to participate. After connecting to the patient via telephone, the patient was identified by name and date of . Patient was then informed that this was a telephone call only visit. The patient agreed to participate. Visit Disposition: Routine follow-up Total call duration was 19 minutes. Phone visit included Aure and her , Heriberto. Phone visit was completed to expedite review of testing and development of a plan. ADDENDUM: [facility]. Surgery/Procedure Date: 10/16/2023 Incision/Procedure Start Time: 8:28 AM Incision Close/Procedure End Time: 10:34 AM Surgeon(s)/Proceduralist(s) and Calcine Furnace Tender(s): Surgeon(s) and Role: * Mia Bar MD - Primary * John Johnson MD - Fellow No Additional Staff Procedure(s): Ultrasound guided left common femoral access, aortogram, right lower extremity angiogram, balloon angioplasty of occluded right SFA stents and proximal SFA (6x200, 6x250 DCB, 6x40 DCB), right popliteal stent angioplasty (Zilver 6x60) ADRIANNA Angio: Access: Left common femoral Closure: Mynx Contrast: 80cc Fluorotime: 31.7 min, 240 mGy Anesthesia: Procedural Sedation ASA Class: ASA Class:: II Findings: Occluded right SFA stents with disease in the P1 and P2 segment as well as proximal SFA at the take off of the profunda. Aure Stallworth is a 58 year old female. PCP: wEa Mohan DO Chief Complaint: Here for f/u regarding her PAD with repeated revascularization for limb salvage. HPI: Patient is a diabetic female former smoker with CAD, HTN, CKD, and dyslipidemia. Established with Vascular surgery in 09/2019 with RLE claudication. Developed right foot rest pain/ulceration in early 08/2020. S/P recanalization/stenting of chronically occluded R SFA and AK-popliteal artery 10/18/[address] Larson for limb-salvage with resolution of rest pain and ulceration. At our routine f/u visit on 02/16/2021 our studies suggested recurrent R leg disease and on questioning she reported recurrent R calf claudication symptoms. Underwent R leg angio noting occluded distalR SFA and AK-pop stents on 02/22/2021, Dr. Larson was able to recanalize these and performed DCBA. Surveillance imaging 08/21/23 suggested re-stenosis of stented R SFA, and elective re-intevention wasplanned. Contacted me 09/05/2023 with what sounds like a RLE rest pain equivalent (numbness). S/P R SFA and above knee popliteal artery angioplasty using drug coated balloons 2023 for occluded stents. Post-op duplex 09/12/23 suggested re-occlusion of stented R SFA. Reports ongoing ischemic rest pain. Denies tissue loss. Vein mapping 08/2023 suggested very poor UE or LE vein for conduit (could maybe splice some L thigh GSV and R arm basilic vein). Current Outpatient Medications Medication Sig Dispense Refill [...] 1 Tablet before bedtime.) 90 Tab 1 buPROPion HCl ER (XL) 300 MG Oral Tablet Extended Release 24 Hour (Wellbutrin XL) Take 1 Tablet by mouth in the morning. 90 Tablet 3 Sertraline HCl 100 MG Oral Tablet (Zoloft) Take 2 Tablets by mouth in the morning. 180 Tablet 3 Rivaroxaban 2.5 MG Oral Tablet (Xarelto) Take 1 Tablet by mouth in the morning and 1 Tablet before bedtime. 180 Tablet 5 Nitrostat 0.4 MG Sublingual Tablet Sublingual Place 1 Tablet under the tongue every 5 minutes as needed for Pain, Chest. (Patient not taking: Reported on 2023) 25 Tablet 1 methIMAzole 10 MG Oral Tablet (Tapazole) [...] taking: Reported on 2023) 90 Capsule 3 Cyclobenzaprine HCl 5 MG Oral Tablet (Flexeril) Take 1 Tablet by mouth 3 times a day as needed for Muscle spasms. (Patient not taking: Reported on 2023) 30 Tablet 0 SITagliptin Phosphate 50 MG Oral Tablet (Januvia) Take 1 Tablet by mouth in the morning. 90 Tablet 3 Lisinopril 10 MG Oral Tablet (Prinivil) Take 1 Tablet by mouth in the morning. 30 Tablet 5 Ondansetron HCl 4 MG Oral Tablet Take 1 Tablet by mouth every 6 hours as needed for Nausea. 30 Tablet 1 Empagliflozin 10 MG Oral Tablet (Jardiance) Take [...] daily as needed for Anxiety. 30 Tablet0 No current facility-administered medications for this visit. REVIEW OF SYSTEMS: CONSTITUTIONAL: Denies weight loss, Denies fever, Denies shaking chills. EYES: Denies amaurosis fugax. CARDIOVASCULAR: denies chest pains. RESPIRATORY: denies shortness of breath. GASTROINTESTINAL: denies melena, denies bright red blood per rectum. GENITOURINARY: denies hematuria. SKIN: denies rash, denies ulcers. NEUROLOGICAL: denies TIA, denies CVA, denies amaurosis fugax. PHYSICAL EXAM: GENERAL: no acute distress. RESPIRATORY: respiratory effort normal. PSYCHIATRIC: orientation to time, place and person normal and recent and remote memory normal. DIAGNOSTIC STUDIES: 09/16/23: UE Vein Mapping: The right cephalic vein is patent and measures: Proximal upper arm 1.4 mm Mid-upper arm 0.90 mm Antecubital fossa 0.60 mm Mid-forearm 1.5 mm Wrist : not identified The right basilic vein is patent and measures: Proximal upper arm 2.6 mm Mid-upper arm 2.4 mm Antecubital fossa 2.2 mm The left cephalic vein is patent and measures: Proximal upper arm 1.2 mm Mid-upper arm 0.80 mm Antecubital fossa 0.80 mm Mid-forearm 1.0 mm Wrist 0.90 mm The left basilic vein is patent and measures: Proximal upper arm 2.5 mm Mid-upper arm: not identified Antecubital fossa: not identified 09/12/23: JIMENA: 09/12/23: LE Vein Mapping: Right great saphenous vein is patent with normal venous flow with the following size measurements: Proximal thigh 2.5 mm Mid-thigh 1.6 mm Distal thigh 1.2 mm Right knee 0.8 mm Left great saphenous vein is patent with normal venous flow with the following size measurements: Proximal thigh 3.7 mm Mid-thigh 2.0 mm Distal thigh 1.4 mm Left knee 1.5 mm Proximal calf 1.5 mm 09/12/23: RLE Art Duplex: Occluded R SFA stent, though brisk upstroke in R popliteal artery 08/21/23: JIMENA: 08/21/23: RLE Art: RCIA 72, REIA 113, RCFA 109, RDFA 120, RSFA 95, R-pop 46 05/06/23: JIMENA: 05/06/23: JIMENA: 0.9/0.79 05/06/23: RLE Art: REIA 87, RCFA 90, RDFA 67, RSFA 92, R-pop 57 01/03/2023 JIMENA 1.0/.89. 01/03/2023 RLE Art Duplex: R EIA 88, R INTERIM CONTROLLER 103, R DFA 101, R SFA 75-116, R Pop 84, R TPT 60. IMPRESSIONS: Occluded R SFA stent. S/P R SFA and above knee popliteal artery angioplasty using drug coated balloons 2023 for occluded stents. S/P R SFA and above knee popliteal artery angioplasty using drug coated balloons 02/22/2021 for occluded stents. S/P recanalization/stenting of chronically occluded R SFA and AK-popliteal artery 10/18/[address] Larson for limb-salvage. No AAA, per [address] CT. Reformed smoker. CAD. S/P PTCI, followed by Dr. Alex Johnson at [facility] HTN. Dyslipidemia. 80 mg Lipitor. DM. CKD. Atrophic L kidney. PLAN: Underwent recanalization of occluded R SFA stent 09/06/23. Duplex 09/12/23 suggests re-occlusion (though brisk upstroke in R popliteal artery). JIMENA the same as prior to the 09/06/23 intervention. She reports ischemic rest pain. Denies any tissue loss. I discussed re-establishing her on DAPT (currently on 81 mg aspirin and 2.5 mg Xarelto) and repeating endo-revascularization attempt. Suggest this given she has poor autogenous options for BPG conduit (could maybe splice segments of L thigh GSV and R arm basilic vein) and would either require spliced autogenous vein versus PTFE. For now, she is electing to seek a 2nd opinion, likely at [facility]. Continue 81 mg Aspirin for LE and coronary stents Continue BID 2.5 mg Xarelto for arterial patency. (COMPASS trial). Of note, she was on 90 mg BID Brillinta in the past for her coronary intervention; however, this was stopped by cardiology in 2022. Continue 80 mg Lipitor for dyslipidemia and pleiotropic effects She is going to reach out to [facility], to get a 2nd opinion. The visit was completed by phone, by Dr. Larson and myself. AYDIN Luciano [facility] and Endovascular [facility] documented in this encounter Plan of Treatment Upcoming Encounters Date Type Department Care Team (Late st Contact Info) Description 11/06/2023 9:00 AM EDT Telemedicine Endocrinology, [place] [address] [place] [address] Cyrus Landry CRNP [address] [place] [address] 11/19/2023 9:30 AM EDT [facility] [address] [place] [address] Juan Pablo Walter DO [address] [place] [address] 12/17/2023 9:00 AM EDT Office Visit Family Practice [facility] [address] [place] [address] Ewa Mohan, DO [address] [place] [address] 03/06/2024 4:00 PM EDT Office Visit Nephrology, [facility] [address] [facility] [place] [address] Deonna Pugh MD [address] [facility] [place] [address] Scheduled Procedures Name Priority Associated Diagnoses Date/Ti me COLONOSCOPY FLEXIBLE PROXIMA L DIAGNOSTIC Recall Screening for colon cancer Health Maintenance Due Date Last Done Comments COVID-19 Vaccine ( season) 2023 COLONOSCOPY-ANNUAL AGES 18-100 11/16/2023 11/15/2022, 11/15/2022, 05/11/2015, Additional history exists Depression Screening 12/05/2023 12/04/2022 HbA1c 12/11/2023 06/11/2023, 11/17, 05/30/2022, Additional history exists GFR 04/06/2024 10/07/2023, 08/19, 12/18/2022, Additional history exists Mammogram 04/18/2024 04/18/2023, 02/16, 03/03/2021, Additional history exists PAP SMEAR-EVERY 5 YRS,AGES 21-100 05/05/2024 05/05/2019, 05/05/2019, 10/02/2011, Additional history exists CKD PHOS USE SMARTSET 49861 06/11/2024 102 11/2022, 06/13/2022, 05/30/2022 Diabetic Eye Exam 06/11/2024 06/11/2023, , 10/25/2020 Diabetic Foot Exam 06/11/2024 06/11/2023, 1 , 06/07/2021, Additional history exists Albumin/Creatinine Ratio 09/05/2024 024, 12/04/2022, 12/06/2021, Additional history exists CKD HGB USE SMARTSET 02783 09/05/202409/05, 06/11/2023, 06/11/2023, Additional history exists DTaP,Tdap,and [...] this encounter Medical Devices Implanted Type Area Bryologist Device Identifier Shelf Expiration Date Model / Serial / Lot Stent Innova [id number] - [id number] Implanted:Qty: 1 on 10/18/2020 by [place] [facility] [place] [facility] [employer] : INTRV CARD [id number] 07/18/2025 [id number] / / [id number] Stent Innova [id number] - [id number] Implanted:Qty: 1 on 10/18/2020 by Jayce Larson MD [place] [facility] [place] [employer] [id number] 05/24/2025 [id number] / / [id number] documented as of this encounter Visit Diagnoses Diagnosis PAD (peripheral artery disease) (HCC)- Primary Peripheral vascular disease, unspecified documented in this encounter Advance Directives Latest [...] and were consensually agreed upon. Care Teams Tungsten Refiner Relationship Specialty Start Date End Date Ewa Mohan DO [address] [place] [address] PCP - General Family Medicine 12/26/18 documented as of this encounter
--- OUTSIDE RECORDS SUMMARY | 2024-02-01 10:48 | External Medical Summary | Summary of Care ---
Author Name Unknown Organization [facility] Address [address] [place] [address] Phone [phone] Care Team Providers Care Administrative Office Clerk Name Role Phone Ewa Mohan DO Primary Care Provider [phone] Reason for Visit * Reason Onset Date Comments Appointment 12/17/2023 colon Encounter Details Date Type Department Care Team (Late st Contact Info) Description 12/17/2023 Telephone Family Practice [facility] [address] [place] [address] Ewa Mohan DO [address] [facility] [place] [address] Appointment (colon) Allergies Active Allergy Reactions Criticality [...] Tablet (Januvia)Indicatio ns:Diabetes mellitus with peripheral angiopathy ([facility]) Take 1 Tablet by mouth in the morning. 90 Tablet 3 06/17/2023 Active Empagliflozin 10 MG Oral Tablet (Jardiance)Indicat ions:Type 2 diabetes mellitus with hemoglobin A1c goal of less than 7.0% ([facility]) Take 1 Tablet by mouth in the morning. 90 Tablet 3 07/17/2023 Active metFORMIN HCl ER 500 MG Oral Tablet Extended Release 24 Hour (Glucophage XR)Indications:Typ e 2 diabetes mellitus with hemoglobin A1c goal of less than 7.0% ([facility]) Take 2 Tablets by mouth in the morning. 180 Tablet 3 07/17/2023 Active Atorvastatin Calcium 80 MG Oral Tablet (Lipitor)Indicatio ns:Coronary artery disease involving [place] coronary artery of [place] heart with angina pectoris ([facility]) Take 1 Tablet by mouth [...] Oral Tablet (Xarelto)Indicatio ns:PVD (peripheral vascular disease) ([facility]) Take 1 Tablet by mouth in the morning and 1 Tablet before bedtime. 180 Tablet 5 10/29/2023 Active buPROPion HCl ER (XL) 300 MG Oral Tablet Extended Release 24 Hour (Wellbutrin XL)Indications:Mod erate episode of recurrent major depressive disorder (HCC) Take 1 Tablet by mouth in the morning. 90 Tablet 3 11/06/2023 Active Lisinopril 10 MG Oral Tablet (Prinivil)Indicati ons:Hypertension goal BP (blood pressure) < 130/80 TAKE 1 TABLET BY MOUTH EVERY MORNING 90 Tablet 1 12/09/2023 Active Nitroglycerin 0.4 MG Sublingual Tablet SublingualIndicati ons:Coronary artery disease involving y[place] coronary artery of yurok heart with angina pectoris (HCC) (1) TAB DISSOLVED UNDER TONGUE NEEDED FOR CHEST PAIN, MAY REPEAT EVERY 5 MIN'S X 3 DOSES 25 Tablet 1 12/09/2023 Active LORazepam 0.5 MG Oral Tablet (Ativan)Indication s:KURT (generalized anxiety disorder) Take 1 Tablet by mouth daily as needed for Anxiety. 30 Tablet 0 12/13/2023 Active documented as of this encounter (statuses [...] (NSTEMI) 08/14/2019 Coronary artery disease invo lving [place] coronary artery of yuro[place] heart with angina pectoris 08/14/2019 Type 2 [...] Date Diagnosed Date Resolved Date Atherosclerosis of y[place] artery of extremity 09/22/19 21 04/19/2022 Kidney [...] yrs 10/23/2019,04/21/2019,02/27 Pneumococcal Conjugate Vacci ne, 20-valent (Lspezzq14) 05/30/2022 Pneumococcal Polysaccharide PPV23 (Pneumovax) 02/27/2019 Seasonal [...] Description 01/24/2024 12:00 PM EDT Telemedicine Endocrinology, [place] [address] [place] [facility] [place] [address] Cyrus Landry CRNP [address] [place] [facility] [place] [address] 03/06/2024 4:00 PM EDT Office Visit Nephrology, [facility] [address] [place] [address] Deonna Pugh MD [address] [place] [address] 03/25/2024 8:45 AM EDT Office Visit Orthopaedics [facility] [address] [place] [address] Juan Pablo Walter, DO [address] [place] [address] 07/07/2024 8:40 AM EST Office Visit Family Practice [facility] [address] [place] [address] Ewa Mohan, DO [address] [place] [address] Scheduled Procedures Name Priority Associated Diagnoses Date/Ti me COLONOSCOPY FLEXIBLE PROXIMA L DIAGNOSTIC Recall Screening for colon cancer Health Maintenance Due Date Last Done Comments Cologuard 2011 Fecal Occult Blood Test 2011 Sigmoidoscopy 2011 COVID-19 Vaccine ( season) 2023 Colonoscopy 11/16/2023 11/15/2022, 10/19, 05/11/2015, Additional history exists Colorectal Cancer Screening 11/16/2023 HbA1c 12/11/2023 06/11/2023, 11/17, 05/30/2022, Additional history exists GFR 04/06/2024 10/07/2023, 08/19, 12/18/2022, Additional history exists Mammogram 04/18/2024 04/18/2023, 02/16, 03/03/2021, Additional history exists PAP SMEAR-EVERY 5 YRS,AGES 21-100 05/05/2024 05/05/2019, 05/05/2019, 10/02/2011, Additional history exists CKD PHOS USE SMARTSET 83420 06/11/202405/20, 06/13/2022, 05/30/2022 Diabetic Eye Exam 06/11/2024 06/11/2023, , 10/25/2020 Diabetic Foot Exam 06/11/2024 06/11/2023, 1 , 06/07/2021, Additional history exists Albumin/Creatinine Ratio 09/05/2024 024, 12/04/2022, 12/06/2021, Additional history exists CKD HGB USE SMARTSET 63540 09/05/202409/05, 06/11/2023, 06/11/2023, Additional history exists DTaP,Tdap,and [...] this encounter Medical Devices Implanted Type Area Corrections Caseworker Device Identifier Shelf Expiration Date Model / Serial / Lot Stent Innova [id number] - [id number] Implanted:Qty: 1 on 10/18/2020 by Jayce Larson [place] [facility] [place] [facility] [employer] : INTRV CARD [id number] 07/18/2025 [id number] / / [id number] Stent Innova [id number] - [id number] Implanted:Qty: 1 on 10/18/2020 by Jayce Larson MD [place] [facility] [place]: [facility] Bike HUD [id number] 05/24/2025 [id number] / / [id number] documented as of this encounter Advance Directives [...] and were consensually agreed upon. Care Teams Administrative Office Clerk Relationship Specialty Start Date End Date Ewa Mohan DO [address] [place] [address] PCP - General Family Medicine 12/26/18 documented as of this encounter
--- OUTSIDE RECORDS SUMMARY | 2024-02-01 10:48 | External Medical Summary ---
Author Name Unknown Address Unknown Organization K01:LABORATORY [facility] - [address] [place] [address] Laboratory Report Ordering Provider Test Date Status SHOAIB DONALDSON 12/17/2023 09:49:05 Final Observation Date Value Abnormality Reference (Units ) Status Vitamin B12 12/17/2023 09:49:05 [phone] (pg/mL) Final Performing Location LABORATORY [facility] - [address] [place] [address]
--- OUTSIDE RECORDS SUMMARY | 2024-02-01 10:48 | External Medical Summary | Summary of Care ---
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 [...] ions:Diabetes mellitus with peripheral angiopathy ([facility]) Take 1 Tablet by mouth in the morning. 90 Tablet 3 06/17/2023 Active Empagliflozin 10 MG Oral Tablet (Jardiance)Indic ations:Type 2 diabetes mellitus with hemoglobin A1c goal of less than 7.0% ([facility]) Take 1 Tablet by mouth in the morning. 90 Tablet 3 07/17/2023 Active metFORMIN HCl ER 500 MG Oral Tablet Extended Release 24 Hour (Glucophage XR)Indications:T ype 2 diabetes mellitus with hemoglobin A1c goal of less than 7.0% ([facility]) Take 2 Tablets by mouth in the morning. 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 180 Tablet 5 10/29/2023 Active buPROPion HCl ER (XL) 300 MG Oral Tablet Extended Release 24 Hour (Wellbutrin XL)Indications:M oderate episode of recurrent major depressive disorder (HCC) Take 1 Tablet by mouth in the morning. 90 Tablet 3 11/06/2023 Active LORazepam 0.5 MG Oral Tablet (Ativan)Indicati ons:KURT (generalized anxiety disorder) Take 1 Tablet by mouth daily as needed for Anxiety. 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 25 Tablet 1 03/11/2023 4 Discontinued Lisinopril 10 MG Oral Tablet (Prinivil)Indica tions:Hypertensi on goal BP (blood pressure) < 130/80 Take 1 Tablet by mouth in the morning. 30 Tablet 5 07/16/2023 4 Discontinued documented as of this encounter (statuses as of 12/09/2023) Active Problems Problem Noted Date Diagnosed Date [...] (NSTEMI) 08/14/2019 Coronary artery disease invo lving quinault coronary artery of quinault heart with angina pectoris 08/14/2019 Type 2 [...] as of this encounter (statuses as of 12/09/2023) Resolved Problems Problem Noted Date Diagnosed Date Resolved Date Atherosclerosis of quinault artery of extremity 09/22/19 21 04/19/2022 Kidney [...] as of this encounter (statuses as of 12/09/2023) Immunizations Name Administration Dates Next Due Hepatitis B, 20+ yrs 10/23/2019,04/21/2019,02/27 Pneumococcal Conjugate Vacci ne, 20-valent ([id number]) 05/30/2022 Pneumococcal Polysaccharide PPV23 (Pneumovax) 02/27/2019 Seasonal [...] encounter Miscellaneous Notes * Telephone Encounter - Bakari Crow, [facility] - 12/09/2023 8:11 AM EDTSigned Prescriptions: Disp Refills Lisinopril 10 MG Oral Tablet (Prinivil) 90 Tab*1 Sig: TAKE 1 TABLET BY MOUTH EVERY MORNINGAuthorizing Provider: MENDOZA CRAMER User: BAKARI VIDALES Nitroglycerin 0.4 MG Sublingual Tablet Sub*25 Tab*1 Sig: (1) TAB DISSOLVED UNDER TONGUE NEEDED FORCHEST PAIN, MAY REPEAT EVERY 5 MIN'S X 3 DOSESAuthorizing Provider: MENDOZA CRAMER User: BAKARI VIDALES documented in this encounter Plan of Treatment Upcoming Encounters Date Type Department Care Team (Late st Contact Info) Description 12/11/2023 9:45 AM EDT Office Visit Orthopaedics [facility] [address] [place] [address] Juan Pablo Walter, DO [address] [place] [address] 12/17/2023 9:00 AM EDT Office Visit Family Practice [facility] [address] [place] [address] Mendoza Cramer, DO [address] [place] [address] 01/24/2024 12:00 PM EDT Telemedicine Endocrinology, [place] [address] [place] [address] Cyrus Landry CRNP [address] [place] [address] 03/06/2024 4:00 PM EDT Office Visit Nephrology, [facility] [address] [place] [address] Deonna Pugh MD [address] [place] [address] Scheduled Procedures Name Priority Associated Diagnoses Date/Ti me COLONOSCOPY FLEXIBLE PROXIMA L DIAGNOSTIC Recall Screening for colon cancer Health Maintenance Due Date Last Done Comments COVID-19 Vaccine (2022- season) 2023 COLONOSCOPY-ANNUAL AGES 18-100 11/16/2023 11/15/2022, 11/15/2022, 05/11/2015, Additional history exists HbA1c 12/11/2023 06/11/2023, 11/17, 05/30/2022, Additional history exists GFR 04/06/2024 10/07/2023, 08/19, 12/18/2022, Additional history exists Mammogram 04/18/2024 04/18/2023, 02/16, 03/03/2021, Additional history exists PAP SMEAR-EVERY 5 YRS,AGES 21-100 05/05/2024 05/05/2019, 05/05/2019, 10/02/2011, Additional history exists CKD PHOS USE SMARTSET 72666 06/11/202405/20, 06/13/2022, 05/30/2022 Diabetic Eye Exam 06/11/2024 06/11/2023, , 10/25/2020 Diabetic Foot Exam 06/11/2024 06/11/2023, 1 , 06/07/2021, Additional history exists Albumin/Creatinine Ratio 09/05/2024 024, 12/04/2022, 12/06/2021, Additional history exists CKD HGB USE SMARTSET 94205 09/05/202409/05, 06/11/2023, 06/11/2023, Additional history exists DTaP,Tdap,and [...] this encounter Medical Devices Implanted Type Area Editor At Large Device Identifier Shelf Expiration Date Model / Serial / Lot Stent Innova [id number] - [id number] Implanted:Qty: 1 on 10/18/2020 by Jayce Larson MD [place] [facility] [place]: [employer] : INTRV CARD [id number] 07/18/2025 [id number] / / [id number] Stent Innova [id number] - [id number] Implanted:Qty: 1 on 10/18/2020 by Jayce Larson MD [place] [facility] [place] Right: [employer] [id number] 05/24/2025 [id number] / / [id number] documented as of this encounter Visit Diagnoses Diagnosis Hypertension goal BP (blood pressure) < 130/80 Unspecified essential hypertension 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 Care Teams Respite Worker Relationship Specialty Start Date End Date Mendoza Cramer DO [address] [place] [address] PCP - General Family Medicine 12/26/18 documented as of this encounter
--- OUTSIDE RECORDS SUMMARY | 2024-02-01 10:48 | External Medical Summary ---
Author Name Unknown Address Unknown Organization K01:[facility] [place] [address] [facility] [address] Laboratory Report Ordering Provider Test Date Status SHOAIB DONALDSON 12/17/2023 09:49:05 Final Observation Date Value Abnormality Reference (Units ) Status HbA1C 12/17/2023 09:49:05 6.4 Above high normal 4. 0-5.6 (%) Final The use of HbA1c to monitor glycemic status is based on normal hemoglobin and HbA composition. This test should not be used in patients with abnormal hemoglobin that affects the half life of the red blood cell or the in vivo glycation rates. Glucose, estimated average 12/17/2023 09:49:05 137 Above high normal <126 (mg/dL) Bogdan velasquez Performing Location [facility] [place] [address] [facility] [address]
--- OUTSIDE RECORDS SUMMARY | 2024-02-01 10:48 | External Medical Summary | Summary of Care ---
Author Name Unknown Organization [facility] Address [address] [place] [address] Phone [phone] Care Team Providers Care Warp Yarn Sorter Name Role Phone Mendoza Cramer DO Primary Care Provider [phone] Reason for Visit * Reason Onset Date Comments Medication Refill 11/08/2023 Encounter Details Date Type Department Care Team (Late st Contact Info) Description 11/08/2023 Refill Family Practice [facility] [address] [place] [address] Mendoza Cramer DO [address] [place] [address] KURT (generalized anxiety disorder) Allergies Active Allergy Reactions Criticality Noted Date Comments Nsaids 12/04/2022 Risk of GI bleed documented as of this encounter (statuses as of 11/08/2023) Medications Medication Sig Dispensed Refills Start Date End Date Status Aspirin 81 MG TabletIndication s:Coronary artery disease involving cherokee coronary artery of cherokee heart with angina pectoris (HCC) 1 Tablet. [...] the morning. 180 Tablet 3 02/22/2023 Active Nitrostat 0.4 MG Sublingual Tablet SublingualIndica tions:Coronary artery disease involving cherokee coronary artery of cherokee heart with angina pectoris (HCC) Place 1 [...] A1c goal of less than 7.0% ([facility]) Take 1 Tablet by mouth in the morning. 90 Tablet 3 07/17/2023 Active metFORMIN HCl ER 500 MG Oral Tablet Extended Release 24 Hour (Glucophage XR)Indications:T ype 2 diabetes mellitus with hemoglobin A1c goal of less than 7.0% ([facility]) Take 2 Tablets by mouth in the morning. 180 Tablet 3 07/17/2023 Active Atorvastatin Calcium 80 MG Oral Tablet (Lipitor)Indicat ions:Coronary artery disease involving cherokee coronary artery of cherokee heart with angina pectoris (HCC) Take 1 [...] as needed for Anxiety. 30 Tablet 0 11/08/2023 Active LORazepam 0.5 MG Oral Tablet (Ativan)Indicati ons:KURT (generalized anxiety disorder) Take 1 Tablet by mouth daily as needed for Anxiety. 30 Tablet 0 10/03/2023 Discontinue d(Refill) documented as of this encounter (statuses as of 11/08/2023) Active Problems Problem Noted Date Diagnosed Date [...] (NSTEMI) 08/14/2019 Coronary artery disease invo lving cherokee coronary artery of cherokee heart with angina pectoris 08/14/2019 Type 2 [...] as of this encounter (statuses as of 11/08/2023) Resolved Problems Problem Noted Date Diagnosed Date Resolved Date Atherosclerosis of cherokee artery of extremity 09/22/19 21 04/19/2022 Kidney [...] as of this encounter (statuses as of 11/08/2023) Immunizations Name Administration Dates Next Due Hepatitis B, 20+ yrs 10/23/2019,04/21/2019,02/27 Pneumococcal Conjugate Vacci ne, 20-valent ([id number]) 05/30/2022 Pneumococcal Polysaccharide PPV23 (Pneumovax) 02/27/2019 Seasonal [...] Telephone Encounter - Mendoza Cramer DO - 11/08/2023 4:55 PM EDTSigned Prescriptions: Disp Refills LORazepam 0.5 MG Oral Tablet (Ativan) 30 Tab*0 Sig: Take 1 Tablet by mouth daily as needed for Anxiety. Authorizing Provider: MENDOZA CRAMER * Telephone Encounter - Willow Morley [facility] - 11/08/2023 4:07 PM EDTPending Prescriptions: Disp Refills LORazepam 0.5 MG Oral Tablet (Ativan) 30 Tab*0 Sig: Take 1 Tablet by mouth daily as needed for Anxiety. * Telephone Encounter - Willow Morley [facility] - 11/08/2023 4:07 PM EDT I have reviewed the patients controlled substance dispensing history in the Prescription Drug Monitoring Program in compliance with the [facility] regulations before prescribing a controlled substance. PDMP checked on 11/08/2023. Pending Prescriptions: Disp Refills LORazepam 0.5 MG Oral Tablet (Ativan) 30 Tab*0 Sig: Take 1 Tablet by mouth daily as needed for Anxiety. Last Visit: 06/11/2023 (in office), 10/03/2022 (telemedicine) Next Visit: 12/17/2023 Date medication was last filled: 10/08/23 Date medication is due for refill: 11/06/23 Pharmacy: [facility] [place] Is this request for a controlled substance? Yes and Urine Drug Screen Not completed Toxicology results: No results found for this or any previous visit. Please approve if appropriate. Thank You, Willow Morley [facility] Clinical Pharmacist [facility] ([facility]) (formerly Telepharmacy) [phone] 11/08/2023, 4:07 PM documented in this encounter Plan of Treatment Upcoming Encounters Date Type Department Care Team (Late st Contact Info) Description 11/19/2023 9:30 AM EDT Office Visit Orthopaedics [facility] [address] [place] [address] Juan Pablo Walter, DO [address] [place] [address] 12/17/2023 9:00 AM EDT Office Visit Family Practice [facility] [address] [place] [address] Mendoza Cramer, DO [address] [place] [address] 01/24/2024 12:00 PM EDT Telemedicine Endocrinology, [place] [address] [place], [place] [id number] Cyrus Landry CRNP [address] [place], [place] [id number] 03/06/2024 4:00 PM EDT Office Visit Nephrology, [facility] [address] [place] [place] [address] Deonna Pugh MD [address] [place] [address] Scheduled Procedures Name Priority Associated Diagnoses [...] Additional history exists CKD PHOS USE SMARTSET 14559 06/11/202405/20, 06/13/2022, 05/30/2022 Diabetic Eye Exam 06/11/2024 06/11/2023, , 10/25/2020 Diabetic Foot Exam 06/11/2024 06/11/2023, 1 , 06/07/2021, Additional history exists Albumin/Creatinine Ratio 09/05/2024 024, 12/04/2022, 12/06/2021, Additional history exists CKD HGB USE SMARTSET 52492 09/05/202409/05, 06/11/2023, 06/11/2023, Additional history exists DTaP,Tdap,and [...] this encounter Medical Devices Implanted Type Area Certified Public Accountant Device Identifier Shelf Expiration Date Model / Serial / Lot Stent Innova [id number] - [id number] Implanted:Qty: 1 on 10/18/2020 by Jayce Larson MD [place] [facility] [place]: [facility] [employer] : INTRV CARD [id number] 07/18/2025 [id number] / / [id number] Stent Innova [id number] - [id number] Implanted:Qty: 1 on 10/18/2020 by Jayce Larson MD at [place] [facility] [place] Right: [facility] xTV [id number] 05/24/2025 [id number] / / [id number] documented as of this encounter Visit Diagnoses Diagnosis KURT (generalized anxiety disorder) Generalized anxiety disorder documented in this encounter Advance Directives Latest [...] and were consensually agreed upon. Care Teams Warp Yarn Sorter Relationship Specialty Start Date End Date Mendoza Cramer DO [address] [place] [address] PCP - General Family Medicine 12/26/18 documented as of this encounter
--- OUTSIDE RECORDS SUMMARY | 2024-02-01 10:48 | External Medical Summary | Summary of Care ---
Author Name Unknown Organization [facility] Address [address] [place] [address] Phone [phone] Care Team Providers Care Pastor Name Role Phone Kimberlee Ewa Hoskins Primary Care Provider [phone] Reason for Visit * Reason Comments Knee Pain Right Encounter Details Date Type Department Care Team (Latest Contact Info) Description 12/11/2023 9:45 AM EDT Office Visit Orthopaedics [facility] [address] [place] [address] Juan Pablo Walter DO [address] [place] [address] Primary osteoarthritis of right knee* Allergies Active Allergy Reactions Criticality Noted Date Comments Nsaids 12/04/2022 Risk of GI bleed documented as of this encounter (statuses as of 12/11/2023) Medications Medication Sig Dispensed Refills Start Date End Date Status Aspirin 81 MG TabletIndications: Coronary artery disease involving [place] coronary artery of [place] heart with angina pectoris (HCC) 1 Tablet. [...] hemoglobin A1c goal of less than 7.0% ([facility]) Take 2 Tablets by mouth in the morning. 180 Tablet 3 07/17/2023 Active Atorvastatin Calcium 80 MG Oral Tablet (Lipitor)Indicatio ns:Coronary artery disease involving [place] coronary artery of [place] heart with angina pectoris (HCC) Take 1 [...] Sublingual Tablet SublingualIndicati ons:Coronary artery disease involving [place] coronary artery of [place] heart with angina pectoris (HCC) (1) TAB [...] (NSTEMI) 08/14/2019 Coronary artery disease invo lving [place] coronary artery of [place] heart with angina pectoris 08/14/2019 Type 2 [...] Date Diagnosed Date Resolved Date Atherosclerosis of [place] artery of extremity 09/22/19 21 04/19/2022 Kidney [...] yrs 10/23/2019,04/21/2019,02/27 Pneumococcal Conjugate Vacci ne, 20-valent ([id number]) 05/30/2022 Pneumococcal Polysaccharide PPV23 (Pneumovax) 02/27/2019 Seasonal [...] - 12/11/2023 9:45 AM EDT Aure Stallworth [id number] Aure Stallworth is a 58 year old female who presents for f/u to [facility] for right knee injury/pain. 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 Hydronephrosis N13.30 Solitary kidney, acquired Z90.5 HTN, goal to be determined I10 Anxiety state F41.1 Hyperthyroidism E05.90 Type 2 diabetes mellitus with hemoglobin A1c goal of less than 7.0% ([facility]) E11.9 History of non-ST elevation myocardial infarction (NSTEMI) I25.2 Coronary artery disease involving [place] coronary artery of [place] heart with angina pectoris ([facility])I25.119 Claudication in peripheral vascular disease ([facility]) I73.9 Diabetes mellitus with peripheral angiopathy ([facility]) E11.51 Stage 3a chronic kidney disease N18.31 PAD (peripheral artery disease) ([facility]) I73.9 Moderate episode of recurrent major depressive disorder ([facility]) F33.1 Other iron deficiency anemias D50.8 Acute [...] Walter, DO Primary Care Sports Medicine Orthopaedics [facility] [address] [address] Procedure note (knee injection), right : Time [...] 40 mg/mL 1 mL inj 2 mL Patient tolerated procedure with no significant bleeding or adverse [...] 9:00 AM EDT Office Visit Family Practice [facility] [address] [place] [address] Ewa Mohan DO [address] [facility] [place] [address] 01/24/2024 12:00 PM EDT Telemedicine Endocrinology, [place] [address] [place] [address] Cyrus Landry CRNP [address] [place] [address] 03/06/2024 4:00 PM EDT [facility] [address] [facility] [place] [address] [facility]onna Pugh [facility] [address] [facility] [place] [address] 03/25/2024 8:45 AM EDT Office Visit Orthopaedics [facility] [address] [place] [address] Juan Pablo Walter, DO [address] [place] [address] Scheduled Orders Name Type Priority Associated Diagnoses [...] Additional history exists CKD PHOS USE SMARTSET 90732 06/11/202405/20, 06/13/2022, 05/30/2022 Diabetic Eye Exam 06/11/2024 06/11/2023, , 10/25/2020 Diabetic Foot Exam 06/11/2024 06/11/2023, 1 , 06/07/2021, Additional history exists Albumin/Creatinine Ratio 09/05/2024 024, 12/04/2022, 12/06/2021, Additional history exists CKD HGB USE SMARTSET 39665 09/05/202409/05, 06/11/2023, 06/11/2023, Additional history exists DTaP,Tdap,and [...] this encounter Medical Devices Implanted Type Area Overhead Worker Device Identifier Shelf Expiration Date Model / Serial / Lot Stent Innova [id number] - [id number] Implanted:Qty: 1 on 10/18/2020 by Jayce Larson MD at [place] [facility] [place] Right: [employer] : INTRV CARD [id number] 07/18/2025 [id number] / / [id number] Stent Innova [id number] - [id number] Implanted:Qty: 1 on 10/18/2020 by Jayce Larson MD at [place] [facility] [place] Right: [employer] [id number] 05/24/2025 [id number] / / [id number] documented as of this encounter Visit Diagnoses [...] and were consensually agreed upon. Care Teams Pastor Relationship Specialty Start Date End Date Ewa Mohan DO [address] [place] [address] PCP - General Family Medicine 12/26/18 documented as of this encounter
--- OUTSIDE RECORDS SUMMARY | 2024-02-01 10:48 | External Medical Summary | Summary of Care ---
Author Name Unknown Organization [facility] Address [address] [place] [address] Phone [phone] Care Team Providers Care Correspondent Name Role Phone Ewa Mohan DO Primary Care Provider [phone] [phone] Reason for Visit * Reason Comments Outpatient Testing Encounter Details Date Type Department Care Team (Late st Contact Info) Description 12/17/2023 9:50 AM EDT Laboratory Laboratory, [facility] [address] [place] [address] [facility] [address] [place] [address] Diabetes mellitus with peripheral angiopathy (HCC); Fatigue, unspecified type Allergies Active Allergy Reactions Criticality Noted Date [...] Tablet (Januvia)Indicatio ns:Diabetes mellitus with peripheral angiopathy ([facility]) Take 1 Tablet by mouth in the morning. 90 Tablet 3 06/17/2023 Active Empagliflozin 10 MG Oral Tablet (Jardiance)Indicat ions:Type 2 diabetes mellitus with hemoglobin A1c goal of less than 7.0% ([facility]) Take 1 Tablet by mouth in the morning. 90 Tablet 3 07/17/2023 Active metFORMIN HCl ER 500 MG Oral Tablet Extended Release 24 Hour (Glucophage XR)Indications:Typ e 2 diabetes mellitus with hemoglobin A1c goal of less than 7.0% ([facility]) Take 2 Tablets by mouth in the morning. 180 Tablet 3 07/17/2023 Active Atorvastatin Calcium 80 MG Oral Tablet (Lipitor)Indicatio ns:Coronary artery disease involving [place] coronary artery of [place] heart with angina pectoris ([facility]) Take 1 Tablet by mouth [...] Oral Tablet (Xarelto)Indicatio ns:PVD (peripheral vascular disease) ([facility]) Take 1 Tablet by mouth [...] Sublingual Tablet SublingualIndicati ons:Coronary artery disease involving [place] coronary artery of [place] heart with angina pectoris (HCC) (1) TAB [...] (NSTEMI) 08/14/2019 Coronary artery disease invo lving [place] coronary artery of [place] heart with angina pectoris 08/14/2019 Type 2 [...] Date Diagnosed Date Resolved Date Atherosclerosis of [place] artery of extremity 09/22/1904/19/2022 Kidney disease, chronic, [...] yrs 10/23/2019,04/21/2019,02/27 Pneumococcal Conjugate Vacci ne, 20-valent ([id number]) 05/30/2022 Pneumococcal Polysaccharide PPV23 (Pneumovax) 02/27/2019 Seasonal [...] Description 01/24/2024 12:00 PM EDT Telemedicine Endocrinology, [place] [address] [place] [address] Cyrus Landry CRNP [address] [place] [address] 03/06/2024 4:00 PM EDT Office Visit Nephrology, [address] [place] [address] Deonna Pugh MD [address] [facility] [place], [place] [address] 03/25/2024 8:45 AM EDT Office Visit Orthopaedics [facility] [address] [place] [address] Juan Pablo Walter, [address] [place] [address] 07/07/2024 8:40 AM EST Office Visit Family Practice [facility] [address] [place] [address] Ewa Mohan DO [address] [place] [address] Pending Results Name Type Priority Associated Diagnoses Date /Time HEMOGLOBIN A1C Lab Routine Diabetes mellitus with peripheral angiopathy (HCC) 12/17/2023 9:49 AM EDT 25-HYDROXY VITAMIN D Lab Routine Fatigue, unspecified type 12/17/2023 9:49 AM EDT VITAMIN B12 Lab Routine Diabetes mellitus with peripheral angiopathy (HCC) 12/17/2023 9:49 AM EDT Scheduled Procedures Name Priority [...] Additional history exists CKD PHOS USE SMARTSET 65969 06/11/202405/20, 06/13/2022, 05/30/2022 Diabetic Eye Exam 06/11/2024 06/11/2023, , 10/25/2020 Diabetic Foot Exam 06/11/2024 06/11/2023, 1 , 06/07/2021, Additional history exists Albumin/Creatinine Ratio 09/05/2024 024, 12/04/2022, 12/06/2021, Additional history exists CKD HGB USE SMARTSET 86946 09/05/202409/05, 06/11/2023, 06/11/2023, Additional history exists DTaP,Tdap,and [...] this encounter Medical Devices Implanted Type Area Child Advocate Device Identifier Shelf Expiration Date Model / Serial / Lot Stent Innova [id number] - [id number] Implanted:Qty: 1 on 10/18/2020 by Jayce Larson MD at [place] [facility] [place] Right: [employer] : INTRV CARD [id number] 07/18/2025 [id number] / / [id number] Stent Innova [id number] - [id number] Implanted:Qty: 1 on 10/18/2020 by Jayce Larson MD at OR [facility] Right: [facility] [employer] [id number] 05/24/2025 [id number] / / [id number] documented as of this encounter Visit Diagnoses Diagnosis Diabetes mellitus with peripheral angiopathy (HCC) Type II or unspecified type diabetes mellitus with peripheral circulatory disorders, not stated as uncontrolled Fatigue, unspecified type documented in this encounter Advance Directives Latest [...] and were consensually agreed upon. Care Teams Correspondent Relationship Specialty Start Date End Date Ewa Mohan DO [address] [facility] [place] [address] PCP - General Family Medicine 12/26/18 documented as of this encounter
--- OUTSIDE RECORDS SUMMARY | 2024-02-01 10:48 | External Medical Summary | Summary of Care ---
Author Name Unknown Organization [facility] Address [address] [place] [address] Phone [phone] Care Team Providers Care Sap Fico Architect Name Role Phone Mendoza Cramer DO Primary Care Provider [phone] Reason for Visit * Reason Onset Date Comments Medication Refill 10/31/2023 Encounter Details Date Type Department Care Team (Late st Contact Info) Description 10/31/2023 Refill Family Practice [facility] [address] [place] [address] Mendoza Cramer DO [address] [place] [address] Moderate episode of recurrent major depressive disorder (HCC) Allergies Active Allergy Reactions Criticality Noted Date Comments Nsaids 12/04/2022 Risk of GI bleed documented as of this encounter (statuses as of 11/01/2023) Medications Medication Sig Dispensed Refills Start Date End Date Status Aspirin 81 MG TabletIndication s:Coronary artery disease involving [place] coronary artery of [place] heart with angina pectoris (HCC) 1 Tablet. [...] Sublingual Tablet SublingualIndica tions:Coronary artery disease involving [place] coronary artery of [place] heart with angina pectoris (HCC) Place 1 [...] A1c goal of less than 7.0% ([facility]) Take 1 Tablet by mouth in the morning. 90 Tablet 3 07/17/2023 Active metFORMIN HCl ER 500 MG Oral Tablet Extended Release 24 Hour (Glucophage XR)Indications:T ype 2 diabetes mellitus with hemoglobin A1c goal of less than 7.0% ([facility]) Take 2 Tablets by mouth in the morning. 180 Tablet 3 07/17/2023 Active Atorvastatin Calcium 80 MG Oral Tablet (Lipitor)Indicat ions:Coronary artery disease involving [place] coronary artery of [place] heart with angina pectoris (HCC) Take 1 [...] before bedtime. 90 Capsule 6 09/26/2023 Active LORazepam 0.5 MG Oral Tablet (Ativan)Indicati ons:KURT (generalized anxiety disorder) Take 1 Tablet by mouth daily as needed for Anxiety. 30 Tablet 0 10/03/2023 Active Ondansetron HCl 4 MG Oral Tablet [...] mouth in the morning. 90 Tablet 3 11/01/2023 Active buPROPion HCl ER (XL) 300 MG Oral Tablet Extended Release 24 Hour (Wellbutrin XL)Indications:M oderate episode of recurrent major depressive disorder (HCC) Take 1 Tablet by mouth in the morning. 90 Tablet 3 10/18/2022 4 Discontinue d(Refill) documented as of this encounter (statuses as of 11/01/2023) Active Problems Problem Noted Date Diagnosed Date [...] (NSTEMI) 08/14/2019 Coronary artery disease invo lving [place] coronary artery of [place] heart with angina pectoris 08/14/2019 Type 2 [...] as of this encounter (statuses as of 11/01/2023) Resolved Problems Problem Noted Date Diagnosed Date Resolved Date Atherosclerosis of [place] artery of extremity 09/22/19 21 04/19/2022 Kidney [...] as of this encounter (statuses as of 11/01/2023) Immunizations Name Administration Dates Next Due Hepatitis B, 20+ yrs 10/23/2019,04/21/2019,02/27 Pneumococcal Conjugate Vacci ne, 20-valent ([id number]) 05/30/2022 Pneumococcal Polysaccharide PPV23 (Pneumovax) 02/27/2019 Seasonal [...] encounter Miscellaneous Notes * Telephone Encounter - Man Louis [facility] - 11/01/2023 3:06 PM EDT Signed Prescriptions: Disp Refills buPROPion HCl ER (XL) 300 MG Oral Tablet E*90 Tab*3 Sig: Take 1Tablet by mouth in the morning.Authorizing Provider: MENDOZA CRAMER User: MAN LOUIS documented in this encounter Plan of Treatment Upcoming Encounters Date Type Department Care Team (Late st Contact Info) Description 11/06/2023 9:00 AM EDT Telemedicine Endocrinology, [place] [address], [place] [id number] Cyrus Landry CRNP [address] [place] [address] 11/19/2023 9:30 AM EDT Office Visit Orthopaedics [facility] [address] [facility] [address] Juan Pablo Walter, DO [address] [facility] [place] [address] 12/17/2023 9:00 AM EDT Office Visit Family Practice [facility] [address] [facility] [place] [address] Mendoza Cramer, DO [address] [facility] [place] [address] 03/06/2024 4:00 PM EDT Office Visit Nephrology, [facility] [address] [facility] [place], [place] [id number] Deonna Pugh MD [address] [facility] [place] [address] Scheduled Procedures Name Priority [...] Additional history exists CKD PHOS USE SMARTSET 98660 06/11/202405/20, 06/13/2022, 05/30/2022 Diabetic Eye Exam 06/11/2024 06/11/2023, , 10/25/2020 Diabetic Foot Exam 06/11/2024 06/11/2023, 1 , 06/07/2021, Additional history exists Albumin/Creatinine Ratio 09/05/2024 024, 12/04/2022, 12/06/2021, Additional history exists CKD HGB USE SMARTSET 64332 09/05/202409/05, 06/11/2023, 06/11/2023, Additional history exists DTaP,Tdap,and [...] this encounter Medical Devices Implanted Type Area Relations Manager Device Identifier Shelf Expiration Date Model / Serial / Lot Stent Innova [id number] - [id number] Implanted:Qty: 1 on 10/18/2020 by Jayce Larson MD at OR [facility] [place] Right: [facility] [employer] : INTRV CARD [id number] 07/18/2025 [id number] / / [id number] Stent Innova [id number] - [id number] Implanted:Qty: 1 on 10/18/2020 by Jayce Larson MD at OR [facility] [place] Right: [facility] ACTV[employer] [id number] 05/24/2025 [id number] / / [id number] documented as of this encounter Visit Diagnoses Diagnosis Moderate episode of recurrent major depressive disorder (HCC) documented in this encounter Advance Directives [...] and were consensually agreed upon. Care Teams Sap Fico Architect Relationship Specialty Start Date End Date Mendoza Cramer DO [address] [place] [address] PCP - General Family Medicine 12/26/18 documented as of this encounter
--- OUTSIDE RECORDS SUMMARY | 2024-02-01 10:48 | External Medical Summary | Summary of Care ---
Author Name Unknown Organization [facility] Address [address] [place] [address] Phone [phone] Care Team Providers Care School Transportation Supervisor Name Role Phone Ewa Mohan DO Primary Care Provider [phone] Reason for Visit * Reason Comments eRx-Medication Refill Encounter Details Date Type Department Care Team (Late st Contact Info) Description 11/06/2023 Refill Family Practice [facility] [address] [place] [address] Ewa Mohan DO [address] [place] [address] Moderate episode of recurrent major depressive disorder (HCC) Allergies Active Allergy Reactions Criticality Noted Date Comments Nsaids 12/04/2022 Risk of GI bleed documented as of this encounter (statuses as of 11/06/2023) Medications Medication Sig Dispensed Refills Start Date End Date Status Aspirin 81 MG TabletIndication s:Coronary artery disease involving [place] coronary artery of [place] heart with angina pectoris (HCC) 1 Tablet. [...] Sublingual Tablet SublingualIndica tions:Coronary artery disease involving [place] coronary artery of [place] heart with angina pectoris (HCC) Place 1 [...] A1c goal of less than 7.0% ([facility]) Take 1 Tablet by mouth in the morning. 90 Tablet 3 07/17/2023 Active metFORMIN HCl ER 500 MG Oral Tablet Extended Release 24 Hour (Glucophage XR)Indications:T ype 2 diabetes mellitus with hemoglobin A1c goal of less than 7.0% ([facility]) Take 2 Tablets by mouth in the morning. 180 Tablet 3 07/17/2023 Active Atorvastatin Calcium 80 MG Oral Tablet (Lipitor)Indicat ions:Coronary artery disease involving [place] coronary artery of [place] heart with angina pectoris (HCC) Take 1 [...] in the morning. 90 Tablet 3 11/01/2023 4 Discontinue d(Refill) documented as of this encounter (statuses as of 11/06/2023) Active Problems Problem Noted Date Diagnosed Date [...] (NSTEMI) 08/14/2019 Coronary artery disease invo lving [place] coronary artery of [place] heart with angina pectoris 08/14/2019 Type 2 [...] as of this encounter (statuses as of 11/06/2023) Resolved Problems Problem Noted Date Diagnosed Date Resolved Date Atherosclerosis of [place] artery of extremity 09/22/1904/19/2022 Kidney disease, chronic, sta ge III (GFR 30-59 ml/min) 05/30/2020 06/30/2020 Overview: Per CKD protocol Smoker 12/09/2019 06/07/2021 UPJ (ureteropelvic junction) obstruction 11/20/2011 10/15/2013 Obesity, morbid (more than 1 00 lbs over ideal weight or BMI > 40) 01/31/2010 01/01/2019 Overview: Per Obesity Protocol, #19 ICD-10 update of inactive term documented as of this encounter (statuses as of 11/06/2023) Immunizations Name Administration Dates Next Due Hepatitis B, 20+ yrs 10/23/2019,04/21/2019,02/27 Pneumococcal Conjugate Vacci ne, 20-valent ([id number]) 05/30/2022 Pneumococcal Polysaccharide PPV23 (Pneumovax) 02/27/2019 Seasonal [...] 11/19/2023 9:30 AM EDT Office Visit Orthopaedics [facility] [address] [place] [address] Juan Pablo Walter, DO [address] [place] [address] 12/17/2023 9:00 AM EDT Office Visit Family Practice [facility] [address] [place] [address] Ewa Mohan DO [address] [place] [address] 01/24/2024 12:00 PM EDT Telemedicine Endocrinology, [place] [address] [place], [place] [address] Cyrus Landry CRNP [address] [place] [address] 03/06/2024 4:00 PM EDT Office Visit Nephrology, [facility] [address] [facility], [place] [address] Deonna Pugh MD [address] [place] [address] Scheduled Procedures Name Priority Associated Diagnoses [...] Additional history exists CKD PHOS USE SMARTSET 88338 06/11/2024 1011/2022, 06/13/2022, 05/30/2022 Diabetic Eye Exam 06/11/2024 06/11/2023, , 10/25/2020 Diabetic Foot Exam 06/11/2024 06/11/2023, 1 , 06/07/2021, Additional history exists Albumin/Creatinine Ratio 09/05/20242 024, 12/04/2022, 12/06/2021, Additional history exists CKD HGB USE SMARTSET 52817 09/05/202409/05, 06/11/2023, 06/11/2023, Additional history exists DTaP,Tdap,and [...] this encounter Medical Devices Implanted Type Area Supervisor Hot Dip Plating Device Identifier Shelf Expiration Date Model / Serial / Lot Stent Innova [id number] - [id number] Implanted:Qty: 1 on 10/18/2020 by Jayce Larson MD at [place] [facility]: [facility] [employer] : INTRV CARD [id number] 07/18/2025 [id number] / / [id number] Stent Innova [id number] - [id number] Implanted:Qty: 1 on 10/18/2020 by Jayce Larson MD at [place] [facility] Right: [facility] [employer] [id number] 05/24/2025 [id number] / / [id number] documented as of this encounter Visit Diagnoses [...] and were consensually agreed upon. Care Teams School Transportation Supervisor Relationship Specialty Start Date End Date Ewa Mohan DO [address] [facility] [place] [address] PCP - General Family Medicine 12/26/18 documented as of this encounter
--- OUTSIDE RECORDS SUMMARY | 2024-02-01 10:48 | External Medical Summary | Summary of Care ---
Author Name Unknown Organization [facility] Address [address] [place] [address] Phone [phone] Care Team Providers Care Manager Marketing Sales Name Role Phone Mendoza Cramer DO Primary Care Provider [phone] Reason for Visit * Reason Onset Date Comments Medication Refill 12/12/2023 Encounter Details Date Type Department Care Team (Late st Contact Info) Description 12/12/2023 Refill Family Practice [facility] [address] [place] [address] Mendoza Cramer DO [address] [place] [address] KURT (generalized anxiety disorder) Allergies Active Allergy Reactions Criticality Noted Date Comments Nsaids 12/04/2022 Risk of GI bleed documented as of this encounter (statuses as of 12/13/2023) Medications Medication Sig Dispensed Refills Start Date End Date Status Aspirin 81 MG TabletIndication s:Coronary artery disease involving [place] coronary artery of [place] heart with angina pectoris (HCC) 1 Tablet. [...] goal of less than 7.0% ([facility]) Take 1 Tablet by mouth in the morning. 90 Tablet 3 07/17/2023 Active metFORMIN HCl ER 500 MG Oral Tablet Extended Release 24 Hour (Glucophage XR)Indications:T ype 2 diabetes mellitus with hemoglobin A1c goal of less than 7.0% ([facility]) Take 2 Tablets by mouth in the morning. 180 Tablet 3 07/17/2023 Active Atorvastatin Calcium 80 MG Oral Tablet (Lipitor)Indicat ions:Coronary artery disease involving [place] coronary artery of [place] heart with angina pectoris ([facility]) Take 1 Tablet by mouth in [...] (Xarelto)Indicat ions:PVD (peripheral vascular disease) ([facility]) Take 1 Tablet by mouth in the morning and 1 Tablet before bedtime. 180 Tablet 5 10/29/2023 Active buPROPion HCl ER (XL) 300 MG Oral Tablet Extended Release 24 Hour (Wellbutrin XL)Indications:M oderate episode of recurrent major depressive disorder ([facility]) Take 1 Tablet by mouth in the morning. 90 Tablet 3 11/06/2023 Active Lisinopril 10 MG Oral Tablet (Prinivil)Indica tions:Hypertensi on goal BP (blood pressure) < 130/80 TAKE 1 TABLET BY MOUTH EVERY MORNING 90 Tablet 1 12/09/2023 Active Nitroglycerin 0.4 MG Sublingual Tablet SublingualIndica tions:Coronary artery disease involving [place] coronary artery of [place] heart with angina pectoris ([facility]) (1) TAB DISSOLVED UNDER TONGUE NEEDED FOR CHEST PAIN, MAY REPEAT EVERY 5 MIN'S X 3 DOSES 25 Tablet 1 12/09/2023 Active LORazepam 0.5 MG Oral Tablet (Ativan)Indicati ons:KURT (generalized anxiety disorder) Take 1 Tablet by mouth daily as needed for Anxiety. 30 Tablet 0 12/13/2023 Active LORazepam 0.5 MG Oral Tablet (Ativan)Indicati ons:KURT (generalized anxiety disorder) Take 1 Tablet by mouth daily as needed for Anxiety. 30 Tablet 0 11/14/2023 4 Discontinue d(Refill) documented as of this encounter (statuses as of 12/13/2023) Active Problems Problem Noted Date Diagnosed Date [...] (NSTEMI) 08/14/2019 Coronary artery disease invo lving [place] coronary artery of [place] heart with angina pectoris 08/14/2019 Type 2 [...] as of this encounter (statuses as of 12/13/2023) Resolved Problems Problem Noted Date Diagnosed Date Resolved Date Atherosclerosis of [place] artery of extremity 09/22/19 21 04/19/2022 Kidney [...] as of this encounter (statuses as of 12/13/2023) Immunizations Name Administration Dates Next Due Hepatitis B, 20+ yrs 10/23/2019,04/21/2019,02/27 Pneumococcal Conjugate Vacci ne, 20-valent ([id number]) 05/30/2022 Pneumococcal Polysaccharide PPV23 (Pneumovax) 02/27/2019 Seasonal [...] Telephone Encounter - Mendoza Cramer DO - 12/13/2023 1:19 PM EDTSigned Prescriptions: Disp Refills LORazepam 0.5 MG Oral Tablet (Ativan) 30 Tab*0 Sig: Take 1 Tablet by mouth daily as needed for Anxiety. Authorizing Provider: MENDOZA CRAMER * Telephone Encounter - Elsie Porras [facility] - 12/13/2023 12:27 PM EDT Pending Prescriptions: Disp Refills LORazepam 0.5 MG Oral Tablet (Ativan) 30 Tab*0 Sig: Take 1 Tablet by mouth daily as needed for Anxiety. * Telephone Encounter - Elsie Porras [facility] - 12/13/2023 12:26 PM EDT I have reviewed the patients controlled substance dispensing history in the Prescription Drug Monitoring Program in compliance with the [facility] regulations before prescribing a controlled substance. PDMP checked on 12/13/2023. Pending Prescriptions: Disp Refills LORazepam 0.5 MG Oral Tablet (Ativan) 30 Tab*0 Sig: Take 1 Tablet by mouth daily as needed for Anxiety. Last Visit: 06/11/2023 (in office), 10/03/2022 (telemedicine) Next Visit: 12/17/2023 Date medication was last filled: 11/14/23 Date medication is due for refill: 12/13/23 Pharmacy: [facility] [address] Is this request for a controlled substance? Yes and Urine Drug Screen Not completed Toxicology results: No results found. However, due to the size of the patient record, not all encounters were searched.Please check Results Review for a complete set of results. Please approve if appropriate. Thank You Elsie Porras, PharmD Clinical Pharmacist [facility] ([facility]) (formerly Telepharmacy) [phone] / [phone] 12/13/2023, 12:27 PM documented in this encounter Plan of Treatment Upcoming Encounters Date Type Department Care Team (Late st Contact Info) Description 12/17/2023 9:00 AM EDT Office Visit Family Practice [facility] [address] [place] [address] Mendoza Cramer, DO [address] [facility] [place] [address] 01/24/2024 12:00 PM EDT Telemedicine Endocrinology, [place] [address], [place] [phone] Cyrus Landry CRNP [address], [place] [address] 03/06/2024 4:00 PM EDT Office Visit Nephrology, [facility] [address] [place] [address] Deonna Pugh MD [address] [place] [address] 03/25/2024 8:45 AM EDT Office Visit Orthopaedics [facility] [address] [place] [address] Juan Pablo Walter, DO [address] [place] [address] Scheduled Procedures Name Priority Associated Diagnoses Date/Ti [...] Additional history exists CKD PHOS USE SMARTSET 39229 06/11/202405/20, 06/13/2022, 05/30/2022 Diabetic Eye Exam 06/11/2024 06/11/2023, , 10/25/2020 Diabetic Foot Exam 06/11/2024 06/11/2023, 1 , 06/07/2021, Additional history exists Albumin/Creatinine Ratio 09/05/2024 024, 12/04/2022, 12/06/2021, Additional history exists CKD HGB USE SMARTSET 01367 09/05/202409/05, 06/11/2023, 06/11/2023, Additional history exists DTaP,Tdap,and [...] this encounter Medical Devices Implanted Type Area Survey Crew Chief Device Identifier Shelf Expiration Date Model / Serial / Lot Stent Innova [id number] - [id number] Implanted:Qty: 1 on 10/18/2020 by Jayce Larson MD at [place] [facility] [place] Right: [facility] [employer] : INTRV CARD [id number] 07/18/2025 [id number] / / [id number] Stent Innova [id number] - [id number] Implanted:Qty: 1 on 10/18/2020 by Jayce Larson MD at [place] [facility] [place] Right: [facility] [employer] [id number] 05/24/2025 [id number] / / [id number] documented as of this encounter Visit Diagnoses [...] and were consensually agreed upon. Care Teams Manager Marketing Sales Relationship Specialty Start Date End Date Mendoza Cramer DO [address] [place] [address] PCP - General Family Medicine 12/26/18 documented as of this encounter
--- OUTSIDE RECORDS SUMMARY | 2024-02-01 10:48 | External Medical Summary | Summary of Care ---
Author Name Unknown Organization [facility] Address [address] [place] [address] Phone [phone] Care Team Providers Care Thread Spinner Name Role Phone KimberleeEwa Gato HATFIELD Primary Care Provider [phone] Reason for Visit * Reason Onset Date Comments Medication Refill 10/28/2023 Encounter Details Date Type Department Care Team (Late st Contact Info) Description 10/28/2023 Refill Vascular Surgery, [address] [id number] Bakari Bolaños PA-C [address] [place] [address] PVD (peripheral vascular disease) ([facility]) Allergies Active Allergy Reactions Criticality Noted Date Comments Nsaids 12/04/2022 Risk of GI bleed documented as of this encounter (statuses as of 10/29/2023) Medications Medication Sig Dispensed Refills Start Date End Date Status Aspirin 81 MG TabletIndication s:Coronary artery disease involving [place] coronary artery of [place] heart with angina pectoris (HCC) 1 Tablet. [...] Sublingual Tablet SublingualIndica tions:Coronary artery disease involving [place] coronary artery of [place] heart with angina pectoris ([facility]) Place 1 Tablet under the tongue every 5 minutes as needed for Pain, Chest. 25 Tablet 1 03/11/2023 Active Additional Information Patient not taking.Informant: Patient, Reported on 2023 methIMAzole 10 MG Oral Tablet (Tapazole) Take 1 Tablet by mouth in the morning. 90 Tablet 3 05/07/2023 Active Gabapentin 300 MG Oral Capsule (Neurontin)Indic ations:Claudicat ion in peripheral vascular disease ([facility]) Take 1 Capsule by mouth at bedtime. [...] goal of less than 7.0% ([facility]) Take 1 Tablet by mouth in the morning. 90 Tablet 3 07/17/2023 Active metFORMIN HCl ER 500 MG Oral Tablet Extended Release 24 Hour (Glucophage XR)Indications:T ype 2 diabetes mellitus with hemoglobin A1c goal of less than 7.0% (HCC) Take 2 Tablets by mouth in the morning. 180 Tablet 3 07/17/2023 Active Atorvastatin Calcium 80 MG Oral Tablet (Lipitor)Indicat ions:Coronary artery disease involving [place] coronary artery of [place] heart with angina pectoris ([facility]) Take 1 Tablet by mouth in the [...] Oral Tablet (Xarelto)Indicat ions:PVD (peripheral vascular disease) ([facility]) Take 1 Tablet by mouth in the morning and 1 Tablet before bedtime. 180 Tablet 5 10/29/2023 Active Rivaroxaban 2.5 MG Oral Tablet (Xarelto)Indicat ions:PVD (peripheral vascular disease) ([facility]) Take 1 Tablet by mouth in the morning and 1 Tablet before bedtime. 180 Tablet 5 02/28/2023 4 Discontinue d(Refill) documented as of this encounter (statuses as of 10/29/2023) Active Problems Problem Noted Date Diagnosed Date Acute pain of right knee 10/03/2022 Other iron deficiency anemias 06/15/2022 Moderate episode of recurrent major depressive d isorder 12/06/2021 PAD (peripheral artery disease) 10/19/2020 Stage 3a chronic kidney disease 06/27/2020 Overview: Per CKD protocol - Per CKD protocol Diabetes mellitus with peripheral angiopathy Claudication in peripheral vascular disease 04/2 09/2019 History of non-ST elevation myocardial infarctio n (NSTEMI) 08/14/2019 Coronary artery disease invo lving [place] coronary artery of [place] heart with angina pectoris 08/14/2019 Type 2 [...] as of this encounter (statuses as of 10/29/2023) Resolved Problems Problem Noted Date Diagnosed Date Resolved Date Atherosclerosis of [place] artery of extremity 09/22/19 21 04/19/2022 Kidney [...] as of this encounter (statuses as of 10/29/2023) Immunizations Name Administration Dates Next Due Hepatitis B, 20+ yrs 10/23/2019,04/21/2019,02/27 Pneumococcal Conjugate Vacci ne, 20-valent ([id number]) 05/30/2022 Pneumococcal Polysaccharide PPV23 (Pneumovax) 02/27/2019 Seasonal [...] encounter Miscellaneous Notes * Telephone Encounter - Tyler Rosario CRNP - 10/29/2023 9:46 AM EDT Signed Prescriptions: Disp Refills Rivaroxaban 2.5 MG Oral Tablet (Xarelto) 180 Ta*5 Sig: Take 1 Tablet by mouth in the morning and 1 Tablet before bedtime. Authorizing Provider: TYLER ROSARIO * Telephone Encounter - Gabriela Henry LPN - 10/29/2023 9:41 AM EDTPending Prescriptions: Disp Refills Rivaroxaban 2.5 MG Oral Tablet (Xarelto) 180 Ta*5 Sig: Take 1 Tablet by mouth in the morning and 1 Tablet before bedtime. * Telephone Encounter - Gabriela Henry LPN - 10/29/2023 9:40 AM EDT Did you pend patient's preferred pharmacy and medication before forwarding?yes Pharmacy: [facility] Pending Prescriptions: Disp Refills Rivaroxaban 2.5 MG Oral Tablet (Xarelto) 180 Ta*5 Sig: Take 1 Tablet by mouth in the morning and 1 Tablet before bedtime. Last Visit: 01/10/2023 (in office), Visit date not found (telemedicine) Next Visit: Visit date not found cancelled appt. W/ Dr. Larson in [place] this month. If no future appointments scheduled, and last appointment is greater than a year ago, please schedule patient for a follow-up appointment Last date the medication was ordered: 02/28/23 Is this request for a controlled substance?No Urine Drug Screen:No results found for this or any previous visit. Patient Phone Numbers Labs: Lab Results Component [...] AM ALT 24 05/09/2020 10:48 AM HGBA1C 6.1 (H) 06/11/2023 11:23 AM HGBA1C 6.9 (H) 05/09/2020 10:47 AM * Telephone Encounter - Fermin Jordan OSA - 10/29/2023 8:10 AM EDT Pending Prescriptions: Disp Refills Rivaroxaban 2.5 MG Oral Tablet (Xarelto) 180 Ta*5 Sig: Take 1 Tablet by mouth in the morning and 1 Tablet before bedtime. documented in this encounter Plan of Treatment Upcoming Encounters Date Type Department Care Team (Late st Contact Info) Description 11/06/2023 9:00 AM EDT [place] [address] [place] [address] Cyrus Landry CRNP [address] [place] [address] 11/19/2023 9:30 AM EDT Office Visit Orthopaedics [facility] [address] [place] [address] Juan Pablo Walter, DO [address] [place] [address] 12/17/2023 9:00 AM EDT Office Visit Family Practice [facility] [address] [place] [address] Ewa Mohan, DO [address] [place] [address] 03/06/2024 4:00 PM EDT Office Visit Nephrology, [address] [place] [address] Deonna Pugh MD [address] [place] [address] [place], [place] [phone] Scheduled Procedures Name Priority Associated Diagnoses Date/Ti [...] Additional history exists CKD PHOS USE SMARTSET 17001 06/11/202405/20, 06/13/2022, 05/30/2022 Diabetic Eye Exam 06/11/2024 06/11/2023, , 10/25/2020 Diabetic Foot Exam 06/11/2024 06/11/2023, 1 , 06/07/2021, Additional history exists Albumin/Creatinine Ratio 09/05/2024 024, 12/04/2022, 12/06/2021, Additional history exists CKD HGB USE SMARTSET 19573 09/05/202409/05, 06/11/2023, 06/11/2023, Additional history exists DTaP,Tdap,and [...] this encounter Medical Devices Implanted Type Area Desk Pen Set Assembler Device Identifier Shelf Expiration Date Model / Serial / Lot Stent Innova [id number] - [id number] Implanted:Qty: 1 on 10/18/2020 by Jayce Larson MD [place] [facility] [place] Right: [facility] [employer] : INTRV CARD [id number] 07/18/2025 [id number] / / [id number] [facility] [id number] - [id number] Implanted:Qty: 1 on 10/18/2020 by Jayce Larson MD at [place] [facility] [place] Right: [facility] [employer] [id number] 05/24/2025 [id number] / / [id number] documented as of this encounter Visit Diagnoses Diagnosis PVD (peripheral vascular disease) (HCC) Peripheral vascular disease, unspecified documented in this [...] and were consensually agreed upon. Care Teams Thread Spinner Relationship Specialty Start Date End Date Ewa Mohan DO [address] [facility] [place] [address] PCP - General Family Medicine 12/26/18 documented as of this encounter
--- OUTSIDE RECORDS SUMMARY | 2024-02-01 10:48 | External Medical Summary | Summary of Care ---
Author Name Unknown Organization [facility] Address [address] [place] [address] Phone [phone] Care Team Providers Care Technical Professional Name Role Phone Kimberlee Ewa Hoskins Primary Care Provider [phone] Reason for Visit * Reason Comments Knee Pain Right Encounter Details Date Type Department Care Team (Latest Contact Info) Description 12/11/2023 9:45 AM EDT Office Visit Orthopaedics [facility] [address] [place] [address] Juan Pablo Walter DO [address] [place] [address] Primary osteoarthritis of right knee* Allergies Active Allergy Reactions Criticality Noted Date Comments Nsaids 12/04/2022 Risk of GI bleed documented as of this encounter (statuses as of 12/11/2023) Medications Medication Sig Dispensed Refills Start Date End Date Status Aspirin 81 MG TabletIndications: Coronary artery disease involving [place] coronary artery of [place] heart with angina pectoris (HCC) 1 Tablet. [...] hemoglobin A1c goal of less than 7.0% ([facility]) Take 2 Tablets by mouth in the morning. 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 Hydronephrosis N13.30 Solitary kidney, acquired Z90.5 HTN, goal to be determined I10 Anxiety state F41.1 Hyperthyroidism E05.90 Type 2 diabetes mellitus with hemoglobin A1c goal of less than 7.0% ([facility]) E11.9 History of non-ST elevation myocardial infarction (NSTEMI) I25.2 Coronary artery disease involving [place] coronary artery of [place] heart with angina pectoris ([facility])I25.119 Claudication in peripheral vascular disease ([facility]) I73.9 Diabetes mellitus with peripheral angiopathy ([facility]) E11.51 Stage 3a chronic kidney disease N18.31 PAD (peripheral artery disease) ([facility]) I73.9 Moderate episode of recurrent major depressive disorder ([facility]) F33.1 Other iron deficiency anemias D50.8 Acute [...] Walter, DO Primary Care Sports Medicine Orthopaedics [facility] [address] [facility] [address] Procedure note (knee injection), right : Time [...] 9:00 AM EDT Office Visit Family Practice [facility] [place] [address] Ewa Mohan DO [address] [facility] [place] [address] 01/24/2024 12:00 PM EDT Telemedicine Endocrinology, [place] [address] [place] [address] Cyrus Landry CRNP [address] [place] [address] 03/06/2024 4:00 PM EDT Office [facility] [address] [facility] [place] [address] Deonna Pugh [facility] [address] [facility] [place] [address] 03/25/2024 8:45 AM EDT Office Visit Orthopaedics [facility] [address] [place] [address] Juan Pablo Walter, DO [address] [place] [address] Scheduled Orders Name Type Priority Associated Diagnoses [...] Additional history exists CKD PHOS USE SMARTSET 37842 06/11/202405/20, 06/13/2022, 05/30/2022 Diabetic Eye Exam 06/11/2024 06/11/2023, , 10/25/2020 Diabetic Foot Exam 06/11/2024 06/11/2023, 1 , 06/07/2021, Additional history exists Albumin/Creatinine Ratio 09/05/2024 024, 12/04/2022, 12/06/2021, Additional history exists CKD HGB USE SMARTSET 82264 09/05/202409/05, 06/11/2023, 06/11/2023, Additional history exists DTaP,Tdap,and [...] this encounter Medical Devices Implanted Type Area Relocation Services Specialist Device Identifier Shelf Expiration Date Model / Serial / Lot Stent Innova [id number] - [id number] Implanted:Qty: 1 on 10/18/2020 by Jayce Larson MD at [place] [facility] [place] Right: [facility] [id number] : INTRV CARD [id number] 07/18/2025 [id number] / / [id number] Stent Innova [id number] - [id number] Implanted:Qty: 1 on 10/18/2020 by Jayce Larson MD at [place] [facility] [place] Right: [facility] [employer] [id number] 05/24/2025 [id number] / / [id number] documented as of this encounter Visit Diagnoses [...] and were consensually agreed upon. Care Teams Technical Professional Relationship Specialty Start Date End Date Ewa Mohan DO [address] [place] [address] PCP - General Family Medicine 12/26/18 documented as of this encounter
--- OUTSIDE RECORDS SUMMARY | 2024-02-01 10:49 | External Medical Summary | Summary of Care ---
Author Name Unknown Organization [facility] Address [address] [place] [address] Phone [phone] Care Team Providers Care Kitchen Worker Name Role Phone Mendoza Cramer DO Primary Care Provider [phone] Reason for Visit * Reason Onset Date Comments Medication Refill 10/22/2023 Encounter Details Date Type Department Care Team (Late st Contact Info) Description 10/22/[address] [facility] [address] [place] [address] Mendoza Cramer DO [address] [place] [address] Allergies Active Allergy Reactions Criticality Noted Date Comments Nsaids 12/04/2022 Risk of GI bleed documented as of this encounter (statuses as of 10/23/2023) Medications Medication Sig Dispensed Refills Start Date End Date Status Aspirin 81 MG TabletIndication s:Coronary artery disease involving [place] coronary artery of [place] heart with angina pectoris (HCC) 1 Tablet. [...] Oral Tablet (Xarelto)Indicat ions:PVD (peripheral vascular disease) ([facility]) Take 1 Tablet by mouth in the morning and 1 Tablet before bedtime. 180 Tablet 5 02/28/2023 Active Nitrostat 0.4 MG Sublingual Tablet SublingualIndica tions:Coronary artery disease involving [place] coronary artery of [place] heart with angina pectoris ([facility]) Place 1 Tablet under the tongue every 5 minutes as needed for Pain, Chest. 25 Tablet 1 03/11/2023 Active Additional Information Patient not taking.Informant: Patient, Reported on 2023 methIMAzole 10 MG Oral Tablet (Tapazole) Take 1 Tablet by mouth in the morning. 90 Tablet 3 05/07/2023 Active Gabapentin 300 MG Oral Capsule (Neurontin)Indic ations:Claudicat ion in peripheral vascular disease ([facility]) Take 1 Capsule by mouth at bedtime. [...] Oral Tablet (Lipitor)Indicat ions:Coronary artery disease involving [place] coronary artery of [place] heart with angina pectoris (HCC) Take 1 [...] for Nausea. 30 Tablet 1 10/23/2023 Active Ondansetron HCl 4 MG Oral Tablet Take 1 Tablet by mouth every 6 hours as needed for Nausea. 30 Tablet 1 07/17/2023 4 Discontinue d(Refill) documented as of this encounter (statuses as of 10/23/2023) Active Problems Problem Noted Date Diagnosed Date [...] (NSTEMI) 08/14/2019 Coronary artery disease invo lving [place] coronary artery of [place] heart with angina pectoris 08/14/2019 Type 2 [...] as of this encounter (statuses as of 10/23/2023) Resolved Problems Problem Noted Date Diagnosed Date Resolved Date Atherosclerosis of [place] artery of extremity 09/22/19 21 04/19/2022 Kidney [...] as of this encounter (statuses as of 10/23/2023) Immunizations Name Administration Dates Next Due Hepatitis B, 20+ yrs 10/23/2019,04/21/2019,02/27 Pneumococcal Conjugate Vacci ne, 20-valent ([id number]) 05/30/2022 Pneumococcal Polysaccharide PPV23 (Pneumovax) 02/27/2019 Seasonal [...] encounter Miscellaneous Notes * Telephone Encounter - Tavo Henson [facility] - 10/23/2023 2:09 PM ESTSigned Prescriptions: Disp Refills Ondansetron HCl 4 MG Oral Tablet 30 Tab*1 Sig: Take 1 Tablet by mouth every 6 hours as needed for Nausea.Authorizing Provider: MENDOZA CRAMER User: TAVO HENSON documented in this encounter Plan of Treatment Upcoming Encounters Date Type Department Care Team (Late st Contact Info) Description 11/06/2023 9:00 AM EDT Telemedicine Endocrinology, [place] [address] [facility] [place] [phone] Cyrus Landry CRNP [address] [place], [place] [id number] 11/19/2023 9:30 AM EDT Office Visit Orthopaedics [facility] [address] [place] [address] Juan Pablo Walter, DO [address] [facility] [place] [address] 12/17/2023 9:00 AM EDT Office Visit Family Practice [facility] [address] [facility] [place] [address] Mendoza Cramer, DO [address] [facility] [place] [address] 03/06/2024 4:00 PM EDT Office Visit Nephrology, [facility] [address] [place] [address] Deonna Pugh MD [address] [facility] [place] [address] Scheduled Procedures Name Priority Associated Diagnoses Date/Ti me COLONOSCOPY FLEXIBLE PROXIMA L DIAGNOSTIC Recall Screening for colon cancer Health Maintenance Due Date Last Done Comments COVID-19 Vaccine (2022-24 season) 2023 COLONOSCOPY-ANNUAL AGES 18-100 11/16/2023 11/15/2022, 11/15/2022, 05/11/2015, Additional history exists Depression Screening 12/05/2023 12/04/2022 HbA1c 12/11/2023 06/11/2023, 11/17, 05/30/2022, Additional history exists GFR 03/05/2024 09/05/2023, 05/0 09/2022, 12/04/2022, Additional history exists Mammogram 04/18/2024 04/18/2023, 02/16, 03/03/2021, Additional history exists PAP SMEAR-EVERY 5 YRS,AGES 21-100 05/05/2024 05/05/2019, 05/05/2019, 10/02/2011, Additional history exists CKD PHOS USE SMARTSET 40671 06/11/202405/20, 06/13/2022, 05/30/2022 Diabetic Eye Exam 06/11/2024 06/11/2023, , 10/25/2020 Diabetic Foot Exam 06/11/2024 06/11/2023, 1 , 06/07/2021, Additional history exists Albumin/Creatinine Ratio 09/05/2024 024, 12/04/2022, 12/06/2021, Additional history exists CKD HGB USE SMARTSET 63286 09/05/202409/05, 06/11/2023, 06/11/2023, Additional history exists DTaP,Tdap,and [...] this encounter Medical Devices Implanted Type Area Buffing Line Set Up Worker Device Identifier Shelf Expiration Date Model / Serial / Lot Stent Innova [id number] - [id number] Implanted:Qty: 1 on 10/18/2020 by [place]ce L[place] [facility] [place] [facility] [employer] : INTRV CARD [id number] 07/18/2025 [id number] / / [id number] Stent Innova [id number] - [id number] Implanted:Qty: 1 on 10/18/2020 by [place]ce Larson MD [place] [facility] [place] [facility] [employer] [id number] 05/24/2025 [id number] / / [id number] documented as of this encounter Advance Directives [...] and were consensually agreed upon. Care Teams Kitchen Worker Relationship Specialty Start Date End Date Mendoza Cramer DO [address] [address] PCP - General Family Medicine 12/26/18 documented as of this encounter
--- OUTSIDE RECORDS SUMMARY | 2024-02-01 10:49 | External Medical Summary | Summary of Care ---
Author Name Unknown Organization [facility] Address [address] [place] [address] Phone [phone] Care Team Providers Care Bicycle Rental Clerk Name Role Phone KimberleeEwa Gato [place] Primary Care Provider [phone] Encounter Details Date Type Department Care Team (Late st Contact Info) Description 09/26/2023 Orders Only Vascular [facility] [address], [place] [id number] Maribel Rosario CRNP [address] [place] [address] Allergies Active Allergy Reactions Criticality Noted Date Comments Nsaids 12/04/2022 Risk of GI bleed documented as of this encounter (statuses as of 09/26/2023) Medications Medication Sig Dispensed Refills Start Date End Date Status Aspirin 81 MG TabletIndications: 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 [...] 02/22/2023 Active Rivaroxaban 2.5 MG Oral Tablet (Xarelto)Indicatio ns:PVD (peripheral vascular disease) ([facility]) Take 1 Tablet by mouth in the morning and 1 Tablet before bedtime. 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 25 Tablet 1 03/11/2023 Active Additional Information Patient not taking.Informant: Patient, Reported on 2023 methIMAzole 10 MG Oral Tablet (Tapazole) Take 1 Tablet by mouth in the morning. 90 Tablet 3 05/07/2023 Active Gabapentin 300 MG Oral Capsule (Neurontin)Indicat ions:Claudication in peripheral vascular disease ([facility]) Take 1 Capsule by mouth at [...] 06/17/2023 Active Lisinopril 10 MG Oral Tablet (Prinivil)Indicati ons:Hypertension goal BP (blood pressure) < 130/80 Take 1 Tablet by mouth in the morning. 30 Tablet 5 07/16/2023 Active Ondansetron HCl 4 MG Oral Tablet Take 1 Tablet by mouth every 6 hours as needed for Nausea. 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 90 Tablet 3 08/09/2023 Active LORazepam 0.5 MG Oral Tablet (Ativan)Indication s:KURT (generalized anxiety disorder) Take 1 Tablet by mouth daily as needed for Anxiety. 30 Tablet 0 09/09/2023 Active Cyclobenzaprine HCl 5 MG Oral Tablet (Flexeril)Indicati ons:TMJ (temporomandibular joint syndrome) Take 1 Tablet by mouth 3 times a day as needed for Muscle spasms. 30 Tablet 0 09/18/2023 Active Gabapentin 300 MG Oral Capsule (Neurontin) Take 1 Capsule by mouth in the morning and 1 Capsule at noon and 1 Capsule before bedtime. 90 Capsule 6 09/26/2023 Active documented as of this encounter (statuses as of 09/26/2023) Active Problems Problem Noted Date Diagnosed Date [...] (NSTEMI) 08/14/2019 Coronary artery disease invo lving platinum coronary artery of platinum heart with angina pectoris 08/14/2019 Type 2 [...] as of this encounter (statuses as of 09/26/2023) Resolved Problems Problem Noted Date Diagnosed Date Resolved Date Atherosclerosis of platinum artery of extremity 09/22/19 21 04/19/2022 Kidney [...] as of this encounter (statuses as of 09/26/2023) Immunizations Name Administration Dates Next Due Hepatitis B, 20+ yrs 10/23/2019,04/21/2019,02/27 Pneumococcal Conjugate Vacci ne, 20-valent ([id number]) 05/30/2022 Pneumococcal Polysaccharide PPV23 (Pneumovax) 02/27/2019 Seasonal Influenza, PF, 6 M & above, IM , (FluLaval or Fluzone) 06/11/2023,05/30/2022,06/07/2021,06/08,05/21/2019 TDAP (age 10 and older)(Boostrix) 01/01/2019 Zoster Vaccine Recombinant (Shingrix) 10/23/2019 ,01/01/2019 documented as of this encounter Social History Tobacco Use Types Packs/Day Years Used Date Smoking Tobacco: Former Cigarettes 0.3 15 Q uit: 08/07/2020 Smokeless Tobacco: Never Alcohol Use Standard [...] Care Team (Late st Contact Info) Description 10/03/2023 11:50 AM EST Office Visit Vascular Surgery, [address] [address] Jayce Larson MD [address] [place] [address] 11/06/2023 9:00 AM EDT Telemedicine Endocrinology, [place] [address] [place] [address] Cyrus Landry CRNP [address] [place] [address] 11/13/2023 9:30 AM EDT Office Visit Orthopaedics [facility] [address] [place] [address] Juan Pablo Walter, DO [address] [place] [address] 12/17/2023 9:00 AM EDT Office Visit Family Practice [facility] [address] [place] [address] Ewa Mohan, DO [address] [place] [address] 03/06/2024 4:00 PM EDT Office Visit Nephrology, [facility] [address] [place] [address] Deonna Pugh MD [address] [place] [address] Scheduled Procedures Name Priority Associated Diagnoses Date/Ti me COLONOSCOPY FLEXIBLE PROXIMA L DIAGNOSTIC Recall Screening for colon cancer Health Maintenance Due Date Last Done Comments COVID-19 Vaccine (#1) 03/06/1966 COLONOSCOPY-ANNUAL AGES 18-100 11/16/2023 11/15/2022, 11/15/2022, 05/11/2015, Additional history exists Depression Screening 12/05/2023 12/04/2022 HbA1c 12/11/2023 06/11/2023, 11/17, 05/30/2022, Additional history exists GFR 03/05/2024 09/05/2023, 05/0 09/2022, 12/04/2022, Additional history exists Mammogram 04/18/2024 04/18/2023, 02/16, 03/03/2021, Additional history exists PAP SMEAR-EVERY 5 YRS,AGES 21-100 05/05/2024 05/05/2019, 05/05/2019, 10/02/2011, Additional history exists CKD PHOS USE SMARTSET 04634 06/11/202405/20, 06/13/2022, 05/30/2022 Diabetic Eye Exam 06/11/2024 06/11/2023, , 10/25/2020 Diabetic Foot Exam 06/11/2024 06/11/2023, 1 , 06/07/2021, Additional history exists Albumin/Creatinine Ratio 09/05/2024 024, 12/04/2022, 12/06/2021, Additional history exists CKD HGB USE SMARTSET 68884 09/05/202409/05, 06/11/2023, 06/11/2023, Additional history exists DTaP,Tdap,and [...] this encounter Medical Devices Implanted Type Area Wind Farm Designer Device Identifier Shelf Expiration Date Model / Serial / Lot Stent Innova [id number] - [id number] Implanted:Qty: 1 on 10/18/2020 by Jayce Larson MD at OR [facility] Right: [facility] [employer] [id number] 05/24/2025 [id number] / / [id number] documented as of this encounter Advance Directives [...] and were consensually agreed upon. Care Teams Bicycle Rental Clerk Relationship Specialty Start Date End Date Ewa Mohan DO [address] [place] [address] PCP - General Family Medicine 12/26/18 documented as of this encounter
--- NOTE | 2024-02-01 12:44 | Hospitalist Progress Note ---
Date of Service February 01, 2024 Assessment & Plan (1) Coffee ground emesis: (2) Acute blood loss anemia: Plan: per admitting service notes: Melena, acute blood loss anemia, secondary to GI bleed In the setting of Plavix and Xarelto use This is a 58yo F with a PMH of NSTEMI in 2019 (s/p PCI of LAD, OM with residual RCA disease), h/o PAD s/p repeat SFA/popliteal angioplasty last stented in Aug 2023 on Plavix and Xarelto, DM II, CKD III, HTN, mood disorder and other medical problems listed below who presents with coffee ground emesis over past few days. Initial BP 94/49, HR 110 but BP improved to 118/66 with volume resuscitation, clinically improving Hgb 5.3. Type and crossed, transfusing 1st of 2 units PRBCs Given IV PPI bolus, continue drip Discussed with Dr. 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 ST depr II, T wave changes in inferior leads - ED provider discussed with Dr. Sena, continue with blood transfusion, likely demand ischemia Secondary to demand ischemia Troponin increased to 2000s Patient without any chest pain or cardiac symptoms EKG: No acute ischemia or infarct Echocardiogram ordered Rhinovirus infection Respiratory status stable Continue supportive care (5) T2DM (type 2 diabetes mellitus): Plan: A1c 6.4 in November 2023 Hold home agents SSI while in-patient Glycemic consult placed while in ICU BSG AC HS (6) Graves disease: Plan: Continue methimazole (7) CKD (chronic kidney disease), stage III: Plan: Cr 1.18 (at baseline). Monitor with daily BMP DVT Ppx: SCDs, chemical VTE contraindicated with UGI bleed Code status: FULL PCP: Ramón Mohan Disposition: pending Admission and Anticipated Discharge Date Admission Date: January 31, 2024 Subjective Follow-up for anemia, GI bleed, etc. Seen sitting up in bed, comfortable, good spirits States she feels improved today compared to yesterday Denies dizziness, chest pain, shortness of breath No nausea or vomiting today, mild epigastric discomfort but improving No BM yet today No other new symptoms Review of Systems Review of Systems: all noted and negative except for above Physical Exam Physical Exam: General- oriented x 3, not in distress, speaks in sentences with no effort or accessory muscle use Eyes- anicteric Neck- no JVD Lungs- clear breath sounds bilaterally, no rales/wheezes Heart- normal rate, regular rhythm; no murmurs Abdomen- normal bowel sounds, nondistended, soft, nontender Extremities- no pretibial edema, no calf tenderness Neuro- alert, oriented x 3; no gross focal neurologic deficits Skin- warm & dry Results & Data Results & Data Vital Signs (Past 12 Hours) Vital Signs Temp Pulse Resp BP Pulse Ox O2 Del Method 02/01/24 11:00 93 H 23 116/70 98 Room Air 02/01/24 10:00 97 H 15 131/80 98 Room Air 02/01/24 09:00 93 H 17 116/72 99 02/01/24 08:45 102 H 13 99 02/01/24 08:45 114/73 02/01/24 08:33 97 H 20 97 Room Air 02/01/24 08:00 36.9 C 02/01/24 07:15 101 H 24 95 02/01/24 07:15 103/62 02/01/24 07:06 100 H 20 94 02/01/24 04:21 104 H 27 H 98 02/01/24 04:03 102 H 23 96 02/01/24 03:45 106 H 20 97 02/01/24 03:45 121/69 02/01/24 03:33 104 H 19 97 02/01/24 03:00 113/68 02/01/24 03:00 106 H 19 96 02/01/24 02:54 108 H 31 H 96 02/01/24 02:39 103 H 18 98 02/01/24 02:25 36.6 C 103 H 20 107/65 97 02/01/24 02:09 106 H 25 H 99 02/01/24 02:09 36.6 C 106 H 22 107/65 98 02/01/24 01:03 110 H 23 97 all noted and reviewed including below
--- NOTE | 2024-02-01 14:34 | Pharmacy Report ---
Pharmacy Glycemic Short Note 2 - Date of Service February 01, 2024 - Glycemic Short BSG Results (Last 24 hours): 01/31/24 02/01/24 02/01/24 21:54 04:51 10:10 Glucose 135 H POC Glucose 170 H 173 H OUTPATIENT ANTIDIABETIC REGIMEN: * Jardiance 10mg PO daily * metformin ER 1000mg PO QAM * Januvia 50mg QAM * HbA1c 6.2% (02/01/24) ASSESSMENT: * Aure is a 58 YOF with a history of T2DM admitted with vomitting found to have anemia and upper GI bleeding. Pharmacy has been consulted to assist with glycemic management while inpatient. * Fasting BSG this AM acceptable, received 5 units of basal insulin yesterday evening, diet advanced to clears, will allow for up to a weight based stress of 2 to be given at bedtime. * Novolog initiated at a weight based stress of 2.5, she has not received any Novolog at this time, unable to assess. PLAN FOR INPATIENT GLYCEMIC CONTROL: * Hold outpatient oral diabetes medications * Basal insulin * Lantus 0-10 units SQ HS (see eMAR for additional details) * Bolus insulin * NovoLog per scale ACHS or Q6hrs while NPO * Goal Range: Low 110 mg/dL - High 140 mg/dL * Correction Factor: 35 mg/dL/unit * Nutritional / Prandial insulin per carb ratio of 1 unit per 10 grams CHO consumed
[2024-02-01 15:19] LABS: Hematocrit (blood only) 22.9 % (37.0-47.0); Hemoglobin 7.6 g/dl (12.0-16.0)
[2024-02-01] MEDS: INSULIN ASPART PER UNIT CHARGE SC SCH ×2 (15:20)
[2024-02-01] MEDS: LORazepam 0.5 MG TAB PO PRN (16:15)
--- NOTE | 2024-02-01 17:50 | Electrocardiogram Report ---
Test Reason : Blood Pressure : / mmHG Vent. Rate : 090 BPM Atrial Rate : 090 BPM P-R Int : 118 ms QRS Dur : 074 ms QT Int : 374 ms P-R-T Axes : 049 -05 -42 degrees QTc Int : 457 ms Normal sinus rhythm When compared with ECG of 31-JAN-2024 16:21, Inverted T waves have replaced nonspecific T wave abnormality in Inferior leads Confirmed by Alex Pack ([id number] on 02/01/2024 5:50:26 PM Referred By: Odette Wetzel Confirmed By:Casey Pack
[2024-02-01] MEDS: LANTUS PER UNIT CHARGE SC SCH (21:48)
[2024-02-02 04:28] LABS: Hematocrit (blood only) 22.4 % (37.0-47.0); Hemoglobin 7.2 g/dl (12.0-16.0); Mean Corpuscular Hemoglobin 27.6 pg (25.0-34.0); Mean Corpuscular Hgb Conc 32.1 g/dL (32.0-36.0); Mean Corpuscular Volume 85.8 fL (80.0-100.0); Nucleated RBC # (auto) 0.12 K/uL (0.00-0.12); Nucleated RBC % (auto) 1.4 %; Platelet Count 171 K/uL (130-400); RDW Coefficient of Variation 15.7 % (11.5-14.5); RDW Standard Deviation 45.2 fL (36.4-46.3); Red Blood Count 2.61 M/uL (4.20-5.40); White Blood Count 8.86 K/ul (4.8-10.8)
[2024-02-02 04:47] LABS: Albumin Globulin Ratio 1.2 (0.9-2); Albumin Level 2.9 gm/dl (3.4-5.0); BUN Creatinine Ratio 20.5 (10-20); Bilirubin,Total 0.4 mg/dl (0.2-1.0); Calcium 8.2 mg/dl (8.6-10.3); Creatinine Clr Calc Pharmacy 62.6 ml/min; Est GFR (African American) 90.7 ml/min; Est GFR (Non-African American) 78.3 ml/min; Globulin 2.4 gm/dl (2.5-4.0); Magnesium 1.9 mg/dl (1.7-2.4); Phosphorus 2.3 mg/dl (2.5-4.9); Potassium 3.9 mmol/L (3.5-5.1); Total Protein 5.3 gm/dl (6.0-8.3)
--- NOTE | 2024-02-02 15:41 | Hospitalist Progress Note ---
Date of Service February 02, 2024 Assessment & Plan (1) Coffee ground emesis: (2) Acute blood loss anemia: Plan: per admitting service notes: Melena, acute blood loss anemia, secondary to GI bleed In the setting of Plavix and Xarelto use This is a 58yo F with a PMH of NSTEMI in 2019 (s/p PCI of LAD, OM with residual RCA disease), h/o PAD s/p repeat SFA/popliteal angioplasty last stented in Aug 2023 on Plavix and Xarelto, DM II, CKD III, HTN, mood disorder and other medical problems listed below who presents with coffee ground emesis over past few days. Initial BP 94/49, HR 110 but BP improved to 118/66 with volume resuscitation, clinically improving Hgb 5.3. Type and crossed, transfusing 1st of 2 units PRBCs Given IV PPI bolus, continue drip Discussed with Dr. 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, NPO at [place] for possible EGD tomorrow vs Saturday based on clinical status Holding plavix, xarelto Repeat H&H this evening - goal to maintain H/H >8/24 Admitted to ICU for close monitoring overnight 01/31 Received total of 3 units of packed RBCs Hemoglobin now 7.9 Repeat at 2 PM GI consulted Planning for EGD on Saturday Clear liquid diet, continue Protonix drip Xarelto, Plavix on hold Monitor closely 02/01 no melena Hg 7.2 for EGD tomorrow continue Protinix drip Xarelto, Plavix held (3) Elevated lactic acid level: Plan: Lactate 3.7 initially - expect improvement with volume resuscitation, hold metformin Resolved (4) Elevated troponin I level: Plan: NSTEMI in 2019 (s/p PCI of LAD, OM with residual RCA disease) h/o PAD s/p repeat SFA/popliteal angioplasty last stented in Aug 2023 on Plavix and Xarelto CP initially and EKG with ? ST depr II, T wave changes in inferior leads - ED provider discussed with Dr. Sena, continue with blood transfusion, likely demand ischemia Secondary to demand ischemia Troponin increased to 2000s Patient without any chest pain or cardiac symptoms EKG: No acute ischemia or infarct Echocardiogram: noted, overall improved compared to 08/08/2019 Plavix, and Xarelto on hold no cardiac symptoms Rhinovirus infection Respiratory status stable Continue supportive care (5) T2DM (type 2 diabetes mellitus): Plan: A1c 6.4 in November 2023 Hold home agents SSI while in-patient Glycemic consult placed while in ICU BSG AC HS (6) Graves disease: Plan: TSH low T4 normal Continue methimazole (7) CKD (chronic kidney disease), stage III: Plan: Cr 1.18 (at baseline). Monitor with daily BMP DVT Ppx: SCDs, chemical VTE contraindicated with UGI bleed Code status: FULL PCP: Ramón Mohan Disposition: lives at home with family plan of care discussed with patient and her Heriberto in detail and at length all questions answered they are understanding, agreeable, comfortable with the plan of care Admission and Anticipated Discharge Date Admission Date: January 31, 2024 Subjective ff up for GI bleed, anemia etc seen resting in bed, sitting up, comfortable in good spirits states she feels better overall no melena today no abdominal pain ,nausea no chest pain, dyspnea, palpitations, dizziness no fevers/chills no other symptoms Review of Systems Review of Systems: all noted and negative except for above Physical Exam Physical Exam: General- oriented x 3, not in distress, speaks in sentences with no effort or accessory muscle use Eyes- anicteric Neck- no JVD Lungs- clear breath sounds bilaterally, no crackles/wheezing Heart- normal rate, regular rhythm; no murmurs Abdomen- normal bowel sounds, nondistended, soft, nontender Extremities- no pretibial edema, no calf tenderness Neuro- alert, oriented x 3; no gross focal neurologic deficits Skin- warm & dry Results & Data Results & Data Vital Signs (Past 12 Hours) Vital Signs Pulse Pulse Resp BP BP Pulse Ox O2 Del Method 02/02/24 15:00 89 16 98/57 L 96 Room Air 02/02/24 14:00 92 H 18 104/69 98 Room Air 02/02/24 13:00 95 H 17 104/72 97 Room Air 02/02/24 11:00 93 H 20 126/74 97 Room Air 02/02/24 10:00 88 18 115/71 97 Room Air 02/02/24 09:00 87 19 120/80 98 Room Air 02/02/24 08:01 99 H 16 132/82 99 Room Air 02/02/24 08:00 99 H 06/16/24 07:00 100 H 14 116/68 94 Room Air 02/02/24 04:00 111/64 02/02/24 03:57 87 16 95 all noted and reviewed including below
[2024-02-02] MEDS: ACETAMINOPHEN 325 MG TAB PO PRN (16:33)
[2024-02-02] MEDS: ONDANSETRON INJ 2 MG/ML 2 ML VIAL IV PRN (20:40)
[2024-02-03 07:59] LABS: Hematocrit (blood only) 24.6 % (37.0-47.0); Hemoglobin 7.9 g/dl (12.0-16.0); Mean Corpuscular Hemoglobin 27.3 pg (25.0-34.0); Mean Corpuscular Hgb Conc 32.1 g/dL (32.0-36.0); Mean Corpuscular Volume 85.1 fL (80.0-100.0); Mean Platelet Volume 11.3 fL (9.4-12.4); Nucleated RBC # (auto) 0.11 K/uL (0.00-0.12); Platelet Count 179 K/uL (130-400); RDW Coefficient of Variation 17.1 % (11.5-14.5); RDW Standard Deviation 46.8 fL (36.4-46.3); Red Blood Count 2.89 M/uL (4.20-5.40); White Blood Count 5.54 K/ul (4.8-10.8)
[2024-02-03 08:11] LABS: Calcium 8.4 mg/dl (8.6-10.3); Creatinine Clr Calc Pharmacy 61.2 ml/min; Est GFR (African American) 90.7 ml/min; Est GFR (Non-African American) 78.3 ml/min; Magnesium 1.8 mg/dl (1.7-2.4); Phosphorus 3.2 mg/dl (2.5-4.9); Potassium 3.8 mmol/L (3.5-5.1)
[2024-02-03 08:25] LABS: Folate (Folic Acid),Ser orPlas 18.45 ng/ml (>5.38)
[2024-02-03 08:28] LABS: Basophils # (auto) 0.03 K/uL (0.00-0.20); Basophils % (auto) 0.5 %; Eosinophils # (auto) 0.19 K/uL (0.00-0.50); Eosinophils % (auto) 3.4 %; Immature Granulocytes # (auto) 0.29 K/uL (0.01-0.20); Immature Granulocytes % (auto) 5.2 %; Lymphocytes # (auto) 0.69 K/uL (1.20-3.40); Lymphocytes % (auto) 12.5 %; Monocytes # (auto) 0.44 K/uL (0.11-0.59); Monocytes % (auto) 7.9 %; Neutrophils % (auto) 70.5 %; Ovalocytes 1+; Polychromasia 1+; Tear Drop Cells 1+
[2024-02-03 08:37] LABS: Ferritin 15.2 ng/ml (8-388); Troponin I High Sensitivity 750.2 pg/ml (0-14)
--- NOTE | 2024-02-03 09:11 | History & Physical Bridge Note ---
Date of Service February 03, 2024 History & Physical Bridge Note I have reviewed the History & Physical and in the interval since the performance of the History & Physical I have noted the following changes of clinical significance: no changes noted. H/H 7.9/24.6. Keep NPO & proceed with EGD today.
--- NOTE | 2024-02-03 11:54 | Pharmacy Report ---
Pharmacy Glycemic Short Note 2 - Date of Service February 03, 2024 - Glycemic Short BSG Results (Last 24 hours): 02/02/24 02/02/24 02/03/24 16:06 20:35 05:51 Glucose POC Glucose 138 H 131 H 148 H 02/03/24 07:09 Glucose 142 H POC Glucose OUTPATIENT ANTIDIABETIC REGIMEN: * Jardiance 10 mg PO daily * Metformin ER 1000 mg PO AM * Januvia 50 mg PO AM * HbA1c 6.2% (02/01/24) ASSESSMENT: 02/02: * Aure has required 4 units of insulin both of the last two days, all correctional. BSGs yesterday were [phone] mg/dL. * Fasting BSG was 148 mg/dL this AM. Patient was NPO for an EGD today. * Continue with current regimen. No changes necessary. 01/31: * Aure is a 58 YOF with a history of T2DM admitted with vomitting found to have anemia and upper GI bleeding. Pharmacy has been consulted to assist with glycemic management while inpatient. * Fasting BSG this AM acceptable, received 5 units of basal insulin yesterday evening, diet advanced to clears, will allow for up to a weight based stress of 2 to be given at bedtime. * Novolog initiated at a weight based stress of 2.5, she has not received any Novolog at this time, unable to assess. PLAN FOR INPATIENT GLYCEMIC CONTROL: * Hold outpatient oral diabetes medications * Basal insulin * Lantus 0-10 units SC HS (see eMAR for additional details) * Bolus insulin * NovoLog per scale ACHS or Q6hrs while NPO * Goal Range: Low 110 mg/dL - High 140 mg/dL * Correction Factor: 35 mg/dL/unit * Nutritional / Prandial insulin per carb ratio of 1 unit per 10 grams CHO consumed
--- NOTE | 2024-02-03 12:26 | Anesthesiology Consultation ---
Date of Service February 03, 2024 Assessment & Plan Chart Review Chart Review: Acceptable Risk for Surgery and Patient NOT seen in Pre Admission Testing Consults Requested none History Surgery Operation Date: 02/03/24 16:30 Proposed Procedures p Esophagogastroduodenoscopy Yandel Humphries MD Height/Weight Height: 5 ft 1 in Weight: 57.8 kg Allergies Allergy/AdvReac Type Severity Reaction Status Date / Time NSAIDS (Non-Steroidal AdvReac Risk of gi Verified 01/31/24 16:30 Anti-Inflamma bleed Medications Home Medications Medication Instructions Recorded Confirmed Last Taken metformin 500 mg tablet 1,000 mg PO QAM 12/20/18 01/31/24 12/19/18 sertraline 100 mg tablet 200 mg PO DAILY 08/08/19 01/31/24 Unknown atorvastatin 80 mg tablet 80 mg PO DAILY 11/29/20 01/31/24 01/31/24 08:00 bupropion HCl 300 mg 24 hr tablet, 300 mg PO QAM 11/29/20 01/31/24 01/31/24 08:00 extended release empagliflozin 10 mg tablet 10 mg PO DAILY 11/29/20 01/31/24 01/31/24 07:00 gabapentin 300 mg capsule 300 mg PO HS 11/29/20 01/31/24 Unknown lisinopril 10 mg tablet 10 mg PO DAILY 11/29/20 01/31/24 01/31/24 08:00 lorazepam 0.5 mg tablet 0.5 mg PO DAILY PRN Anxiety 11/29/20 01/31/24 Unknown nitroglycerin 0.4 mg sublingual 0.4 mg sublingual Q5M PRN .cp 11/29/20 01/31/24 Unknown tablet methimazole 10 mg tablet 10 mg PO QAM 03/14/21 01/31/24 01/31/24 08:00 rivaroxaban 2.5 mg tablet (Xarelto) 2.5 mg PO BID 03/21/23 01/31/24 01/31/24 08:00 metoprolol succinate 50 mg 100 mg (2 x 50 mg) PO DAILY #180 09/11/23 01/31/24 01/31/24 08:00 tablet,extended release 24 hr tabs acetaminophen 325 mg tablet 650 mg PO Q6 PRN Pain 01/31/24 01/31/24 Unknown (Tylenol) cholecalciferol (vitamin D3) 1,250 50,000 unit PO WK 01/31/24 01/31/24 Unknown mcg (50,000 unit) capsule clopidogrel 75 mg tablet 75 mg PO DAILY 01/31/24 01/31/24 01/31/24 08:00 cyclobenzaprine 5 mg tablet 5 mg PO TID 01/31/24 01/31/24 Unknown omeprazole 20 mg capsule,delayed 20 mg PO QPM 01/31/24 01/31/24 Unknown release ondansetron HCl 4 mg tablet 4 mg PO Q6 PRN Nausea 01/31/24 01/31/24 Unknown promethazine 25 mg tablet 25 mg PO Q6 PRN Nausea 01/31/24 01/31/24 Unknown sitagliptin phosphate 50 mg tablet 50 mg PO QAM 01/31/24 01/31/24 01/31/24 08:00 (Januvia) tramadol 50 mg tablet 50 mg PO Q6 PRN Pain 01/31/24 01/31/24 Unknown Active Medications Generic Name Dose Route Start Last Admin Trade Name Freq PRN Reason Stop Dose Admin Acetaminophen 650 mg 02/02/24 16:16 02/02/24 16:33 Acetaminophen 325 Mg Tab PO 03/03/24 16:15 650 mg Q4H PRN Administration FEVER OR PAIN Atorvastatin Calcium 80 mg 02/01/24 09:00 02/02/24 08:05 Atorvastatin 40 Mg Tab PO 03/02/24 08:59 80 mg DAILY MIKA Administration Bupropion HCl 300 mg 02/01/24 09:00 02/03/24 09:08 Bupropion Xl 300 Mg Tabcr PO 03/02/24 08:59 300 mg QAM MIKA Administration Gabapentin 300 mg 01/31/24 21:00 02/02/24 20:40 Gabapentin 300 Mg Cap PO 03/01/24 20:59 300 mg HS MIKA Administration Pantoprazole Sodium 40 mg/ 100 mls @ 20 mls/hr 01/31/24 16:30 02/03/24 07:16 Dextrose IV 03/01/24 16:29 8 mg/hr Q5H MIKA 20 mls/hr Administration 8 MG/HR Insulin Aspart 0 units 02/01/24 16:30 02/03/24 09:34 Insulin Aspart Per Unit Charge SC 03/02/24 16:29 Not Given ACHS MIKA Insulin Glargine 0 units 02/01/24 21:00 02/02/24 20:41 Lantus Per Unit Charge CA 03/02/24 20:59 Not Given HS MIKA Protocol Lorazepam 0.5 mg 02/01/24 15:58 02/03/24 09:08 Lorazepam 0.5 Mg Tab PO 03/02/24 15:57 0.5 mg DAILY PRN Administration Anxiety Methimazole 10 mg 02/01/24 09:00 02/02/24 08:05 Methimazole 5 Mg Tablet PO 03/02/24 08:59 10 mg QAM MIKA Administration Metoprolol Tartrate 25 mg 02/01/24 10:00 02/03/24 09:08 Metoprolol Tartrate 25 Mg Tab PO 03/02/24 09:59 25 mg BID MIKA Administration Ondansetron HCl 4 mg 01/31/24 18:41 02/02/24 20:40 Ondansetron Inj 2 Mg/Ml 2 Ml Vial IV 03/01/24 18:40 4 mg Q6H PRN Administration Nausea And Vomiting Sertraline HCl 200 mg 02/01/24 09:00 02/02/24 08:04 Sertraline Hcl 100 Mg Tablet PO 03/02/24 08:59 200 mg DAILY MIKA Administration NPO Date Last Intake of Fluids: 02/03/24 Time Last Intake of Fluids: 09:00 Last Intake of Fluids Comment: sips with meds Date Last Intake of Solids: 01/31/24 Time Last Intake of Solids: 12:00 Past Medical History Medical History Elevated troponin I level Coffee ground emesis Acute blood loss anemia Acute upper gastrointestinal bleeding Coronary artery disease Smoker Past Family History Family History (Updated 01/31/24 @ 16:55 by Stacie Cazares PA-C) Father Myocardial infarction Other Cancer Diabetes Past Surgical History Surgical History Hx of cardiac catheterization PCI of mid LAD with 2 overlapping JEFF - July 2019 Social History Smoking Status: Former smoker tobacco type: cigarettes Smoking cigarettes per day: 10 Do You Dip or Chew Tobacco: No Smoking End Date: 07/19/2019 Hx Alcohol Use: No Hx Substance Use: No Physical Exam Vital Signs Last Vital Signs Temp 36.6 C 02/03/24 12:07 Pulse 92 H 02/03/24 12:07 Resp 16 02/03/24 12:07 BP 116/73 02/03/24 12:07 Pulse Ox 98 02/03/24 12:07 O2 Del Method Room Air 02/03/24 12:07 O2 Flow Rate 2 01/31/24 15:50 Constitutional WD/WN, vitals as above Eyes PERRL, conjunctivae normal, anicteric sclerae ENMT external ear and nose normal, oropharynx normal Neck trachea midline, no thyromegaly Respiratory normal respiratory effort, lungs clear to auscultation Cardiovascular RRR, no murmur, no edema Gastrointestinal (Abdomen) normal bowel sounds, soft, nontender, no hepatosplenomegaly Skin no rashes, warm and dry + pallor Psychiatric A+Ox3, euthymic affect Lymphatic no cervical or axillary lymphadenopathy Testing Laboratory Results 02/03/24 07:09 02/03/24 07:09 PT 11.9 Seconds (9.0-12.0) 01/31/24 13:15 INR 1.1 (0.9-1.1) 01/31/24 13:15 APTT 24 Seconds (21-31) 01/31/24 13:15 Hemoglobin A1c 6.2 % (4.5-5.6) H 02/01/24 04:51 Urine Color Yellow 01/31/24 17:38 Urine Appearance Clear (Clear) 01/31/24 17:38 Urine pH 6.0 (4.5-7.5) 01/31/24 17:38 Ur Specific [place] 1.042 (1.000-1.030) H 01/31/24 17:38 Urine Protein Negative (Negative) 01/31/24 17:38 Urine Glucose (UA) 3+ (Negative) H 01/31/24 17:38 Urine Ketones Negative (Negative) 01/31/24 17:38 Urine Nitrite Negative (Negative) 01/31/24 17:38 Ur Leukocyte Esterase Negative (Negative) 01/31/24 17:38 Urine WBC (Auto) 0-5 /hpf (0-5) 01/31/24 17:38 Urine RBC (Auto) 0-2 /hpf (0-2) 01/31/24 17:38 U Hyaline Cast (Auto) 0-2 /lpf (0-2) 01/31/24 17:38 U Epithel Cells (Auto) 3-5 /hpf (0-2) H 01/31/24 17:38 Urine Bacteria (Auto) None Seen (None Seen) 01/31/24 17:38 Blood Type O Negative 01/31/24 13:04 Antibody Screen NEGATIVE 01/31/24 13:04 02/03/24 05:51 POC Glucose 148 H
--- NOTE | 2024-02-03 12:42 | Gastroenterology Progress Note ---
Date of Service February 02, 2024 Assessment & Plan (1) Acute blood loss anemia: (2) Coffee ground emesis: Plan 1. Subacute blood loss and severe anemia likely from upper GI (possibly peptic ulcer disease) in the setting of antiplatelet therapy with clopidogrel and anticoagulation with apixaban. Bleeding has stopped. Stable after transfusion of 3 units of packed red blood cells. Start clear liquid diet, advance as tolerated. Continue IV Protonix for the next 24 hours, changed to p.o. afterwards. Schedule routine upper endoscopy on February 02 in the GI lab. Continue to hold anticoagulation and clopidogrel. Okay to transfer to regular floor. Admission and Anticipated Discharge Date Admission Date: January 31, 2024 Subjective Follow-up for anemia, GI bleed, etc. Symptoms improved. Denies vomiting. Still complains of early satiety. Oral food intake is decreased. No other new symptoms Review of Systems Review of Systems: No change from yesterday. Physical Exam Physical Exam: Awake and comfortable. Cardiovascular: RRR, no murmur, no edema Gastrointestinal (Abdomen): normal bowel sounds, soft, nontender, no hepatosplenomegaly Results & Data Vital Signs (Past 12 Hours) Vital Signs Pulse Pulse Resp BP BP Pulse Ox O2 Del Method 02/02/24 11:00 93 H 20 126/74 97 Room Air 02/02/24 10:00 88 18 115/71 97 Room Air 02/02/24 09:00 87 19 120/80 98 Room Air 02/02/24 08:01 99 H 16 132/82 99 Room Air 02/02/24 08:00 99 H 02/02/24 07:00 100 H 14 116/68 94 Room Air 02/02/24 04:00 111/64 02/02/24 03:57 87 16 95 02/02/24 03:00 97/64 L 02/02/24 03:00 90 26 H 94
--- NOTE | 2024-02-03 12:43 | Gastroenterology Progress Note ---
Date of Service February 01, 2024 Assessment & Plan (1) Hematemesis: Plan 1. Subacute blood loss and severe anemia likely from upper GI (possibly peptic ulcer disease) in the setting of antiplatelet therapy with clopidogrel and anticoagulation with apixaban. Bleeding has stopped. Stable after transfusion of 3 units of packed red blood cells. Start clear liquid diet, advance as tolerated. Continue IV Protonix for the next 24 hours, changed to p.o. afterwards. Schedule routine upper endoscopy on February 02 in the GI lab. Continue to hold anticoagulation and clopidogrel. Okay to transfer to regular floor. Admission and Anticipated Discharge Date Admission Date: January 31, 2024 Subjective The patient feels much better following transfusion of 3 units of packed red blood cells. No more vomiting. Passing black tarry stools. Denies abdominal pain. Additional information: The patient underwent EGD and colonoscopy approximately 1-1/2 years ago. She was told that she had "ulcer". The procedure were performed at [facility] in [place]. Review of Systems Constitutional: Denies fatigue, chills, fever Respiratory: Denies cough, shortness of breath, hemoptysis. Cardiovascular: Additional Comments: Denies chest pains and palpitations. Gastrointestinal: Complains of tarry stools since yesterday Neurologic: Denies focal weakness, denies speech or visual disturbance. Physical Exam Physical Exam: Awake and comfortable. Respiratory: Lungs clear., No wheezing. Cardiovascular: RRR, no murmur, no edema Gastrointestinal (Abdomen): normal bowel sounds, soft, nontender, no hepatosplenomegaly Neurologic: Oriented x 3, no focal abnormalities. Results & Data Vital Signs (Past 12 Hours) Vital Signs Temp Pulse Resp BP Pulse Ox O2 Del Method 02/01/24 09:00 93 H 17 116/72 99 02/01/24 08:45 102 H 13 99 02/01/24 08:45 114/73 02/01/24 08:33 97 H 20 97 Room Air 02/01/24 08:00 36.9 C 02/01/24 07:15 101 H 24 95 02/01/24 07:15 103/62 02/01/24 07:06 100 H 20 94 02/01/24 04:21 104 H 27 H 98 02/01/24 04:03 102 H 23 96 02/01/24 03:45 106 H 20 97 02/01/24 03:45 121/69 02/01/24 03:33 104 H 19 97 02/01/24 03:00 113/68 02/01/24 03:00 106 H 19 96 02/01/24 02:54 108 H 31 H 96 02/01/24 02:39 103 H 18 98 02/01/24 02:25 36.6 C 103 H 20 107/65 97 02/01/24 02:09 106 H 25 H 99 02/01/24 02:09 36.6 C 106 H 22 107/65 98 02/01/24 01:03 110 H 23 97 02/01/24 00:00 108 H 20 99 02/01/24 00:00 117/74 01/31/24 23:00 110 H 16 97 01/31/24 23:00 113/74 Laboratory Results Lab data reviewed. Hemoglobin improved to 7.9.
--- NOTE | 2024-02-03 13:12 | GI REPORT ---
[facility] Patient: BRETT DAVIS : 1965 Sex at : Female Age: 58 Years Procedure: Upper GI endoscopy Date: 02/03/2024 Attending Physician: Eloy Humphries MD Referring MD: Rupert Stark Indications: - Recent gastrointestinal bleeding - Iron deficiency anemia due to suspected upper gastrointestinal bleeding Medications: - Monitored Anesthesia Care Complications: - No immediate complications. Estimated Blood Loss: - Estimated blood loss: none. Procedure: - The egd scope was introduced through the mouth and advanced to the second part of the duodenum. - The upper GI endoscopy was accomplished without difficulty. Findings: - The examined esophagus was normal. - The Z-line was irregular and was found 37 cm from the incisors. - The entire examined stomach was normal. - The examined duodenum was normal. Biopsies for histology were taken with a cold forceps for evaluation of celiac disease. Impression: - Normal esophagus. - Z-line irregular, 37 cm from the incisors. - Normal stomach. - Normal examined duodenum. Biopsied. Recommendation: - Await pathology results. Procedure Code(s): - 35396, Esophagogastroduodenoscopy, flexible, transoral; with biopsy, single or multiple Diagnosis Code(s): - K92.2, Gastrointestinal hemorrhage, unspecified - D50.9, Iron deficiency anemia, unspecified - K22.89, Other specified disease of esophagus CPT(R) - 2023 copyright [employer]. All Rights Reserved. The CPT codes, CCI edits and ICD codes generated are intended as suggestions and were generated based on input data. These codes are preliminary and upon catering truck driver review may be revised to meet current compliance and payer requirements. The provider is responsible for the final determination of appropriate codes, and modifiers. Eloy Humphries M.D. This document has been electronically signed. Note Initiated:02/03/2024 Note Completed:02/03/2024 1:11 PM [id number]
--- NOTE | 2024-02-03 13:15 | Communication Note ---
Date of Service: February 03, 2024 EGD was normal. Duodenal biopsies were obtained. OK to resume Plavix. Monitor CBC. If stable, OK to discharge from GI standpoint. Awaiting pathology.
--- NOTE | 2024-02-03 14:46 | Anesthesiology Progress Note ---
Date of Service February 03, 2024 Anesthesia Post Procedure Vital Signs Vital Signs: Temp Pulse Pulse Pulse Resp BP BP 02/03/24 13:56 87 18 112/68 02/03/24 13:41 84 16 101/63 02/03/24 13:26 90 14 94/67 L 02/03/24 13:11 93 H 12 100/72 02/03/24 12:07 36.6 C 92 H 16 116/73 02/03/24 11:08 37.3 C 95 H 18 100/64 02/03/24 07:37 37.1 C 95 H 18 114/69 02/03/24 03:02 36.4 C L 87 18 98/61 L 02/03/24 00:00 96 H 02/02/24 23:03 36.5 C 91 H 18 105/68 02/02/24 21:04 36.5 C 91 H 18 123/71 02/02/24 17:00 97 H 15 105/65 02/02/24 15:00 89 16 98/57 L Pulse Ox O2 Del Method O2 Flow Rate 02/03/24 13:56 98 Room Air 02/03/24 13:41 98 Room Air 02/03/24 13:26 98 Room Air 02/03/24 13:11 100 Oxymask 4 02/03/24 12:07 98 Room Air 02/03/24 11:08 96 Room Air 02/03/24 07:37 98 Room Air 02/03/24 03:02 96 Room Air 02/03/24 00:00 02/02/24 23:03 99 Room Air 02/02/24 21:04 98 Room Air 02/02/24 17:00 96 Room Air 02/02/24 15:00 96 Room Air Pain Intensity Chest: Pain Intensity: 3 Transfer of Care Handoff Completed per policy Notes Mental Status: alert / awake / arousable Patient Amnestic to Procedure: Yes Nausea / Vomiting: adequately controlled Pain: adequately controlled Airway Patency, RR, SpO2: stable & adequate BP & HR: stable & adequate Hydration State: stable & adequate Anesthetic Complications: no major complications apparent and Pt Satisfied with anesthetic care
[2024-02-03] MEDS: MIDAZOLAM HCL 1 MG/ML 2ML VIAL ONE (16:01)
[2024-02-03] MEDS: LIDOCAINE 2% 2 ML VIAL/AMP(20MG/ML) INFIL ONE (16:01)
[2024-02-03] MEDS: ONDANSETRON INJ 2 MG/ML 2 ML VIAL ONE (16:02)
[2024-02-03] MEDS: PROPOFOL IV EMULSION 10 MG/ML 20 ML VIAL IV ONE (16:02)
--- NOTE | 2024-02-03 16:56 | Electrocardiogram Report ---
Test Reason : Blood Pressure : / mmHG Vent. Rate : 103 BPM Atrial Rate : 103 BPM P-R Int : 130 ms QRS Dur : 082 ms QT Int : 348 ms P-R-T Axes : 056 014 154 degrees QTc Int : 455 ms Sinus tachycardia Low voltage QRS Marked ST abnormality, possible inferior subendocardial injury Abnormal ECG When compared with ECG of 31-JAN-2024 13:10, T wave inversion less evident in Inferior leads T wave inversion less evident in Lateral leads Confirmed by Vijay Mo ([id number]) on 02/03/2024 4:55:41 PM Referred By: Odette Wetzel Confirmed By:Vijay Mo
[2024-02-03] MEDS: CLOPIDOGREL BISULFATE 75 MG TAB PO SCH (17:26)
--- NOTE | 2024-02-03 17:50 | Hospitalist Progress Note ---
Date of Service February 03, 2024 Assessment & Plan (1) Coffee ground emesis: (2) Acute blood loss anemia: Plan: per admitting service notes: Melena, acute blood loss anemia, secondary to GI bleed In the setting of Plavix and Xarelto use This is a 58yo F with a PMH of NSTEMI in 2019 (s/p PCI of LAD, OM with residual RCA disease), h/o PAD s/p repeat SFA/popliteal angioplasty last stented in Aug 2023 on Plavix and Xarelto, DM II, CKD III, HTN, mood disorder and other medical problems listed below who presents with coffee ground emesis over past few days. Initial BP 94/49, HR 110 but BP improved to 118/66 with volume resuscitation, clinically improving Hgb 5.3. Type and crossed, transfusing 1st of 2 units PRBCs Given IV PPI bolus, continue drip Discussed with Dr. Perera - okay with ice chips, NPO at [place] for possible EGD tomorrow vs Saturday based on clinical status Holding plavix, xarelto Repeat H&H this evening - goal to maintain H/H >8/24 Admitted to ICU for close monitoring overnight 01/31 Received total of 3 units of packed RBCs Hemoglobin now 7.9 Repeat at 2 PM GI consulted Planning for EGD on Saturday Clear liquid diet, continue Protonix drip Xarelto, Plavix on hold Monitor closely 02/01 no melena Hg 7.2 for EGD tomorrow continue Protinix drip Xarelto, Plavix held 02/02 Status post EGD: Unrevealing Okay to resume Plavix per GI Hold Xarelto for now, discussed with patient's vascular surgeon Dr. Guerra, resume in 1 week if hemoglobin remained stable, no GI bleed Transition to p.o. Protonix (3) Elevated lactic acid level: Plan: Lactate 3.7 initially - expect improvement with volume resuscitation, hold metformin Resolved (4) Elevated troponin I level: Plan: NSTEMI in 2019 (s/p PCI of LAD, OM with residual RCA disease) h/o PAD s/p repeat SFA/popliteal angioplasty last stented in Aug 2023 on Plavix and Xarelto Type II [place] in the setting of acute GI bleed, acute blood loss anemia, tachycardia, and hypotension. CP initially and EKG with ? ST depr II, T wave changes in inferior leads - ED provider discussed with Dr. Sena, continue with blood transfusion, likely demand ischemia Secondary to demand ischemia Troponin increased to 2000s Patient without any chest pain or cardiac symptoms EKG: No acute ischemia or infarct Echocardiogram: noted, overall improved compared to 08/08/2019 Plavix resumed Xarelto on hold no cardiac symptoms Rhinovirus infection Respiratory status stable Continue supportive care (5) T2DM (type 2 diabetes mellitus): Plan: A1c 6.4 in November 2023 Hold home agents SSI while in-patient Glycemic consult placed while in ICU BSG AC HS (6) Graves disease: Plan: TSH low T4 normal Continue methimazole (7) CKD (chronic kidney disease), stage III: Plan: Cr 1.18 (at baseline). Monitor with daily BMP DVT Ppx: SCDs Code status: FULL PCP: Ramón Mohan Disposition: lives at home with family Anticipate discharge home tomorrow Admission and Anticipated Discharge Date Admission Date: January 31, 2024 Subjective Follow-up for GI bleed, etc. Status post EGD today Seen resting in bed, sitting up, comfortable, good spirits States she feels fine overall No dizziness, chest pain, shortness of breath No abdominal pain, nausea vomiting No BMs today No other new symptoms Review of Systems Review of Systems: all noted and negative except for above Physical Exam Physical Exam: General- oriented x 3, not in distress, speaks in sentences with no effort or accessory muscle use Eyes- anicteric Neck- no JVD Lungs- clear breath sounds bilaterally, no rales/wheezes Heart- normal rate, regular rhythm; no murmurs Abdomen- normal bowel sounds, nondistended, soft, nontender Extremities- no pretibial edema, no calf tenderness Neuro- alert, oriented x 3; no gross focal neurologic deficits Skin- warm & dry Results & Data Results & Data Vital Signs (Past 12 Hours) Vital Signs Temp Pulse Pulse Resp BP BP Pulse Ox 02/03/24 15:38 36.9 C 91 H 18 113/67 91 02/03/24 13:56 87 18 112/68 98 02/03/24 13:41 84 16 101/63 98 02/03/24 13:26 90 14 94/67 L 98 02/03/24 13:11 93 H 12 100/72 100 02/03/24 12:07 36.6 C 92 H 16 116/73 98 02/03/24 11:08 37.3 C 95 H 18 100/64 96 02/03/24 07:37 37.1 C 95 H 18 114/69 98 O2 Del Method O2 Flow Rate 02/03/24 15:38 Room Air 02/03/24 13:56 Room Air 02/03/24 13:41 Room Air 02/03/24 13:26 Room Air 02/03/24 13:11 Oxymask 4 02/03/24 12:07 Room Air 02/03/24 11:08 Room Air 02/03/24 07:37 Room Air all noted and reviewed including below
[2024-02-03] MEDS: PANTOprazole 40 MG TAB PO SCH (21:47)
[2024-02-04 07:14] LABS: Basophils # (auto) 0.03 K/uL (0.00-0.20); Basophils % (auto) 0.7 %; Eosinophils # (auto) 0.18 K/uL (0.00-0.50); Eosinophils % (auto) 4.5 %; Hematocrit (blood only) 27.2 % (37.0-47.0); Hemoglobin 8.8 g/dl (12.0-16.0); Immature Granulocytes # (auto) 0.19 K/uL (0.01-0.20); Immature Granulocytes % (auto) 4.7 %; Lymphocytes # (auto) 0.75 K/uL (1.20-3.40); Lymphocytes % (auto) 18.7 %; Mean Corpuscular Hemoglobin 27.6 pg (25.0-34.0); Mean Corpuscular Hgb Conc 32.4 g/dL (32.0-36.0); Mean Corpuscular Volume 85.3 fL (80.0-100.0); Monocytes # (auto) 0.43 K/uL (0.11-0.59); Monocytes % (auto) 10.7 %; Neutrophils # (auto) 2.43 K/uL (1.40-6.50); Neutrophils % (auto) 60.7 %; Nucleated RBC # (auto) 0.06 K/uL (0.00-0.12); Nucleated RBC % (auto) 1.5 %; Platelet Count 197 K/uL (130-400); RDW Coefficient of Variation 16.9 % (11.5-14.5); Red Blood Count 3.19 M/uL (4.20-5.40); White Blood Count 4.01 K/ul (4.8-10.8)
[2024-02-04] MEDS: FERROUS SULFATE 325 MG TAB PO SCH (09:00)
--- NOTE | 2024-02-04 09:53 | Gastroenterology Progress Note ---
Date of Service February 04, 2024 Assessment & Plan (1) Anemia requiring transfusions: Plan: 58 year old female with history of NSTEMI in 2019 (s/p PCI of LAD, OM with residual RCA disease), h/o PAD s/p repeat SFA/popliteal angioplasty last stented in Aug 2023 on Plavix and Xarelto, DM II, CKD III, HTN, mood disorder admitted with anemia, dark stools s/p 3 units of RBC, EGD without any obvious source of bleeding on 02/03/24. She has remained hemodynamically stable w/ improving H&H overnight without further report of black/bloody stools or emesis. Review small bowel biopsies once available Ok to resume Plavix Trend H&H Diet as tolerated No GI contraindication to discharge I spent a total of 30 minutes on the date of service in review of patient's record, and previously obtained information in person and appropriate medical visit, discussion and education of plan, with patient and/or caregiver, placing orders for tests/referral/procedures as medically necessary and documentation of pertinent clinical information in patient's medical records for their visit today. Admission and Anticipated Discharge Date Admission Date: January 31, 2024 Subjective Pt was seen and evaluated, chart reviewed. EGD w/o obvious source of blood loss. Has not reported any further black stools or episodes of black or bloody emesis. Tolerating diet. No abd pain, nausea, vomiting. HGB stable. Duodenal bx pending HGB 5.3 --> 2 units --> 7.4 --> 6.7 --> 1 unit --> 7.9 --> 8.8 EGD 2023: Normal esophagus. - Z-line irregular, 37 cm from the incisors. - Normal stomach. - Normal examined duodenum. Biopsied. Review of Systems Review of Systems: All other findings negative except as noted in HPI. Physical Exam Constitutional: WD/WN, vitals as above Respiratory: normal respiratory effort, lungs clear to auscultation Cardiovascular: RRR, no murmur, no edema Gastrointestinal (Abdomen): normal bowel sounds, soft, nontender, no hepatosplenomegaly Skin: no rashes, warm and dry Results & Data Vital Signs (Past 12 Hours) Vital Signs Temp Pulse Pulse Resp BP BP Pulse Ox 02/04/24 07:00 37 C 87 18 110/69 98 02/04/24 02:28 36.6 C 76 18 107/70 98 02/04/24 00:00 96 H 02/03/24 22:39 37 C 89 18 122/72 97 02/03/24 22:00 57 L O2 Del Method 02/04/24 07:00 Room Air 02/04/24 02:28 Room Air 02/04/24 00:00 02/03/24 22:39 Room Air 02/03/24 22:00 Laboratory Results 02/04/24 02/04/24 02/03/24 Range/Units 07:41 06:53 20:10 WBC 4.01 L (4.8-10.8) K/ul RBC 3.19 L (4.20-5.40) M/uL Hgb 8.8 L (12.0-16.0) g/dl Hct 27.2 L (37.0-47.0) % MCV 85.3 (80.0-100.0) fL MCH 27.6 (25.0-34.0) pg MCHC 32.4 (32.0-36.0) g/dL RDW Std Deviation 49.0 H (36.4-46.3) fL RDW Coeff of Carline 16.9 H (11.5-14.5) % Plt Count 197 (130-400) K/uL MPV 11.0 (9.4-12.4) fL Immature Gran % (Auto) 4.7 % Neut % (Auto) 60.7 % Lymph % (Auto) 18.7 % Bradley % (Auto) 10.7 % Eos % (Auto) 4.5 % Baso % (Auto) 0.7 % Neut # (Auto) 2.43 (1.40-6.50) K/uL Lymph # (Auto) 0.75 L (1.20-3.40) K/uL Bradley # (Auto) 0.43 (0.11-0.59) K/uL Eos # (Auto) 0.18 (0.00-0.50) K/uL Baso # (Auto) 0.03 (0.00-0.20) K/uL Immature Gran # (Auto) 0.19 (0.01-0.20) K/uL Absolute Nucleated RBC 0.06 (0.00-0.12) K/uL Nucleated RBC % (auto) 1.5 % POC Glucose 128 H 121 H (70-99) mg/dl Crossmatch 02/03/24 01/31/24 Range/Units 15:59 13:04 WBC (4.8-10.8) K/ul RBC (4.20-5.40) M/uL Hgb (12.0-16.0) g/dl Hct (37.0-47.0) % MCV (80.0-100.0) fL MCH (25.0-34.0) pg MCHC (32.0-36.0) g/dL RDW Std Deviation (36.4-46.3) fL RDW Coeff of Carline (11.5-14.5) % Plt Count (130-400) K/uL MPV (9.4-12.4) fL Immature Gran % (Auto) % Neut % (Auto) % Lymph % (Auto) % Bradley % (Auto) % Eos % (Auto) % Baso % (Auto) % Neut # (Auto) (1.40-6.50) K/uL Lymph # (Auto) (1.20-3.40) K/uL Bradley # (Auto) (0.11-0.59) K/uL Eos # (Auto) (0.00-0.50) K/uL Baso # (Auto) (0.00-0.20) K/uL Immature Gran # (Auto) (0.01-0.20) K/uL Absolute Nucleated RBC (0.00-0.12) K/uL Nucleated RBC % (auto) % POC Glucose 122 H (70-99) mg/dl Crossmatch See Detail
--- NOTE | 2024-02-04 10:17 | Gastroenterology Progress Note ---
Date of Service February 04, 2024 Assessment & Plan (1) Anemia requiring transfusions: Plan: 58 year old female with history of NSTEMI in 2019 (s/p PCI of LAD, OM with residual RCA disease), h/o PAD s/p repeat SFA/popliteal angioplasty last stented in Aug 2023 on Plavix and Xarelto, DM II, CKD III, HTN, mood disorder admitted with anemia, dark stools s/p 3 units of RBC, EGD without any obvious source of bleeding on 02/03/24. She has remained hemodynamically stable w/ improving H&H overnight without further report of black/bloody stools or emesis. Review small bowel biopsies once available Ok to resume Plavix Trend H&H Diet as tolerated No GI contraindication to discharge I spent a total of 30 minutes on the date of service in review of patient's record, and previously obtained information in person and appropriate medical visit, discussion and education of plan, with patient and/or caregiver, placing orders for tests/referral/procedures as medically necessary and documentation of pertinent clinical information in patient's medical records for their visit today. Admission and Anticipated Discharge Date Admission Date: January 31, 2024 Subjective Pt was seen and evaluated, chart reviewed. EGD w/o obvious source of blood loss. Has not reported any further black stools or episodes of black or bloody emesis. Tolerating diet. No abd pain, nausea, vomiting. HGB stable. Duodenal bx pending HGB 5.3 --> 2 units --> 7.4 --> 6.7 --> 1 unit --> 7.9 --> 8.8 EGD 2023: Normal esophagus. - Z-line irregular, 37 cm from the incisors. - Normal stomach. - Normal examined duodenum. Biopsied. Review of Systems Review of Systems: All other findings negative except as noted in HPI. Physical Exam Constitutional: WD/WN, vitals as above Respiratory: normal respiratory effort, lungs clear to auscultation Cardiovascular: RRR, no murmur, no edema Gastrointestinal (Abdomen): normal bowel sounds, soft, nontender, no hepatosplenomegaly Skin: no rashes, warm and dry Results & Data Results & Data Vital Signs (Past 12 Hours) Vital Signs Temp Pulse Pulse Resp BP BP Pulse Ox 02/04/24 07:00 37 C 87 18 110/69 98 02/04/24 02:28 36.6 C 76 18 107/70 98 02/04/24 00:00 96 H 02/03/24 22:39 37 C 89 18 122/72 97 O2 Del Method 02/04/24 07:00 Room Air 02/04/24 02:28 Room Air 02/04/24 00:00 02/03/24 22:39 Room Air Laboratory Results 02/04/24 02/04/24 02/03/24 Range/Units 07:41 06:53 20:10 WBC 4.01 L (4.8-10.8) K/ul RBC 3.19 L (4.20-5.40) M/uL Hgb 8.8 L (12.0-16.0) g/dl Hct 27.2 L (37.0-47.0) % MCV 85.3 (80.0-100.0) fL MCH 27.6 (25.0-34.0) pg MCHC 32.4 (32.0-36.0) g/dL RDW Std Deviation 49.0 H (36.4-46.3) fL RDW Coeff of Carline 16.9 H (11.5-14.5) % Plt Count 197 (130-400) K/uL MPV 11.0 (9.4-12.4) fL Immature Gran % (Auto) 4.7 % Neut % (Auto) 60.7 % Lymph % (Auto) 18.7 % Desha % (Auto) 10.7 % Eos % (Auto) 4.5 % Baso % (Auto) 0.7 % Neut # (Auto) 2.43 (1.40-6.50) K/uL Lymph # (Auto) 0.75 L (1.20-3.40) K/uL Desha # (Auto) 0.43 (0.11-0.59) K/uL Eos # (Auto) 0.18 (0.00-0.50) K/uL Baso # (Auto) 0.03 (0.00-0.20) K/uL Immature Gran # (Auto) 0.19 (0.01-0.20) K/uL Absolute Nucleated RBC 0.06 (0.00-0.12) K/uL Nucleated RBC % (auto) 1.5 % POC Glucose 128 H 121 H (70-99) mg/dl Crossmatch 02/03/24 01/31/24 Range/Units 15:59 13:04 WBC (4.8-10.8) K/ul RBC (4.20-5.40) M/uL Hgb (12.0-16.0) g/dl Hct (37.0-47.0) % MCV (80.0-100.0) fL MCH (25.0-34.0) pg MCHC (32.0-36.0) g/dL RDW Std Deviation (36.4-46.3) fL RDW Coeff of Carline (11.5-14.5) % Plt Count (130-400) K/uL MPV (9.4-12.4) fL Immature Gran % (Auto) % Neut % (Auto) % Lymph % (Auto) % Desha % (Auto) % Eos % (Auto) % Baso % (Auto) % Neut # (Auto) (1.40-6.50) K/uL Lymph # (Auto) (1.20-3.40) K/uL Desha # (Auto) (0.11-0.59) K/uL Eos # (Auto) (0.00-0.50) K/uL Baso # (Auto) (0.00-0.20) K/uL Immature Gran # (Auto) (0.01-0.20) K/uL Absolute Nucleated RBC (0.00-0.12) K/uL Nucleated RBC % (auto) % POC Glucose 122 H (70-99) mg/dl Crossmatch See Detail PG Care Time/CCT Total # of Minutes Spent Total Time Spent with Patient: Total time spent is greater than 50% in coordination of care (as documented) at patient's floor/unit and/or counseling patient: Coding Level of Care Code 05477 SUB INP/OBS CARE 125MIN Diagnoses Anemia requiring transfusions D64.9
--- NOTE | 2024-02-06 11:50 | Discharge Summary ---
Discharge Summary Date of Service February 06, 2024 delayed entry date of service 02/04/24 Principal Dx & Hospital Course #1 = Principal Diagnosis (1) Coffee ground emesis: (2) Acute blood loss anemia: per admitting service notes: Melena, acute blood loss anemia, secondary to GI bleed In the setting of Plavix and Xarelto use This is a 58yo F with a PMH of NSTEMI in 2019 (s/p PCI of LAD, OM with residual RCA disease), h/o PAD s/p repeat SFA/popliteal angioplasty last stented in Aug 2023 on Plavix and Xarelto, DM II, CKD III, HTN, mood disorder and other medical problems listed below who presents with coffee ground emesis over past few days. Hg 5.3 on admission Received total of 3 units of packed RBCs Hemoglobin improved to 7.9 02/02 Status post EGD:Impression: - Normal esophagus. - Z-line irregular, 37 cm from the incisors. - Normal stomach. - Normal examined duodenum. Biopsied. Okay to resume Plavix per GI Hold Xarelto for now, discussed with patient's vascular surgeon Dr. Guerra, resume in 1 week if hemoglobin remains stable, no GI bleed Transition from IV to p.o. Protonix follow CBC closely as outpatient continue PO Protonix (3) Elevated lactic acid level: Lactate 3.7 initially (4) Elevated troponin I level: NSTEMI in 2019 (s/p PCI of LAD, OM with residual RCA disease) h/o PAD s/p repeat SFA/popliteal angioplasty last stented in Aug 2023 on Plavix and Xarelto Type II MT in the setting of acute GI bleed, acute blood loss anemia, tachycardia, and hypotension. CP initially and EKG with ? ST depr II, T wave changes in inferior leads - ED provider discussed with Dr. Sena, continue with blood transfusion, likely demand ischemia Secondary to demand ischemia Troponin increased to 2000s Patient without any chest pain or cardiac symptoms EKG: No acute ischemia or infarct Echocardiogram: noted, overall improved compared to 08/08/2019 Left ventricle is normal in size There is normal left ventricular wall thickness There is subtle hypokinesis of the posterior wall at the base and mid level and apical septum all other wall segments abdirahman normally Left ventricular ejection fraction 55 to 60% Aortic valve sclerosis moderate, without significant aortic valvular stenosis Trace aortic regurgitation In direct comparison to prior study of 08/08/2019, wall motion and overall LV systolic function has improved. Plavix resumed Xarelto on hold no cardiac symptoms BP noted to thebe on the lower side Stop taking lisinopril. Reduce metoprolol from 100 mg to 50 mg daily. monitor BP as outpatient Rhinovirus infection Respiratory status stable Continue supportive care (5) Abnormal CT of the abdomen: multiple findings, please refer to full report below Further work up, management, and ff up as outpatient FINDINGS: Lower chest: The heart is top normal in size and without pericardial effusion. The coronary arteries are densely calcified. The lung bases are clear noting bibasilar scarring/atelectasis. Liver: The contrast-enhanced liver is normal in size, contour, and attenuation. There is no intrahepatic biliary ductal dilatation. Gallbladder: Surgically absent noting clips in the gallbladder fossa. Spleen: Normal in size and attenuation noting heterogeneous arterial phase enhancement. There are calcified splenic granulomas. Pancreas: Unremarkable. Adrenal glands: Unremarkable. Kidneys: There is markedly asymmetric cortical atrophy of the left kidney as compared to the right. No hydronephrosis is seen. The right kidney enhances normally. There is diminished enhancement of the left kidney. A 2 cm exophytic cyst is seen on the left. 11 mm cyst arises from the right kidney. Abdominal aorta and iliac arteries: There is advanced atherosclerotic calcification and mild ectasia of the abdominal aorta. The abdominal aorta is widely patent. No dissection is seen. Diffuse intimal thickening is unchanged from previous. There is advanced atherosclerotic plaque and irregularity throughout the iliac arteries. The common iliac arteries are patent, as are the bilateral external iliac arteries. The right internal iliac artery is patent. There are thrombosed branches of the left internal iliac artery. Imaged portions of the common femoral and superficial femoral arteries are patent bilaterally noting advanced atherosclerotic plaque and irregularity. There is high-grade stenosis with near complete occlusion of the proximal left superficial femoral artery seen on axial image #378. Soft tissue thickening throughout the abdominal aorta and iliac arteries is similar to previous. Major branches of the abdominal aorta: The celiac trunk, superior mesenteric, and inferior mesenteric arteries are patent. There is advanced atherosclerotic plaque throughout the superior mesenteric artery which causes diffuse stenosis measures up to 50%. There is a large accessory left lobe hepatic artery which arises from the left gastric artery. The splenic artery is patent including diffuse atherosclerotic plaque and irregularity with corresponding luminal narrowing. There is severe stenosis distally seen on axial image #69. There are 2 right renal arteries which are patent. There is a single left renal artery. The proximal vessel is patent. There is near-complete complete chronic occlusion of the mid to distal portions of the vessel with at most trace flow. Bowel: There are scattered colonic diverticula without CT evidence of acute diverticulitis. No bowel obstruction is seen. [id number] fecal retention is noted throughout the colon. The appendix is well-visualized and normal. Peritoneum: There is no intraperitoneal free air or abdominal ascites. There is a fat-containing umbilical hernia. Lymphadenopathy: None. Pelvic viscera: The bladder, uterus, and adnexa are normal as visualized. Skeletal structures: The skeletal structures are heterogeneously osteopenic. There is mild to moderate lumbosacral spondylosis. No lytic or blastic bony lesion is seen. IMPRESSION: 1. No acute infectious or inflammatory findings are identified in the abdomen or pelvis. 2. Advanced atheromatous change is seen throughout the abdominal aorta. No aneurysm or dissection is identified. 3. 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 4. There are thrombosed branches of the left internal iliac artery. 5. Diffuse atherosclerotic plaque and luminal narrowing is seen throughout the superior mesenteric artery. This causes a 50% stenosis. 6. Diffuse soft tissue thickening around the abdominal aorta and proximal iliac arteries is unchanged. This may be related to the degree of atherosclerosis. Superimposed retroperitoneal fibrosis would be impossible to exclude. 7. Additional findings as above. ACT 112: Negative or not required by law. Electronically signed by: Harjinder Molina M.D. 01/31/2024 4:00 PM (6) Abnormal CT scan, chest: multiple findings, please refer to full report below Further work up, management, and ff up as outpatient FINDINGS: CTA: Mild cardiomegaly. No pericardial effusion. There is no mediastinal or intramural hematoma. Extensive coronary artery calcifications. Atherosclerosis of the aorta without aneurysm or dissection. 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 No pulmonary emboli identified. Evaluation of the segmental and subsegmental branches however is limited secondary to respiratory motion. CT CHEST: No thyroid nodule. Calcified mediastinal and hilar lymph nodes. No pneumothorax, pleural effusion, airspace consolidation or suspicious pulmonary nodule. Bronchial and intralobular septal thickening. 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 Atrophic left kidney with exophytic cyst. Cholecystectomy. Calcified granulomata of the spleen. Asymmetry of the right retroareolar tissues. No acute fracture. IMPRESSION: 1. Cardiomegaly with extensive coronary artery calcifications. 2. No acute aortic pathology or pulmonary emboli identified. 3. Equivocal mild pulmonary edema without pleural effusion. 4. Prior granulomatous disease. 5. Severely atrophic left kidney. 6. Asymmetric retroareolar right breast asymmetry is similar to the study from 2019 and could be correlated with mammogram. ACT 112: Negative or not required by law. The above report was generated using voice recognition software. It may contain grammatical, syntax or spelling errors. Electronically signed by: Tavo Walton M.D. 01/31/2024 3:38 PM (7) T2DM (type 2 diabetes mellitus): A1c 6.2 ff up as outpatient (8) Graves disease: TSH low 0.012 T4 normal 1.2 Continue methimazole ff up as outpatient (9) CKD (chronic kidney disease), stage III: Cr 1.18 (at baseline). d/c home ff up with PCP in 1 week Notes For Next Care Provider Medication Changes From Visit Protonix-antacid to prevent stomach bleeds Ferrous sulfate-iron supplementation Do not take Xarelto for now. Your primary care physician will be advising you on when to restart Xarelto. Stop taking lisinopril. Reduce metoprolol from 100 mg to 50 mg daily. This is to prevent low blood pressure. Change omeprazole to pantoprazole. Always take pantoprazole at least 30 minutes before your first meal of the day. Admission HPI Per Admitting Provider This is a 58yo F with a PMH of NSTEMI in 2019 (s/p PCI of LAD, OM with residual RCA disease), h/o PAD s/p repeat SFA/popliteal angioplasty last stented in Aug 2023 on Plavix and Xarelto, DM II, CKD III, HTN, mood disorder and other medical problems listed below who presents with coffee ground emesis over past few days. Was seen in clinic on 01/20 for R facial swelling and dx with parotiditis, i nitially started on Augmentin but then switched to Clindamycin 7 day course, which she completed yesterday. Developed nausea and vomiting which she attributes to antibiotic but also was around a sick grandchild. Vomit initially bilious but has become darker brown/black over past few days. Has had one episode of dark brown emesis since arrival to ED. Has had a headache for the past week and was taking up to 4 Excedrin migraine daily in addition to her Plavix and Xarelto. Endorses fatigue, generalized weakness and chest pain which she states has already improved with the first unit of blood being transfused during interview. No F/C, lightheadedness, near syncope, CP, palpitations, N/V, abd pain, dysuria, diarrhea or constipation. Quit smoking in 2019 following NSTEMI. Admission Exam Per Admitting Provider GENERAL: Alert and oriented x3. NAD, on RA. HEENT: + pallor, no icterus. Pupils equal, round and reactive to light. Oral mucosa moist. NECK: No JVD, no neck masses. HEART: S1 and S2 heard. Regular rate and rhythm. No murmur, no gallop. RESPIRATORY SYSTEM: Normal AP diameter. No accessory muscle use. No wheezing, no crackles. ABDOMEN: Soft, bowel sounds present, nontender, no distention. CENTRAL NERVOUS SYSTEM: No facial droop. Speech is clear. Obeys simple commands. Moves extremities. EXTREMITIES: No edema, no erythema seen. Discharge Exam General- oriented x 3, not in distress, speaks in sentences with no effort or accessory muscle use Eyes- anicteric Neck- no JVD Lungs- clear breath sounds bilaterally, no rales/wheezes Heart- normal rate, regular rhythm; no murmurs Abdomen- normal bowel sounds, nondistended, soft, nontender Extremities- no pretibial edema, no calf tenderness Neuro- alert, oriented x 3; no gross focal neurologic deficits Skin- warm & dry Updated Medication List Medication Instructions Recorded Confirmed Type metformin 500 mg tablet 1,000 mg PO QAM 12/20/18 01/31/24 History sertraline 100 mg tablet 200 mg PO DAILY 08/08/19 01/31/24 History atorvastatin 80 mg tablet 80 mg PO DAILY 11/29/20 01/31/24 History bupropion HCl 300 mg 24 hr tablet, 300 mg PO QAM 11/29/20 01/31/24 History extended release empagliflozin 10 mg tablet 10 mg PO DAILY 11/29/20 01/31/24 History gabapentin 300 mg capsule 300 mg PO HS 11/29/20 01/31/24 History lorazepam 0.5 mg tablet 0.5 mg PO DAILY PRN Anxiety 11/29/20 01/31/24 History nitroglycerin 0.4 mg sublingual 0.4 mg sublingual Q5M PRN .cp 11/29/20 01/31/24 History tablet methimazole 10 mg tablet 10 mg PO QAM 03/14/21 01/31/24 History rivaroxaban 2.5 mg tablet (Xarelto) 2.5 mg PO BID 03/21/23 01/31/24 History acetaminophen 325 mg tablet 650 mg PO Q6 PRN Pain 01/31/24 01/31/24 History (Tylenol) cholecalciferol (vitamin D3) 1,250 50,000 unit PO WK 01/31/24 01/31/24 History mcg (50,000 unit) capsule clopidogrel 75 mg tablet 75 mg PO DAILY 01/31/24 01/31/24 History cyclobenzaprine 5 mg tablet 5 mg PO TID 01/31/24 01/31/24 History ondansetron HCl 4 mg tablet 4 mg PO Q6 PRN Nausea 01/31/24 01/31/24 History promethazine 25 mg tablet 25 mg PO Q6 PRN Nausea 01/31/24 01/31/24 History sitagliptin phosphate 50 mg tablet 50 mg PO QAM 01/31/24 01/31/24 History (Januvia) tramadol 50 mg tablet 50 mg PO Q6 PRN Pain 01/31/24 01/31/24 History ferrous sulfate 325 mg (65 mg 325 mg PO BIDM 30 days #60 tabs 02/04/24 Rx iron) tablet,delayed release metoprolol succinate 50 mg 50 mg PO DAILY #180 tabs 02/04/24 01/31/24 Rx tablet,extended release 24 hr pantoprazole 40 mg tablet,delayed 40 mg PO BID 30 days #60 tabs 02/04/24 Rx release Hospital Stay Data Consultations 01/31/24 14:33 Consult Cardiology Stat 01/31/24 15:25 Consult Gastroenterology Routine 01/31/24 16:00 ED Decision to Admit Stat 01/31/24 16:40 Consult Detective Supervisor Routine Procedures Performed Operation Date: 02/03/24 16:30 Actual Procedures p EGD Biopsy Cytology - Eloy Humphries MD Diagnostic Imagining Performed Laboratory Results WBC 4.01 K/ul (4.8-10.8) L 02/04/24 06:53 RBC 3.19 M/uL (4.20-5.40) L 02/04/24 06:53 Hgb 8.8 g/dl (12.0-16.0) L 02/04/24 06:53 Hct 27.2 % (37.0-47.0) L 02/04/24 06:53 MCV 85.3 fL (80.0-100.0) 02/04/24 06:53 MCH 27.6 pg (25.0-34.0) 02/04/24 06:53 MCHC 32.4 g/dL (32.0-36.0) 02/04/24 06:53 RDW Std Deviation 49.0 fL (36.4-46.3) H 02/04/24 06:53 RDW Coeff of Carline 16.9 % (11.5-14.5) H 02/04/24 06:53 Plt Count 197 K/uL (130-400) 02/04/24 06:53 MPV 11.0 fL (9.4-12.4) 02/04/24 06:53 Immature Gran % (Auto) 4.7 % 02/04/24 06:53 Neut % (Auto) 60.7 % 02/04/24 06:53 Lymph % (Auto) 18.7 % 02/04/24 06:53 [place] % (Auto) 10.7 % 02/04/24 06:53 Eos % (Auto) 4.5 % 02/04/24 06:53 Baso % (Auto) 0.7 % 02/04/24 06:53 Neut # (Auto) 2.43 K/uL (1.40-6.50) 02/04/24 06:53 Lymph # (Auto) 0.75 K/uL (1.20-3.40) L 02/04/24 06:53 [place] # (Auto) 0.43 K/uL (0.11-0.59) 02/04/24 06:53 Eos # (Auto) 0.18 K/uL (0.00-0.50) 02/04/24 06:53 Baso # (Auto) 0.03 K/uL (0.00-0.20) 02/04/24 06:53 Immature Gran # (Auto) 0.19 K/uL (0.01-0.20) 02/04/24 06:53 Absolute Nucleated RBC 0.06 K/uL (0.00-0.12) 02/04/24 06:53 Nucleated RBC % (auto) 1.5 % 02/04/24 06:53 Polychromasia 1+ 02/03/24 07:09 Tear Drop Cells 1+ 02/03/24 07:09 Ovalocytes 1+ 02/03/24 07:09 PT 11.9 Seconds (9.0-12.0) 01/31/24 13:15 INR 1.1 (0.9-1.1) 01/31/24 13:15 APTT 24 Seconds (21-31) 01/31/24 13:15 PTT Ratio 0.9 01/31/24 13:15 Sodium 137 mmol/L (136-145) 02/03/24 07:09 Potassium 3.8 mmol/L (3.5-5.1) 02/03/24 07:09 Chloride 108 mmol/L (98-107) H 02/03/24 07:09 Carbon Dioxide 20 mmol/L (21-32) L 02/03/24 07:09 Anion Gap 9 (3-11) 02/03/24 07:09 BUN 10 mg/dl (6-23) 02/03/24 07:09 Creatinine 0.83 mg/dl (0.6-1.2) 02/03/24 07:09 Est Cr Clr Drug Dosing 61.2 ml/min 02/03/24 07:09 Est GFR ( Amer) 90.7 ml/min 02/03/24 07:09 Est GFR (Non-Af Amer) 78.3 ml/min 02/03/24 07:09 BUN/Creatinine Ratio 12.0 (10-20) 02/03/24 07:09 Glucose 142 mg/dl (70-99(Fasting)) H 02/03/24 07:09 POC Glucose 128 mg/dl (70-99) H 02/04/24 07:41 Estimat Average Glucose 131 mg/dl 02/01/24 04:51 Hemoglobin A1c 6.2 % (4.5-5.6) H 02/01/24 04:51 Lactate 1.2 mmol/L (0.4-2.0) 01/31/24 20:38 Calcium 8.4 mg/dl (8.6-10.3) L 02/03/24 07:09 Phosphorus 3.2 mg/dl (2.5-4.9) 02/03/24 07:09 Magnesium 1.8 mg/dl (1.7-2.4) 02/03/24 07:09 Iron 20 mcg/dl (35-150) L 02/03/24 07:09 Ferritin 15.2 ng/ml (8-388) 02/03/24 07:09 Total Bilirubin 0.4 mg/dl (0.2-1.0) 02/02/24 03:47 AST 33 U/L (13-39) 02/02/24 03:47 ALT 24 U/L (7-52) 02/02/24 03:47 Alkaline Phosphatase 17 U/L (34-104) L 02/02/24 03:47 Troponin I High Sens 750.2 pg/ml (0-14) H* D 02/03/24 07:09 B-Natriuretic Peptide 252 pg/ml (0-100) H 01/31/24 20:37 Total Protein 5.3 gm/dl (6.0-8.3) L 02/02/24 03:47 Albumin 2.9 gm/dl (3.4-5.0) L 02/02/24 03:47 Globulin 2.4 gm/dl (2.5-4.0) L 02/02/24 03:47 Albumin/Globulin Ratio 1.2 (0.9-2) 02/02/24 03:47 Vitamin B12 398 pg/ml (180-914) 02/03/24 07:09 Folate 18.45 ng/ml (>5.38) 02/03/24 07:09 Procalcitonin 0.10 ng/ml (0-0.5) 01/31/24 13:15 TSH 0.012 uIu/ml (0.300-4.500) L 02/01/24 04:51 Free T4 1.22 ng/dl (0.61-1.60) 02/01/24 04:51 Urine Color Yellow 01/31/24 17:38 Urine Appearance Clear (Clear) 01/31/24 17:38 Urine pH 6.0 (4.5-7.5) 01/31/24 17:38 Ur Specific [place] 1.042 (1.000-1.030) H 01/31/24 17:38 Urine Protein Negative (Negative) 01/31/24 17:38 Urine Glucose (UA) 3+ (Negative) H 01/31/24 17:38 Urine Ketones Negative (Negative) 01/31/24 17:38 Urine Blood Trace (Negative) H 01/31/24 17:38 Urine Nitrite Negative (Negative) 01/31/24 17:38 Urine Bilirubin Negative (Negative) 01/31/24 17:38 Urine Urobilinogen Negative (Negative) 01/31/24 17:38 Ur Leukocyte Esterase Negative (Negative) 01/31/24 17:38 Urine WBC (Auto) 0-5 /hpf (0-5) 01/31/24 17:38 Urine RBC (Auto) 0-2 /hpf (0-2) 01/31/24 17:38 U Hyaline Cast (Auto) 0-2 /lpf (0-2) 01/31/24 17:38 U Epithel Cells (Auto) 3-5 /hpf (0-2) H 01/31/24 17:38 Urine Bacteria (Auto) None Seen (None Seen) 01/31/24 17:38 Urine Osmolality 499 mOsm/kg (500-800) L 01/31/24 17:38 Ur Random Creatinine 22.0 mg/dl 01/31/24 17:38 Ur Random Sodium 57 mmol/L 01/31/24 17:38 Ur Random Potassium 33.8 mmol/L 01/31/24 17:38 Ur Random Chloride 68 mmol/L 01/31/24 17:38 Nasal Screen MRSA (PCR) Negative (Negative) 01/31/24 18:40 Adenovirus (PCR) Not Detected (NotDetected) 01/31/24 13:55 B. pertussis DNA (PCR) Not Detected (NotDetected) 01/31/24 13:55 B.parapertussis DNA PCR Not Detected (NotDetected) 01/31/24 13:55 C. pneumoniae DNA (PCR) Not Detected (NotDetected) 01/31/24 13:55 Coronavirus OC43 (PCR) Not Detected (NotDetected) 01/31/24 13:55 Coronavirus HKU1 (PCR) Not Detected (NotDetected) 01/31/24 13:55 Coronavirus 229E (PCR) Not Detected (NotDetected) 01/31/24 13:55 SARS-CoV-2 (PCR) Not Detected (NotDetected) 01/31/24 13:55 Coronavirus NL63 (PCR) Not Detected (NotDetected) 01/31/24 13:55 Human Metapneumovir PCR Not Detected (NotDetected) 01/31/24 13:55 Influenza Type A (PCR) Not Detected (NotDetected) 01/31/24 13:55 Influenza Type B (PCR) Not Detected (NotDetected) 01/31/24 13:55 M. pneumoniae (PCR) Not Detected (NotDetected) 01/31/24 13:55 Parainfluenza 1 (PCR) Not Detected (NotDetected) 01/31/24 13:55 Parainfluenza 2 (PCR) Not Detected (NotDetected) 01/31/24 13:55 Parainfluenza 3 (PCR) Not Detected (NotDetected) 01/31/24 13:55 Parainfluenza 4 (PCR) Not Detected (NotDetected) 01/31/24 13:55 RSV (PCR) Not Detected (NotDetected) 01/31/24 13:55 Entero/Rhino (PCR) DETECTED (NotDetected) A 01/31/24 13:55 Blood Type O Negative 01/31/24 13:04 Blood Type Recheck O Negative 01/31/24 14:15 Antibody Screen NEGATIVE 01/31/24 13:04 Crossmatch See Detail 01/31/24 13:04 Impressions Abdomen/Pelvis CTA 01/31/24 14:49 CT ANGIOGRAM OF THE ABDOMEN AND PELVIS CLINICAL HISTORY: GI bleeding. Hypotension. COMPARISON STUDY: Abdominal CT dated 12/20/2018. TECHNIQUE: Following the IV administration of 120 cc of Optiray 320, CT angiogram of the abdomen and pelvis was performed from the lung bases the proximal femora. Images are reviewed in the axial, sagittal, and coronal planes. 3-D MIPS images are created and assessed. IV contrast was administered without complication. A dose lowering technique was utilized adhering to the principles of ALARA. FINDINGS: Lower chest: The heart is top normal in size and without pericardial effusion. The coronary arteries are densely calcified. The lung bases are clear noting bibasilar scarring/atelectasis. Liver: The contrast-enhanced liver is normal in size, contour, and attenuation. There is no intrahepatic biliary ductal dilatation. Gallbladder: Surgically absent noting clips in the gallbladder fossa. Spleen: Normal in size and attenuation noting heterogeneous arterial phase enhancement. There are calcified splenic granulomas. Pancreas: Unremarkable. Adrenal glands: Unremarkable. Kidneys: There is markedly asymmetric cortical atrophy of the left kidney as compared to the right. No hydronephrosis is seen. The right kidney enhances normally. There is diminished enhancement of the left kidney. A 2 cm exophytic cyst is seen on the left. 11 mm cyst arises from the right kidney. Abdominal aorta and iliac arteries: There is advanced atherosclerotic calcification and mild ectasia of the abdominal aorta. The abdominal aorta is widely patent. No dissection is seen. Diffuse intimal thickening is unchanged from previous. There is advanced atherosclerotic plaque and irregularity throughout the iliac arteries. The common iliac arteries are patent, as are the bilateral external iliac arteries. The right internal iliac artery is patent. There are thrombosed branches of the left internal iliac artery. Imaged portions of the common femoral and superficial femoral arteries are patent bilaterally noting advanced atherosclerotic plaque and irregularity. There is high-grade stenosis with near complete occlusion of the proximal left superficial femoral artery seen on axial image #378. Soft tissue thickening throughout the abdominal aorta and iliac arteries is similar to previous. Major branches of the abdominal aorta: The celiac trunk, superior mesenteric, and inferior mesenteric arteries are patent. There is advanced atherosclerotic plaque throughout the superior mesenteric artery which causes diffuse stenosis measures up to 50%. There is a large accessory left lobe hepatic artery which arises from the left gastric artery. The splenic artery is patent including diffuse atherosclerotic plaque and irregularity with corresponding luminal narrowing. There is severe stenosis distally seen on axial image #69. There are 2 right renal arteries which are patent. There is a single left renal artery. The proximal vessel is patent. There is near-complete complete chronic occlusion of the mid to distal portions of the vessel with at most trace flow. Bowel: There are scattered colonic diverticula without CT evidence of acute diverticulitis. No bowel obstruction is seen. [id number] fecal retention is noted throughout the colon. The appendix is well-visualized and normal. Peritoneum: There is no intraperitoneal free air or abdominal ascites. There is a fat-containing umbilical hernia. Lymphadenopathy: None. Pelvic viscera: The bladder, uterus, and adnexa are normal as visualized. Skeletal structures: The skeletal structures are heterogeneously osteopenic. There is mild to moderate lumbosacral spondylosis. No lytic or blastic bony lesion is seen. IMPRESSION: 1. No acute infectious or inflammatory findings are identified in the abdomen or pelvis. 2. Advanced atheromatous change is seen throughout the abdominal aorta. No aneurysm or dissection is identified. 3. 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 4. There are thrombosed branches of the left internal iliac artery. 5. Diffuse atherosclerotic plaque and luminal narrowing is seen throughout the superior mesenteric artery. This causes a 50% stenosis. 6. Diffuse soft tissue thickening around the abdominal aorta and proximal iliac arteries is unchanged. This may be related to the degree of atherosclerosis. Superimposed retroperitoneal fibrosis would be impossible to exclude. 7. Additional findings as above. ACT 112: Negative or not required by law. Electronically signed by: Harjinder Molina M.D. 01/31/2024 4:00 PM Chest CTA 01/31/24 14:49 CT angio chest dissec wo/w con HISTORY: 58 years-old Female chest pain radiating into back; GI bleed; hypoten COMPARISON: CT abdomen and pelvis of same day, CTA chest 08/08/2019 TECHNIQUE: CTA of the chest was obtained with and without IV contrast. 3-D coronal and sagittal maps were obtained and submitted for review. All measurements were obtained according to NASCET criteria. A dose lowering technique was used consistent with the principals of IDANIA. FINDINGS: CTA: Mild cardiomegaly. No pericardial effusion. There is no mediastinal or intramural hematoma. Extensive coronary artery calcifications. Atherosclerosis of the aorta without aneurysm or dissection. 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 No pulmonary emboli identified. Evaluation of the segmental and subsegmental branches however is limited secondary to respiratory motion. CT CHEST: No thyroid nodule. Calcified mediastinal and hilar lymph nodes. No pneumothorax, pleural effusion, airspace consolidation or suspicious pulmonary nodule. Bronchial and intralobular septal thickening. 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 Atrophic left kidney with exophytic cyst. Cholecystectomy. Calcified granulomata of the spleen. Asymmetry of the right retroareolar tissues. No acute fracture. IMPRESSION: 1. Cardiomegaly with extensive coronary artery calcifications. 2. No acute aortic pathology or pulmonary emboli identified. 3. Equivocal mild pulmonary edema without pleural effusion. 4. Prior granulomatous disease. 5. Severely atrophic left kidney. 6. Asymmetric retroareolar right breast asymmetry is similar to the study from 2019 and could be correlated with mammogram. ACT 112: Negative or not required by law. The above report was generated using voice recognition software. It may contain grammatical, syntax or spelling errors. Electronically signed by: Tavo Walton M.D. 01/31/2024 3:38 PM Pending Results Patient Have Any Pending Studies at Discharge: No Discharge Instructions Given to Patient (Per Discharging Provider) PLEASE REFER TO YOUR NEW MEDICATION LIST AND FOLLOW INSTRUCTIONS CAREFULLY. YOUR NEW MEDICATIONS INCLUDE: Protonix-antacid to prevent stomach bleeds Ferrous sulfate-iron supplementation Do not take Xarelto for now. Your primary care physician will be advising you on when to restart Xarelto. Stop taking lisinopril. Reduce metoprolol from 100 mg to 50 mg daily. This is to prevent low blood pressure. Change omeprazole to pantoprazole. Always take pantoprazole at least 30 minutes before your first meal of the day. Avoid acidic, spicy foods/beverages, no alcohol or smoking. Do not take medications under the class of NSAIDs including ibuprofen, naproxen, etc. PLEASE CALL YOUR PRIMARY CARE PHYSICIAN OR RETURN TO THE ER IF WITH WORSENING OF SYMPTOMS, INCLUDING Abdominal pain, nausea vomiting, black or bloody stools, etc. FOLLOW UP WITH PRIMARY CARE PHYSICIAN OUTLINED ABOVE. Take care! Total Time Total Time Spent Total Time Spent (In Minutes): 45 minutes
== END 2024-02-04 11:29 | disposition home or self-care (01) | DRG 377 ==
LOC: ED 12:40 → 1E 16:30 → SUATTDRO 16:30 → 1E 17:54 → 2E 02-02 21:00